=== PATIENT | male | born 1945 | race Caucasian/White ===

== ENCOUNTER 2016-08-11 06:43 | Outpatient (CLI) | payer MEDICARE, MEDICAID ==
[~2016-08-11] VITALS: Ht 177.8 cm; Wt 119.4 kg
[~2016-08-11 06:43] MED LIST: ACTOS15 MG PO; ALBU8.5H2 IH; ALBU8.5H2 INH; ALBU8.5H4 IH; ALLP100T PO; AZIT-21 PO; BUDE6HFA INH; CEFD300C PO; CEPH500C PO; CITA-105 PO; CITA40TA19 PO; CLIN300C3 PO; CTLP20T PO; CYCL10TA9 PO; DCS100C PO; DOXA4TAB2 PO; ENOX100D9 SQ; FENTANYL PATCH; FISH OIL 1,2001 EAC1 PO; FOLI0.8T PO; FURO40TA4 PO; GABA-488 PO; GABA100T PO; GABA300C PO; GABA300T PO; GFCD10B PO; GFN600TCR PO; GLIP5TAB13 PO; HCT25T PO; IBUP-30 PO; INDO-12 PO; INDO25CA PO; INDO50CA PO; LACTAID9000 UNIT PO; LEVO150T6 PO; LEVO175T3 PO; LEVO750T24 PO; LEVO750T6 PO; LISI10TA2 PO; LISI2.5T56 PO; LISI5TAB PO; LTN005OP2 OU; LVT.05T PO; LVT.1T PO; MAGN-47 PO; MELO7.5T PO; METAMUCIL POWD283 GM PO; METO25TA PO; MNTL10T PO; MONT10TA21 PO; MONT10TA24 PO; OMEP20CA12 PO; OMG1KC PO; OXC10TCR PO; OXYC-188 PO; OXYC10TA8 PO; OXYC15TA73 PO; OXYC1TAB92 PO; OXYC20TA63 PO; PIOG15TA22 PO; POTA10CA43 PO; POTA10TA36 PO; PRAV40TA PO; PRD20T PO; PRED20TA PO; PSYL1PAC15 PO; SIMV20TA3 PO; SULF-222 PO; SULF1TAB38 PO; TMSL.4C PO; VIT D; VITAMIN D2 PO; WARF2TAB6 PO; WARF5TAB PO; WARF6TAB PO; WARF7.5T PO; WRF2.5T PO; WRF5T PO; [UNRECOGNIZED DRUG - OTHER]
== END 2016-08-11 13:26 ==
LOC: PREOP 06:43
PROVIDERS: ATTEND Surgery
DX: Z01.818 Encounter for other preprocedural examination (principal); K62.5 Hemorrhage of anus and rectum

== ENCOUNTER 2016-08-15 09:32 | Day surgery (SDC) | payer MEDICARE, MEDICAID ==
[~2016-08-15] VITALS: Ht 177.8 cm; Wt 119.4 kg
[2016-08-15] MEDS ORDERED: NS IV 500 ML 500 ML ONE (09:48)
[2016-08-15 10:00] VITALS: BP 159/105
[2016-08-15] MEDS ORDERED: NS IV 500 ML 500 ML IV ONE (10:00)
[2016-08-15] MEDS ORDERED: fentaNYL INJECTION 100 MCG/2 ML AMP ONE (10:02)
[2016-08-15] MEDS ORDERED: MIDAZOLAM 2 MG/2 ML (VERSED) VIAL ONE ×2 (10:02)
--- NOTE | 2016-08-15 10:06 | Pre-Op Note & Conscious Sedat ---
Pre-Operative Progress Note H&P Reviewed The H&P was reviewed, patient examined and no changes noted. Date H&P Reviewed: Aug 15, 2016 Time H&P Reviewed: 10:05 Pre-Op Diagnosis: rectal bleeding Conscious Sedation Pre-Proced ASA Class: 3 Airway Mallampati Classification: ([place] appropriate class) I. II. III, IV Lungs Heart ASA score ASA 1: a normal healthy patient ASA 2: a patient with a mild systemic disease (mid diabetes, controlled hypertension, obesity ASA 3: a patient with a severe systemic disease that limits activity (angina , COPD, prior Myocardial infarction) ASA 4: a patient with an incapacitating disease that is a constant threat to life (CHF, renal failure) ASA 5: a moribund patient not expected to survive 24 hrs. (ruptured aneurysm) ASA 6: a declared brain patient whose organs are being harvested. For emergent operations, add the letter E after the classification Grade 2 Sedation Plan: Discussed options with patient/fam Note The patient is an appropriate candidate to undergo the planned procedure, sedation, and anesthesia. The patient immediately re-assessed prior to indication. CECILLE CALDERÓN MD Aug 15, 2016 10:05 am
[2016-08-15] MEDS: fentaNYL INJECTION 100 MCG/2 ML AMP IVP PRN ×2 (10:25→10:32)
[2016-08-15] MEDS: MIDAZOLAM 10 MG/2 ML (VERSED) VIAL IVP PRN ×2 (10:27→10:34)
--- NOTE | 2016-08-15 10:57 | Progress Note-Post Operative ---
Post-Operative Progess Note Pre-Operative Diagnosis rectal bleeding Post-Operative Diagnosis iinternal hemorrhoids and very few sigmoid diverticula Post-Op Procedure Note Date of Procedure: Aug 15, 2016 Name of Procedure: ccolonoscopy to cecum Anesthesia Type sedation CECILLE CALDERÓN MD Aug 15, 2016 10:57 am
--- NOTE | 2016-08-15 10:59 | Discharge Inst-Simple/Standard ---
Discharge Inst-Standard Discharge Medications New, Converted or Re-Newed RX: Other Patient Instructions/Follow Up Plan of Care/Instructions/FU: follow up with his primary Activity as Tolerated: Yes Discharge Diet: No Restrictions CECILLE CALDERÓN MD Aug 15, 2016 10:58 am
[2016-08-15 11:00] VITALS: BP 140/84
--- NOTE | 2016-08-15 11:17 | PROCEDURE REPORT ---
PROCEDURE PHYSICIAN: CECILLE CALDERÓN DATE OF PROCEDURE: 08/15/2016 PROCEDURE: Colonoscopy. SURGEON: Ernie INDICATION FOR THE PROCEDURE: This gentleman came in for colonoscopy to evaluate heme-positive stools. Informed consent was obtained after reviewing the procedure in detail. DESCRIPTION OF PROCEDURE: He was placed in left lateral decubitus position and his vital signs were monitored. Conscious sedation was achieved using Versed and fentanyl. Digital rectal examination was unremarkable. The colonoscope was then introduced into the rectum and advanced all the way up to the cecum. The scope was then withdrawn slowly and the mucosa examined in a systematic fashion. FINDINGS: 1. Internal hemorrhoids rather mild severity. 2. Very few sigmoid diverticulae. 3. No polyps were found. He tolerated the procedure well and was taken back to the nursing area in a stable condition. IMPRESSION: 1. Heme positive stools. 2. No polyps. 3. Internal hemorrhoids on exam. Job ID: [id number] Dictated Date: 08/15/2016 10:56:30 Carpenter Inspector Date: 08/15/2016 11:13:12 / mariam CULVER
[2016-08-15 11:30] VITALS: BP 141/81
[2016-08-15] MEDS ORDERED: FLUMAZENIL (ROMAZICON) 0.1 MG/ML 5 ML VIAL INJ PRN (11:30)
[2016-08-15] MEDS ORDERED: fentaNYL INJECTION 100 MCG/2 ML AMP IVP PRN (11:30)
[2016-08-15] MEDS ORDERED: NALOXONE 0.4 MG/ML 1 ML (NARCAN) VIAL IVP PRN (11:30)
[2016-08-15] MEDS ORDERED: MIDAZOLAM 2 MG/2 ML (VERSED) VIAL IVP PRN (11:30)
[2016-08-15 11:55] VITALS: BP 141/81
== END 2016-08-15 11:55 | disposition home or self-care (01) ==
LOC: SDC 09:32
PROVIDERS: ATTEND Surgery
DX: K64.8 Other hemorrhoids (principal); R19.5 Other fecal abnormalities; K57.90 Diverticulosis of intestine, part unspecified, without perforation or abscess without bleeding; I10 Essential (primary) hypertension; F32.9 Major depressive disorder, single episode, unspecified; E03.9 Hypothyroidism, unspecified; M10.9 Gout, unspecified; E11.9 Type 2 diabetes mellitus without complications; K62.5 Hemorrhage of anus and rectum
CPT/HCPCS: 82962

== ENCOUNTER → 2016-11-28 | Outpatient (CLI) | payer MEDICARE, MEDICAID ==
--- NOTE | 2016-11-28 18:59 | Diagnostic Imaging Report ---
PROCEDURE: US left lower extremity venous. TECHNIQUE: Multiple real-time grayscale images were obtained over the left lower extremity in various projections. Additional duplex Doppler and color Doppler images were also obtained. DATE: November 28, 2016. INDICATION: 71-year-old male, lower extremity edema. COMPARISON: March 22, 2010. FINDINGS: The left common femoral vein, superficial femoral vein, and deep femoral vein are patent. The left popliteal vein is patent. The left posterior tibial vein is patent. The left peroneal vein is not well demonstrated. IMPRESSION: 1. Negative for left lower extremity deep venous thrombosis. Dictated by: Dictated on workstation # [id number]
== END ==
LOC: RAD 18:09
PROVIDERS: ATTEND Nurse Practitioner Family
DX: R60.9 Edema, unspecified (principal)

== ENCOUNTER 2017-02-21 13:16 | Emergency (ER) | payer MEDICARE, MEDICAID ==
[~2017-02-21] VITALS: Ht 177.8 cm; Wt 119.4 kg
--- NOTE | 2017-02-21 13:31 | ED General ---
General Chief Complaint: Dizziness/Syncope Stated Complaint: SOB,DIZZINESS Source of Information: Patient Exam Limitations: No Limitations History of Present Illness Time Seen by Provider: 13:28 Initial Comments To ER complaint by his with dizziness and shortness of breath. Patient states that he has had the dizziness intermittent late for many years worse than usual today. This caused him to fall 3 times at home this morning. He denies any unilateral weakness. states that he seems to be talking with a and "thick tongue" since sometime this morning but she cannot recall an exact time. Patient states he "sometimes has this" thick tongue like speech. 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 He denies chest pain. Timing/Duration: 1-2 Days Severity: Moderate Allergies and Home Medications Allergies Coded Allergies: No Known Drug Allergies (Unverified , 01/22/10) Home Medications Albuterol 8.5 Gm Hfa.aer.ad, 2 PUFF IH RTQ4HR PRN for SHORTNESS OF BREATH, #1 Ref 0 1 PUFFS Prescribed by: IMAN BATES on 02/23/15 1628 Budesonide/Formoterol Fumarate 10.2 Gm Hfa.aer.ad, 2 PUFF INH HS, (Reported) Citalopram Hydrobromide 40 Mg Tablet, 40 MG PO DAILY, (Reported) Cyclobenzaprine Hcl 10 Mg Tablet, 10 MG PO Q8H, (Reported) Docusate Sodium 100 Mg Capsule, 400 MG PO BID, (Reported) TAKES 4 (100MG) CAPSULES TWICE DAIILY Furosemide 40 Mg Tablet, 40 MG PO DAILY, #0 Prescribed by: RONALD KAM on 12/11/13 1056 Gabapentin 300 Mg Capsule, 300 MG PO BID, (Reported) Glipizide 5 Mg Tablet, 2.5 MG PO BID, (Reported) TAKES 1/2 (5MG) TABLET TWICE DAILY Lactase 9,000 Unit Tab.chew, 3 TAB PO PRN, (Reported) TAKES 3 TABLETS BEFORE EATING ANY DAIRY PRODUCTS Levothyroxine Sodium 175 Mcg Tablet, 175 MCG PO DAILY, (Reported) Metoprolol Succinate 25 Mg Tab.sr.24h, 25 MG PO HS, (Reported) Montelukast Sodium 10 Mg Tablet, 10 MG PO HS, (Reported) Montelukast Sodium 10 Mg Tablet, 10 MG PO DAILY, (Reported) Pravastatin Sodium 40 Mg Tablet, 40 MG PO HS, (Reported) Warfarin Sodium 7.5 Mg Tablet, 7.5 MG PO DAILY, (Reported) [Fentanyl Patch] , EVERY 3 DAYS, (Reported) [cholchicine] , 0.6 MG BID, (Reported) Constitutional: see HPI EENTM: see HPI Respiratory: no symptoms reported Cardiovascular: no symptoms reported Genitourinary: no symptoms reported Musculoskeletal: no symptoms reported Skin: no symptoms reported Psychiatric/Neurological: No Symptoms Reported Hematologic/Lymphatic: No Symptoms Reported Past Zbktswa-Kymkqx-Ugaepw Hx Patient Social History Recent Hopitalizations: No Immunizations Up To Date Tetanus Booster (TDap): More than 5yrs Date of Pneumonia Vaccine: Aug 14, 2007 Date of Influenza Vaccine: May 07, 2016 Seasonal Allergies Seasonal Allergies: No Surgeries HX Surgeries: Yes ( HIATAL HERNIA REPAIR, TURP, danelle filter, bilat CTR and thumb sx) Surgeries: Appendectomy, Gallbladder, Orthopedic, Tonsillectomy Respiratory Hx Respiratory Disorders: Yes Respiratory Disorders: Asthma, Pneumonia, Chronic Bronchitis Cardiovascular Hx Cardiac Disorders: Yes Cardiac Disorders: Deep Vein Thrombosis, Hypertension Neurological Hx Neurological Disorders: No Reproductive System Hx Reproductive Disorders: No Sexually Transmitted Disease: No HIV/AIDS: No Genitourinary Hx Genitourinary Disorders: Yes (BPH) Genitourinary Disorders: Benign Prostatic Hyperpl Gastrointestinal Hx Gastrointestinal Disorders: Yes (rectal bleeding) Gastrointestinal Disorders: Chronic Constipation, Chronic Diarrhea, Hiatal Hernia Musculoskeletal Hx Musculoskeletal Disorders: Yes Musculoskeletal Disorders: Arthritis, Chronic Back Pain, Gout Endocrine Hx Endocrine Disorders: Yes Endocrine Disorders: Hypothyroidsim, Diabetes, Non-Insulin dep HEENT HX ENT Disorders: Yes HEENT Disorders: Glaucoma Hearing Impairment: Hard of Hearing Cancer Hx Cancer: No Psychosocial Hx Psychiatric Problems: Yes Behavioral Health Disorders: Depression Integumentary HX Skin/Integumentary Disorder: No Blood Transfusions Hx Blood Disorders: No Family Medical History Significant Family History: No Pertinent Family Hx Family Medial History: Cancer Chest pain Family history: Alzheimer's disease Family history: Arthritis Family history: Asthma Family history: Cardiovascular disease Family history: Coronary thrombosis Family history: Diabetes mellitus Family history: Hypertension Family history: Thyroid disorder Hearing loss Heart disease History of - respiratory disease Myocardial infarction Stroke Visual impairment No Family History of: Abdominal aortic aneurysm Gil's disease Alcoholism Aphasia Cancer of colon Cataract Congenital heart disease Congestive heart failure Cystic fibrosis Dementia Dysphagia Family history: Allergy Family history: Breast disease Family history: Gastrointestinal disease Family history: Glaucoma Family history: Osteoporosis Headache Hereditary disease History of - anemia History of - disorder History of drug abuse Human immunodeficiency virus (HIV) seropositivity Hypercholesterolemia Infertile Kidney disease Malignant neoplasm of lung Parkinson's disease Prostate cancer Psychotic disorder Seizure disorder Tuberculosis Physical Exam Vital Signs Vital Sign - Last 12Hours 02/21/17 13:19 Temp 98.9 Pulse 87 Resp 8 B/P (MAP) 150/93 Pulse Ox 97 O2 Delivery Room Air Capillary Refill : General Appearance: No Apparent Distress, WD/WN Eyes: Bilateral Eye EOMI, Bilateral Eye Normal Inspection, Bilateral Eye Other (no nystagmus), Bilateral Eye PERRL HEENT: PERRL/EOMI, TMs Normal Respiratory: No Accessory Muscle Use, No Respiratory Distress Cardiovascular: Regular Rate, Rhythm, Normal Peripheral Pulses Gastrointestinal: Non Tender, Soft, Other (he does have significantly engorged superficial abdominal veins--would suspect an IVC filter thrombus) Extremity: Normal Capillary Refill, Normal Inspection, Normal Range of Motion, Other (swelling with venous stasis to BLE) Neurologic/Psychiatric: Alert, Oriented x3, No Motor/Sensory Deficits Skin: Normal Color, Warm/Dry Progress/Results/Core Measures Results/Orders Lab Results Laboratory Tests Test 02/21/17 13:25 Range/Units White Blood Count 10.1 4.3-11.0 10^3/uL Red Blood Count 4.90 4.35-5.85 10^6/uL Hemoglobin 13.7 13.3-17.7 G/DL Hematocrit 44 40-54 % Mean Corpuscular Volume 91 80-99 FL Mean Corpuscular Hemoglobin 28 25-34 PG Mean Corpuscular Hemoglobin Concent 31 L 32-36 G/DL Red Cell Distribution Width 15.3 H 10.0-14.5 % Platelet Count 233 130-400 10^3/uL Mean Platelet Volume 9.6 7.4-10.4 FL Neutrophils (%) (Auto) 56 42-75 % Lymphocytes (%) (Auto) 25 12-44 % Monocytes (%) (Auto) 12 0-12 % Eosinophils (%) (Auto) 6 0-10 % Basophils (%) (Auto) 1 0-10 % Neutrophils # (Auto) 5.7 1.8-7.8 X 10^3 Lymphocytes # (Auto) 2.5 1.0-4.0 X 10^3 Monocytes # (Auto) 1.2 H 0.0-1.0 X 10^3 Eosinophils # (Auto) 0.6 H 0.0-0.3 10^3/uL Basophils # (Auto) 0.1 0.0-0.1 10^3/uL Prothrombin Time 17.1 H 12.2-14.7 SEC INR Comment 1.4 0.8-1.4 Sodium Level 141 135-145 MMOL/L Potassium Level 4.6 3.6-5.0 MMOL/L Chloride Level 109 H 98-107 MMOL/L Carbon Dioxide Level 24 21-32 MMOL/L Anion Gap 8 5-14 MMOL/L Blood Urea Nitrogen 17 7-18 MG/DL Creatinine 1.25 0.60-1.30 MG/DL Estimat Glomerular Filtration Rate 57 BUN/Creatinine Ratio 14 Glucose Level 121 H 70-105 MG/DL Calcium Level 8.8 8.5-10.1 MG/DL Total Bilirubin 0.4 0.1-1.0 MG/DL Aspartate Amino Transf (AST/SGOT) 23 5-34 U/L Alanine Aminotransferase (ALT/SGPT) 22 0-55 U/L Alkaline Phosphatase 105 40-136 U/L Troponin I < 0.30 <0.30 NG/ML B-Type Natriuretic Peptide 67.7 <100.0 PG/ML Total Protein 7.3 6.4-8.2 GM/DL Albumin 3.9 3.2-4.5 GM/DL My Orders Orders - JERRI BENZ APRN Cbc With Automated Diff (02/21/17 13:27) Protime With Inr (02/21/17 13:27) Comprehensive Metabolic Panel (02/21/17 13:27) Troponin I (02/21/17 13:27) Continuous Ekg Monitoring (02/21/17 13:27) Chest 1 View, Ap/Pa Only (02/21/17 13:27) Ct Head Wo (02/21/17 13:27) Meclizine Tablet (Antivert Tablet) (02/21/17 13:45) Iohexol Injection (Omnipaque 350 Mg/Ml 1 (02/21/17 13:45) Sodium Chloride Flush (Catheter Flush Sy (02/21/17 13:45) Ns (Ivpb) (Sodium Chloride 0.9% Ivpb Bag (02/21/17 13:45) Ua Culture If Indicated (02/21/17 13:53) BNP (02/21/17 14:11) Medications Given in ED Current Medications Medications Dose Ordered Sig/Parveen Route Start Time Stop Time Status Last Admin Dose Admin Meclizine HCl 25 mg ONCE ONCE PO 02/21/17 13:45 02/21/17 13:46 DC 02/21/17 14:10 25 MG Vital Signs/I&O Vital Sign - Last 12Hours 02/21/17 13:19 Temp 98.9 Pulse 87 Resp 8 B/P (MAP) 150/93 Pulse Ox 97 O2 Delivery Room Air Diagnostic Imaging Diagonstic Imaging: CT Comments NAME: THERESE ANG [facility] REC#: [id number] PT STATUS: REG ER : 1945 PHYSICIAN: JERRI BENZ APRN ADMIT DATE: 02/21/17/ER Draft Date of Exam:02/21/17 CT HEAD WO INDICATION: Confusion. Headache. TECHNIQUE: Routine non contrast-enhanced axial images were obtained from the skull base to the vertex. COMPARISON: 12/08/2013 FINDINGS: The ventricles and cortical sulci are diffusely prominent, compatible with age-related volume loss. There are confluent areas of abnormal, low attenuation in the periventricular white matter. This is consistent with chronic small vessel ischemic changes. There is no midline shift or mass-effect. No acute intra-axial hemorrhage is seen. There are no abnormal areas of increased or decreased density to suggest acute hemorrhage or edema. No extra-axial masses or collections are present. The bony calvarium is intact. The visualized paranasal sinuses show mild scattered mucosal thickening. The mastoid air cells are clear. IMPRESSION: 1. No acute intracranial abnormality. No CT evidence of mass, acute infarct or intracranial hemorrhage. 2. Chronic small vessel ischemic changes in the deep white matter. Dictated on workstation # [id number] Dict: 02/21/17 1358 Trans: 02/21/17 1402 DELTA [id number] Interpreted by: GIO LUKE Electronically signed by: Departure Communication Progress Notes 1455-40 minutes after being given meclizine patient is ambulatory without dizziness. Impression Impression: Primary Impression: Vertigo Disposition: 01 HOME, SELF-CARE Condition: Stable Departure-Patient Inst. Decision time for Depature: 14:55 Referrals: ZAN CARRENO DO (PCP) Primary Care Physician TANNA NIELSEN (Family) Primary Care Physician Patient Instructions: Vertigo (a Type of Dizziness) (DC) Add. Discharge Instructions: 1. Return to ER for any concerns 2. See your doctor next week 3. All discharge instructions reviewed with patient and/or family. Voiced understanding. Scripts Meclizine HCl (Meclizine HCl) 25 Mg Tab.chew 25 MG PO BID Y for ANXIETY, #10 TAB Prov: JERRI BENZ RUBBER PRESS TENDER 02/21/17 JERRI BENZ RUBBER PRESS TENDER Feb 21, 2017 13:31
[2017-02-21 13:33] LABS: BASOPHILS # (AUTO) 0.1 10^3/uL (0.0-0.1); BASOPHILS % (AUTO) 1 % (0-10); EOSINOPHILS # (AUTO) 0.6 10^3/uL (0.0-0.3); EOSINOPHILS % (AUTO) 6 % (0-10); LYMPHOCYTES # (AUTO) 2.5 X 10^3 (1.0-4.0); LYMPHOCYTES % (AUTO) 25 % (12-44); MEAN CORPUSCULAR HEMOGLOBIN 28 PG (25-34); MEAN CORPUSCULAR HGB CONC 31 G/DL (32-36); MEAN CORPUSCULAR VOLUME 91 FL (80-99); MEAN PLATELET VOLUME 9.6 FL (7.4-10.4); MONOCYTES # (AUTO) 1.2 X 10^3 (0.0-1.0); MONOCYTES % (AUTO) 12 % (0-12); NEUTROPHILS # (AUTO) 5.7 X 10^3 (1.8-7.8); NEUTROPHILS % (AUTO) 56 % (42-75); PLATELET COUNT 233 10^3/uL (130-400); RED CELL DISTRIBUTION WIDTH 15.3 % (10.0-14.5); WHITE BLOOD COUNT 10.1 10^3/uL (4.3-11.0)
[2017-02-21 13:43] LABS: INR 1.4 (0.8-1.4); PROTHROMBIN TIME PATIENT 17.1 SEC (12.2-14.7)
--- NOTE | 2017-02-21 13:43 | Diagnostic Imaging Report ---
Portable upright radiograph of the chest. INDICATION: Shortness of breath and dizziness. FINDINGS: There are bibasilar curvilinear opacities favored to be atelectasis. The heart size is normal for an AP portable view. There is no effusion or pneumothorax. The mediastinum and vinh appear unremarkable. IMPRESSION: Mild bibasilar opacities favored to be atelectasis. Dictated by: Dictated on workstation # [id number]
[2017-02-21] MEDS ORDERED: CATHETER FLUSH 10 ML SYR IV PRN (13:45)
[2017-02-21] MEDS ORDERED: NS 100 ML (IVPB) BAG IV ONE (13:45)
[2017-02-21] MEDS ORDERED: IOHEXOL 350 MG/ML 100 ML (OMNIPAQUE 350) VIAL IV ONE (13:45)
[2017-02-21] MEDS ORDERED: MECLIZINE 25 MG (ANTIVERT) TAB PO ONE (13:45)
[2017-02-21 13:51] LABS: ALANINE AMINOTRANSFERASE 22 U/L (0-55); ALBUMIN 3.9 GM/DL (3.2-4.5); ANION GAP 8 MMOL/L (5-14); ASPARTATE AMINO TRANSFERASE 23 U/L (5-34); BILIRUBIN,TOTAL 0.4 MG/DL (0.1-1.0); BLOOD UREA NITROGEN 17 MG/DL (7-18); BUN/CREATININE RATIO 14; CALCIUM 8.8 MG/DL (8.5-10.1); CARBON DIOXIDE 24 MMOL/L (21-32); CHLORIDE 109 MMOL/L (98-107); CREATININE SERUM 1.25 MG/DL (0.60-1.30); GFR ESTIMATED 57; GLUCOSE 121 MG/DL (70-105); POTASSIUM 4.6 MMOL/L (3.6-5.0); SODIUM 141 MMOL/L (135-145); TOTAL PROTEIN 7.3 GM/DL (6.4-8.2)
[2017-02-21 13:57] LABS: TROPONIN I < 0.30 NG/ML (<0.30)
--- NOTE | 2017-02-21 14:03 | Diagnostic Imaging Report ---
INDICATION: Confusion. Headache. TECHNIQUE: Routine non contrast-enhanced axial images were obtained from the skull base to the vertex. COMPARISON: 12/08/2013 FINDINGS: The ventricles and cortical sulci are diffusely prominent, compatible with age-related volume loss. There are confluent areas of abnormal, low attenuation in the periventricular white matter. This is consistent with chronic small vessel ischemic changes. There is no midline shift or mass-effect. No acute intra-axial hemorrhage is seen. There are no abnormal areas of increased or decreased density to suggest acute hemorrhage or edema. No extra-axial masses or collections are present. The bony calvarium is intact. The visualized paranasal sinuses show mild scattered mucosal thickening. The mastoid air cells are clear. IMPRESSION: 1. No acute intracranial abnormality. No CT evidence of mass, acute infarct or intracranial hemorrhage. 2. Chronic small vessel ischemic changes in the deep white matter. Dictated by: Dictated on workstation # [id number]
[2017-02-21] MEDS ORDERED: MECL-124 PO (14:58)
[2017-02-21 14:59] VITALS: BP 150/93
== END 2017-02-21 15:02 | disposition home or self-care (01) ==
LOC: EDUNIT# 13:16 → ER 13:19
DX: R42 Dizziness and giddiness (principal); N40.1 Benign prostatic hyperplasia with lower urinary tract symptoms; F32.9 Major depressive disorder, single episode, unspecified; I10 Essential (primary) hypertension; J44.9 Chronic obstructive pulmonary disease, unspecified; E03.9 Hypothyroidism, unspecified; E11.9 Type 2 diabetes mellitus without complications; M19.90 Unspecified osteoarthritis, unspecified site; Z82.49 Family history of ischemic heart disease and other diseases of the circulatory system; Z87.19 Personal history of other diseases of the digestive system; Z86.718 Personal history of other venous thrombosis and embolism; Z79.01 Long term (current) use of anticoagulants; Z79.84 Long term (current) use of oral hypoglycemic drugs
CPT/HCPCS: 36415; 70450; 71010; 80053; 83880; 84484; 85025; 85610; 99283

== ENCOUNTER → 2018-03-07 | Outpatient (CLI) | payer MEDICARE, MEDICAID ==
[~2018-03-07] MED LIST changes: +CATHETER FLUSH 10 ML SYR IV PRN; +MECL-124 PO; +REGADENOSON 0.4 MG/5 ML SYR (LEXISCAN) IV ONE
[2018-03-07 13:23] VITALS: BP 162/86
[2018-03-07 13:29] VITALS: BP 137/72
--- NOTE | 2018-03-07 18:43 | STRESS TEST ---
DATE OF SERVICE: 03/07/2018 LEXISCAN MYOVIEW STRESS TEST REPORT REFERRING PHYSICIAN: Dr. Anca Collins, [facility]. Baseline heart rate is 63. Baseline blood pressure 162/86. Baseline EKG is sinus rhythm with no ischemic changes with right bundle branch block. SUMMARY: The patient was injected with 10.39 mCi of technetium-99 Myoview and the resting images were obtained. Then, the patient received 0.4 mg of Lexiscan followed by 29.9 mCi of technetium-99 Myoview. Throughout the test, there were no EKG changes. The resting and stress images were reviewed and compared in the short axis, horizontal long axis, and vertical long axis views. Review of the images showed increased gastric uptake affecting the quality of the images. There is no significant ischemia noted. SSS is 2, SDS 2, TID value 1.15. On the gated images, the left ventricle appeared to be in normal size with normal contractility, calculated ejection fraction 53%. CONCLUSION: 1. The patient tolerated Lexiscan well. 2. Gastric attenuation affecting the quality of the images. There is no significant ischemia or infarction on SPECT images. 3. Normal left ventricular size with normal contractility. Calculated ejection fraction 53%. Job ID: [id number] DocumentID: [id number] Dictated Date: 03/07/2018 15:51:32 Engine Room Operator Date: 03/07/2018 18:42:25 Dictated By: THU VINCENT MD
== END ==
LOC: CARD 10:59
PROVIDERS: ATTEND Internal Medicine Cardiovascular Disease
DX: I25.10 Atherosclerotic heart disease of native coronary artery without angina pectoris (principal); R07.9 Chest pain, unspecified; R06.00 Dyspnea, unspecified; I10 Essential (primary) hypertension; E78.5 Hyperlipidemia, unspecified; I08.3 Combined rheumatic disorders of mitral, aortic and tricuspid valves
CPT/HCPCS: 78452; 93017; 93306

== ENCOUNTER 2018-07-05 13:00 | Outpatient (RCR) | payer MEDICARE, MEDICAID ==
[~2018-07-05 13:00] MED LIST changes: -CATHETER FLUSH 10 ML SYR IV PRN; -REGADENOSON 0.4 MG/5 ML SYR (LEXISCAN) IV ONE
== END 2018-07-05 17:00 | disposition home or self-care (01) ==
PROVIDERS: ATTEND Nurse Practitioner Community Health
DX: M54.5 Low back pain (principal)

== ENCOUNTER → 2019-04-09 | Outpatient (CLI) | payer MEDICARE, MEDICAID | LOC: LAB 17:01 | PROVIDERS: ATTEND Surgery | DX: R19.7 Diarrhea, unspecified (principal) | CPT/HCPCS: 87015; 87045; 87046; 87324; 87328; 87329; 87449; 87899 ==

== ENCOUNTER 2019-04-24 14:30 | Outpatient (CLI) | payer MEDICARE, MEDICAID ==
[~2019-04-24] VITALS: Ht 177 cm; Wt 98.6 kg
[2019-04-26] MEDS ORDERED: PRAV40TA2 PO (11:37)
[2019-04-26] MEDS ORDERED: SERT50TA9 PO (11:37)
[2019-04-26] MEDS ORDERED: GABA-488 PO (11:37)
[2019-04-26] MEDS ORDERED: FENT1PAT59 TD (11:37)
[2019-04-26] MEDS ORDERED: COLC0.6T53 PO (11:37)
[2019-04-26] MEDS ORDERED: RIVA20TA PO (11:37)
[2019-04-26] MEDS ORDERED: BUDE10.2 IH (11:37)
[2019-04-26] MEDS ORDERED: DONE5TAB30 PO (11:37)
[2019-04-26] MEDS ORDERED: LEVO150T6 PO (11:37)
[2019-04-26] MEDS ORDERED: MONT10TA24 PO (11:37)
[2019-04-26] MEDS ORDERED: TRIA15CR TP (11:37)
[2019-04-26] MEDS ORDERED: METO-387 PO (11:37)
== END 2019-04-26 11:44 | disposition home or self-care (01) ==
LOC: PREOP 14:30
PROVIDERS: ATTEND Surgery
DX: Z01.818 Encounter for other preprocedural examination (principal)

== ENCOUNTER 2019-04-29 09:33 | Day surgery (SDC) | payer MEDICARE, MEDICAID ==
[2019-04-29] VITALS (7 sets, daily range): BP systolic 94–145; BP diastolic 57–79
[~2019-04-29] VITALS: Ht 177 cm; Wt 98.6 kg
[~2019-04-29 09:33] MED LIST changes: +BUDE10.2 IH; +COLC0.6T53 PO; +DONE5TAB30 PO; +FENT1PAT59 TD; +LACTATED RINGERS 1,000 ML IV ONE; +METO-387 PO; +PRAV40TA2 PO; +RIVA20TA PO; +SERT50TA9 PO; +TRIA15CR TP
[2019-04-29] MEDS ORDERED: LACTATED RINGERS 1,000 ML IV STA (09:46)
[2019-04-29] MEDS ORDERED: HURRICAINE EXT TUBE (BENZOCAINE) XX PRN (10:00)
--- NOTE | 2019-04-29 10:05 | Progress Note-Pre Operative ---
Pre-Operative Progress Note H&P Reviewed The H&P was reviewed, patient examined and no changes noted. Time Seen by Provider: 10:03 Date H&P Reviewed: Apr 29, 2019 Time H&P Reviewed: 10:04 Pre-Operative Diagnosis: Abd pain, weight loss, diarrhea SARA BHAT DO Apr 29, 2019 10:05
[2019-04-29] MEDS ORDERED: OXYC-464 PO (10:13)
[2019-04-29] MEDS ORDERED: PROPOFOL INJECTION 50 ML IV ONE (11:07)
--- NOTE | 2019-04-29 12:16 | Progress Note-Post Operative ---
Post-Operative Progess Note Surgeon (s)/Health Professor (s) Surgeon SARA BHAT DO Health Professor: none Pre-Operative Diagnosis Abd pain, weight loss, diarrhea Post-Operative Diagnosis Gastritis Hiatal Hernia Esophagitis Colitis Polyps diverticula internal hemorrhoids Procedure & Operative Findings Date of Procedure 04/29/19 Procedure Performed/Findings EGD with Bx colon with hot bx Anesthesia Type IV sedation by STONEMASON Estimated Blood Loss Estimated blood loss (mL): scant Specimens/Packing Specimens Removed antral bx body of stomach bx GE jxn bx Cecum bx Ascending colon polyp bx Transverse colon polyp bx SARA BHAT DO Apr 29, 2019 12:16
--- NOTE | 2019-04-29 12:18 | Endoscopy Discharge Instruct ---
Endo Procedure/Findings Findings 1.: Hiatal Hernia, Gastritis 2.: Polyp 3.: Diverticulosis 4.: Internal Hemorrhoids Discharge Instructions - Activity: You might feel a little sleepy until tomorrow. This is due to the medicine you received to relax you. Until tomorrow, you should: NOT drive a car, operate machinery or power tools. NOT drink any alcoholic beverages. NOT make any important decisions or sign importortant papers. Do not return to work until tomorrow, unless otherwise instructed. Resume previous activities tomorrow. Diet: Start by taking liquids. If you tolerate liquids, advance to solid food. make an appointment for one week 1.: Colonscopy in 5 years, EGD in 1 year Notify Physician - If you experience excessive bleeding, unusual abdominal pain, fever, or chest pain, contact your doctor immediately. SARA BHAT DO Apr 29, 2019 12:17
--- NOTE | 2019-04-29 12:44 | Anesthesia-General Post-Op ---
MAC Patient Condition Mental Status/LOC: Same as Preop Cardiovascular: Satisfactory Nausea/Vomiting: Absent Respiratory: Satisfactory Pain: Controlled Complications: Absent Post Op Complications Complications None Follow Up Care/Instructions Patient Instructions None needed. Anesthesiology Discharge Order Discharge Order Patient is doing well, no complaints, stable vital signs, no apparent adverse anesthesia problems. No complications reported per nursing. CORRINE BRYANT CRNA Apr 29, 2019 12:44
[2019-04-29] MEDS ORDERED: HURRICAINE EXT TUBE (BENZOCAINE) ONE (13:29)
--- NOTE | 2019-04-30 01:27 | OPERATIVE REPORT ---
DATE OF SERVICE: PREOPERATIVE DIAGNOSES: Abdominal pain and weight loss. POSTOPERATIVE DIAGNOSES: 1. Gastritis, hiatal hernia, esophagitis. 2. Colitis. 3. Colon polyps. 4. Diverticula. 5. Internal hemorrhoids. PROCEDURES: 1. EGD with biopsy. 2. Colonoscopy with hot biopsy. SURGEON: Jamie Alvarez DO. CHIEF MERCHANDISING OFFICER: None. ANESTHESIA: IV sedation by the ENGINE LATHE TENDER. SPECIMEN: Biopsy of the antrum, biopsy of body of stomach and biopsy of the GE junction as well as one biopsy of the ascending colon polyp, one biopsy of the transverse colon polyp. BLOOD LOSS: Scant. FLUIDS: Per anesthesia. POSTOPERATIVE CONDITION: Stable. INDICATION FOR PROCEDURE: The patient is a 73-year-old male who has been having abdominal pain and weight loss, needed a workup. FINDINGS: The patient had some pretty severe gastritis in the stomach. He also had hiatal hernia and esophagitis and in the colon noted to have some colitis in the cecum as well as couple of polyps and diverticula and internal hemorrhoids. PROCEDURE NOTE: After informed consent was obtained, the patient was brought to the endoscopy suite and placed in the bed in left lateral decubitus position. He was administered IV sedation by the ENGINE LATHE TENDER who then monitored his vitals the entire time, heart rate, blood pressure and pulse ox and the scope was inserted down the mouth through the esophagus into the stomach. Upon entering the stomach, noted some gastritis, pushed into the duodenum, took a picture of this and then pulled back into the stomach, then did a biopsy of the antrum and then did a biopsy of body of stomach, retroflexed the scope, saw a small hiatal hernia, took a picture of this and then pulled the scope up into the esophagus at the GE junction, looked like there is some mild esophagitis and creeping up of the Z-line, did a biopsy here as well, suctioned the air out of the stomach and then pulled the scope up the esophagus and out the mouth. Switched scopes, switched gloves, went down below, started the colonoscopy. Pushed all the way into about 140 cm, able to get to the cecum, took a picture of appendiceal orifice, noted the ileocecal valve and cecum, looked like there is colitis that was red, almost inflamed tissue. Elected to do a biopsy here and then started withdrawing the scope insufflating to look circumferentially looking at the cecum, up the ascending colon. In the ascending colon, saw small flat polyp, I elected to do a hot biopsy here and then continued up to the hepatic flexure, then down the transverse colon and in the transverse colon, saw another small polyp, did another hot biopsy of this and continued down to the splenic flexure, then down the descending colon into the sigmoid colon and into the rectum, retroflexed in the rectal vault, saw some minimal internal hemorrhoids, took a picture of this throughout the sigmoid and descending colon, saw some diverticula, had taken pictures of this, removed the scope. The patient tolerated the procedure. He was recovered in endoscopy suite. Job ID: [id number] DocumentID: [id number] Dictated Date: 04/29/2019 17:32:30 Lidar Technician Date: 04/30/2019 01:26:44 Dictated By: JAMIE ALVAREZ DO
== END 2019-04-29 12:55 | disposition home or self-care (01) ==
LOC: ENDO 09:33
PROVIDERS: ATTEND Surgery
DX: K29.50 Unspecified chronic gastritis without bleeding (principal); D12.3 Benign neoplasm of transverse colon; D12.2 Benign neoplasm of ascending colon; K20.9 Esophagitis, unspecified; K44.9 Diaphragmatic hernia without obstruction or gangrene; K52.9 Noninfective gastroenteritis and colitis, unspecified; K57.30 Diverticulosis of large intestine without perforation or abscess without bleeding; K64.8 Other hemorrhoids; J44.9 Chronic obstructive pulmonary disease, unspecified; I25.10 Atherosclerotic heart disease of native coronary artery without angina pectoris; E78.5 Hyperlipidemia, unspecified; E11.22 Type 2 diabetes mellitus with diabetic chronic kidney disease; I12.9 Hypertensive chronic kidney disease with stage 1 through stage 4 chronic kidney disease, or unspecified chronic kidney disease; N18.9 Chronic kidney disease, unspecified; I65.29 Occlusion and stenosis of unspecified carotid artery; E66.9 Obesity, unspecified; Z68.31 Body mass index [BMI] 31.0-31.9, adult; Z80.3 Family history of malignant neoplasm of breast; Z83.3 Family history of diabetes mellitus; Z82.49 Family history of ischemic heart disease and other diseases of the circulatory system; Z82.3 Family history of stroke
CPT/HCPCS: 82962

== ENCOUNTER → 2019-10-29 | Outpatient (CLI) | payer MEDICARE, MEDICAID ==
[~2019-10-29] MED LIST changes: -LACTATED RINGERS 1,000 ML IV ONE; -METO-387 PO; +MONT10TA26 PO; +MTP25TSR PO; +OXYC-464 PO
== END ==
LOC: RAD 08:57
PROVIDERS: ATTEND Psychiatry & Neurology Neurology
DX: R53.1 Weakness (principal); R41.3 Other amnesia
CPT/HCPCS: 36415; 82607; 84436; 84443

== ENCOUNTER 2019-12-17 13:02 | Emergency (ER) | payer MEDICARE, MEDICAID ==
[~2019-12-17] VITALS: Ht 175 cm; Wt 98.6 kg
[2019-12-17] MEDS ORDERED: LIDOCAINE UROJET 2% GEL 10 ML PKG TOP ONE (14:00)
[2019-12-17 14:12] LABS: BASOPHILS % (AUTO) 0 % (0-10); EOSINOPHILS # (AUTO) 0.2 10^3/uL (0.0-0.3); EOSINOPHILS % (AUTO) 1 % (0-10); HEMATOCRIT 45 % (40-54); HEMOGLOBIN 14.5 G/DL (13.3-17.7); LYMPHOCYTES # (AUTO) 1.4 X 10^3 (1.0-4.0); LYMPHOCYTES % (AUTO) 12 % (12-44); MEAN CORPUSCULAR HEMOGLOBIN 29 PG (25-34); MEAN CORPUSCULAR HGB CONC 32 G/DL (32-36); MEAN CORPUSCULAR VOLUME 88 FL (80-99); MEAN PLATELET VOLUME 8.9 FL (7.4-10.4); MONOCYTES # (AUTO) 1.2 X 10^3 (0.0-1.0); MONOCYTES % (AUTO) 11 % (0-12); NEUTROPHILS # (AUTO) 8.2 X 10^3 (1.8-7.8); NEUTROPHILS % (AUTO) 75 % (42-75); PLATELET COUNT 215 10^3/uL (130-400); RED CELL DISTRIBUTION WIDTH 14.2 % (10.0-14.5); WHITE BLOOD COUNT 10.9 10^3/uL (4.3-11.0)
[2019-12-17 14:24] LABS: CHLORIDE 105 MMOL/L (98-107); POTASSIUM 4.1 MMOL/L (3.6-5.0); SODIUM 140 MMOL/L (135-145)
[2019-12-17 14:25] LABS: CALCIUM 9.3 MG/DL (8.5-10.1); INR 1.6 (0.8-1.4); PROTHROMBIN TIME PATIENT 19.8 SEC (12.2-14.7)
[2019-12-17 14:26] LABS: GLUCOSE 138 MG/DL (70-105)
[2019-12-17 14:27] LABS: CARBON DIOXIDE 24 MMOL/L (21-32)
[2019-12-17 14:28] LABS: BILIRUBIN,TOTAL 0.4 MG/DL (0.1-1.0)
[2019-12-17 14:29] LABS: ALKALINE PHOSPHATASE 75 U/L (40-136)
[2019-12-17 14:30] LABS: CREATININE SERUM 1.13 MG/DL (0.60-1.30); GFR ESTIMATED > 60
[2019-12-17 14:31] LABS: BUN/CREATININE RATIO 13
[2019-12-17 14:33] LABS: ALANINE AMINOTRANSFERASE 14 U/L (0-55)
--- NOTE | 2019-12-17 14:42 | ED GU-Female ---
General Chief Complaint: - Urinary Stated Complaint: BLOOD IN URINE Source: patient History of Present Illness Date Seen by Provider: December 17, 2019 Time Seen by Provider: 14:40 Initial Comments All to ER with reports of difficulty urinating onset this morning and blood in the urine onset this morning. This has happened before but it resolved on its own and he never sought care for it. No use of anticoagulants. No nausea no vomiting no fever no chills. She did have some loose stools but he attributed that to excessive stool softener use. Timing/Duration: this morning Severity/Quality: moderate Location: suprapubic Radiation: none Activities at Onset: none Prior Genitourinary Problems: none Associated Symptoms: dysuria Allergies and Home Medications Allergies Coded Allergies: No Known Drug Allergies (Unverified , 04/24/19) Home Medications Budesonide/Formoterol Fumarate 10.2 Gm Hfa.aer.ad, 2 PUFF IH BID, (Reported) Colchicine 0.6 Mg Tablet, 0.6 MG PO BID, (Reported) Donepezil HCl 5 Mg Tablet, 5 MG PO HS, (Reported) Fentanyl 1 Each Patch.td72, 75 MCG TD Q72H, (Reported) Gabapentin 300 Mg Capsule, 300 MG PO BID, (Reported) Levothyroxine Sodium 150 Mcg Tablet, 150 MCG PO DAILY, (Reported) Metoprolol Succinate 25 Mg Tab.er.24h, 25 MG PO DAILY, (Reported) Montelukast Sodium 10 Mg Tablet, 10 MG PO DAILY, (Reported) Oxycodone HCl/Acetaminophen 1 Each Tablet, 1 EACH PO Q6H PRN for PAIN-MODERATE, (Reported) Pravastatin Sodium 40 Mg Tablet, 40 MG PO DAILY, (Reported) Rivaroxaban 20 Mg Tablet, 20 MG PO DAILY, (Reported) Sertraline HCl 50 Mg Tablet, 50 MG PO DAILY, (Reported) Triamcinolone Acetonide 15 Gm Cream..g., 15 GM TP BID, (Reported) Patient Home Medication List Home Medication List Reviewed: Yes Review of Systems Review of Systems Constitutional: see HPI EENTM: see HPI Respiratory: no symptoms reported Cardiovascular: no symptoms reported Genitourinary: see HPI, dysuria, hematuria Musculoskeletal: no symptoms reported Skin: no symptoms reported Psychiatric/Neurological: No Symptoms Reported Endocrine: No Symptoms Reported Past Omkejkb-Eydigg-Hlpstg Hx Patient Social History 2nd Hand Smoke Exposure: No Recent Foreign Travel: No Contact w/Someone Who Travel: No Recent Hopitalizations: No Immunizations Up To Date Tetanus Booster (TDap): More than 5yrs Date of Pneumonia Vaccine: May 14, 2018 Date of Influenza Vaccine: May 14, 2018 Seasonal Allergies Seasonal Allergies: No Past Medical History Surgeries: Yes ( HIATAL HERNIA REPAIR, TURP, danelle filter, bilat CTR and thumb sx) Appendectomy, Gallbladder, Orthopedic, Tonsillectomy Respiratory: Yes Asthma, Pneumonia, Chronic Bronchitis Cardiac: Yes Deep Vein Thrombosis, Hypertension Neurological: No Reproductive Disorders: No Sexually Transmitted Disease: No HIV/AIDS: No Genitourinary: Yes Benign Prostatic Hyperpl Gastrointestinal: Yes (rectal bleeding) Chronic Constipation, Chronic Diarrhea, Hiatal Hernia Musculoskeletal: Yes Arthritis, Chronic Back Pain, Gout Endocrine: Yes Hypothyroidsim, Diabetes, Non-Insulin dep HEENT: No Glaucoma Loss of Vision: Denies Hearing Impairment: Denies, Hard of Hearing Cancer: No Psychosocial: Yes Depression Integumentary: No Blood Disorders: No Adverse Reaction/Blood Tranf: No (N/A) Family Medical History Cancer Chest pain Family history: Alzheimer's disease Family history: Arthritis Family history: Asthma Family history: Cardiovascular disease Family history: Coronary thrombosis Family history: Diabetes mellitus Family history: Hypertension Family history: Thyroid disorder Hearing loss Heart disease History of - respiratory disease Myocardial infarction Stroke Visual impairment No Family History of: Abdominal aortic aneurysm Clay's disease Alcoholism Aphasia Cancer of colon Cataract Congenital heart disease Congestive heart failure Cystic fibrosis Dementia Dysphagia Family history: Allergy Family history: Breast disease Family history: Gastrointestinal disease Family history: Glaucoma Family history: Osteoporosis Headache Hereditary disease History of - anemia History of - disorder History of drug abuse Human immunodeficiency virus (HIV) seropositivity Hypercholesterolemia Infertile Kidney disease Malignant neoplasm of lung Parkinson's disease Prostate cancer Psychotic disorder Seizure disorder Tuberculosis No Pertinent Family Hx Physical Exam Vital Signs Vital Signs - First Documented 12/17/19 13:45 Temp 36.5 Pulse 95 Resp 18 B/P (MAP) 163/105 (124) Pulse Ox 97 O2 Delivery Room Air Capillary Refill : Height, Weight, BMI Height: 5'10.00" Weight: 263lbs. 2.0oz. [id number]; 31.47 BMI Method:Stated General Appearance: WD/WN, no apparent distress, other (patient attempted to urinate upon arrival but was unable to do so. Just a few moments after that we did a bladder scan which revealed 433 ml in the bladder.) Neck: non-tender, full range of motion Respiratory: no respiratory distress, no accessory muscle use Gastrointestinal: normal bowel sounds, non tender, soft Extremities: normal range of motion, non-tender Neurologic/Psychiatric: alert, normal mood/affect, oriented x 3 Skin: normal color, warm/dry Progress/Results/Core Measures Suspected Sepsis SIRS Temperature: Pulse: Respiratory Rate: Laboratory Tests 12/17/19 14:04: White Blood Count 10.9 Blood Pressure / Mean: Laboratory Tests 12/17/19 14:04: Creatinine 1.13, INR Comment 1.6H, Platelet Count 215, Total Bilirubin 0.4 Results/Orders Lab Results Laboratory Tests Test 12/17/19 14:04 12/17/19 14:59 Range/Units White Blood Count 10.9 4.3-11.0 10^3/uL Red Blood Count 5.06 4.35-5.85 10^6/uL Hemoglobin 14.5 13.3-17.7 G/DL Hematocrit 45 40-54 % Mean Corpuscular Volume 88 80-99 FL Mean Corpuscular Hemoglobin 29 25-34 PG Mean Corpuscular Hemoglobin Concent 32 32-36 G/DL Red Cell Distribution Width 14.2 10.0-14.5 % Platelet Count 215 130-400 10^3/uL Mean Platelet Volume 8.9 7.4-10.4 FL Neutrophils (%) (Auto) 75 42-75 % Lymphocytes (%) (Auto) 12 12-44 % Monocytes (%) (Auto) 11 0-12 % Eosinophils (%) (Auto) 1 0-10 % Basophils (%) (Auto) 0 0-10 % Neutrophils # (Auto) 8.2 H 1.8-7.8 X 10^3 Lymphocytes # (Auto) 1.4 1.0-4.0 X 10^3 Monocytes # (Auto) 1.2 H 0.0-1.0 X 10^3 Eosinophils # (Auto) 0.2 0.0-0.3 10^3/uL Basophils # (Auto) 0.0 0.0-0.1 10^3/uL Prothrombin Time 19.8 H 12.2-14.7 SEC INR Comment 1.6 H 0.8-1.4 Sodium Level 140 135-145 MMOL/L Potassium Level 4.1 3.6-5.0 MMOL/L Chloride Level 105 98-107 MMOL/L Carbon Dioxide Level 24 21-32 MMOL/L Anion Gap 11 5-14 MMOL/L Blood Urea Nitrogen 15 7-18 MG/DL Creatinine 1.13 0.60-1.30 MG/DL Estimat Glomerular Filtration Rate > 60 BUN/Creatinine Ratio 13 Glucose Level 138 H 70-105 MG/DL Calcium Level 9.3 8.5-10.1 MG/DL Corrected Calcium 9.3 8.5-10.1 MG/DL Total Bilirubin 0.4 0.1-1.0 MG/DL Aspartate Amino Transf (AST/SGOT) 25 5-34 U/L Alanine Aminotransferase (ALT/SGPT) 14 0-55 U/L Alkaline Phosphatase 75 40-136 U/L Total Protein 8.0 6.4-8.2 GM/DL Albumin 4.0 3.2-4.5 GM/DL Urine Color YELLOW Urine Clarity CLEAR Urine pH 6.0 5-9 Urine Specific [place] <=1.005 1.016-1.022 Urine Protein NEGATIVE NEGATIVE Urine Glucose (UA) NEGATIVE NEGATIVE Urine Ketones NEGATIVE NEGATIVE Urine Nitrite NEGATIVE NEGATIVE Urine Bilirubin NEGATIVE NEGATIVE Urine Urobilinogen 0.2 < = 1.0 MG/DL Urine Leukocyte Esterase NEGATIVE NEGATIVE Urine RBC (Auto) 2+ H NEGATIVE Urine RBC RARE /HPF Urine WBC NONE /HPF Urine Squamous Epithelial Cells RARE /HPF Urine Crystals PRESENT H /LPF Urine Amorphous Sediment FEW ISHA URATES H /LPF Urine Bacteria NEGATIVE /HPF Urine Casts NONE /LPF Urine Mucus NEGATIVE /LPF Urine Culture Indicated NO My Orders Orders - JERRI BENZ APRN Cbc With Automated Diff (12/17/19 13:49) Comprehensive Metabolic Panel (12/17/19 13:49) Protime With Inr (12/17/19 13:49) Ua Culture If Indicated (12/17/19 13:49) Lidocaine 2% (Urojet) (Xylocaine Urojet) (12/17/19 14:00) Valderrama Cath (12/17/19 14:43) Ct Abd/Pelvis Wo(Kidney Stone) (12/17/19 15:08) Medications Given in ED Current Medications Medications Dose Ordered Sig/Parveen Route Start Time Stop Time Status Last Admin Dose Admin Lidocaine HCl 10 ml ONCE ONCE TOP 12/17/19 14:00 12/17/19 14:01 DC 12/17/19 14:52 10 ML Vital Signs/I&O 12/17/19 13:45 Temp 36.5 Pulse 95 Resp 18 B/P (MAP) 163/105 (124) Pulse Ox 97 O2 Delivery Room Air Capillary Refill : Diagnostic Imaging Diagonstic Imaging: CT Comments NAME: THERESE ANG [facility] REC#: [id number] PT STATUS: REG ER : 1945 PHYSICIAN: JERRI BENZ APRN ADMIT DATE: 12/17/19/ER Draft Date of Exam:12/17/19 CT ABD/PELVIS WO(KIDNEY STONE) PROCEDURE: CT urinary tract, rule out kidney stone. TECHNIQUE: Multiple contiguous axial images were obtained through the abdomen and pelvis without the use of intravenous contrast. Auto Exposure Controls were utilized during the CT exam to meet ALARA standards for radiation dose reduction. INDICATION: Hematuria with nausea, vomiting, diarrhea and constipation. COMPARISON: 01/15/2014. FINDINGS: There is mild scarring in the lung bases, with increased AP diameter suggestive of chronic obstructive disease. The heart is normal in size. There is coronary atherosclerosis. There is a small hiatal hernia. The liver demonstrates no focal lesions. Cholecystectomy clips are noted. The spleen demonstrates calcified granulomas. The pancreas is unremarkable. The adrenal glands appear normal. The kidneys demonstrate no hydronephrosis or hydroureter. There is a round exophytic lesion on the inferior right kidney which measures 1.5 cm in diameter which has increased in size since 2013 and likely represents a cyst. The bowel loops are nondistended without obstruction. There is diverticulosis throughout the colon, without diverticulitis seen. Abdominal hernia repair mesh is seen anteriorly. No free fluid or free air is seen. There are chronic varices in the right posterior abdomen which appear unchanged. There is moderate air in the urinary bladder with a Valderrama catheter present. There are severe degenerative changes throughout the spine. An IVC filter is noted. There is an irregular sclerotic lesion in the proximal right femur which appears unchanged since 2013. IMPRESSION: 1. No hydronephrosis or projecting calculi are seen. Round lesion in the inferior right kidney likely represents a simple cyst, mildly increased in size since 2013. 2. Air in the urinary bladder, likely from Valderrama catheter placement. 3. Colonic diverticulosis without diverticulitis seen. Dictated on workstation # [id number] Dict: 12/17/19 1533 Trans: 12/17/19 1543 [facility] [id number] Interpreted by: JOSE RICHARD MD Electronically signed by: Departure Communication (Admissions) I spoke with the patient's daughter. She states that the urine appeared very bloody this morning. However she states that he was sitting down and upon standing noticed blood in the toilet. He does have a history of hemorrhoids, given the clarity of the blood now I would believe that the blood in the toilet was from a hemorrhoid that was dripping. I'll go check his bottom out. We will discharge home with Valderrama catheter in place to be removed next week. 1558-there is no blood per rectum no external hemorrhoid, would suspect internal hemorrhoid. Impression Primary Impression: Urinary retention Disposition: HOME, SELF-CARE Condition: Stable Departure-Patient Inst. Decision time for Depature: 15:55 Referrals: [facility] (PCP) Primary Care Physician TANNA NIELSEN (Family) Primary Care Physician Patient Instructions: Urinary Retention Add. Discharge Instructions: 1. Return to ER for any concerns 2. Follow-up with your doctor next week 3. Return to ER or your family physician's office in the next 5-7 days to have the Valderrama catheter removed and ensure that you're able to urinate without difficulty. It is very likely that you had an internal hemorrhoid which cannot be seen externally. This was likely dripping into the toilet while he sat down this morning because your urine here only had a very minute amount of red blood cell in it. All discharge instructions reviewed with patient and/or family. Voiced understanding. JERRI BENZ [facility] ATTENDANT December 17, 2019 14:42
[2019-12-17 15:08] LABS: BILIRUBIN,URINE NEGATIVE (NEGATIVE); CLARITY,URINE CLEAR; COLOR,URINE YELLOW; GLUCOSE, URINE (UA) NEGATIVE (NEGATIVE); KETONES,URINE NEGATIVE (NEGATIVE); LEUKOCYTE ESTERASE ,URINE NEGATIVE (NEGATIVE); NITRITE,URINE NEGATIVE (NEGATIVE); PROTEIN,URINE NEGATIVE (NEGATIVE)
[2019-12-17 15:16] LABS: AMORPHOUS SEDIMENT,UR FEW AMOR URATES /LPF; BACTERIA,URINE NEGATIVE /HPF; RBC,URINE RARE /HPF; SQUAMOUS EPITHELIAL CELL,UR RARE /HPF
--- NOTE | 2019-12-17 15:43 | Diagnostic Imaging Report ---
PROCEDURE: CT urinary tract, rule out kidney stone. TECHNIQUE: Multiple contiguous axial images were obtained through the abdomen and pelvis without the use of intravenous contrast. Auto Exposure Controls were utilized during the CT exam to meet ALARA standards for radiation dose reduction. INDICATION: Hematuria with nausea, vomiting, diarrhea and constipation. COMPARISON: 01/15/2014. FINDINGS: There is mild scarring in the lung bases, with increased AP diameter suggestive of chronic obstructive disease. The heart is normal in size. There is coronary atherosclerosis. There is a small hiatal hernia. The liver demonstrates no focal lesions. Cholecystectomy clips are noted. The spleen demonstrates calcified granulomas. The pancreas is unremarkable. The adrenal glands appear normal. The kidneys demonstrate no hydronephrosis or hydroureter. There is a round exophytic lesion on the inferior right kidney which measures 1.5 cm in diameter which has increased in size since 2014 and likely represents a cyst. The bowel loops are nondistended without obstruction. There is diverticulosis throughout the colon, without diverticulitis seen. Abdominal hernia repair mesh is seen anteriorly. No free fluid or free air is seen. There are chronic varices in the right posterior abdomen which appear unchanged. There is moderate air in the urinary bladder with a Valderrama catheter present. There are severe degenerative changes throughout the spine. An IVC filter is noted. There is an irregular sclerotic lesion in the proximal right femur which appears unchanged since 2013. IMPRESSION: 1. No hydronephrosis or projecting calculi are seen. Round lesion in the inferior right kidney likely represents a simple cyst, mildly increased in size since 2013. 2. Air in the urinary bladder, likely from Valderrama catheter placement. 3. Colonic diverticulosis without diverticulitis seen. Dictated by: Dictated on workstation # [id number]
--- NOTE | 2019-12-17 15:59 | NUR ---
ASSISTED PETER WITH RECTAL EXAM, NO EXTERNAL HEMRRHOIDS OR BLEEDING NOTED
[2019-12-17 16:21] VITALS: BP 159/90
== END 2019-12-17 16:21 | disposition home or self-care (01) ==
LOC: EDUNIT# 13:02 → ER 13:03
DX: R33.9 Retention of urine, unspecified (principal); I10 Essential (primary) hypertension; E11.9 Type 2 diabetes mellitus without complications; E03.9 Hypothyroidism, unspecified; F32.9 Major depressive disorder, single episode, unspecified; J45.909 Unspecified asthma, uncomplicated; Z86.711 Personal history of pulmonary embolism; Z79.01 Long term (current) use of anticoagulants
CPT/HCPCS: 36415; 51702; 74176; 80053; 81000; 85025; 85610

== ENCOUNTER 2019-12-21 21:57 | Emergency (ER) | payer MEDICARE, MEDICAID | END 2019-12-21 22:02 | disposition left against medical advice (07) | LOC: EDUNIT# 21:57 → ER 21:58 | DX: T85.9XXA Unspecified complication of internal prosthetic device, implant and graft, initial encounter (principal) ==

== ENCOUNTER → 2019-12-24 | Outpatient (CLI) | payer MEDICARE, MEDICAID ==
--- NOTE | 2019-12-24 10:42 | Diagnostic Imaging Report ---
PROCEDURE: CT head without contrast. TECHNIQUE: Multiple contiguous axial images were obtained through the brain without the use of intravenous contrast. Auto Exposure Controls were utilized during the CT exam to meet ALARA standards for radiation dose reduction. INDICATION: Weakness and dizziness. Memory loss. COMPARISON: CT head on 02/21/2017. FINDINGS: An area of age-indeterminate ischemia is seen in the anterior left frontal lobe. No evidence of acute hemorrhage or mass. Generalized parenchymal volume loss is noted. Scattered areas of chronic microvascular disease is seen in the periventricular and subcortical white matter. Mild mucosal thickening is seen in the paranasal sinuses. The mastoid air cells are well pneumatized. The globes and orbits are symmetric and unremarkable. The scalp and calvarium are intact. IMPRESSION: 1. Area of age-indeterminate ischemia in the anterior left frontal lobe. This is in an area of previously visualized chronic infarct. If indicated this can be further evaluated with MRI of the brain. 2. No evidence of mass or hemorrhage. 3. Generalized parenchymal volume loss with chronic microvascular disease. Dictated by: Dictated on workstation # [id number]
== END ==
LOC: RAD 09:30
PROVIDERS: ATTEND Psychiatry & Neurology Neurology
DX: I67.82 Cerebral ischemia (principal); I99.8 Other disorder of circulatory system; G93.89 Other specified disorders of brain; R41.3 Other amnesia; R53.1 Weakness
CPT/HCPCS: 70450

== ENCOUNTER → 2020-01-06 | Outpatient (CLI) | payer MEDICARE, MEDICAID ==
--- NOTE | 2020-01-06 18:38 | Diagnostic Imaging Report ---
EXAMINATION: Whole body bone scan. INDICATION: Prostate cancer. COMPARISON: There are no prior nuclear medicine studies available for comparison. TECHNIQUE: This study was performed following administration of 27.2 mCi of 99m technetium MDP. Anterior and posterior whole body images were obtained. FINDINGS: There is an asymmetric area of increased activity involving the acromioclavicular joint on the left. This is more likely due to degenerative disease than metastatic disease. Even so, clinical follow-up is recommended. There is no other focal area of increased activity to suggest metastatic disease. There is slightly increased activity within the vertebral body of L3 on the right. This too is probably degenerative in nature. There is also some increased activity near the costovertebral junctions of the right eighth and ninth ribs. There is also increased activity in the midfoot on the right. These findings are probably degenerative in nature as well. Both kidneys do show excretion of the radiotracer. IMPRESSION: 1. The area of asymmetric uptake involving the acromioclavicular joint on the left is more likely due to degenerative disease than to neoplasm. If further imaging is desired, then MRI would be recommended. 2. There is no other abnormal uptake to suggest metastatic disease. Dictated by: Dictated on workstation # [id number]
== END ==
LOC: CARD 10:42
PROVIDERS: ATTEND Urology
DX: C61 Malignant neoplasm of prostate (principal)
CPT/HCPCS: 78306

== ENCOUNTER → 2020-03-19 | Outpatient (CLI) | payer MEDICARE, MEDICAID | LOC: CARD 13:06 | PROVIDERS: ATTEND Internal Medicine Cardiovascular Disease | DX: I08.0 Rheumatic disorders of both mitral and aortic valves (principal); I25.10 Atherosclerotic heart disease of native coronary artery without angina pectoris; I10 Essential (primary) hypertension; E78.5 Hyperlipidemia, unspecified; I47.1 Supraventricular tachycardia | CPT/HCPCS: 93306 ==

== ENCOUNTER 2020-11-28 12:46 | Emergency (ER) | payer MEDICARE, MEDICAID ==
[~2020-11-28] VITALS: Ht 182 cm; Wt 91.0 kg
[~2020-11-28 12:46] MED LIST changes: -MONT10TA26 PO; +MONT10TA32 PO; +SERT-413 PO; -SERT50TA9 PO
--- NOTE | 2020-11-28 12:55 | ED Neurological Problem ---
General Stated Complaint: TROUBLE BREATHING,SLURRED SPEECH, NOT RESPONDING Source: patient Exam Limitations: no limitations History of Present Illness Date Seen by Provider: Nov 28, 2020 Time Seen by Provider: 12:50 Initial Comments This is a 75-year-old male presents to the ER via POV with his daughter (CATHY) for complaints of right-sided weakness, slurred speech, difficulty walking. States that his symptoms started approximately 1215 this afternoon. In route to hospital his daughter said his symptoms seemed to improve slightly however, upon arrival to the ED he became unresponsive and was staring into space and appeared to have difficulty breathing. She notes that he does have a history of dementia however is typically able to walk with his walker independently and converse appropriately. She states that he does have a history of blood clots and an IVC filter, he is currently taking Xarelto 20 mg daily. She denies any recent falls or trauma. States that he was recently placed on azithromycin for bronchitis. No ill contacts, or Covid exposures. He has had both of his Moderna vaccines. Second vaccine 10/14/20. Allergies and Home Medications Allergies Coded Allergies: No Known Drug Allergies (Unverified , 04/24/19) Home Medications Budesonide/Formoterol Fumarate 10.2 Gm Hfa.aer.ad, 2 PUFF IH BID, (Reported) Colchicine 0.6 Mg Tablet, 0.6 MG PO BID, (Reported) Donepezil HCl 5 Mg Tablet, 5 MG PO HS, (Reported) Fentanyl 1 Each Patch.td72, 75 MCG TD Q72H, (Reported) Gabapentin 300 Mg Capsule, 300 MG PO BID, (Reported) Levothyroxine Sodium 150 Mcg Tablet, 150 MCG PO DAILY, (Reported) Metoprolol Succinate 25 Mg Tab.er.24h, 25 MG PO DAILY, (Reported) Montelukast Sodium 10 Mg Tablet, 10 MG PO DAILY, (Reported) Oxycodone HCl/Acetaminophen 1 Each Tablet, 1 EACH PO Q6H PRN for PAIN-MODERATE, (Reported) Pravastatin Sodium 40 Mg Tablet, 40 MG PO DAILY, (Reported) Rivaroxaban 20 Mg Tablet, 20 MG PO DAILY, (Reported) Sertraline HCl 50 Mg Tablet, 50 MG PO DAILY, (Reported) Triamcinolone Acetonide 15 Gm Cream..g., 15 GM TP BID, (Reported) Patient Home Medication List Home Medication List Reviewed: Yes Review of Systems Review of Systems Constitutional: see HPI Eyes: See HPI Ears, Nose, Mouth, Throat: no symptoms reported Respiratory: see HPI Cardiovascular: no symptoms reported Gastrointestinal: no symptoms reported Genitourinary: no symptoms reported Musculoskeletal: see HPI Skin: no symptoms reported Psychiatric/Neurological: See HPI Endocrine: No Symptoms Reported Hematologic/Lymphatic: See HPI Past Jbptpzk-Jpojjd-Lddmpu Hx Patient Social History 2nd Hand Smoke Exposure: No Recent Hopitalizations: No Immunizations Up To Date Tetanus Booster (TDap): More than 5yrs Date of Pneumonia Vaccine: May 14, 2018 Date of Influenza Vaccine: May 14, 2018 Seasonal Allergies Seasonal Allergies: No Past Medical History Surgeries: Yes ( HIATAL HERNIA REPAIR, TURP, danelle filter, bilat CTR and thumb sx) Appendectomy, Gallbladder, Orthopedic, Tonsillectomy Respiratory: Yes Asthma, Pneumonia, Chronic Bronchitis Cardiac: Yes Deep Vein Thrombosis, Hypertension Neurological: No Reproductive Disorders: No Sexually Transmitted Disease: No HIV/AIDS: No Genitourinary: Yes Benign Prostatic Hyperpl Gastrointestinal: Yes (rectal bleeding) Chronic Constipation, Chronic Diarrhea, Hiatal Hernia Musculoskeletal: Yes Arthritis, Chronic Back Pain, Gout Endocrine: Yes Hypothyroidsim, Diabetes, Non-Insulin dep HEENT: No Glaucoma Loss of Vision: Denies Hearing Impairment: Denies, Hard of Hearing Cancer: No Psychosocial: Yes Depression Integumentary: No Blood Disorders: No Adverse Reaction/Blood Tranf: No (N/A) Family Medical History Cancer Chest pain Family history: Alzheimer's disease Family history: Arthritis Family history: Asthma Family history: Cardiovascular disease Family history: Coronary thrombosis Family history: Diabetes mellitus Family history: Hypertension Family history: Thyroid disorder Hearing loss Heart disease History of - respiratory disease Myocardial infarction Stroke Visual impairment No Family History of: Abdominal aortic aneurysm Gil's disease Alcoholism Aphasia Cancer of colon Cataract Congenital heart disease Congestive heart failure Cystic fibrosis Dementia Dysphagia Family history: Allergy Family history: Breast disease Family history: Gastrointestinal disease Family history: Glaucoma Family history: Osteoporosis Headache Hereditary disease History of - anemia History of - disorder History of drug abuse Human immunodeficiency virus (HIV) seropositivity Hypercholesterolemia Infertile Kidney disease Malignant neoplasm of lung Parkinson's disease Prostate cancer Psychotic disorder Seizure disorder Tuberculosis No Pertinent Family Hx Physical Exam Vital Signs Vital Signs - First Documented 11/28/20 12:53 Temp 36.3 Pulse 80 Resp 40 B/P (MAP) 146/87 (106) Pulse Ox 92 O2 Delivery Room Air Capillary Refill : Height, Weight, BMI Height: 5'10.00" Weight: 263lbs. 2.0oz. 119.486291es; 32.00 BMI Method:Stated General Appearance: WD/WN, no apparent distress HEENT: PERRL/EOMI, normal ENT inspection, pharynx normal Neck: full range of motion, normal inspection Respiratory: chest non-tender, lungs clear, normal breath sounds, no respiratory distress, no accessory muscle use Cardiovascular: normal peripheral pulses, regular rate, rhythm Peripheral Pulses: 2+ Carotid (R), 2+ Carotid (L), 2+ Radial Pulses (R), 2+ Radial Pulses (L) Gastrointestinal: normal bowel sounds, non tender, soft Extremities: normal range of motion, non-tender, normal inspection Neurologic/Psychiatric: alert, normal mood/affect; No oriented x 3 (person and place ) Crainal Nerves: normal hearing, normal speech, PERRL, abnormal eye position ( has lazy right eye ), abnormal speech; No facial asymmetry, No facial droop, No facial paresthesias, No gaze palsy Coordination/Gait: normal finger to nose Motor/Sensory: No pronator drift (R), No pronator drift (L); sensory deficit (unable to distinguish between sharp/dull ), weak motor strength LUE Skin: normal color, warm/dry Stroke Onset of Symptoms Date of Onset of Symptoms: Nov 28, 2020 Time of Symptom Onset: 12:15 Onset of Symptoms: Yes NIH Stroke Scale Assessment Select: Post CT Level of Consciousness: 0=Alert (0), Level of Consciousness- Questions: 1=Answers one question (1), LOC Commands: 0=Performs both tasks (0), Gaze: Normal (0), Visual Moore: 0=No visual loss (0), Facial Movement (Facial Paresis): 0=Normal symmetrical mnt (0), Motor Function-Arms Right: 0=No drift (0), Motor Function-Arms Left: 0=No drift (0), Motor Function-Legs Right: 0=No drift (0), Motor Function-Legs Left: 1=Drift (1), Limb Ataxia: 1=Present in one limb (1), Sensory: 1=Mild to Moderate loss (1), Best Language: 1=Mild to moderat aphasia (1), Dysarthria: 1=Mild to moderate loss (1), Extinction & Inattention: 1=Visual,tactile,auditory (1), Total: 7 Stroke Thrombolytic Exclusion Age 18 or Over: Yes Acute intenal hemorrhage: No History of CVA: No Uncontrolled Coagulation Defec: No Intracranial Hemorrhage: No Severe Hypertension: No GI or Bleed: No Subarachnoid Hemorrhage: No Intracranial Neoplasm/Aneurysm: No Oral Anticoagulants: Yes Focused Exam Time of Focused Exam: 15:31 Respiratory: Lungs Clear, Normal Breath Sounds, No Accessory Muscle Use Cardiovascular: Regular Rate, Rhythm, Normal Peripheral Pulses Capillary Refill: Less Than 3 Seconds Peripheral Pulses: 2+ Radial Pulses (R), 2+ Radial Pulses (L) Skin: normal color, warm/dry Progress/Results/Core Measures Results/Orders Lab Results Laboratory Tests Test 11/28/20 12:54 11/28/20 14:44 Range/Units White Blood Count 10.3 4.3-11.0 10^3/uL Red Blood Count 5.01 4.30-5.52 10^6/uL Hemoglobin 14.5 13.3-17.7 g/dL Hematocrit 45 40-54 % Mean Corpuscular Volume 91 80-99 fL Mean Corpuscular Hemoglobin 29 25-34 pg Mean Corpuscular Hemoglobin Concent 32 32-36 g/dL Red Cell Distribution Width 13.8 10.0-14.5 % Platelet Count 182 130-400 10^3/uL Mean Platelet Volume 9.0 9.0-12.2 fL Immature Granulocyte % (Auto) 0 % Neutrophils (%) (Auto) 78 H 42-75 % Lymphocytes (%) (Auto) 13 12-44 % Monocytes (%) (Auto) 6 0-12 % Eosinophils (%) (Auto) 1 0-10 % Basophils (%) (Auto) 1 0-10 % Neutrophils # (Auto) 8.1 H 1.8-7.8 10^3/uL Lymphocytes # (Auto) 1.4 1.0-4.0 10^3/uL Monocytes # (Auto) 0.7 0.0-1.0 10^3/uL Eosinophils # (Auto) 0.1 0.0-0.3 10^3/uL Basophils # (Auto) 0.1 0.0-0.1 10^3/uL Immature Granulocyte # (Auto) 0.0 0.0-0.1 10^3/uL Prothrombin Time 14.0 12.2-14.7 SEC INR Comment 1.0 0.8-1.4 Activated Partial Thromboplast Time 36 H 24-35 SEC D-Dimer 0.33 0.00-0.49 UG/ML Sodium Level 139 135-145 MMOL/L Potassium Level 4.5 3.6-5.0 MMOL/L Chloride Level 104 98-107 MMOL/L Carbon Dioxide Level 22 21-32 MMOL/L Anion Gap 13 5-14 MMOL/L Blood Urea Nitrogen 14 7-18 MG/DL Creatinine 1.05 0.60-1.30 MG/DL Estimat Glomerular Filtration Rate > 60 BUN/Creatinine Ratio 13 Glucose Level 171 H 70-105 MG/DL Glucometer 151 H 70-110 MG/DL Calcium Level 8.8 8.5-10.1 MG/DL Corrected Calcium 8.9 8.5-10.1 MG/DL Total Bilirubin 0.3 0.1-1.0 MG/DL Aspartate Amino Transf (AST/SGOT) 24 5-34 U/L Alanine Aminotransferase (ALT/SGPT) 21 0-55 U/L Alkaline Phosphatase 80 40-136 U/L Troponin I < 0.028 <0.028 NG/ML Total Protein 7.5 6.4-8.2 GM/DL Albumin 3.9 3.2-4.5 GM/DL Urine Color YELLOW Urine Clarity SL CLOUDY Urine pH 6.0 5-9 Urine Specific [place] 1.020 1.016-1.022 Urine Protein NEGATIVE NEGATIVE Urine Glucose (UA) NEGATIVE NEGATIVE Urine Ketones NEGATIVE NEGATIVE Urine Nitrite POSITIVE H NEGATIVE Urine Bilirubin NEGATIVE NEGATIVE Urine Urobilinogen 0.2 < = 1.0 MG/DL Urine Leukocyte Esterase 1+ H NEGATIVE Urine RBC (Auto) NEGATIVE NEGATIVE Urine RBC NONE /HPF Urine WBC 25-50 H /HPF Urine Squamous Epithelial Cells NONE /HPF Urine Renal Epithelial Cells NONE /HPF Urine Crystals NONE /LPF Urine Bacteria LARGE H /HPF Urine Casts NONE /LPF Urine Mucus NEGATIVE /LPF Urine Culture Indicated YES My Orders Orders - LADONNA IVAN OVERCASTER Cbc With Automated Diff (11/28/20 12:52) Protime With Inr (11/28/20 12:52) Partial Thromboplastin Time (11/28/20 12:52) Comprehensive Metabolic Panel (11/28/20 12:52) Fibrin Degradation Products (11/28/20 12:52) Troponin I (11/28/20 12:52) Ua Culture If Indicated (11/28/20 12:52) Chest 1 View, Ap/Pa Only (11/28/20 12:52) Catheter(Urinary) Insert & Ass 03,15 (11/28/20 12:52) Ekg Tracing (11/28/20 12:52) Accucheck Stat ONCE (11/28/20 12:52) Ed Iv/Invasive Line Start (11/28/20 12:52) Vital Signs Stroke Patient Q15M (11/28/20 12:52) Ct Head Wo-R/O Stroke (11/28/20 12:52) O2 (11/28/20 12:52) Intake & Output 06,14,22 (11/28/20 12:52) Monitor-Rhythm Ecg Trace Only (11/28/20 12:52) Dysphagia Screening Tool (11/28/20 12:52) Ct Angio Head/Neck (11/28/20 13:31) Iohexol Injection (Omnipaque 350 Mg/Ml 1 (11/28/20 13:45) Received Contrast (Hold Metformin- Contr (11/28/20 13:45) Sodium Chloride Flush (Catheter Flush Sy (11/28/20 13:45) Ns (Ivpb) (Sodium Chloride 0.9% Ivpb Bag (11/28/20 13:45) Ct Chest Wo (11/28/20 13:41) Lorazepam Injection (Ativan Injection) (11/28/20 14:25) Levetiracetam Injection (Keppra Injectio (11/28/20 14:45) Urine Culture (11/28/20 14:44) Medications Given in ED Current Medications Medications Dose Ordered Sig/Parveen Route Start Time Stop Time Status Last Admin Dose Admin Iohexol 100 ml ONCE ONCE IV 11/28/20 13:45 11/28/20 13:46 DC 11/28/20 14:06 75 ML Levetiracetam 1000 mg/Sodium Chloride 110 ml @ 440 mls/hr ONCE ONCE IV 11/28/20 14:45 11/28/20 14:59 DC 11/28/20 14:51 440 MLS/HR Lorazepam 2 mg STK-MED ONCE .ROUTE 11/28/20 14:25 11/28/20 14:32 DC 11/28/20 14:26 2 MG Sodium Chloride 10 ml NEEDED PRN IV 11/28/20 13:45 11/28/20 14:06 10 ML Sodium Chloride 100 ml ONCE ONCE IV 11/28/20 13:45 11/28/20 13:46 DC 11/28/20 14:06 80 ML Vital Signs/I&O 11/28/20 12:53 Temp 36.3 Pulse 80 Resp 40 B/P (MAP) 146/87 (106) Pulse Ox 92 O2 Delivery Room Air Progress Progress Note : Progress Note Patient examined and in no acute distress. Upon arrival initiated stroke protocol. Bedside blood glucose was 151. Deferred initial NIH to have patient expedited to CT. Upon arrival from CT his NIH score was 7. Cranial nerves intact. No acute hemorrhage identified on CT. Absolute exclusion for TPA due to current use of oral anticoagulants. After physical exam patient noted to have what appeared to be an absence seizure. He started into space, was unable to verbally respond, and his oxygen decreased to 79%. Episode lasted approximately 1.5 minutes. He returned out of seizure with no post ictal phase. Labs reviewed and are unremarkable. Orders placed for CTa head/neck. Shortly after arrival from CTa he had full tonic clonic seizure. Ativan 2mg IVP was given. Orders placed for Keppra 100mg IV. CTa head/neck negative for arterial stenosis or occlusion within the neck arteries. No intracranial large vessel occlusion or saccular aneurysm. Reviewed case with Dr. Miramontes with internal medicine, recommended transfer to facility with neurology availability. 1451: Called [facility] for transfer. Discussed case with Dr. Campbell with neurology, accepted patient transfer. Requested to review case with hospitalist Dr. Cole. 1519: Case discussed with Dr. Cole at this time. Accepted patient transfer to ortho/neuro unit. Reviewed POC with family and they are agreeable with plan. Initial ECG Impression Date: Nov 28, 2020 Initial ECG Impression Time: 13:09 Initial ECG Rate: 79 Initial ECG Rhythm: Normal Sinus Initial ECG Intervals No ST segment changes Initial ECG Impression: 1st Degree AV Block Diagnostic Imaging Diagonstic Imaging: Xray Plain Films/CT/US/NM/MRI: chest Comments NAME: THERESE ANG REC#: [id number] PT STATUS: REG ER : 1945 PHYSICIAN: LADONNA IVAN APRN ADMIT DATE: 11/28/20/ER Signed Date of Exam:11/28/20 CHEST 1 VIEW, AP/PA ONLY EXAMINATION: Chest 1 view HISTORY: Difficulty breathing COMPARISON: 02/21/2017 FINDINGS: There is asymmetric opacity in the right apex compared to the left. Right hemidiaphragm is elevated. No pleural effusion. No pneumothorax. Heart size is normal. There is mild right base atelectasis. IMPRESSION: 1. Asymmetric opacification in the right apex compared to the left. This is likely related to positioning but a chest CT is recommended to ensure there is no underlying nodule or mass. Dictated by: Dictated on workstation # [id number] Dict: 11/28/20 1312 Trans: 11/28/20 1325 [facility] [id number] Interpreted by: SAL AVENDAÑO MD Electronically signed by: SAL AVENDAÑO MD 11/28/20 1325 Reviewed: Reviewed by Ms Diagonstic Imaging: CT Plain Films/CT/US/NM/MRI: head Comments NAME: THERESE ANG [facility] REC#: [id number] PT STATUS: REG ER : 1945 PHYSICIAN: LADONNA IVAN APRN ADMIT DATE: 11/28/20/ER Signed Date of Exam:11/28/20 CT HEAD WO-R/O STROKE PROCEDURE: CT head wo r/o stroke. TECHNIQUE: Multiple contiguous axial images were obtained through the brain without the use of intravenous contrast. Auto Exposure Controls were utilized during the CT exam to meet ALARA standards for radiation dose reduction. INDICATION: Neuro deficits, slurred speech, right-sided facial droop. COMPARISON: CT head from 12/24/2019. FINDINGS: Encephalomalacia in the inferior left frontal lobe is unchanged. No new areas of jordan-white matter differentiation loss. No hyperdense hemorrhage or space-occupying mass. No hydrocephalus or midline shift. Basilar cisterns remain widely patent. Pituitary and pineal regions are unremarkable. No hyperdense vessel sign. No acute calvarial abnormality. Paranasal sinuses and mastoid air cells are clear. IMPRESSION: 1. No acute intracranial hemorrhage or features of new large territorial infarct. 2. 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 Dictated by: Dictated on workstation # [id number] Dict: 11/28/20 1312 Trans: 11/28/20 1324 [facility] [id number] Interpreted by: SALENA SANTOS MD Electronically signed by: SALENA SANTOS MD 11/28/20 1324 Reviewed: Reviewed by Me Diagonstic Imaging: CT Plain Films/CT/US/NM/MRI: head (neck) Comments NAME: THERESE ANG [facility] REC#: [id number] PT STATUS: REG ER : 1945 PHYSICIAN: LADONNA IVAN APRN ADMIT DATE: 11/28/20/ER Signed Date of Exam:11/28/20 CT ANGIO HEAD/NECK PROCEDURE: CT angiography of the head and CT angiography of the neck with and without contrast. TECHNIQUE: Contiguous noncontrast images were obtained from the skull base through the vertex. After intravenous contrast administration, helical CT angiography of the neck was performed. Source data was reformatted into 3D MIP projections. Delayed post contrast acquisition was also obtained. Auto Exposure Controls were utilized during the CT exam to meet ALARA standards for radiation dose reduction. INDICATION: Slurred speech and right-sided facial droop. COMPARISON: CT head from earlier same day. FINDINGS: CTA NECK: Aortic arch is normal without dissection. Great vessels of the aortic arch are patent centrally. The bilateral common carotid arteries are widely patent. No stenosis of the proximal internal carotid arteries per NASCET criteria. The cervical divisions of bilateral internal carotid arteries are normal. The origins of bilateral vertebral arteries are normal. Vertebral arteries are codominant and have no dissection or occlusion within the neck. There are a few benign left thyroid nodules. No cervical lymphadenopathy. Parotid glands are normal in appearance. Airway is widely patent. Multilevel moderate to severe degenerative changes in the cervical spine. However, there is no high-grade spinal stenosis. CTA HEAD: The temporal, cavernous and supraclinoid segments of the distal internal carotid arteries are widely patent without aneurysm. The M1 and M2 divisions of the middle cerebral arteries are widely patent. Anterior cerebral arteries are normal. No anterior communicating artery aneurysm. Basilar artery is widely patent and there is no aneurysm at its tip. Conventional origin of the bilateral posterior cerebral arteries which are widely patent. No posterior communicating artery aneurysm. The dural venous sinuses are patent. Left transverse and sigmoid sinuses are hypoplastic. No pathologic enhancement on delayed phase imaging. IMPRESSION: 1. No arterial stenosis or occlusion within the neck arteries. 2. No intracranial large vessel occlusion or saccular aneurysm. 3. Patent dural venous sinuses. Dictated by: Dictated on workstation # [id number] Dict: 11/28/20 1418 Trans: 11/28/20 1454 [facility] [id number] Interpreted by: SALENA SANTOS MD Electronically signed by: SALENA SANTOS MD 11/28/20 1454 Reviewed: Reviewed by Me Diagonstic Imaging: CT Plain Films/CT/US/NM/MRI: chest Comments NAME: THERESE ANG [facility] REC#: [id number] PT STATUS: REG ER : 1945 PHYSICIAN: LADONNA IVAN OVERCASTER ADMIT DATE: 11/28/20/ER Signed Date of Exam:11/28/[address] CHEST WO TECHNIQUE: Multiple contiguous axial images were obtained through the chest without the use of intravenous contrast. All CT scans use one or more of the following dose optimizing techniques: automated exposure control, MA and/or KvP adjustment based on a patient size and exam type, or iterative reconstruction. INDICATION: Abnormal chest x-ray, right apical opacification. COMPARISON: Chest radiograph of 11/28/[address] chest of 02/23/2015. FINDINGS: Lungs and airway: No endoluminal nodule within the trachea. There are retained secretions within the right mainstem bronchus. No pulmonary mass or consolidation. Specifically, no abnormality within the right apical lung. Calcified granuloma is present in the left upper lobe. Pleura: No pleural effusion or pneumothorax. Heart and mediastinum: Exophytic nodule in the lower pole of the left thyroid lobe is unchanged since 2014. No supraclavicular or axillary lymphadenopathy. No mediastinal or hilar lymphadenopathy. Heart is normal in size and without pericardial effusion. Coronary artery calcifications are present. Upper abdomen: No acute abnormality in the upper abdomen. IVC filter is noted. Cholecystectomy. Musculoskeletal: Focally advanced degenerative disc disease at L1-L2. Ankylosis across the anterior aspect of the vertebral bodies raises the possibility of DISH. IMPRESSION: 1. No pulmonary mass or consolidation. Specifically, there is no abnormality in the right apex, and the radiographic abnormality was due to summation of normal osseous structures. Dictated by: Dictated on workstation # [id number] Dict: 11/28/20 1415 Trans: 11/28/20 1453 [facility] [id number] Interpreted by: SALENA SANTOS MD Electronically signed by: SALENA SANTOS MD 11/28/20 1453 Reviewed: Reviewed by Me Departure Impression Primary Impression: Stroke-like symptom Additional Impression: Seizure Disposition: XF SHT-TRM HOSP Condition: Stable Transfer Transfer Reason: Exceeds level of care Time Spoke to Accepting Phy: 14:44 Transfer Progress Notes Discussed case with Dr. Cole accepting transfer with neurology consult. Transfer Time: 15:54 Method of Transfer: EMS Departure-Patient Inst. Referrals: [facility]/CHRISTIE (PCP) Primary Care Physician TANNA NIELSEN (Family) Primary Care Physician Copy Copies To 1: [facility]/LADONNA GILLIAM APRN Nov 28, 2020 12:55
[2020-11-28 13:03] LABS: BASOPHILS # (AUTO) 0.1 10^3/uL (0.0-0.1); BASOPHILS % (AUTO) 1 % (0-10); EOSINOPHILS # (AUTO) 0.1 10^3/uL (0.0-0.3); EOSINOPHILS % (AUTO) 1 % (0-10); HEMATOCRIT 45 % (40-54); HEMOGLOBIN 14.5 g/dL (13.3-17.7); LYMPHOCYTES # (AUTO) 1.4 10^3/uL (1.0-4.0); LYMPHOCYTES % (AUTO) 13 % (12-44); MEAN CORPUSCULAR HEMOGLOBIN 29 pg (25-34); MEAN CORPUSCULAR HGB CONC 32 g/dL (32-36); MEAN CORPUSCULAR VOLUME 91 fL (80-99); MONOCYTES # (AUTO) 0.7 10^3/uL (0.0-1.0); MONOCYTES % (AUTO) 6 % (0-12); NEUTROPHILS # (AUTO) 8.1 10^3/uL (1.8-7.8); NEUTROPHILS % (AUTO) 78 % (42-75); PLATELET COUNT 182 10^3/uL (130-400); WHITE BLOOD COUNT 10.3 10^3/uL (4.3-11.0)
--- NOTE | 2020-11-28 13:17 | Diagnostic Imaging Report ---
EXAMINATION: Chest 1 view HISTORY: Difficulty breathing COMPARISON: 02/21/2017 FINDINGS: There is asymmetric opacity in the right apex compared to the left. Right hemidiaphragm is elevated. No pleural effusion. No pneumothorax. Heart size is normal. There is mild right base atelectasis. IMPRESSION: 1. Asymmetric opacification in the right apex compared to the left. This is likely related to positioning but a chest CT is recommended to ensure there is no underlying nodule or mass. Dictated by: Dictated on workstation # [id number]
--- NOTE | 2020-11-28 13:18 | Diagnostic Imaging Report ---
PROCEDURE: CT head wo r/o stroke. TECHNIQUE: Multiple contiguous axial images were obtained through the brain without the use of intravenous contrast. Auto Exposure Controls were utilized during the CT exam to meet ALARA standards for radiation dose reduction. INDICATION: Neuro deficits, slurred speech, right-sided facial droop. COMPARISON: CT head from 12/24/2019. FINDINGS: Encephalomalacia in the inferior left frontal lobe is unchanged. No new areas of jordan-white matter differentiation loss. No hyperdense hemorrhage or space-occupying mass. No hydrocephalus or midline shift. Basilar cisterns remain widely patent. Pituitary and pineal regions are unremarkable. No hyperdense vessel sign. No acute calvarial abnormality. Paranasal sinuses and mastoid air cells are clear. IMPRESSION: 1. No acute intracranial hemorrhage or features of new large territorial infarct. 2. 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 Dictated by: Dictated on workstation # [id number]
[2020-11-28 13:22] LABS: FIBRIN DEGRADATION PRODUCTS 0.33 UG/ML (0.00-0.49)
[2020-11-28 13:26] LABS: ALANINE AMINOTRANSFERASE 21 U/L (0-55); ALBUMIN 3.9 GM/DL (3.2-4.5); ALKALINE PHOSPHATASE 80 U/L (40-136); BILIRUBIN,TOTAL 0.3 MG/DL (0.1-1.0); BUN/CREATININE RATIO 13; CALCIUM 8.8 MG/DL (8.5-10.1); CARBON DIOXIDE 22 MMOL/L (21-32); CHLORIDE 104 MMOL/L (98-107); CREATININE SERUM 1.05 MG/DL (0.60-1.30); GFR ESTIMATED > 60; GLUCOSE 171 MG/DL (70-105); POTASSIUM 4.5 MMOL/L (3.6-5.0); SODIUM 139 MMOL/L (135-145); TOTAL PROTEIN 7.5 GM/DL (6.4-8.2)
[2020-11-28] MEDS ORDERED: NS 100 ML (IVPB) BAG IV ONE (13:45)
[2020-11-28] MEDS ORDERED: IOHEXOL 350 MG/ML 100 ML (OMNIPAQUE 350) VIAL IV ONE (13:45)
[2020-11-28] MEDS ORDERED: CATHETER FLUSH 10 ML SYR IV PRN (13:45)
[2020-11-28] MEDS ORDERED: HOLD METFORMIN - RECEIVED CONTRAST 20 ML VIAL IV SCH (13:45)
--- NOTE | 2020-11-28 14:21 | Diagnostic Imaging Report ---
CT CHEST WO TECHNIQUE: Multiple contiguous axial images were obtained through the chest without the use of intravenous contrast. All CT scans use one or more of the following dose optimizing techniques: automated exposure control, MA and/or KvP adjustment based on a patient size and exam type, or iterative reconstruction. INDICATION: Abnormal chest x-ray, right apical opacification. COMPARISON: Chest radiograph of 11/28/[address] chest of 02/23/2015. FINDINGS: Lungs and airway: No endoluminal nodule within the trachea. There are retained secretions within the right mainstem bronchus. No pulmonary mass or consolidation. Specifically, no abnormality within the right apical lung. Calcified granuloma is present in the left upper lobe. Pleura: No pleural effusion or pneumothorax. Heart and mediastinum: Exophytic nodule in the lower pole of the left thyroid lobe is unchanged since 2014. No supraclavicular or axillary lymphadenopathy. No mediastinal or hilar lymphadenopathy. Heart is normal in size and without pericardial effusion. Coronary artery calcifications are present. Upper abdomen: No acute abnormality in the upper abdomen. IVC filter is noted. Cholecystectomy. Musculoskeletal: Focally advanced degenerative disc disease at L1-L2. Ankylosis across the anterior aspect of the vertebral bodies raises the possibility of DISH. IMPRESSION: 1. No pulmonary mass or consolidation. Specifically, there is no abnormality in the right apex, and the radiographic abnormality was due to summation of normal osseous structures. Dictated by: Dictated on workstation # [id number]
[2020-11-28] MEDS ORDERED: LORazepam INJ 2 MG/ML (ATIVAN) VIAL ONE (14:25)
--- NOTE | 2020-11-28 14:33 | Diagnostic Imaging Report ---
PROCEDURE: CT angiography of the head and CT angiography of the neck with and without contrast. TECHNIQUE: Contiguous noncontrast images were obtained from the skull base through the vertex. After intravenous contrast administration, helical CT angiography of the neck was performed. Source data was reformatted into 3D MIP projections. Delayed post contrast acquisition was also obtained. Auto Exposure Controls were utilized during the CT exam to meet ALARA standards for radiation dose reduction. INDICATION: Slurred speech and right-sided facial droop. COMPARISON: CT head from earlier same day. FINDINGS: CTA NECK: Aortic arch is normal without dissection. Great vessels of the aortic arch are patent centrally. The bilateral common carotid arteries are widely patent. No stenosis of the proximal internal carotid arteries per NASCET criteria. The cervical divisions of bilateral internal carotid arteries are normal. The origins of bilateral vertebral arteries are normal. Vertebral arteries are codominant and have no dissection or occlusion within the neck. There are a few benign left thyroid nodules. No cervical lymphadenopathy. Parotid glands are normal in appearance. Airway is widely patent. Multilevel moderate to severe degenerative changes in the cervical spine. However, there is no high-grade spinal stenosis. CTA HEAD: The temporal, cavernous and supraclinoid segments of the distal internal carotid arteries are widely patent without aneurysm. The M1 and M2 divisions of the middle cerebral arteries are widely patent. Anterior cerebral arteries are normal. No anterior communicating artery aneurysm. Basilar artery is widely patent and there is no aneurysm at its tip. Conventional origin of the bilateral posterior cerebral arteries which are widely patent. No posterior communicating artery aneurysm. The dural venous sinuses are patent. Left transverse and sigmoid sinuses are hypoplastic. No pathologic enhancement on delayed phase imaging. IMPRESSION: 1. No arterial stenosis or occlusion within the neck arteries. 2. No intracranial large vessel occlusion or saccular aneurysm. 3. Patent dural venous sinuses. Dictated by: Dictated on workstation # [id number]
[2020-11-28 14:50] LABS: BILIRUBIN,URINE NEGATIVE (NEGATIVE); CLARITY,URINE SL CLOUDY; COLOR,URINE YELLOW; GLUCOSE, URINE (UA) NEGATIVE (NEGATIVE); KETONES,URINE NEGATIVE (NEGATIVE); LEUKOCYTE ESTERASE ,URINE 1+ (NEGATIVE); NITRITE,URINE POSITIVE (NEGATIVE); PROTEIN,URINE NEGATIVE (NEGATIVE)
[2020-11-28 15:03] LABS: BACTERIA,URINE LARGE /HPF; WBC,URINE 25-50 /HPF
[2020-11-28 17:16] VITALS: BP 152/82
[2020-12-03] MEDS ORDERED: DONE10TA41 PO (11:17)
[2020-12-03] MEDS ORDERED: SERT-414 PO (11:17)
[2020-12-03] MEDS ORDERED: PANT40TA52 PO (11:17)
[2020-12-03] MEDS ORDERED: GABA300C PO (11:17)
[2020-12-03] MEDS ORDERED: FENT1PAT10 TD (11:17)
[2020-12-03] MEDS ORDERED: DOCU100C37 PO (11:17)
[2020-12-03] MEDS ORDERED: LEVE500T6 PO (11:17)
[2020-12-03] MEDS ORDERED: ASPI-1238 PO (11:17)
[2020-12-03] MEDS ORDERED: OLAN5TAB25 PO (11:17)
[2020-12-03] MEDS ORDERED: METO50TA7 PO (11:18)
== END 2020-11-28 17:16 | disposition short-term general hospital (02) ==
LOC: EDUNIT# 12:46 → ER 12:49
DX: R56.9 Unspecified convulsions (principal); I10 Essential (primary) hypertension; J45.909 Unspecified asthma, uncomplicated; F32.9 Major depressive disorder, single episode, unspecified; G89.29 Other chronic pain; M54.9 Dorsalgia, unspecified; E03.9 Hypothyroidism, unspecified; Z86.718 Personal history of other venous thrombosis and embolism; Z79.01 Long term (current) use of anticoagulants; Z79.891 Long term (current) use of opiate analgesic; Z79.899 Other long term (current) drug therapy; Z79.890 Hormone replacement therapy
CPT/HCPCS: 36415; 51702; 70450; 70496; 70498; 71045; 71250; 80053; 81000; 82962; 84484; 85025; 85379; 85610; 85730; 87077; 87088; 87186; 93005; 93041; 96374; 96375

== ENCOUNTER 2020-12-03 11:30 | Inpatient (IN) | payer MEDICARE, MEDICAID ==
[~2020-12-03] VITALS: Ht 182 cm; Wt 103.0 kg
[~2020-12-03 11:30] MED LIST changes: +ACETAMINOPHEN 325 MG TABLET PO PRN; +ALPRAZolam 0.25 MG (XANAX) TAB PO PRN; +ASPI-1238 PO; +BISACODYL 10 MG SUPP (DULCOLAX) PR PRN; +CALCIUM CARBONATE 500 MG (TUMS) TAB.CHEW PO PRN; +DOCU100C37 PO; +DOCUSATE SODIUM 100 MG (COLACE) CAP PO PRN; +DONE10TA41 PO; +ENOXAPARIN 40 MG/0.4 ML (LOVENOX) SYR SC SCH; +FENT1PAT10 TD; +FLEET ENEMA ADULT 1 EA BTL PR PRN; +HYDROcodone/APAP 5 MG/325 MG (LORTAB) TAB PO PRN; +LACTULOSE SYRUP 10GM/15ML (ENULOSE) 30ML UDC PO PRN; +LEVE500T6 PO; +LOPERAMIDE 2 MG (IMODIUM) TABLET PO PRN; +METO50TA7 PO; +OLAN5TAB25 PO; +ONDANSETRON 4 MG (ZOFRAN) ORAL DISSOLVE TAB PO PRN; +PANT40TA52 PO; +SERT-414 PO; +diphenhydrAMINE 25 MG TAB (BENADRYL) PO PRN; +guaiFENesin/CODEINE (ROBITUSSIN AC) 10ML UDC PO PRN
[2020-12-03] MEDS ORDERED: RISP0.5T65 PO (11:32)
[2020-12-03] MEDS ORDERED: BETHANECHOL PO (11:32)
[2020-12-03] MEDS ORDERED: FINA5TAB6 PO (11:32)
[2020-12-03] MEDS ORDERED: TMSL.4C PO (11:32)
[2020-12-03 11:35] VITALS: BP 123/61
[2020-12-03] MEDS ORDERED: [UNRECOGNIZED DRUG - CODE] PO (11:36)
[2020-12-03] MEDS ORDERED: CETI10TA17 PO (11:36)
[2020-12-03] MEDS ORDERED: OXYC15TA73 PO (11:38)
--- NOTE | 2020-12-03 11:41 | PM&R Post Admission Assessment ---
PM&R HP Date of Visit: Dec 03, 2020 Time of Visit: 12:00 History of Present Illness CC: CVA HPI: This is a 75yoWM clinic patient of [facility] who has a h/o dementia and multiple co-morbidities who presents to the IRF from [facility] in need of aggressive PT OT ST in order to regain function following a stroke and new onset seizure. Patient denies pain currently. Dementia precludes details from the patient. Patient is [place]. Anti-psychotics were required due to acute delirium. I reviewed [facility] records. He was able to walk with walker for his assessment. CC: Bilateral Lucunar Stroke HPI: Pt is a 75y/o M with PMH of advanced dementia, hx of stroke, hx of DVT, depression, sundown syndrome, and HTN who presented to the ER with acute onset R sided weakness, slurred speech, and difficulty walking on 11/28/2020. Pt lives at home with daughter. Subsequent stroke workup with CT with neg for acute infarct or hemorrhage. A Seizure Vs stroke was suspected at pt was transfered to [facility]. Brain MRI on 11/30/20 discovered small b/l lucunar infarcts in the R occipital lobe and & L. Frontal lobe. The stay at [facility] was complicated by acute delirium and severe aggression requiring soft restraints and anti- psychotics. Pt transfered on 12/03/20 to [facility] in-pt rehab for more intensive PT/OT. Pts goal is to return back home. His baseline prior to the stroke is ambulation with wheeled walker, per family - pt can normally perform all his basic care activities without assistance until 5pm (then sundowns occurs). Apon visit this morning, pt was alert to self, time, and location. He had no concerns other than wanting to see his . ROS all neg. PMH: b/l lucunar stroke advanced dementia s/p acute delirium HTN sundowning syndrome hx of DVT hypothyroidism HLP depression BPH gout GERD carpel tunnel syndrome PSH: appendectomy cholystectomy tonsilectomy Dipesh fundoplication TURP b/l carpel tunnel release ALL: NKDA MEDS: SEE LIST. SH: per family: neg hx of tobacco, ETOH, rec drug. FH: Pts recall likely affected due to dementia, had nothing to report. ROS neg SOB, cough, chest pain, palpiations, dizziness, night sweats, N/Ving, abd pain, calf pain. PE CV: RRR without m, Resp: CTA b/l, HEENT: EOMI and normal inspection, Neuro: b/l symmetric CN 7 function, +4/5 strength in LEs b/l, ABD: no tenderness to pal pation, normoactive BS x4 quads. A&P b/l lucunar stroke s/p acute delirium Possible seizure Main source of pts recent acute decompensation in health. PT/OT Speech therapy consult SS consult. CBC and CMP advanced dementia sundowning syndrome Pt historically usually cant perform basic ADLs after 5pm at home. Restart home mediation hypothyroidism HLP HTN HTN likely pts main RF for development of the lucunar infarcts. hx of DVT depression BPH gout GERD carpel tunnel syndrome - s/p b/l carpel tunnel release. Home medication DVT prophylaxis Xarelto for theraputic prophylaxis against DVTs, and ambulation. SUDKARIN GARCIA MED STUDENT Past [id number] Hx Past Med/Social Hx: Reviewed Nursing Past Med/Soc Hx, Reviewed and Corrections made Patient Social History Marrital Status: Employed/Student: retired Alcohol Use: Denies Use Smoking Status: Former Smoker 2nd Hand Smoke Exposure: No Recent Hopitalizations: No Immunizations Up To Date Tetanus Booster (TDap): More than 5yrs Date of Pneumonia Vaccine: May 14, 2018 Date of Influenza Vaccine: May 14, 2018 Seasonal Allergies Seasonal Allergies: No Past Medical History Surgeries: Appendectomy, Gallbladder, Orthopedic, Tonsillectomy Cardiac: Deep Vein Thrombosis, Hypertension Neurological: Dementia Reproductive: No Sexually Transmitted Disease: No HIV/AIDS: No Genitourinary: Benign Prostatic Hyperpl Gastrointestinal: Chronic Constipation, Chronic Diarrhea, Hiatal Hernia Musculoskeletal: Arthritis, Chronic Back Pain, Gout Endocrine: Hypothyroidsim, Diabetes, Non-Insulin dep HEENT: Glaucoma Loss of Vision: Denies Hearing Impairment: Denies, Hard of Hearing Psychosocial: Depression History of Blood Disorders: No Adverse Reaction to Blood Quintana: No (N/A) Family History Cancer Chest pain Family history: Alzheimer's disease Family history: Arthritis Family history: Asthma Family history: Cardiovascular disease Family history: Coronary thrombosis Family history: Diabetes mellitus Family history: Hypertension Family history: Thyroid disorder Hearing loss Heart disease History of - respiratory disease Myocardial infarction Stroke Visual impairment No Family History of: Abdominal aortic aneurysm Gil's disease Alcoholism Aphasia Cancer of colon Cataract Congenital heart disease Congestive heart failure Cystic fibrosis Dementia Dysphagia Family history: Allergy Family history: Breast disease Family history: Gastrointestinal disease Family history: Glaucoma Family history: Osteoporosis Headache Hereditary disease History of - anemia History of - disorder History of drug abuse Human immunodeficiency virus (HIV) seropositivity Hypercholesterolemia Infertile Kidney disease Malignant neoplasm of lung Parkinson's disease Prostate cancer Psychotic disorder Seizure disorder Tuberculosis No Pertinent Family Hx PM&R Allergy/Meds/Data Review Allergies Coded Allergies: No Known Drug Allergies (Unverified , 04/24/19) Home Medications Scheduled Aspirin (Aspirin EC), 81 MG PO DAILY, (Reported) Budesonide/Formoterol Fumarate (Symbicort 160-4.5 Mcg Inhaler), 2 PUFF IH BID, (Reported) Colchicine (Colcrys), 0.6 MG PO BID, (Reported) Docusate Sodium (Docusate Sodium), 100 MG PO BID, (Reported) Donepezil HCl (Donepezil HCl), 10 MG PO HS, (Reported) Fentanyl (Fentanyl Patch 75MCG), 75 MCG TD Q72H, (Reported) Finasteride (Finasteride), 5 MG PO DAILY, (Reported) Gabapentin (Neurontin), 300 MG PO BID, (Reported) Levetiracetam (Levetiracetam), 500 MG PO BID, (Reported) Levothyroxine Sodium (Levothyroxine Sodium), 150 MCG PO DAILY, (Reported) Metoprolol Succinate (Metoprolol Succinate), 50 MG PO DAILY, (Reported) Montelukast Sodium (Montelukast Sodium), 10 MG PO HS, (Reported) Olanzapine (Olanzapine), 5 MG PO HS, (Reported) Pantoprazole Sodium (Pantoprazole Sodium), 40 MG PO DAILY, (Reported) Pravastatin Sodium (Pravastatin Sodium), 40 MG PO HS, (Reported) Risperidone (Risperidone), 0.5 MG PO BID, (Reported) Rivaroxaban (Xarelto), 20 MG PO HS, (Reported) Sertraline HCl (Sertraline HCl), 100 MG PO HS, (Reported) Tamsulosin HCl (Flomax), 0.4 MG PO DAILY, (Reported) [Bethanechol], 25 MG PO QID, (Reported) Scheduled PRN Cetirizine HCl (Cetirizine HCl), 10 MG PO DAILY PRN for ALLERGY SYMPTOMS, (Reported) Lactase (Lactaid), 3,000 UNIT PO UD PRN for LACTOSE INTOLERANCE, (Reported) Oxycodone HCl (Oxycontin), 15 MG PO DAILY PRN for PAIN-SEVERE (8-10), (Reported) Triamcinolone Acetonide (Triamcinolone Acetonide 0.5% Cream), 15 GM TP BID PRN for CONTACT DERMATITIS, (Reported) Discontinued Medications Donepezil HCl (Donepezil HCl), 5 MG PO HS, (Reported) Discontinued Reason: Duplicate Order Fentanyl (Duragesic Patch 75 MCG), 75 MCG TD Q72H, (Reported) Discontinued Reason: Duplicate Order Metoprolol Succinate (Metoprolol Succinate), 25 MG PO DAILY, (Reported) Discontinued Reason: No Longer Taking Sertraline HCl (Sertraline HCl), 50 MG PO DAILY, (Reported) Discontinued Reason: No Longer Taking Current Medications Current Medications Reviewed Review of Systems Constitutional: see HPI, malaise, weakness EENTM: no symptoms reported Respiratory: no symptoms reported Cardiovascular: no symptoms reported Gastrointestinal: no symptoms reported Genitourinary: no symptoms reported Musculoskeletal: no symptoms reported Skin: no symptoms reported Psychiatric/Neurological: Other (confusion) Physical Exam Physical Exam Vital Signs Capillary Refill : Height, Weight, BMI Height: 5'10.00" Weight: 263lbs. 2.0oz. 119.078882wn; 27.00 BMI Method:Stated General Appearance: No Apparent Distress, WD/WN, Chronically ill Eyes: Bilateral Eye Normal Inspection, Bilateral Eye PERRL HEENT: PERRL/EOMI, Normal ENT Inspection, Pharynx Normal Neck: Full Range of Motion, Normal Inspection, Non Tender, Supple, Carotid Bruit Respiratory: Chest Non Tender, Lungs Clear, Normal Breath Sounds, No Accessory Muscle Use, No Respiratory Distress Cardiovascular: Regular Rate, Rhythm, No Edema, No Gallop, No JVD, No Murmur, Normal Peripheral Pulses Gastrointestinal: Normal Bowel Sounds, No Organomegaly, No Pulsatile Mass, Non Tender, Soft Back: Normal Inspection, No CVA Tenderness, No Vertebral Tenderness Extremity: Normal Capillary Refill, Normal Inspection, Normal Range of Motion, Non Tender, No Calf Tenderness, No Pedal Edema Neurologic/Psychiatric: Alert, No Motor/Sensory Deficits, Normal Mood/Affect, nutritionist II-XII Norm as Tested, Abnormal Gait, Depressed Affect, Disoriented, Motor Weakness (generalized all extremities 4/5) Skin: Normal Color, Warm/Dry Lymphatic: No Adenopathy PM&R Medical Assessment & Plan REHAB/MEDICAL ASSESSMENT AND PLAN: REHAB IMPAIRMENT GROUP: CVA ETIOLOGIC DIAGNOSIS: CVA The comorbidities that impact the patients function and/or functional outcome by: advanced age with advanced dementia, delirium, fall risk REHAB PLAN: The patient is being admitted to our comprehensive inpatient rehabilitation facility and can tolerate the intensity of service consisting of at least: 180 minutes of therapy a day, 5 out of 7 days a week Rehab treatment will consist of: PT OT will focus on regaining function with use of AD and help prevent falls and ST will help improve cognition The patient/family has a good understanding of our discharge process and will benefit from an interdisciplinary inpatient rehabilitation program. The patient has potential to make improvement and is in need of at least two of the following multidisciplinary therapies including but not limited to physical, occupational, speech, and prosthetics and orthotics. Additionally the patient will need services from respiratory, nutritional services, wound care, psychology, etc. (Customize this to each patient). Given the patients complex condition and risk of further medical complications, rehabilitation services cannot be safely or effectively provided at a lower level of care such as a assisted facility. BARRIERS TO DISCHARGE: Dementia ESTIMATED LOS: 7 days DISPOSITION: Home RELEVANT CHANGES SINCE PREADMISSION SCREENING: I have compared the patients medical and functional status at the time of the preadmission screening and there are: no changes PROGNOSIS: Fair REHABILITATION GOALS: 1. PT OT will focus on regaining function with use of AD and help prevent falls and ST will help improve cognition All the above goals were reviewed with the patient and he/she is in agreement. By signing this document, I acknowledge that I have personally performed a full physical examination on this patient within 24 hours of admission to this inpatient rehabilitation facility and have determined the patient to be able to tolerate the above course of treatment at an intensive level for a reasonable period of time. I will be completing a detailed individualized Plan of Care for this patient by day #4 of the patients stay based upon the Preadmission Screen, the Post-Admission Evaluation, and the therapy evaluations. Admission Dx/Comorbidities: (1) Lacunar cerebrovascular accident (CVA) of subthalamic region ICD Codes: I63.81 - Other cerebral infarction due to occlusion or stenosis of small artery (2) Dementia ICD Codes: F03.90 - Unspecified dementia without behavioral disturbance (3) Personal history of DVT (deep vein thrombosis) ICD Codes: Z86.718 - Personal history of other venous thrombosis and embolism (4) Delirium ICD Codes: R41.0 - Disorientation, unspecified (5) Seizure Status: Acute ICD Codes: R56.9 - Unspecified convulsions Assessment/Plan Assessment and Plan Assess & Plan/Chief Complaint A&P b/l lucunar stroke s/p acute delirium Possible seizure Main source of pts recent acute decompensation in health. PT/OT Speech therapy consult SS consult. CBC and CMP Advanced dementia Sundowning syndrome Pt historically usually cant perform basic ADLs after 5pm at home. Restart home mediation hypothyroidism HLP HTN HTN likely pts main RF for development of the lucunar infarcts. hx of DVT depression BPH gout GERD carpel tunnel syndrome - s/p b/l carpel tunnel release. Home medication DVT prophylaxis Xarelto for theraputic prophylaxis against DVTs, and ambulation. Plan: IRF protocol Monitor closely OAC Fall risk BRONWYN WILBURN DO Dec 03, 2020 11:41
[2020-12-03] MEDS ORDERED: NON-FORMULARY MEDICATION 1 EA EA (Cetirizine HCl 10 MG) PO PRN (11:45)
[2020-12-03] MEDS ORDERED: oxyCODONE ER 15 MG (oxyCONTIN CR) TAB PO PRN (11:45)
[2020-12-03] MEDS ORDERED: LACTASE 3000 UNIT PO PRN (11:45)
[2020-12-03] MEDS ORDERED: TRIAMCINOLONE 0.5% CR (KENALOG) 15 GM TUBE TP PRN (11:45)
[2020-12-03] MEDS ORDERED: LORATADINE (CLARITIN) 10 MG TAB PO PRN (12:30)
[2020-12-03] MEDS ORDERED: NON-FORMULARY MEDICATION 1 EA EA ([Bethanechol] 25 MG) PO SCH (13:00)
--- NOTE | 2020-12-03 13:03 | Progress Note ---
KARIN CHAPMAN MED STUDENT 12/03/20 1303: Progress Note CC: Bilateral Lucunar Stroke HPI: Pt is a 75y/o M with PMH of advanced dementia, hx of stroke, hx of DVT, depression, sundown syndrome, and HTN who presented to the ER with acute onset R sided weakness, slurred speech, and difficulty walking on 11/28/2020. Pt lives at home with daughter. Subsequent stroke workup with CT with neg for acute infarct or hemorrhage. A Seizure Vs stroke was suspected at pt was transfered to [facility]. Brain MRI on 11/30/20 discovered small b/l lucunar infarcts in the R occipital lobe and & L. Frontal lobe. The stay at [facility] was complicated by acute delirium and severe aggression requiring soft restraints and anti- psychotics. Pt transfered on 12/03/[address] [facility] in-pt rehab for more intensive PT/OT. Pts goal is to return back home. His baseline prior to the stroke is ambulation with wheeled walker, per family - pt can normally perform all his basic care activities without assistance until 5pm (then sundowns occurs). Apon visit this morning, pt was alert to self, time, and location. He had no concerns other than wanting to see his . ROS all neg. PMH: b/l lucunar stroke advanced dementia s/p acute delirium HTN sundowning syndrome hx of DVT hypothyroidism HLP depression BPH gout GERD carpel tunnel syndrome PSH: appendectomy cholystectomy tonsilectomy Dipesh fundoplication TURP b/l carpel tunnel release ALL: NKDA MEDS: SEE LIST. SH: per family: neg hx of tobacco, ETOH, rec drug. FH: Pts recall likely affected due to dementia, had nothing to report. ROS neg SOB, cough, chest pain, palpiations, dizziness, night sweats, N/Ving, abd pain, calf pain. PE CV: RRR without m, Resp: CTA b/l, HEENT: EOMI and normal inspection, Neuro: b/l symmetric CN 7 function, +4/5 strength in LEs b/l, ABD: no tenderness to palpation, normoactive BS x4 quads. A&P b/l lucunar stroke s/p acute delirium Possible seizure Main source of pts recent acute decompensation in health. PT/OT Speech therapy consult SS consult. CBC and CMP advanced dementia sundowning syndrome Pt historically usually cant perform basic ADLs after 5pm at home. Restart home mediation hypothyroidism HLP HTN HTN likely pts main RF for development of the lucunar infarcts. hx of DVT depression BPH gout GERD carpel tunnel syndrome - s/p b/l carpel tunnel release. Home medication DVT prophylaxis Xarelto for theraputic prophylaxis against DVTs, and ambulation. BRONWYN WILBURN DO 12/04/20 0602: Supervisory-Addendum Brief Verification & Attestation Participated in pt care: history, MDM, physical Personally performed: exam, history, MDM, supervision of care Care discussed with: Medical Student Procedures: n/a Results interpretation: Verified all documentation Verification and Attestation of Medical Student E/M Service A medical student performed and documented this service in my presence. I reviewed and verified all information documented by the medical student and made modifications to such information, when appropriate. I personally performed the physical exam and medical decision making. Bronwyn Wilburn, Dec 04, 2020,06:02 KARIN CHAPMAN MED STUDENT Dec 03, 2020 13:03 BRONWYN WILBURN DO Dec 04, 2020 06:02
--- NOTE | 2020-12-03 13:14 | Physical Therapy Evaluation ---
PT Evaluation-General Medical Diagnosis Admission Date Dec 03, 2020 at 11:30 Medical Diagnosis: CVA Onset Date: Nov 28, 2020 Therapy Diagnosis Therapy Diagnosis: impaired mobility, strength, endurance, balance Height/Weight Height (Feet): 5 Height (Inches): 10.00 Weight (Pounds): 263 Weight (Ounces): 2.0 Precautions Precautions/Isolations: Fall Prevention, Standard Precautions Referral Physician: Sasha Miramontes DO Reason for Referral: Evaluation/Treatment Medical History Additional Medical History Past Medical History Surgeries: Appendectomy, Gallbladder, Orthopedic, Tonsillectomy Cardiac: Deep Vein Thrombosis, Hypertension Reproductive: No Sexually Transmitted Disease: No HIV/AIDS: No Genitourinary: Benign Prostatic Hyperpl Gastrointestinal: Chronic Constipation, Chronic Diarrhea, Hiatal Hernia Musculoskeletal: Arthritis, Chronic Back Pain, Gout Endocrine: Hypothyroidsim, Diabetes, Non-Insulin dep HEENT: Glaucoma Loss of Vision: Denies Hearing Impairment: Denies, Hard of Hearing Psychosocial: Depression Reviewed History: Yes Social History Home: Single Level Current Living Status: Spouse Entry Into Home: Stairs With Railing PT Steps Into Home: 2 Prior Prior Level of Function SCALE: Activities may be completed with or without assistive devices. 5-Dmkbmdpulm-xaozrjf completes the activity by him/herself with no assistance from a helper. 5-Set-up or Clean-up Assistance-helper sets up or cleans up; patient completes activity. [place] assists only prior to or following the activity. 4-Supervision or Touching Assistance-helper provides verbal cues and/or touching/steadying and/or contact guard assistance as patient completes activity. Assistance may be provided throughout the activity or intermittently. 3-Partial/Moderate Assistance-helper does LESS THAN HALF the effort. [place] lifts, holds or supports trunk or limbs, but provides less than half the effort. 2-Substantial/Maximal Assistance-helper does MORE THAN HALF the effort. [place] lifts or holds trunk or limbs and provides more than half the effort. 8-Pziremeio-oxhzil does ALL the effort. Patient does none of the effort to complete the activity. Or, the assistance of 2 or more helpers is required for the patient to complete the activity. If activity was not attempted, code reason: 7-Patient Refused. 9-Not Applicable-not attempted and the patient did not perform the activity before the current illness, exacerbation or injury. 10-Not Attempted due to Environmental Limitations-(lack of equipment, weather restraints, etc.). 88-Not Attempted due to Medical Conditions or Safety Concerns. Bed Mobility: 6 Transfers (B,C,W/C): 6 Gait: 6 Stairs: 6 Indoor Mobility (Ambulation): Independent Stairs: Independent PT Evaluation-Current Subjective Patient in bed pre tx, agrees to PT, has mild chronic back pain. Will be co- treating for a bit after evaluation due to poor patient mobility, strength, endurance, the need to coordinate UE and LE during activity, safety and reduce risk of falls. Pt/Family Goals to be independent at home Objective Patient Orientation: Person, Place, Situation ROM/Strength ROM Lower Extremities WNL Strength Lower Extremities 4+/5 gross BLE Neuromuscular (Tone, Coordination, Reflexes) Patient has some abnormal coloration on his right leg. Sensory Hearing: Impaired Sensation Right Lower Extremit: Intact Sensation Left Lower Extremity: Impaired Sensation Lower Extremities Patient seems to have some impaired light touch sensation in his left foot. Transfers Roll Left & Right (QC): 6 Sit to Lying (QC): 4 Lying to Sitting/Side of Bed(Q: 4 Sit to Stand (QC): 3 Chair/Yga-ox-Shskw Xfer(QC): 3 Toilet Transfer (QC): 3 Car Transfer (QC): 3 Patient performs bed mobility with independence, supine <-> sit SBA, sit <-> stand min assist, transfers min assist, car transfer min assist. Patient needs cues for hand placement and safety will almost always stand and sit with incorrect placement of hands. Gait Does the Patient Walk?: Yes Mode of Locomotion: Walk Anticipated Mode of Locomotion: Walk Walk 10 feet (QC): 3 Walk 50 ft with 2 Turns(QC): 3 Walk 150 ft (QC): 88 Walking 10ft/uneven surface-QC: 3 Distance: 50'x2 Gait Assistive Device: FWW Comments/Gait Description Patient can ambulate 50' with a rolling walker with min assist (including 50' with at least 2 turns of 90 degrees and 10' over an uneven surface), he is unsteady and needs assist with balance and to help limit path deviation. Wheelchair Training Does the Pt Use a Wheelchair?: No Wheel 50 ft with 2 turns (QC): 9 Wheel 150 ft (QC): 9 Stairs 1 Step (curb) (QC): 3 4 Steps (QC): 88 12 Steps (QC): 88 Walking Assistive Device: Walker Patient can go up and down 1 step using a rolling walker with min assist, cues for foot placement Balance Sitting Static: Normal Sitting Dynamic: Good Standing Static: Fair Standing Dynamic: Poor Picking up an Object (QC): 88 Assessment/Needs Patient has impaired mobility, strength, endurance, balance. Patient in recliner post tx with nurse call, phone, tray, all needs met, chair alarm on. Patient can be impulsive with mobility, needs assist with transfers and ambulation. Rehab Potential: Fair PT Short Term Goals Short Term Goals Time Frame: December 10, 2020 Roll Left & Right: 6 Sit to lyin Lying to sitting on side of be: 5 Sit to stand: 4 Chair/sav-fa-vsnmt transfer: 4 Walk 10 feet: 4 Walk 50 feet with two turns: 4 Walk 150 feet: 4 PT Garment Steamer Goals Garment Steamer Goals PT Intermediate Goals Time Frame: December 24, 2020 Roll Left & Right (QC): 6 Sit to Lying (QC): 6 Lying-Sitting on Side/Bed(QC): 6 Sit to Stand (QC): 5 Chair/Isn-ob-Moqhi Xfer(QC): 5 Toilet Transfer (QC): 5 Car Transfer (QC): 5 Does the Patient Walk: Yes Walk 10 feet (QC): 5 Walk 50ft with 2 Turns (QC): 5 Walk 150 ft (QC): 5 Walking 10ft on Uneven Surface: 5 1 Step (curb) (QC): 4 4 Steps (QC): 4 12 Steps (QC): 88 Picking up an Object (QC): 4 Wheel 50 feet with 2 turns (QC: 9 Wheel 150 feet: 9 PT Plan Problem List Problem List: Activity Tolerance, Functional Strength, Safety, Balance, Gait, Transfer, Bed Mobility, ROM Treatment/Plan Treatment Plan: Continue Plan of Care Treatment Plan: Bed Mobility, Education, Functional Activity Erica, Functional Strength, Group Therapy, Gait, Safety, Therapeutic Exercise, Transfers Treatment Duration: December 24, 2020 Frequency: At least 5 of 7 days/Wk (IRF) Estimated Hrs Per Day: 1.5 hours per day Patient and/or Family Agrees t: Yes Safety Risks/Education Patient Education: Gait Training, Transfer Techniques, Steps, Correct Positioning, Safety Issues Teaching Recipient: Patient Teaching Methods: Demonstration, Discussion Response to Teaching: Reinforcement Needed Discharge Recommendations Plan Patient will perform bed mobility and transfer training, balance and endurance training, functional strengthening, stair training, gait training, and education, to improve functional mobility and independence at home. Therapy Discharge Recommendati: Scheduled Assistance, Home & Family, Post Acute PT Time/GCodes Time In: 1130 Time Out: 1200 Total Billed Treatment Time: 20 Total Billed Treatment 1 visit EVM 10' FA 10' (no charge for this) PT eval from [id number], OT eval from [id number], co-treat for 10' from [id number]. PT performed bed mobility and transfer training, ambulation, stair training, OT worked on UE positioning and safety during activity, balance during ambulation. TSERING PIKE PT Dec 03, 2020 13:14
--- NOTE | 2020-12-03 13:48 | ST Cognitive Linguistic Eval ---
Speech Evaluation-General Medical Diagnosis CVA Onset Date: Nov 28, 2020 Therapy Diagnosis Therapy Diagnosis: Cognitive Communication Precautions Precautions: Fall, Seizure Precautions/Isolations: Seizure, Fall Prevention, Standard Precautions Agitation s/p CVA Referral Referring Physician: Dr. Miramontes Medical History Pertinent Medical History: CVA, Dementia, HTN, Hypothroidism, Thrombosis CVA, Dementia, HTN, Hypothyroidism, Thrombosis Current History CVA, Dysarthria, Alzheimer Reviewed History: Yes Social History Current Living Status: Spouse (Home with spouse, daughter, and granddaughter) Speech PLF-Current Status Prior Level of Function Prior to CVA, pt lived at home with his spouse, daughter, and granddaughter who took care of his daily needs. Pt had Alzheimers and perseverative behaviors prior to CVA. Subjective Pt was alert, finishing his meal. Pt agreed and was compliant with cognitive evaluation. Pt's family was present for evaluation. Language Eval: Auditory Comprehends Simple Yes/No Ques: Mild Indent/Objects Multiple Moore: Mild Ident/Pics in Multiple Moore: Mild Follows 1-Step Commands: Mild Follows Complex Directions: Severe Follows General Conversations: Mild Language Eval: Verbal Language Completes Spontaneous Greeting: Functional Produces Auto, Serial Info: Mild Imitates Simple Words/Phrases: Mild Word Finding: Moderate Requests Basic Needs: Mild States Basic Personal Info: Moderate Expresses Complex Ideas: Moderate Language Evaluation: Reading Comprehends Single Nouns: Mild Follows Simple Written Direct: Severe Comprehends Multiple Sentences: Severe Cognitive Patient Orientation Patient oriented to location. Objective Cognitive Domain Attention: Moderate Memory: Severe Problem Solving: Moderate Executive Functions: Severe Visuospatial Skills: Moderate Composite Severity Rating: Moderate Objective Formal/Standardized Tests [facility] Mental Status Examination (UMS) Results 10/30 Oral Motor/Speech Production Severe deficits, Dysarthria. Impression Pt is a pleasant 75 y/o male admitted to the ARU s/p CVA. Pt agreed to ST evaluation. Pt was administered the SLUMS and scored a 10/30 points, indicating severe cognitive deficits. Pt was alert and oriented to location and year, though he struggled to remember directions long enough to correctly follow them. Pt frequently perseverates on thoughts. ST will provide cognitive communication services 4-5x per week. Speech Patient Assess Expression of Ideas/Wants: Frequently (2) Understanding Verbal Content: Rarely/Never Understand (1) Brief Interview-Mental Status: No(pt is rarely/never understood) Repetition of Three Words: None (0) Temporal Orientation: Year: Missed by 1 year (2) Temporal Orientation: Month: No answer (0) Temporal Orientation: Day: Incorrect or No Answer(0) Recall : Wear to say "Sock": No, could not recall (0) Recall : Color: No, could not recall (0) Recall : Bed: No, could not recall (0) Memory/Recall Ability: That he or she is in a hsp/hsp unit Speech Short Term Goals Short Term Goals Short Term Goals 1.) Patient will complete safety awareness activities related to their daily activities at 60% with minimal cues. 2.) Patient will complete memory activities related to their daily activities at 60% with minimal cues. 3.) Patient will complete recall of information activities related to their daily activities at 60% with minimal cues. Speech Tree Pruner Goals Prison Goals Patient will improve cognitive-communication skills necessary for safety and daily living tasks with minimal assist. Speech-Plan Patient/Family Goals Patient/Family Goals: Pt's family will live with him upon D/C from [facility] where they will take care of his daily needs. Treatment Plan Speech Therapy Treatment Plan: Continue Plan of Care Treatment Duration: December 18, 2020 Frequency: 4 times per week (4-5x per week) Estimated Hrs Per Day: .5 hour per day Rehab Potential: Fair Barriers to Learning: Medical status and age Pt/Family Agrees to Plan: Yes Safety Risks/Education Teaching Recipient: Patient, Family Teaching Methods: Discussion Response to Teaching: Verbalize Understanding, Return Demonstration, R einforcement Needed Education Topics Provided: Safety awareness and compensatory cognitive communication strategies Time Speech Therapy Time In: 14:30 Speech Therapy Time Out: 15:00 Total Billed Time: 30 Billed Treatment Time 1, SENIA WORLEY [facility] ST Dec 03, 2020 13:48
--- NOTE | 2020-12-03 14:04 | Physical Therapy Daily Note ---
PT Daily Note-Current Subjective Patient did not c/o pain, was sitting upright in chair post tx eating lunch, consented to tx. Appearance Patient was seated upright with call button within reach, tray table in front, and all needs met. Chair alarm on. Mental Status Patient Orientation: Person, Confused, Place, Time, Situation Transfers SCALE: Activities may be completed with or without assistive devices. 5-Rqnlassrbt-toroves completes the activity by him/herself with no assistance from a helper. 5-Set-up or Clean-up Assistance-helper sets up or cleans up; patient completes activity. [place] assists only prior to or following the activity. 4-Supervision or Touching Assistance-helper provides verbal cues and/or touching/steadying and/or contact guard assistance as patient completes activity. Assistance may be provided throughout the activity or intermittently. 3-Partial/Moderate Assistance-helper does LESS THAN HALF the effort. [place] lifts, holds or supports trunk or limbs, but provides less than half the effort. 2-Substantial/Maximal Assistance-helper does MORE THAN HALF the effort. [place] lifts or holds trunk or limbs and provides more than half the effort. 1-Akkwcrhzw-vwifrc does ALL the effort. Patient does none of the effort to complete the activity. Or, the assistance of 2 or more helpers is required for the patient to complete the activity. If activity was not attempted, code reason: 7-Patient Refused. 9-Not Applicable-not attempted and the patient did not perform the activity before the current illness, exacerbation or injury. 10-Not Attempted due to Environmental Limitations-(lack of equipment, weather restraints, etc.). 88-Not Attempted due to Medical Conditions or Safety Concerns. Sit to Stand (QC): 3 Chair/Uwz-vv-Moipe Xfer(QC): 3 Min A Gait Training Does the Patient Walk?: Yes Distance: 150' x2 Walk 10 feet (QC): 3 Walk 50 ft with 2 Turns(QC): 3 Walk 150 ft (QC): 3 Gait Assistive Device: FWW Min A with gait, patient was CGA with initial gait, but as ambulation continued patient required more assistance and cueing for directions, to maintain upright posture (patient was hunched forward). Patient also required cues to keep walker next to body as he has tendency to push walker too far forward. Treatments Co-treated with OT secondary to patient decreased functional mobility, assistance required, and decreased balance. OT worked on self-care/grooming, and PT focused on balance with tranfers and gait, as well as balance with shower. Patient has impulsive tendency, tries to stand up on his own several times throughout session, requires cues to take a seat, which he responds to well. Assessment Current Status: Fair Progress Patient will benefit from continued strengthening and endurance training for optimal functional mobility with all activities. PT Short Term Goals Short Term Goals Time Frame: December 10, 2020 Roll Left & Right: 6 Sit to lyin Lying to sitting on side of be: 5 Sit to stand: 4 Chair/sbz-cr-sbrso transfer: 4 Walk 10 feet: 4 Walk 50 feet with two turns: 4 Walk 150 feet: 4 PT Fdc Goals Surface To Air Weapons Officer Goals PT Fdc Goals Time Frame: December 24, 2020 Roll Left & Right (QC): 6 Sit to Lying (QC): 6 Lying-Sitting on Side/Bed(QC): 6 Sit to Stand (QC): 5 Chair/Niv-vk-Mwnyv Xfer(QC): 5 Toilet Transfer (QC): 5 Car Transfer (QC): 5 Does the Patient Walk: Yes Walk 10 feet (QC): 5 Walk 50ft with 2 Turns (QC): 5 Walk 150 ft (QC): 5 Walking 10ft on Uneven Surface: 5 1 Step (curb) (QC): 4 4 Steps (QC): 4 12 Steps (QC): 88 Picking up an Object (QC): 4 Wheel 50 feet with 2 turns (QC: 9 Wheel 150 feet: 9 PT Plan Problem List Problem List: Activity Tolerance, Functional Strength, Safety, Balance, Gait, Transfer, Bed Mobility, ROM Treatment/Plan Treatment Plan: Continue Plan of Care Treatment Plan: Bed Mobility, Education, Functional Activity Erica, Functional Strength, Group Therapy, Gait, Safety, Therapeutic Exercise, Transfers Treatment Duration: December 24, 2020 Frequency: At least 5 of 7 days/Wk (IRF) Estimated Hrs Per Day: 1.5 hours per day Patient and/or Family Agrees t: Yes Safety Risks/Education Patient Education: Gait Training, Transfer Techniques, Correct Positioning, Safety Issues Teaching Recipient: Patient Teaching Methods: Demonstration, Discussion Response to Teaching: Verbalize Understanding, Return Demonstration, Reinforcement Needed Time/GCodes Time In: 1300 Time Out: 1355 Total Billed Treatment Time: 55 Total Billed Treatment 1 visit: FA x3: 40' GT: 15' OT/PT Co-treat [id number] TSERING PIKE PT Dec 03, 2020 14:04
--- NOTE | 2020-12-03 14:07 | Occupational Therapy Eval ---
OT Evaluation-General/PLF Medical Diagnosis Admission Date Dec 03, 2020 at 11:30 Medical Diagnosis: CVA Onset Date: Nov 28, 2020 Therapy Diagnosis Therapy Diagnosis: weakness, decreased ADL status Height/Weight Height (Feet): 5 Height (Inches): 10.00 Weight (Pounds): 263 Weight (Ounces): 2.0 Precautions Precautions/Isolations: Seizure, Fall Prevention, Standard Precautions Referral Physician: Sasha Miramontes DO Referral Reason: Evaluation/Treatment Medical History Pertinent Medical History: CVA, Dementia, HTN, Hypothroidism, Thrombosis Additional Medical History dementia, HTN, hyperlipidemia, DVT, hypothyroidism, bilateral carpal tunnel, gout Current History 11/28/20 ED with R side weakness, slurred speech, difficulty walking. MRI revealed lacunar infacts in R occipital lobe and L frontal lobe. 12/03/20 transfer to [facility] ARU for continued medication management and skilled therapies. Social History Home: Single Level Current Living Status: Spouse Entry Into Home: Stairs With Railing Steps Into Home: 2 ADL-Prior Level of Function SCALE: Activities may be completed with or without assistive devices. 6-Zfmncokyby-bmmtkkw completes the activity by him/herself with no assistance from a helper. 5-Set-up or Clean-up Assistance-helper sets up or cleans up; patient completes activity. [place] assists only prior to or following the activity. 4-Supervision or Touching Assistance-helper provides verbal cues and/or touching/steadying and/or contact guard assistance as patient completes activity. Assistance may be provided throughout the activity or intermittently. 3-Partial/Moderate Assistance-helper does LESS THAN HALF the effort. [place] lifts, holds or supports trunk or limbs, but provides less than half the effort. 2-Substantial/Maximal Assistance-helper does MORE THAN HALF the effort. [place] lifts or holds trunk or limbs and provides more than half the effort. 0-Lxqngtmsw-umdlqs does ALL the effort. Patient does none of the effort to complete the activity. Or, the assistance of 2 or more helpers is required for the patient to complete the activity. If activity was not attempted, code reason: 7-Patient Refused. 9-Not Applicable-not attempted and the patient did not perform the activity before the current illness, exacerbation or injury. 10-Not Attempted due to Environmental Limitations-(lack of equipment, weather restraints, etc.). 88-Not Attempted due to Medical Conditions or Safety Concerns. ADL PLOF Comments Pt indicates IND with ADLs and functional mobility at PLOF using rollator. Self Care: Independent Functional Cognition: Needed Some Help DME/Equipment: Bath Chair, Grab Bars, Shower DME/Equipment Comments 4WW OT Current Status Subjective Pt agreeable to OT evaluation and OT/PT cotreat, no pain indicated. Mental Status/Objective Patient Orientation: Person, Place, Situation Current Glasses/Contacts: Yes Hearing Aids: No Dentures/Partials: Yes Hand Dominance: Right Upper Extremity ROM WFL, BUE shoulder flexion to approx 140 degrees, able to touch back of head with hands Upper Extremity Coordination WFL Upper Extremity Sensation WFL Upper Extremity Strength grossly 4/5 BUEs ADL-Treatment Eating (QC): 5 (set up assistance) Oral Hygiene (QC): 10 (Pt did not have dentures at time of evaluation, family to bring in this afternoon) Shower/Bathe Self (QC): 3 (min-CGA in stand, pt able to wash/dry all parts. Moderate cues for safety as pt stood without warning, requiring instruction to sit back down.) Upper Body Dressing (QC): 3 (Pt doffed shirt with SBA, min A donning shirt due to shirt rolling in back requiring assistance) Lower Body Dressing (QC): 3 (Pt able to complete pant hike with min-CGA in stand. Pt required min A with removing pants from ankles, mod A with threading feet.) On/Off Footwear (QC): 4 (SBA, pt able to doff/don gripper socks.) Toileting Hygiene (QC): 3 (Min A standing balance, pt able to manage clothing and perform hygiene) Other Treatments [id number] OT evaluation, [id number] OT/PT cotreat. Pt performed functional transfer in/out of car simulation, then back to room to recliner. Post tx, pt seated in recliner, call light in reach and all needs met, chair alarm on. [id number] OT/PT cotreat due to skill of 2 clinicians required which a rehabilitation services manager could not perform in order to coordinate UE/LEs, decrease fall risk, and due to pt's limitations in safety awareness, mobility, activity tolerance, transfers. OT focused on ADLS, UE placement, cues for sequencing and safety, PT focused on LE placement, overall gross movement, transfers/mobility. Pt finished eating lunch, used FWW to transfer into bathroom and onto SC. Pt doffed clothes, then completed shower. With showering, pt impulsive, standing without warning requiring moderate cues to stay seated. min-CGA in stand at GBs as pt washed periarea and buttocks. Pt sat on SC to bertrand clothes, cues for safety in order for pt to sit down while threading LEs. Pt then used FWW to ambulate around [facility] common area/2nd floor, 1 seated rest break. Pt returned to room, transferring to recliner. Post tx, pt seated in recliner, call light in reach and all needs met. Chair alarm on. Please refer to PT evaluation/note for QC scores associated with pt's mobility/ transfers. Education OT Patient Education: Correct positioning, Modified ADL techniques, Progress toward Goal/Update tx plan, Purpose of tx/functional activities, Rehab process, Safety issues, Transfer techniques Teaching Recipient: Patient Teaching Methods: Discussion Response to Teaching: Verbalize Understanding OT Short Term Goals Short Term Goals Time Frame: December 09, 2020 Toileting hygiene: 4 Upper body dressin Lower body dressin OT Senior Business Development Manager Goals Residential Goals Time Frame: December 25, 2020 Eating (QC): 6 Oral Hygiene (QC): 6 Toileting Hygiene (QC): 6 Shower/Bathe Self (QC): 4 Upper Body Dressing (QC): 6 Lower Body Dressing (QC): 6 On/Off Footwear (QC): 6 Additional Goals: 1-Demonstrate ADL Tasks, 2-Verbalize Understanding, 3- ImproveStrength/Erica 1=Demonstrate adherence to instructed precautions during ADL tasks. 2=Patient will verbalize/demonstrate understanding of assistive devices/modifications for ADL. 3=Patient will improve strength/tolerance for activity to enable patient to perform ADL's. OT Education/Plan Problem List/Assessment Assessment: Decreased Activ Tolerance, Decreased Safety Aware, Decreased UE Strength, Impaired Funct Balance, Impaired I ADL's, Impaired Self-Care Skills Discharge Recommendations Plan/Recommendations: Continue POC Treatment Plan/Plan of Care Patient would benefit from OT for education, treatment and training to promote independence in ADL's, mobility, safety and/or upper extremity function for ADL's. Plan of Care: ADL Retraining, Functional Mobility, Group Exercise/Act as Ind, UE Funct Exercise/Act Treatment Duration: December 25, 2020 Frequency: At least 5 of 7 days/Wk (IRF) Estimated Hrs Per Day: 1.5 hours per day Rehab Potential: Fair Time/GCodes Start Time: 11:40 Stop Time: 13:55 Total Time Billed (hr/min): 75 Billed Treatment Time [id number] OT evaluation (10'), [id number] OT/PT cotreat (10') 1, EVM (10'), FA (10' no charge for this) [id number] OT/PT cotreat (55') 1, ADL 3 (45'), FA (10') ELVIRA CORDERO OT Dec 03, 2020 14:07
[2020-12-03] MEDS: BETHANECHOL 25 MG (URECHOLINE) TAB PO SCH ×2 (16:11→20:10)
[2020-12-03 20:00] VITALS: BP 132/76
[2020-12-03] MEDS: COLCHICINE 0.6 MG (COLCRYS) TABLET PO SCH (20:10)
[2020-12-03] MEDS: GABAPENTIN 300 MG (NEURONTIN) CAP PO SCH (20:10)
[2020-12-03] MEDS: OLANZapine 5 MG (ZyPREXA) TAB PO SCH (20:10)
[2020-12-03] MEDS: DONEPEZIL 10 MG (ARICEPT) TAB PO SCH (20:10)
[2020-12-03] MEDS: RIVAROXABAN 20 MG TABLET (XARELTO) PO SCH (20:10)
[2020-12-03] MEDS: SENNA W/DOCUSATE (SENOKOT S) TABLET PO SCH (20:10)
[2020-12-03] MEDS: DOCUSATE SODIUM 100 MG (COLACE) CAP PO SCH (20:10)
[2020-12-03] MEDS: risperiDONE 0.5 MG (RisperDAL) TABLET PO SCH (20:10)
[2020-12-03] MEDS: SERTRALINE 100 MG (ZOLOFT) TAB PO SCH (20:11)
[2020-12-03] MEDS: MONTELUKAST 10 MG (SINGULAIR) TAB PO SCH (20:11)
[2020-12-03] MEDS: SIMvastatin 20 MG (ZOCOR) TAB PO SCH (20:11)
[2020-12-03] MEDS: polyethylene glycoL POWDER 17 GM (MIRALAX) PACK PO SCH (20:11)
[2020-12-03] MEDS ORDERED: DOCUSATE SODIUM 100 MG (COLACE) CAP PO SCH (21:00)
[2020-12-03] MEDS ORDERED: NON-FORMULARY MEDICATION 1 EA EA (Budesonide/Formoterol Fumarate (Symbicort 160-4.5 Mcg In IH SCH (21:00)
[2020-12-03] MEDS ORDERED: NON-FORMULARY MEDICATION 1 EA EA (Pravastatin Sodium 40 MG) PO SCH (21:00)
[2020-12-04 05:32] LABS: BASOPHILS # (AUTO) 0.1 10^3/uL (0.0-0.1); BASOPHILS % (AUTO) 1 % (0-10); EOSINOPHILS % (AUTO) 10 % (0-10); HEMATOCRIT 40 % (40-54); HEMOGLOBIN 12.5 g/dL (13.3-17.7); LYMPHOCYTES # (AUTO) 1.7 10^3/uL (1.0-4.0); LYMPHOCYTES % (AUTO) 18 % (12-44); MEAN CORPUSCULAR HEMOGLOBIN 29 pg (25-34); MEAN CORPUSCULAR HGB CONC 31 g/dL (32-36); MEAN CORPUSCULAR VOLUME 93 fL (80-99); MEAN PLATELET VOLUME 9.9 fL (9.0-12.2); MONOCYTES # (AUTO) 1.3 10^3/uL (0.0-1.0); MONOCYTES % (AUTO) 13 % (0-12); NEUTROPHILS # (AUTO) 5.7 10^3/uL (1.8-7.8); NEUTROPHILS % (AUTO) 58 % (42-75); PLATELET COUNT 169 10^3/uL (130-400); WHITE BLOOD COUNT 9.8 10^3/uL (4.3-11.0)
[2020-12-04] MEDS: BETHANECHOL 25 MG (URECHOLINE) TAB PO SCH ×4 (05:43→21:44)
[2020-12-04] MEDS: LEVOTHYROXINE 150 MCG (LEVOTHROID) TAB PO SCH (05:43)
[2020-12-04 05:57] LABS: ALANINE AMINOTRANSFERASE 16 U/L (0-55); ALBUMIN 3.3 GM/DL (3.2-4.5); ALKALINE PHOSPHATASE 62 U/L (40-136); BILIRUBIN,TOTAL 0.3 MG/DL (0.1-1.0); BUN/CREATININE RATIO 16; CALCIUM 8.4 MG/DL (8.5-10.1); CARBON DIOXIDE 26 MMOL/L (21-32); CHLORIDE 107 MMOL/L (98-107); CREATININE SERUM 0.99 MG/DL (0.60-1.30); GFR ESTIMATED > 60; GLUCOSE 117 MG/DL (70-105); POTASSIUM 4.2 MMOL/L (3.6-5.0); SODIUM 141 MMOL/L (135-145); TOTAL PROTEIN 6.2 GM/DL (6.4-8.2)
[2020-12-04] MEDS: RT--FLUTICASONE/SALMETEROL 232-14 (AIRDUO RespiCLICK) IH SCH ×2 (07:25→20:58)
[2020-12-04 08:00] VITALS: BP 127/61
--- NOTE | 2020-12-04 08:50 | Consultation-Cardiology ---
HPI-Cardiology Cardiology Consultation Date of Consultation 12/04/20 Date of Admission Time Seen by Provider: 08:46 Indication: CVA HPI 75 years old gentleman with a history of coronary artery disease, advanced dementia, history of CVA. Depression and sundown syndrome. Presented to the emergency room with right-sided weakness and slurred speech, difficulty walking on November 28, 2020, CT scan of the head was negative for acute infarct or hemorrhage. Work-up for seizure versus stroke was initiated. Patient was transferred to [facility], had MRI done on November 30, 2020 which reported as small bilateral lacunar infarct in the right occipital lobe and left frontal lobe. He had episode of acute delirium and severe aggression. On my evaluation he was laying down comfortably, asking to go home, denied any chest pain, palpitation or shortness of breath. Home Medications & Allergies Allergies: Coded Allergies: No Known Drug Allergies (Unverified , 04/24/19) Home Medication List Reviewed: Yes NJK-Mxdwwk-Cawapj Hx Patient Social History Marital Status: Employed/Student: retired Smoking Status: Former Smoker 2nd Hand Smoke Exposure: No Recent Hopitalizations: No Have you traveled recently?: No Alcohol Use?: No Immunizations Up To Date Tetanus Booster (TDap): More than 5yrs Date of Pneumonia Vaccine: May 14, 2018 Date of Influenza Vaccine: May 14, 2018 Past Medical History Discussed below Family Medical History Significant Family History: No Pertinent Family Hx Family History: Cancer Chest pain Family history: Alzheimer's disease Family history: Arthritis Family history: Asthma Family history: Cardiovascular disease Family history: Coronary thrombosis Family history: Diabetes mellitus Family history: Hypertension Family history: Thyroid disorder Hearing loss Heart disease History of - respiratory disease Myocardial infarction Stroke Visual impairment No Family History of: Abdominal aortic aneurysm Union's disease Alcoholism Aphasia Cancer of colon Cataract Congenital heart disease Congestive heart failure Cystic fibrosis Dementia Dysphagia Family history: Allergy Family history: Breast disease Family history: Gastrointestinal disease Family history: Glaucoma Family history: Osteoporosis Headache Hereditary disease History of - anemia History of - disorder History of drug abuse Human immunodeficiency virus (HIV) seropositivity Hypercholesterolemia Infertile Kidney disease Malignant neoplasm of lung Parkinson's disease Prostate cancer Psychotic disorder Seizure disorder Tuberculosis Review of Systems-General Review of Systems Constitutional: see HPI, malaise, weakness EENTM: no symptoms reported Respiratory: see HPI; No cough, No dyspnea on exertion, No hemoptysis, No orthopnea, No phlegm, No short of breath, No stridor, No wheezing, No other Cardiovascular: see HPI; No chest pain, No edema, No Hx of Intervention, No palpitations, No syncope, No vascular heart diseas, No other Gastrointestinal: no symptoms reported, see HPI Genitourinary: no symptoms reported, see HPI Musculoskeletal: no symptoms reported Skin: no symptoms reported, see HPI Psychiatric/Neurological: See HPI, Depressed, Other (confusion) Reviewed Test Results Reviewed Test Results Lab Laboratory Tests Test 12/04/20 04:59 Range/Units White Blood Count 9.8 4.3-11.0 10^3/uL Red Blood Count 4.35 4.30-5.52 10^6/uL Hemoglobin 12.5 L 13.3-17.7 g/dL Hematocrit 40 40-54 % Mean Corpuscular Volume 93 80-99 fL Mean Corpuscular Hemoglobin 29 25-34 pg Mean Corpuscular Hemoglobin Concent 31 L 32-36 g/dL Red Cell Distribution Width 13.7 10.0-14.5 % Platelet Count 169 130-400 10^3/uL Mean Platelet Volume 9.9 9.0-12.2 fL Immature Granulocyte % (Auto) 0 % Neutrophils (%) (Auto) 58 42-75 % Lymphocytes (%) (Auto) 18 12-44 % Monocytes (%) (Auto) 13 H 0-12 % Eosinophils (%) (Auto) 10 0-10 % Basophils (%) (Auto) 1 0-10 % Neutrophils # (Auto) 5.7 1.8-7.8 10^3/uL Lymphocytes # (Auto) 1.7 1.0-4.0 10^3/uL Monocytes # (Auto) 1.3 H 0.0-1.0 10^3/uL Eosinophils # (Auto) 1.0 H 0.0-0.3 10^3/uL Basophils # (Auto) 0.1 0.0-0.1 10^3/uL Immature Granulocyte # (Auto) 0.0 0.0-0.1 10^3/uL Sodium Level 141 135-145 MMOL/L Potassium Level 4.2 3.6-5.0 MMOL/L Chloride Level 107 98-107 MMOL/L Carbon Dioxide Level 26 21-32 MMOL/L Anion Gap 8 5-14 MMOL/L Blood Urea Nitrogen 16 7-18 MG/DL Creatinine 0.99 0.60-1.30 MG/DL Estimat Glomerular Filtration Rate > 60 BUN/Creatinine Ratio 16 Glucose Level 117 H 70-105 MG/DL Calcium Level 8.4 L 8.5-10.1 MG/DL Corrected Calcium 9.0 8.5-10.1 MG/DL Total Bilirubin 0.3 0.1-1.0 MG/DL Aspartate Amino Transf (AST/SGOT) 21 5-34 U/L Alanine Aminotransferase (ALT/SGPT) 16 0-55 U/L Alkaline Phosphatase 62 40-136 U/L Total Protein 6.2 L 6.4-8.2 GM/DL Albumin 3.3 3.2-4.5 GM/DL Physical Exam Physical Exam Vital Signs Vital Signs - First Documented 12/03/20 12/03/20 12/04/20 11:35 20:00 08:00 Temp 36.6 Pulse 54 Resp 20 B/P (MAP) 123/61 (81) Pulse Ox 95 O2 Delivery Room Air Capillary Refill : Height, Weight, BMI Height: 5'10.00" Weight: 263lbs. 2.0oz. 119.490427cm; 31.09 BMI Method:Stated General Appearance: No Apparent Distress, WD/WN, Chronically ill Eyes: Bilateral Eye Normal Inspection, Bilateral Eye PERRL HEENT: PERRL/EOMI, Normal ENT Inspection, Pharynx Normal Neck: Full Range of Motion, Normal Inspection, Non Tender, Supple, Carotid Bruit Respiratory: Chest Non Tender, Lungs Clear, Normal Breath Sounds, No Accessory Muscle Use, No Respiratory Distress Cardiovascular: Regular Rate, Rhythm, No Edema, No Gallop, No JVD, No Murmur, Normal Peripheral Pulses Gastrointestinal: Normal Bowel Sounds, No Organomegaly, No Pulsatile Mass, Non Tender, Soft Back: Normal Inspection, No CVA Tenderness, No Vertebral Tenderness Extremity: Normal Capillary Refill, Normal Inspection, Normal Range of Motion, Non Tender, No Calf Tenderness, No Pedal Edema Neurologic/Psychiatric: Alert, No Motor/Sensory Deficits, Normal Mood/Affect, certified residential medication aide II-XII Norm as Tested, Abnormal Gait, Depressed Affect, Disoriented, Motor Weakness (generalized all extremities 4/5) Skin: Normal Color, Warm/Dry Lymphatic: No Adenopathy A/P-Cardiology Admission Diagnosis Change in mental status Delirium Coronary artery disease Hypertension Assessment/Plan Acute change in mental status, 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 Moderate disease with calcified system in the left system. Hypertension, controlled on current medication, continue to monitor Hyperlipidemia, monitor lipids Chronic venous stasis dermatitis, no change from baseline. Continue to monitor Pulmonary hypertension with estimated pulmonary artery pressure of 35 mmHg, probably secondary to COPD. continue to monitor. COPD, pulmonary hypertension, maintained on Symbicort Diabetes mellitus, monitored and managed by primary care physician. History of syncope, resolved, continue to monitor. History of DVT with IVC filter, on Xarelto. History of moderate carotid stenosis. Most recent carotid duplex done September 2017, I will review [place] record if carotid ultrasound was done DIYA was done in August 2016 and was normal. Continue to monitor Hypothyroidism maintained on levothyroxine. Managed by primary care physician Obesity, BMI is 31. History of depression. Chronic back pain-managed by primary care physician THU VINCENT MD Dec 04, 2020 8:50 am
--- NOTE | 2020-12-04 09:20 | Physical Therapy Daily Note ---
PT Daily Note-Current Subjective Patient supine in bed pre tx, lights were low in room upon PT entering. Patient was confused, repetitively asked why he was in the room and where is family was. PT encouraged patient he is here to get stronger so he can be safe when he returns home. Patient repeatedly states he wants to call his family. Patient consented to therapy. Appearance Patient upright in chair post tx, with call button within reach & tray table n earby. Chair alarm turned on. Mental Status Patient Orientation: Person, Confused Transfers SCALE: Activities may be completed with or without assistive devices. 2-Gdblzclabc-iebmkya completes the activity by him/herself with no assistance from a helper. 5-Set-up or Clean-up Assistance-helper sets up or cleans up; patient completes activity. [place] assists only prior to or following the activity. 4-Supervision or Touching Assistance-helper provides verbal cues and/or touching/steadying and/or contact guard assistance as patient completes activity. Assistance may be provided throughout the activity or intermittently. 3-Partial/Moderate Assistance-helper does LESS THAN HALF the effort. [place] lifts, holds or supports trunk or limbs, but provides less than half the effort. 2-Substantial/Maximal Assistance-helper does MORE THAN HALF the effort. [place] lifts or holds trunk or limbs and provides more than half the effort. 2-Sdhupzivg-caxpgj does ALL the effort. Patient does none of the effort to complete the activity. Or, the assistance of 2 or more helpers is required for the patient to complete the activity. If activity was not attempted, code reason: 7-Patient Refused. 9-Not Applicable-not attempted and the patient did not perform the activity before the current illness, exacerbation or injury. 10-Not Attempted due to Environmental Limitations-(lack of equipment, weather restraints, etc.). 88-Not Attempted due to Medical Conditions or Safety Concerns. Roll Left & Right (QC): 6 Sit to Lying (QC): 6 Lying to Sitting/Side of Bed(Q: 6 Sit to Stand (QC): 4 Patient requires cues to stay seated, reacts to directions from PT immediately, but listens to cues to remain seated. Gait Training Does the Patient Walk?: Yes Distance: 100' x2 Walk 10 feet (QC): 4 Walk 50 ft with 2 Turns(QC): 4 Gait Assistive Device: FWW Patient has quick pace with gait this morning, has good balance but maintains kyphotic posture with ambulation. Exercises Seated Therapy Exercises: Ankle pumps, Long arc quads, Hip flexion, Hip abd/add Seated Reps: 20 Standing: Heel/toe raises (10 reps), Marching Standing Reps: 15 Patient demonstrated good pacing with ther ex, did not c/o pain. NuStep Minutes: 15 NuStep Workload: 5 Treatments LE strengthening, transfers, gait training, endurance Assessment Current Status: Fair Progress Patient is confused but is agreeable to participate in exercise. PT Short Term Goals Short Term Goals Time Frame: December 10, 2020 Roll Left & Right: 6 Sit to lyin Lying to sitting on side of be: 5 Sit to stand: 4 Chair/kvo-be-ljhan transfer: 4 Walk 10 feet: 4 Walk 50 feet with two turns: 4 Walk 150 feet: 4 PT Fluid Power Mechanic Goals Nursing Home Goals PT Fluid Power Mechanic Goals Time Frame: December 24, 2020 Roll Left & Right (QC): 6 Sit to Lying (QC): 6 Lying-Sitting on Side/Bed(QC): 6 Sit to Stand (QC): 5 Chair/Dym-lh-Slwxl Xfer(QC): 5 Toilet Transfer (QC): 5 Car Transfer (QC): 5 Does the Patient Walk: Yes Walk 10 feet (QC): 5 Walk 50ft with 2 Turns (QC): 5 Walk 150 ft (QC): 5 Walking 10ft on Uneven Surface: 5 1 Step (curb) (QC): 4 4 Steps (QC): 4 12 Steps (QC): 88 Picking up an Object (QC): 4 Wheel 50 feet with 2 turns (QC: 9 Wheel 150 feet: 9 PT Plan Problem List Problem List: Activity Tolerance, Functional Strength, Safety, Balance, Gait, Transfer, Bed Mobility, ROM Treatment/Plan Treatment Plan: Continue Plan of Care Treatment Plan: Bed Mobility, Education, Functional Activity Erica, Functional Strength, Group Therapy, Gait, Safety, Therapeutic Exercise, Transfers Treatment Duration: December 24, 2020 Frequency: At least 5 of 7 days/Wk (IRF) Estimated Hrs Per Day: 1.5 hours per day Patient and/or Family Agrees t: Yes Safety Risks/Education Patient Education: Gait Training, Transfer Techniques, Correct Positioning, W/C Management, Safety Issues Teaching Recipient: Patient Teaching Methods: Demonstration, Discussion Response to Teaching: Verbalize Understanding, Return Demonstration Time/GCodes Time In: 0900 Time Out: 1000 Total Billed Treatment Time: 60 Total Billed Treatment 1 visit: GT: 15' EX x2: 30' FA: 15' TSERING PIKE PT Dec 04, 2020 09:20
[2020-12-04] MEDS: ASPIRIN E.C. 81 MG (ECOTRIN) TAB PO SCH (09:34)
[2020-12-04] MEDS: COLCHICINE 0.6 MG (COLCRYS) TABLET PO SCH ×2 (09:34→21:44)
[2020-12-04] MEDS: meTOproloL SUCCINATE 50 MG (TOPROL XL) TAB PO SCH (09:34)
[2020-12-04] MEDS: GABAPENTIN 300 MG (NEURONTIN) CAP PO SCH ×2 (09:34→21:41)
[2020-12-04] MEDS: PANTOPRAZOLE 40 MG (PROTONIX) TAB PO SCH (09:34)
[2020-12-04] MEDS: TAMSULOSIN 0.4 MG (FLOMAX) CAP PO SCH (09:34)
[2020-12-04] MEDS: risperiDONE 0.5 MG (RisperDAL) TABLET PO SCH ×2 (09:34→21:41)
[2020-12-04] MEDS: FINASTERIDE (PROSCAR) 5 MG TAB PO SCH (09:35)
--- NOTE | 2020-12-04 10:14 | PM&R Progress Note ---
Subjective HPI/CC On Admission Date Seen by Provider: Dec 04, 2020 Time Seen by Provider: 10:15 Subjective/Events-last exam 12/04/20: Patient settling in well Constantly asks for his family Dementia is profound went to [facility] today Xanax given at night No issues BM+ Obsessed about family Review of Systems General: Fatigue, Malaise Neurological: Confusion Objective Exam Vital Signs Vital Signs Date Time Temp Pulse Resp B/P (MAP) Pulse Ox O2 Delivery O2 Flow Rate FiO2 12/04/20 20:58 94 12/04/20 10:11 Room Air 12/04/20 08:00 36.7 57 18 127/61 (83) Capillary Refill : General Appearance: No Apparent Distress, WD/WN, Chronically ill HEENT: PERRL/EOMI, Normal ENT Inspection, Pharynx Normal Neck: Full Range of Motion, Normal Inspection, Non Tender, Supple, Carotid Bruit Respiratory: Chest Non Tender, Lungs Clear, Normal Breath Sounds, No Accessory Muscle Use, No Respiratory Distress Cardiovascular: Regular Rate, Rhythm, No Edema, No Gallop, No JVD, No Murmur, Normal Peripheral Pulses Gastrointestinal: Normal Bowel Sounds, No Organomegaly, No Pulsatile Mass, Non Tender, Soft Back: Normal Inspection, No CVA Tenderness, No Vertebral Tenderness Extremity: Normal Capillary Refill, Normal Inspection, Normal Range of Motion, Non Tender, No Calf Tenderness, No Pedal Edema Neurologic/Psychiatric: Alert, No Motor/Sensory Deficits, Normal Mood/Affect, construction services technician II-XII Norm as Tested, Abnormal Gait, Depressed Affect, Disoriented, Motor Weakness (generalized all extremities 4/5) Skin: Normal Color, Warm/Dry Lymphatic: No Adenopathy Results/Procedures Lab Laboratory Tests 12/04/20 04:59 Patient resulted labs reviewed. FIM Transfers Therapy Code Descriptions/Definitions Functional Webb Measure: 0=Not Assessed/NA 4=Minimal Assistance 1=Total Assistance 5=Supervision or Setup 2=Maximal Assistance 6=Modified Webb 3=Moderate Assistance 7=Complete IndependenceSCALE: Activities may be completed with or without assistive devices. 0-Ucuopegimc-hmyqtkv completes the activity by him/herself with no assistance from a helper. 5-Set-up or Clean-up Assistance-helper sets up or cleans up; patient completes activity. [place] assists only prior to or following the activity. 4-Supervision or Touching Assistance-helper provides verbal cues and/or yi manfred/steadying and/or contact guard assistance as patient completes activity. Assistance may be provided throughout the activity or intermittently. 3-Partial/Moderate Assistance-helper does LESS THAN HALF the effort. [place] lifts, holds or supports trunk or limbs, but provides less than half the effort. 2-Substantial/Maximal Assistance-helper does MORE THAN HALF the effort. [place] lifts or holds trunk or limbs and provides more than half the effort. 8-Zejlzpqxl-dgsjrg does ALL the effort. Patient does none of the effort to complete the activity. Or, the assistance of 2 or more helpers is required for the patient to complete the activity. If activity was not attempted, code reason: 7-Patient Refused. 9-Not Applicable-not attempted and the patient did not perform the activity b efore the current illness, exacerbation or injury. 10-Not Attempted due to Environmental Limitations-(lack of equipment, weather restraints, etc.). 88-Not Attempted due to Medical Conditions or Safety Concerns. Roll Left to Right (QC): 6 Sit to Lying (QC): 6 Sit to Stand (QC): 4 Chair/Mjr-qw-Wstkk Xfer(QC): 3 Car Transfer (QC): 3 Gait Training Does the Patient Walk?: Yes Distance: 100' x2 Walk 10 feet (QC): 4 Walk 50 ft with 2 Turns(QC): 4 Walk 150 ft (QC): 3 Walking 10ft/uneven surface-QC: 3 Gait Assistive Device: FWW Wheelchair Training Does the Pt Use a Wheelchair?: No Wheel 50 ft with 2 turns (QC): 9 Wheel 150 ft (QC): 9 Stair Training 1 Step (curb) (QC): 3 4 Steps (QC): 88 12 Steps (QC): 88 Balance Picking up an Object (QC): 88 ADL-Treatment Eating (QC): 5 (set up assistance) Oral Hygiene (QC): 10 (Pt did not have dentures at time of evaluation, family to bring in this afternoon) Shower/Bathe Self (QC): 3 (min-CGA in stand, pt able to wash/dry all parts. Moderate cues for safety as pt stood without warning, requiring instruction to sit back down.) Upper Body Dressing (QC): 3 (Pt doffed shirt with SBA, min A donning shirt due to shirt rolling in back requiring assistance) Lower Body Dressing (QC): 3 (Pt able to complete pant hike with min-CGA in stand. Pt required min A with removing pants from ankles, mod A with threading feet.) On/Off Footwear (QC): 4 (SBA, pt able to doff/don gripper socks.) Toileting Hygiene (QC): 3 (Min A standing balance, pt able to manage clothing and perform hygiene) Assessment/Plan Assessment and Plan Assess & Plan/Chief Complaint A&P b/l lucunar stroke s/p acute delirium Possible seizure Main source of pts recent acute decompensation in health. PT/OT Speech therapy consult SS consult. CBC and CMP Advanced dementia Sundowning syndrome Pt historically usually cant perform basic ADLs after 5pm at home. Restart home mediation hypothyroidism HLP HTN HTN likely pts main RF for development of the lucunar infarcts. hx of DVT depression BPH gout GERD carpel tunnel syndrome - s/p b/l carpel tunnel release. Home medication DVT prophylaxis Xarelto for theraputic prophylaxis against DVTs, and ambulation. Plan: IRF protocol Monitor closely OAC Fall risk 12/04/20: Monitor confusion Monitor pain (1) Lacunar cerebrovascular accident (CVA) of subthalamic region (2) Dementia (3) Personal history of DVT (deep vein thrombosis) (4) Delirium (5) Seizure Status: Acute BRONWYN WILBURN DO Dec 04, 2020 10:14
--- NOTE | 2020-12-04 10:15 | Individualized Plan of Care ---
Individualized Plan of Care Rehab Nursing IPOC Order Admission Date Dec 03, 2020 at 11:30 Current Orders Orders Admission Order(Inpt,Obs,Sdc) (12/03/20 09:38) Vital Signs: Per Unit Policy ( 16,00 (12/03/20 09:38) Meek Goldberg (12/03/20 09:38) Sequential Compression Device .admit (12/03/20 09:38) Surgical Technologist-Inpt Rehab Con (12/03/20 09:38) Rehab Nursing Orders-Ipoc (12/03/20 09:38) Physical Therapy Rehab Orders (12/03/20 09:38) Occupational Therapy Rehab Ord (12/03/20 09:38) Speech Therapy Rehab Orders (12/03/20 09:38) Cbc With Automated Diff (12/04/20 06:00) Comprehensive Metabolic Panel (12/04/20 06:00) Precautions (Aru) (12/03/20 09:38) Rehab-Intensity Of Therapy (12/03/20 09:38) Acetaminophen Tablet/Caplet (Tylenol T (12/03/20 09:45) Alprazolam Tablet (Xanax Tablet) (12/03/20 09:45) Calcium Carbonate Chew Tablet (Antacid C (12/03/20 09:45) Diphenhydramine Tablet (Benadryl Tablet) (12/03/20 09:45) Docusate Sodium Capsule (Colace Capsule) (12/03/20 21:00) Docusate Sodium Capsule (Colace Capsule) (12/03/20 09:45) Bisacodyl Suppository (Dulcolax Supposit (12/03/20 09:45) Lactulose Oral Solution (Enulose Oral So (12/03/20 09:45) Na Phos/Na Biphos Enema (Fleet Enema Neo (12/03/20 09:45) Guaifenesin/Codeine Syrup (Robitussin Ac (12/03/20 09:45) Hydrocodone/Apap 5/325 Tablet (Lortab 5 (12/03/20 09:45) Loperamide Tablet (Imodium Tablet) (12/03/20 09:45) Enoxaparin Injection (Lovenox Injection) (12/03/20 09:45) Melatonin Tablet (Melatonin Tablet) (12/03/20 09:45) Polyethylene Glycol Powder Pkt (Miralax (12/03/20 21:00) Ondansetron Oral Dissolve Tab (Zofran (12/03/20 09:45) Senna S Tablet (Senokot S Tablet) (12/03/20 21:00) Initiate Admission Nursing Pro .admission (12/03/20 09:38) Admission Arrival Bed Request (12/03/20 11:36) Aspirin Enteric Coated Tablet (Ecotrin T (12/04/20 09:00) Colchicine Tablet (Colcrys Tablet) (12/03/20 21:00) Docusate Sodium Capsule (Colace Capsule) (12/03/20 21:00) Donepezil Tablet (Aricept Tablet) (12/03/20 21:00) Finasteride Tablet (Proscar Tablet) (12/04/20 09:00) Gabapentin Capsule/Tablet (Neurontin Cap (12/03/20 21:00) Levetiracetam Tablet (Keppra Tablet) (12/03/20 21:00) Levothyroxine Tablet (Synthroid Tablet) (12/04/20 06:30) Metoprolol Succinate (Xl) Tab (Toprol Xl (12/04/20 09:00) Montelukast Tablet (Singulair Tablet) (12/03/20 21:00) Olanzapine Tablet (Zyprexa Tablet) (12/03/20 21:00) Oxycodone Extended Release Tab (Oxyconti (12/03/20 11:45) Pantoprazole Tablet (Protonix Tablet) (12/04/20 09:00) Risperidone Tablet (Risperdal Tablet) (12/03/20 21:00) Rivaroxaban Tablet (Xarelto Tablet) (12/03/20 21:00) Sertraline Tablet (Zoloft Tablet) (12/03/20 21:00) Tamsulosin Capsule (Flomax Capsule) (12/04/20 09:00) Triamcinolone 0.5% Cream (Kenalog 0.5% C (12/03/20 11:45) (Nf) Budesonide/Formoterol Fumarate (Sym (12/03/20 21:00) (Nf) Cetirizine Hcl (12/03/20 11:45) (Nf) Lactase (Lactaid) (12/03/20 11:45) (Nf) Pravastatin Sodium (12/03/20 21:00) (Nf) [Bethanechol] (12/03/20 13:00) General/Regular (12/03/20 Lunch) Consult Cardiology (12/03/20 11:43) Loratadine Tablet (Claritin Tablet) (12/03/20 12:30) Bethanechol Tablet (Urecholine Tablet) (12/03/20 16:00) Simvastatin Tablet (Zocor Tablet) (12/03/20 21:00) Fluticasone/Salmeterol 232-14 (Airduo Re (12/03/20 21:00) Fentanyl Patch (Duragesic Patch) (12/05/20 09:00) Patch Removal (Patch Removal) (12/05/20 08:59) Patient Visit (12/03/20 ) Speech Sound Lang Comp (12/03/20 ) Treat. Speech/Lang/Voice (12/03/20 ) Patient Visit (12/03/20 ) Pt Eval Moderate Complexity (12/03/20 ) Functional Activities, Ea 15 (12/03/20 ) Gait Training, Ea 15 Min (12/03/20 ) Nursing Communication (Order) (12/03/20 15:34) Patient Visit (12/04/20 ) Exercise Therap, Ea 15 Min (12/04/20 ) Functional Activities, Ea 15 (12/04/20 ) Gait Training, Ea 15 Min (12/04/20 ) Patient Visit (12/04/20 ) Treat. Speech/Lang/Voice (12/04/20 ) Patient Visit (12/04/20 ) Exercise Therap, Ea 15 Min (12/04/20 ) Rehab Nursing Orders: Ongoing Assess. of Cognitive Status, Ongoing Assess. of Function Status, Bladder Management, Bladder Scan, Bladder Training, Bowel Management, Bowel Training, Disease Management & Educaiton, DVT Prophylaxis, Fall Prevention, Fluid/Electrolyte/Nutrition Mgmt, Infection Prevention, M edication Management & Education, Management of Risks & Complications, Management of Skin Intergrity, Nutrition Management, Pain Management, Patient/Family Support, Safety Management Intensity of Therapy to be met Patient to be seen: Min.3h per day/5 of 7d PT IPOC Problem List: Activity Tolerance, Functional Strength, Safety, Balance, Gait, Transfer, Bed Mobility, ROM Treatment Plan: Continue Plan of Care Bed Mobility, Education, Functional Activity Erica, Functional Strength, Group Therapy, Gait, Safety, Therapeutic Exercise, Transfers Treatment Duration: December 24, 2020 Frequency: At least 5 of 7 days/Wk (IRF) Estimated Hrs Per Day: 1.5 hours per day OT IPOC Problems: Decreased Activ Tolerance, Decreased Safety Aware, Decreased UE Strength, Impaired Funct Balance, Impaired I ADL's, Impaired Self-Care Skills OT Treatment, Training and Edu: Yes Plan of Care: ADL Retraining, Functional Mobility, Group Exercise/Act as Ind, UE Funct Exercise/Act Treatment Duration: December 25, 2020 Frequency: At least 5 of 7 days/Wk (IRF) Estimated Hrs Per Day: 1.[address] IPOC Speech Therapy Treatment Plan: Continue Plan of Care Treatment Duration: December 18, 2020 Frequency: 4 times per week Estimated Hrs Per Day: .5 hour per day Surgical Technologist/Case Mgmt Surgical Technologist/Case Managemen: Discharge Planning Dietitian/Blood Bank Supervisor Dietitian/Blood Bank Supervisor to monitor nutritional status and make changes and/or recommendations as needed and work with speech pathology on dietary upgrades as the occur. 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
--- NOTE | 2020-12-04 10:20 | Speech Therapy Daily Note ---
Speech Daily Progress Note Subjective Date Seen by Provider: Dec 04, 2020 Time Seen by Provider: 00:30 Patient was resting in his recliner when I entered his room. Patient was pleasant and cooperative during the ST session. Objective Patient completed a series of general information q/a related to self and daily routine with 80% given min to mod cues and/or repetitions. Assessment Assessment Current Status: Good Progress Treatment Plan Continue Plan of Care Speech Short Term Goals Short Term Goals Short Term Goals 1.) Patient will complete safety awareness activities related to their daily activities at 60% with minimal cues. 2.) Patient will complete memory activities related to their daily activities at 60% with minimal cues. 3.) Patient will complete recall of information activities related to their daily activities at 60% with minimal cues. Speech Classics Professor Goals Classics Professor Goals Patient will improve cognitive-communication skills necessary for safety and daily living tasks with minimal assist. Speech-Plan Patient/Family Goals Patient/Family Goals: Patient plans on returning to his home with family support for daily needs. Treatment Plan Speech Therapy Treatment Plan: Continue Plan of Care Treatment Duration: December 18, 2020 Frequency: 4 times per week Estimated Hrs Per Day: .5 hour per day Rehab Potential: Fair Barriers to Learning: Patient's recent decline in health and age Pt/Family Agrees to Plan: Yes Safety Risks/Education Teaching Recipient: Patient Teaching Methods: Demonstration, Discussion Response to Teaching: Verbalize Understanding, Return Demonstration Education Topics Provided: Continued safety awareness and communication of wants/needs Time Speech Therapy Time In: 10:00 Speech Therapy Time Out: 10:30 Total Billed Time: 30 Billed Treatment Time 1, GISELLE Alston Dec 04, 2020 10:20
--- NOTE | 2020-12-04 10:44 | Occupational Ther Daily Note ---
OT Current Status-Daily Note Subjective Pt in bathroom upon OT arrival, had gotten himself up off of toilet without using call light. Agreeable to OT tx, but asking where his family is and how to get ahold of them throughout session. OT informed pt she had not seen his family but would assist him with contacting them after tx. When pt returned to his room, family present. Mental Status/Objective Patient Orientation: Person, Confused ADL-Treatment Therapy Code Descriptions/Definitions Functional [place] Measure: 0=Not Assessed/NA 4=Minimal Assistance 1=Total Assistance 5=Supervision or Setup 2=Maximal Assistance 6=Modified [place] 3=Moderate Assistance 7=Complete IndependenceSCALE: Activities may be completed with or without assistive devices. 2-Irlgklyvim-icppqko completes the activity by him/herself with no assistance from a helper. 5-Set-up or Clean-up Assistance-helper sets up or cleans up; patient completes activity. [place] assists only prior to or following the activity. 4-Supervision or Touching Assistance-helper provides verbal cues and/or touching/steadying and/or contact guard assistance as patient completes activity. Assistance may be provided throughout the activity or intermittently. 3-Partial/Moderate Assistance-helper does LESS THAN HALF the effort. [place] lifts, holds or supports trunk or limbs, but provides less than half the effort. 2-Substantial/Maximal Assistance-helper does MORE THAN HALF the effort. [place] lifts or holds trunk or limbs and provides more than half the effort. 5-Yyhcrkikx-dswgqa does ALL the effort. Patient does none of the effort to complete the activity. Or, the assistance of 2 or more helpers is required for the patient to complete the activity. If activity was not attempted, code reason: 7-Patient Refused. 9-Not Applicable-not attempted and the patient did not perform the activity before the current illness, exacerbation or injury. 10-Not Attempted due to Environmental Limitations-(lack of equipment, weather restraints, etc.). 88-Not Attempted due to Medical Conditions or Safety Concerns. Oral Hygiene (QC): 4 (CGA at sink, min verbal cues) Other Treatment Pt in bathroom, had gotten himself off of toilet and was standing at sink upon OT arrival. Pt used FWW to return to recliner, [facility]. OT introduced self to pt, he declined ADLs on this date. Pt used FWW to perform functional mobility to therapy gym. In order to increase BUE strength and activity tolerance, pt completed arm bike, min resistance, x15 mis without a rest break. Pt then completed fine motor peg task, placing 1" pegs into foam pegboard, matching colors in each row. Pt completed first half of board with R hand, then instructed to complete the rest of the board with L hand. On 3 rows, pt began placing the wrong color (using the color of the row beside it). Pt required cues to locate errors and cues to remove the wrong color from the rows. Pt required moderate cues with fixing errors. Pt returned to his room, CGA with cues to stand straight. Pt sat in recliner, family present. OT assisted pt with calling and ordering lunch. He used FWW to ambulate into bathroom to stand at sink, combed his hair and brushed his teeth CGA with min verbal cues. Pt returned to his recliner, call light in reach and all needs met, family present and chair alarm on. Education OT Patient Education: Correct positioning, Modified ADL techniques, Progress toward Goal/Update tx plan, Purpose of tx/functional activities, Safety issues Teaching Recipient: Patient Teaching Methods: Discussion Response to Teaching: Verbalize Understanding, Reinforcement Needed OT Short Term Goals Short Term Goals Time Frame: December 09, 2020 Toileting hygiene: 4 Upper body dressin Lower body dressin OT Jail Goals Jail Goals Time Frame: December 25, 2020 Eating (QC): 6 Oral Hygiene (QC): 6 Toileting Hygiene (QC): 6 Shower/Bathe Self (QC): 4 Upper Body Dressing (QC): 6 Lower Body Dressing (QC): 6 On/Off Footwear (QC): 6 Additional Goals: 1-Demonstrate ADL Tasks, 2-Verbalize Understanding, 3- ImproveStrength/Erica 1=Demonstrate adherence to instructed precautions during ADL tasks. 2=Patient will verbalize/demonstrate understanding of assistive device s/modifications for ADL. 3=Patient will improve strength/tolerance for activity to enable patient to perform ADL's. OT Education/Plan Problem List/Assessment Assessment: Decreased Activ Tolerance, Decreased UE Strength, Impaired Funct Balance, Impaired I ADL's, Impaired Self-Care Skills Discharge Recommendations Plan/Recommendations: Continue POC Treatment Plan/Plan of Care Patient would benefit from OT for education, treatment and training to promote independence in ADL's, mobility, safety and/or upper extremity function for ADL's. Plan of Care: ADL Retraining, Functional Mobility, Group Exercise/Act as Ind, UE Funct Exercise/Act Treatment Duration: December 25, 2020 Frequency: At least 5 of 7 days/Wk (IRF) Estimated Hrs Per Day: 1.5 hours per day Rehab Potential: Fair Time/GCodes Start Time: 10:30 Stop Time: 11:45 Total Time Billed (hr/min): 75 Billed Treatment Time 1, ADL (15'), EX (15'), FA 3 (45') ELVIRA CORDERO OT Dec 04, 2020 10:44
[2020-12-04] MEDS: DOCUSATE SODIUM 100 MG (COLACE) CAP PO SCH ×2 (11:23→21:40)
[2020-12-04] MEDS: SENNA W/DOCUSATE (SENOKOT S) TABLET PO SCH ×2 (11:23→21:40)
[2020-12-04] MEDS: polyethylene glycoL POWDER 17 GM (MIRALAX) PACK PO SCH ×2 (11:24→21:40)
--- NOTE | 2020-12-04 14:26 | Physical Therapy Daily Note ---
PT Daily Note-Current Subjective Patient supine, asleep post tx. Patient is confused, but agrees to PT. Asks repeatedly where his family is. Appearance Patient supine in bed post tx, with call button within reach, tray table nearby, bed alarm turned on, and all needs met. Patient instructed to use call button if he needs anything. Bed alarm on. Mental Status Patient Orientation: Person, Confused Transfers SCALE: Activities may be completed with or without assistive devices. 6-Rdkrvebelb-wbqxaww completes the activity by him/herself with no assistance from a helper. 5-Set-up or Clean-up Assistance-helper sets up or cleans up; patient completes activity. [place] assists only prior to or following the activity. 4-Supervision or Touching Assistance-helper provides verbal cues and/or touching/steadying and/or contact guard assistance as patient completes activity. Assistance may be provided throughout the activity or intermittently. 3-Partial/Moderate Assistance-helper does LESS THAN HALF the effort. [place] lifts, holds or supports trunk or limbs, but provides less than half the effort. 2-Substantial/Maximal Assistance-helper does MORE THAN HALF the effort. [place] lifts or holds trunk or limbs and provides more than half the effort. 7-Abtmavhsm-xfgxad does ALL the effort. Patient does none of the effort to complete the activity. Or, the assistance of 2 or more helpers is required for the patient to complete the activity. If activity was not attempted, code reason: 7-Patient Refused. 9-Not Applicable-not attempted and the patient did not perform the activity before the current illness, exacerbation or injury. 10-Not Attempted due to Environmental Limitations-(lack of equipment, weather restraints, etc.). 88-Not Attempted due to Medical Conditions or Safety Concerns. Exercises Supine Ex: Ankle pumps, Quad Set, Glut sets, Heel Slides, Hip abd/add Supine Reps: 20 Patient is slow with ther ex, but is able to complete all necessary reps. Treatments LE strengthening, ROM Assessment Current Status: Fair Progress Patient is confused, but is agreeable to participate in ther ex, is slow with exercise and requires several rest breaks, but demonstrates adequate LE ROM with knee flexion/extension and hip flexion. PT Short Term Goals Short Term Goals Time Frame: December 10, 2020 Roll Left & Right: 6 Sit to lyin Lying to sitting on side of be: 5 Sit to stand: 4 Chair/koa-xz-vxsoq transfer: 4 Walk 10 feet: 4 Walk 50 feet with two turns: 4 Walk 150 feet: 4 PT [facility] Goals Medical Assistant Ob Gyn Goals PT Medical Assistant Ob Gyn Goals Time Frame: December 24, 2020 Roll Left & Right (QC): 6 Sit to Lying (QC): 6 Lying-Sitting on Side/Bed(QC): 6 Sit to Stand (QC): 5 Chair/Plw-gc-Qyuuh Xfer(QC): 5 Toilet Transfer (QC): 5 Car Transfer (QC): 5 Does the Patient Walk: Yes Walk 10 feet (QC): 5 Walk 50ft with 2 Turns (QC): 5 Walk 150 ft (QC): 5 Walking 10ft on Uneven Surface: 5 1 Step (curb) (QC): 4 4 Steps (QC): 4 12 Steps (QC): 88 Picking up an Object (QC): 4 Wheel 50 feet with 2 turns (QC: 9 Wheel 150 feet: 9 PT Plan Problem List Problem List: Activity Tolerance, Functional Strength, Safety, Balance, Gait, Transfer, Bed Mobility, ROM Treatment/Plan Treatment Plan: Continue Plan of Care Treatment Plan: Bed Mobility, Education, Functional Activity Erica, Functional Strength, Group Therapy, Gait, Safety, Therapeutic Exercise, Transfers Treatment Duration: December 24, 2020 Frequency: At least 5 of 7 days/Wk (IRF) Estimated Hrs Per Day: 1.5 hours per day Patient and/or Family Agrees t: Yes Safety Risks/Education Patient Education: Correct Positioning, Safety Issues Teaching Recipient: Patient Teaching Methods: Demonstration, Discussion Response to Teaching: Verbalize Understanding, Return Demonstration Time/GCodes Time In: 1400 Time Out: 1415 Total Billed Treatment Time: 15 Total Billed Treatment 1 visit: EX: 15' TSERING PIKE PT Dec 04, 2020 14:26
[2020-12-04 20:30] VITALS: BP 125/61
[2020-12-04] MEDS: SIMvastatin 20 MG (ZOCOR) TAB PO SCH (21:41)
[2020-12-04] MEDS: OLANZapine 5 MG (ZyPREXA) TAB PO SCH (21:41)
[2020-12-04] MEDS: RIVAROXABAN 20 MG TABLET (XARELTO) PO SCH (21:42)
[2020-12-04] MEDS: DONEPEZIL 10 MG (ARICEPT) TAB PO SCH (21:42)
[2020-12-04] MEDS: SERTRALINE 100 MG (ZOLOFT) TAB PO SCH (21:42)
[2020-12-04] MEDS: MONTELUKAST 10 MG (SINGULAIR) TAB PO SCH (21:43)
[2020-12-04] MEDS: MELATONIN 3 MG TABLET PO PRN (21:43)
[2020-12-05] MEDS: BETHANECHOL 25 MG (URECHOLINE) TAB PO SCH ×4 (06:22→21:19)
[2020-12-05] MEDS: LEVOTHYROXINE 150 MCG (LEVOTHROID) TAB PO SCH (06:22)
[2020-12-05] MEDS: RT--FLUTICASONE/SALMETEROL 232-14 (AIRDUO RespiCLICK) IH SCH ×2 (06:59→18:50)
[2020-12-05] MEDS: fentaNYL PATCH 75 MCG (DURAGESIC) TD SCH (08:17)
[2020-12-05] MEDS: TAMSULOSIN 0.4 MG (FLOMAX) CAP PO SCH (08:19)
[2020-12-05] MEDS: DOCUSATE SODIUM 100 MG (COLACE) CAP PO SCH ×2 (08:19→20:30)
[2020-12-05] MEDS: ASPIRIN E.C. 81 MG (ECOTRIN) TAB PO SCH (08:19)
[2020-12-05] MEDS: FINASTERIDE (PROSCAR) 5 MG TAB PO SCH (08:19)
[2020-12-05] MEDS: FENTANYL PATCH REMOVAL TP SCH (08:20)
[2020-12-05] MEDS: SENNA W/DOCUSATE (SENOKOT S) TABLET PO SCH ×2 (08:20→20:30)
[2020-12-05] MEDS: risperiDONE 0.5 MG (RisperDAL) TABLET PO SCH ×2 (08:20→21:19)
[2020-12-05] MEDS: COLCHICINE 0.6 MG (COLCRYS) TABLET PO SCH ×2 (08:20→21:19)
[2020-12-05] MEDS: meTOproloL SUCCINATE 50 MG (TOPROL XL) TAB PO SCH (08:20)
[2020-12-05] MEDS: GABAPENTIN 300 MG (NEURONTIN) CAP PO SCH ×2 (08:20→21:19)
[2020-12-05] MEDS: PANTOPRAZOLE 40 MG (PROTONIX) TAB PO SCH (08:20)
[2020-12-05 08:27] VITALS: BP 125/60
[2020-12-05] MEDS: polyethylene glycoL POWDER 17 GM (MIRALAX) PACK PO SCH ×2 (09:12→20:30)
--- NOTE | 2020-12-05 10:27 | Physical Therapy Daily Note ---
PT Daily Note-Current Subjective Patient in recliner pre tx, agrees to PT, has no complaints of pain. Patient is wondering where his is. Appearance Patient in recliner post tx with nurse call, phone, tray, all needs met, chair alarm on. Mental Status Patient Orientation: Person, Confused Transfers SCALE: Activities may be completed with or without assistive devices. 2-Fpummrsron-qkqqeob completes the activity by him/herself with no assistance from a helper. 5-Set-up or Clean-up Assistance-helper sets up or cleans up; patient completes activity. [place] assists only prior to or following the activity. 4-Supervision or Touching Assistance-helper provides verbal cues and/or touching/steadying and/or contact guard assistance as patient completes activity. Assistance may be provided throughout the activity or intermittently. 3-Partial/Moderate Assistance-helper does LESS THAN HALF the effort. [place] lifts, holds or supports trunk or limbs, but provides less than half the effort. 2-Substantial/Maximal Assistance-helper does MORE THAN HALF the effort. [place] lifts or holds trunk or limbs and provides more than half the effort. 4-Oknihitxs-yzawfc does ALL the effort. Patient does none of the effort to complete the activity. Or, the assistance of 2 or more helpers is required for the patient to complete the activity. If activity was not attempted, code reason: 7-Patient Refused. 9-Not Applicable-not attempted and the patient did not perform the activity before the current illness, exacerbation or injury. 10-Not Attempted due to Environmental Limitations-(lack of equipment, weather restraints, etc.). 88-Not Attempted due to Medical Conditions or Safety Concerns. Sit to Stand (QC): 4 Chair/Xbc-jq-Tsvyb Xfer(QC): 4 CGA, cues for hand placement and positioning Gait Training Distance: 150'x2 Walk 10 feet (QC): 4 Walk 50 ft with 2 Turns(QC): 4 Walk 150 ft (QC): 4 Gait Persons Needed: 1 Gait Assistive Device: FWW CGA, slow but steady ambulation, very slumped posture, cues for direction Exercises Seated Therapy Exercises: Ankle pumps, Long arc quads Seated Reps: 20 Treatments transfers, ambulation, LE exercise Assessment Current Status: Fair Progress improving ambulation and endurance PT Short Term Goals Short Term Goals Time Frame: December 10, 2020 Roll Left & Right: 6 Sit to lyin Lying to sitting on side of be: 5 Sit to stand: 4 Chair/grg-vu-aampm transfer: 4 Walk 10 feet: 4 Walk 50 feet with two turns: 4 Walk 150 feet: 4 PT Fpc Goals Fpc Goals PT Fpc Goals Time Frame: December 24, 2020 Roll Left & Right (QC): 6 Sit to Lying (QC): 6 Lying-Sitting on Side/Bed(QC): 6 Sit to Stand (QC): 5 Chair/Lgz-jf-Laaou Xfer(QC): 5 Toilet Transfer (QC): 5 Car Transfer (QC): 5 Does the Patient Walk: Yes Walk 10 feet (QC): 5 Walk 50ft with 2 Turns (QC): 5 Walk 150 ft (QC): 5 Walking 10ft on Uneven Surface: 5 1 Step (curb) (QC): 4 4 Steps (QC): 4 12 Steps (QC): 88 Picking up an Object (QC): 4 Wheel 50 feet with 2 turns (QC: 9 Wheel 150 feet: 9 PT Plan Problem List Problem List: Activity Tolerance, Functional Strength, Safety, Balance, Gait, Transfer, Bed Mobility, ROM Treatment/Plan Treatment Plan: Continue Plan of Care Treatment Plan: Bed Mobility, Education, Functional Activity Erica, Functional Strength, Group Therapy, Gait, Safety, Therapeutic Exercise, Transfers Treatment Duration: December 24, 2020 Frequency: At least 5 of 7 days/Wk (IRF) Estimated Hrs Per Day: 1.5 hours per day Patient and/or Family Agrees t: Yes Safety Risks/Education Patient Education: Gait Training, Transfer Techniques, Correct Positioning, Safety Issues Teaching Recipient: Patient Teaching Methods: Demonstration, Discussion Response to Teaching: Reinforcement Needed Time/GCodes Time In: 1013 Time Out: 1024 Total Billed Treatment Time: 11 Total Billed Treatment 1 visit GT 11' TSERING PIKE PT December 05, 2020 10:27
--- NOTE | 2020-12-05 10:44 | PM&R Progress Note ---
Subjective HPI/CC On Admission Date Seen by Provider: December 05, 2020 Time Seen by Provider: 10:45 Subjective/Events-last exam 12/05/20: Fentanyl patch changed Monitor closely BM 12/02 Doing well 12/04/20: Patient settling in well Constantly asks for his family Dementia is profound went to [facility] today Xanax given at night No issues BM+ Obsessed about family Review of Systems General: Fatigue Objective Exam Vital Signs Vital Signs Date Time Temp Pulse Resp B/P (MAP) Pulse Ox O2 Delivery O2 Flow Rate FiO2 12/05/20 08:27 36.7 58 18 125/60 (81) 93 Room Air Capillary Refill : General Appearance: No Apparent Distress, WD/WN, Chronically ill HEENT: PERRL/EOMI, Normal ENT Inspection, Pharynx Normal Neck: Full Range of Motion, Normal Inspection, Non Tender, Supple, Carotid Bruit Respiratory: Chest Non Tender, Lungs Clear, Normal Breath Sounds, No Accessory Muscle Use, No Respiratory Distress Cardiovascular: Regular Rate, Rhythm, No Edema, No Gallop, No JVD, No Murmur, Normal Peripheral Pulses Gastrointestinal: Normal Bowel Sounds, No Organomegaly, No Pulsatile Mass, Non Tender, Soft Back: Normal Inspection, No CVA Tenderness, No Vertebral Tenderness Extremity: Normal Capillary Refill, Normal Inspection, Normal Range of Motion, Non Tender, No Calf Tenderness, No Pedal Edema Neurologic/Psychiatric: Alert, No Motor/Sensory Deficits, Normal Mood/Affect, 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 FIM Transfers Therapy Code Descriptions/Definitions Functional [place] Measure: 0=Not Assessed/NA 4=Minimal Assistance 1=Total Assistance 5=Supervision or Setup 2=Maximal Assistance 6=Modified [place] 3=Moderate Assistance 7=Complete IndependenceSCALE: Activities may be completed with or without assistive devices. 4-Yfsbkcxozj-rncakfh completes the activity by him/herself with no assistance from a helper. 5-Set-up or Clean-up Assistance-helper sets up or cleans up; patient completes activity. [place] assists only prior to or following the activity. 4-Supervision or Touching Assistance-helper provides verbal cues and/or touching/steadying and/or contact guard assistance as patient completes activity. Assistance may be provided throughout the activity or intermittently. 3-Partial/Moderate Assistance-helper does LESS THAN HALF the effort. [place] lifts, holds or supports trunk or limbs, but provides less than half the effort. 2-Substantial/Maximal Assistance-helper does MORE THAN HALF the effort. [place] lifts or holds trunk or limbs and provides more than half the effort. 6-Ctuvgumym-ebdqla does ALL the effort. Patient does none of the effort to complete the activity. Or, the assistance of 2 or more helpers is required for the patient to complete the activity. If activity was not attempted, code reason: 7-Patient Refused. 9-Not Applicable-not attempted and the patient did not perform the activity before the current illness, exacerbation or injury. 10-Not Attempted due to Environmental Limitations-(lack of equipment, weather restraints, etc.). 88-Not Attempted due to Medical Conditions or Safety Concerns. Roll Left to Right (QC): 6 Sit to Lying (QC): 6 Sit to Stand (QC): 4 Chair/Eqv-qs-Dsnjy Xfer(QC): 4 Car Transfer (QC): 3 Gait Training Does the Patient Walk?: Yes Distance: 150'x2 Walk 10 feet (QC): 4 Walk 50 ft with 2 Turns(QC): 4 Walk 150 ft (QC): 4 Walking 10ft/uneven surface-QC: 3 Gait Persons Needed: 1 Gait Assistive Device: FWW Wheelchair Training Does the Pt Use a Wheelchair?: No Wheel 50 ft with 2 turns (QC): 9 Wheel 150 ft (QC): 9 Stair Training 1 Step (curb) (QC): 3 4 Steps (QC): 88 12 Steps (QC): 88 Balance Picking up an Object (QC): 88 ADL-Treatment Eating (QC): 5 (set up assistance) Oral Hygiene (QC): 4 (CGA at sink, min verbal cues) Shower/Bathe Self (QC): 3 (min-CGA in stand, pt able to wash/dry all parts. Moderate cues for safety as pt stood without warning, requiring instruction to sit back down.) Upper Body Dressing (QC): 3 (Pt doffed shirt with SBA, min A donning shirt due to shirt rolling in back requiring assistance) Lower Body Dressing (QC): 3 (Pt able to complete pant hike with min-CGA in stand. Pt required min A with removing pants from ankles, mod A with threading feet.) On/Off Footwear (QC): 4 (SBA, pt able to doff/don gripper socks.) Toileting Hygiene (QC): 3 (Min A standing balance, pt able to manage clothing and perform hygiene) Assessment/Plan Assessment and Plan Assess & Plan/Chief Complaint A&P b/l lucunar stroke s/p acute delirium Possible seizure Main source of pts recent acute decompensation in health. PT/OT Speech therapy consult SS consult. CBC and CMP Advanced dementia Sundowning syndrome Pt historically usually cant perform basic ADLs after 5pm at home. Restart home mediation hypothyroidism HLP HTN HTN likely pts main RF for development of the lucunar infarcts. hx of DVT depression BPH gout GERD carpel tunnel syndrome - s/p b/l carpel tunnel release. Home medication DVT prophylaxis Xarelto for theraputic prophylaxis against DVTs, and ambulation. Plan: IRF protocol Monitor closely OAC Fall risk 12/04/20: Monitor confusion Monitor pain 12/05/20: Monitor pain Monitor delirium (1) Lacunar cerebrovascular accident (CVA) of subthalamic region (2) Dementia (3) Personal history of DVT (deep vein thrombosis) (4) Delirium (5) Seizure Status: Acute BRONWYN WILBURN DO December 05, 2020 10:44
--- NOTE | 2020-12-05 12:32 | Progress Note - Cardiology ---
Cardiology SOAP Progress Note Subjective: No cp or palp or syncope Gen malaise Upset that he has not been able to see his No n/v/d Objective: I&O/Vital Signs 12/05/20 12/05/20 07:00 08:27 Temp 36.7 Pulse 58 Resp 18 B/P (MAP) 125/60 (81) Pulse Ox 95 93 O2 Delivery Room Air Weight (Pounds): 263 Weight (Ounces): 2.0 Weight (Calculated Kilograms): 119.791565 Constitutional: well-developed, well-nourished, other (appropriately responsive at time of this exam) Cardiovascular: regular rate-rhythm, S1 and S2; No systolic murmur (Soft FANNY at card base) Gastrointestional: No tender; soft; No guarding, No rebound; audible bowel sounds Extremities: No clubbing, No cyanosis, No significant edema Neurologic/Psychiatric: other (seems to be able to move all of his limbs equally) Skin: normal color, warm/dry; No cyanosis, No cool, No diaphoresis Results/Procedures: Labs Laboratory Tests 12/04/20 04:59 A/P: Assessment: Mental status and CVA in November 2020 ( MRI at [facility] on November 30, 2020: small bilateral lacunar infarct in the right occipital lobe and left frontal lobe) managed by Dr Miramontes receiving physical therapy H/o dementia and delirium 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 Moderate disease with calcified system in the left system. Hypertension Hyperlipidemia Chronic venous stasis dermatitis, no change from baseline COPD and h/o mild pulmonary hypertension Diabetes mellitus II, monitored and managed by primary care physician. History of syncope, none recently History of DVT with IVC filter, on Xarelto. History of carotid stenosis - CTA head on 11/28/20: No arterial stenosis or occlusion within the neck arteries. No intracranial large vessel occlusion or saccular aneurysm DIYA was done in August 2016 and was normal Hypothyroidism, treated with levothyroxine Obesity, BMI is 31. History of depression. Chronic back pain Plan: * I reviewed his records and interviewed and examined him * He has multiple comorbidities that are outlined above * Continue current regimen * Monitor labs RIAZ DOW MD FACP FAC CCDS December 05, 2020 12:32
[2020-12-05 20:00] VITALS: BP 128/70
[2020-12-05] MEDS: DONEPEZIL 10 MG (ARICEPT) TAB PO SCH (21:18)
[2020-12-05] MEDS: SERTRALINE 100 MG (ZOLOFT) TAB PO SCH (21:18)
[2020-12-05] MEDS: MONTELUKAST 10 MG (SINGULAIR) TAB PO SCH (21:19)
[2020-12-05] MEDS: MELATONIN 3 MG TABLET PO PRN (21:19)
[2020-12-05] MEDS: OLANZapine 5 MG (ZyPREXA) TAB PO SCH (21:19)
[2020-12-05] MEDS: RIVAROXABAN 20 MG TABLET (XARELTO) PO SCH (21:19)
[2020-12-05] MEDS: SIMvastatin 20 MG (ZOCOR) TAB PO SCH (21:19)
[2020-12-06] MEDS: BETHANECHOL 25 MG (URECHOLINE) TAB PO SCH ×4 (06:30→20:24)
[2020-12-06] MEDS: LEVOTHYROXINE 150 MCG (LEVOTHROID) TAB PO SCH (06:30)
[2020-12-06 07:30] VITALS: BP 146/77
[2020-12-06] MEDS: RT--FLUTICASONE/SALMETEROL 232-14 (AIRDUO RespiCLICK) IH SCH ×2 (08:08→19:16)
[2020-12-06] MEDS: TAMSULOSIN 0.4 MG (FLOMAX) CAP PO SCH (09:14)
[2020-12-06] MEDS: COLCHICINE 0.6 MG (COLCRYS) TABLET PO SCH ×2 (09:14→20:23)
[2020-12-06] MEDS: ASPIRIN E.C. 81 MG (ECOTRIN) TAB PO SCH (09:14)
[2020-12-06] MEDS: risperiDONE 0.5 MG (RisperDAL) TABLET PO SCH ×2 (09:14→20:23)
[2020-12-06] MEDS: PANTOPRAZOLE 40 MG (PROTONIX) TAB PO SCH (09:14)
[2020-12-06] MEDS: FINASTERIDE (PROSCAR) 5 MG TAB PO SCH (09:14)
[2020-12-06] MEDS: meTOproloL SUCCINATE 50 MG (TOPROL XL) TAB PO SCH (09:14)
[2020-12-06] MEDS: GABAPENTIN 300 MG (NEURONTIN) CAP PO SCH ×2 (09:14→20:23)
--- NOTE | 2020-12-06 09:26 | PM&R Progress Note ---
Subjective HPI/CC On Admission Date Seen by Provider: December 06, 2020 Time Seen by Provider: 09:30 Subjective/Events-last exam 12/06/20: Patient in a good mood Wants his moravian to call him No pain reported No falls 12/05/20: Fentanyl patch changed Monitor closely BM 12/02 Doing well 12/04/20: Patient settling in well Constantly asks for his family Dementia is profound went to [facility] today Xanax given at night No issues BM+ Obsessed about family Review of Systems General: Fatigue, Malaise Objective Exam Vital Signs Vital Signs Date Time Temp Pulse Resp B/P (MAP) Pulse Ox O2 Delivery O2 Flow Rate FiO2 12/06/20 20:06 36.6 58 18 142/68 (92) 94 Room Air Capillary Refill : General Appearance: No Apparent Distress, WD/WN, Chronically ill HEENT: PERRL/EOMI, Normal ENT Inspection, Pharynx Normal Neck: Full Range of Motion, Normal Inspection, Non Tender, Supple, Carotid Bruit Respiratory: Chest Non Tender, Lungs Clear, Normal Breath Sounds, No Accessory Muscle Use, No Respiratory Distress Cardiovascular: Regular Rate, Rhythm, No Edema, No Gallop, No JVD, No Murmur, Normal Peripheral Pulses Gastrointestinal: Normal Bowel Sounds, No Organomegaly, No Pulsatile Mass, Non Tender, Soft Back: Normal Inspection, No CVA Tenderness, No Vertebral Tenderness Extremity: Normal Capillary Refill, Normal Inspection, Normal Range of Motion, Non Tender, No Calf Tenderness, No Pedal Edema Neurologic/Psychiatric: Alert, No Motor/Sensory Deficits, Normal Mood/Affect, 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 FIM Transfers Therapy Code Descriptions/Definitions Functional [place] Measure: 0=Not Assessed/NA 4=Minimal Assistance 1=Total Assistance 5=Supervision or Setup 2=Maximal Assistance 6=Modified [place] 3=Moderate Assistance 7=Complete IndependenceSCALE: Activities may be completed with or without assistive devices. 8-Ouliojhahd-cdnszju completes the activity by him/herself with no assistance fr om a helper. 5-Set-up or Clean-up Assistance-helper sets up or cleans up; patient completes activity. [place] assists only prior to or following the activity. 4-Supervision or Touching Assistance-helper provides verbal cues and/or touching/steadying and/or contact guard assistance as patient completes activity. Assistance may be provided throughout the activity or intermittently. 3-Partial/Moderate Assistance-helper does LESS THAN HALF the effort. [place] lifts, holds or supports trunk or limbs, but provides less than half the effort. 2-Substantial/Maximal Assistance-helper does MORE THAN HALF the effort. [place] lifts or holds trunk or limbs and provides more than half the effort. 4-Uczafgkgw-hosnjn does ALL the effort. Patient does none of the effort to complete the activity. Or, the assistance of 2 or more helpers is required for the patient to complete the activity. If activity was not attempted, code reason: 7-Patient Refused. 9-Not Applicable-not attempted and the patient did not perform the activity before the current illness, exacerbation or injury. 10-Not Attempted due to Environmental Limitations-(lack of equipment, weather restraints, etc.). 88-Not Attempted due to Medical Conditions or Safety Concerns. Roll Left to Right (QC): 6 Sit to Lying (QC): 6 Sit to Stand (QC): 4 Chair/Tal-xy-Ilhyn Xfer(QC): 4 Car Transfer (QC): 3 Gait Training Does the Patient Walk?: Yes Distance: 150'x2 Walk 10 feet (QC): 4 Walk 50 ft with 2 Turns(QC): 4 Walk 150 ft (QC): 4 Walking 10ft/uneven surface-QC: 3 Gait Persons Needed: 1 Gait Assistive Device: FWW Wheelchair Training Does the Pt Use a Wheelchair?: No Wheel 50 ft with 2 turns (QC): 9 Wheel 150 ft (QC): 9 Stair Training 1 Step (curb) (QC): 3 4 Steps (QC): 88 12 Steps (QC): 88 Balance Picking up an Object (QC): 88 ADL-Treatment Eating (QC): 5 (set up assistance) Oral Hygiene (QC): 4 (CGA at sink, min verbal cues) Shower/Bathe Self (QC): 3 (min-CGA in stand, pt able to wash/dry all parts. Moderate cues for safety as pt stood without warning, requiring instruction to sit back down.) Upper Body Dressing (QC): 3 (Pt doffed shirt with SBA, min A donning shirt due to shirt rolling in back requiring assistance) Lower Body Dressing (QC): 3 (Pt able to complete pant hike with min-CGA in stand. Pt required min A with removing pants from ankles, mod A with threading feet.) On/Off Footwear (QC): 4 (SBA, pt able to doff/don gripper socks.) Toileting Hygiene (QC): 3 (Min A standing balance, pt able to manage clothing and perform hygiene) Assessment/Plan Assessment and Plan Assess & Plan/Chief Complaint A&P b/l lucunar stroke s/p acute delirium Possible seizure Main source of pts recent acute decompensation in health. PT/OT Speech therapy consult SS consult. CBC and CMP Advanced dementia Sundowning syndrome Pt historically usually cant perform basic ADLs after 5pm at home. Restart home mediation hypothyroidism HLP HTN HTN likely pts main RF for development of the lucunar infarcts. hx of DVT depression BPH gout GERD carpel tunnel syndrome - s/p b/l carpel tunnel release. Home medication DVT prophylaxis Xarelto for theraputic prophylaxis against DVTs, and ambulation. Plan: IRF protocol Monitor closely OAC Fall risk 12/04/20: Monitor confusion Monitor pain 12/05/20: Monitor pain Monitor delirium 12/06/20: Monitor pain BP stable (1) Lacunar cerebrovascular accident (CVA) of subthalamic region (2) Dementia (3) Personal history of DVT (deep vein thrombosis) (4) Delirium (5) Seizure Status: Acute BRONWYN WILBURN DO December 06, 2020 09:26
[2020-12-06] MEDS: DOCUSATE SODIUM 100 MG (COLACE) CAP PO SCH ×2 (10:35→19:55)
[2020-12-06] MEDS: SENNA W/DOCUSATE (SENOKOT S) TABLET PO SCH ×2 (10:36→19:56)
[2020-12-06] MEDS: polyethylene glycoL POWDER 17 GM (MIRALAX) PACK PO SCH ×2 (10:36→19:55)
--- NOTE | 2020-12-06 12:40 | Progress Note - Cardiology ---
Cardiology SOAP Progress Note Subjective: Sad at being away from his who is ill and hospitalized at another facility No cp or palp or syncope or shortness of breath No n/v/d Gen weakness and malaise present Objective: I&O/Vital Signs 12/06/20 12/06/20 07:30 08:08 Temp 36.8 Pulse 64 Resp 18 B/P (MAP) 146/77 (100) Pulse Ox 93 93 O2 Delivery Room Air Weight (Pounds): 263 Weight (Ounces): 2.0 Weight (Calculated Kilograms): 119.664806 Constitutional: well-developed, well-nourished, other (appropriately responsive at time of this exam) Cardiovascular: regular rate-rhythm, S1 and S2; No systolic murmur (Soft FANNY at card base) Gastrointestional: No tender; soft; No guarding, No rebound; audible bowel sounds Extremities: No clubbing, No cyanosis, No significant edema Neurologic/Psychiatric: other (seems to be able to move all of his limbs equally) Skin: normal color, warm/dry; No cyanosis, No cool, No diaphoresis A/P: Assessment: Mental status and CVA in November 2020 ( MRI at [facility] on November 30, 2020: small bilateral lacunar infarct in the right occipital lobe and left frontal lobe) managed by Dr Miramontes, receiving physical therapy H/o dementia and delirium 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 Moderate disease with calcified system in the left system. Hypertension Hyperlipidemia Chronic venous stasis dermatitis, no change from baseline COPD and h/o mild pulmonary hypertension Diabetes mellitus II, monitored and managed by primary care physician. History of syncope, none recently History of DVT with IVC filter, on Xarelto. History of carotid stenosis - CTA head on 11/28/20: No arterial stenosis or occlusion within the neck arteries. No intracranial large vessel occlusion or saccular aneurysm DIYA was done in August 2016 and was normal Hypothyroidism, treated with levothyroxine Obesity, BMI is 31. History of depression. Chronic back pain Plan: * He has multiple comorbidities that are outlined above * Cardiac status appears clinically stable * Continue current regimen * Monitor labs RIAZ DOW MD FACP FAC CCDS December 06, 2020 12:40
[2020-12-06 20:06] VITALS: BP 142/68
[2020-12-06] MEDS: OLANZapine 5 MG (ZyPREXA) TAB PO SCH (20:23)
[2020-12-06] MEDS: MONTELUKAST 10 MG (SINGULAIR) TAB PO SCH (20:23)
[2020-12-06] MEDS: DONEPEZIL 10 MG (ARICEPT) TAB PO SCH (20:23)
[2020-12-06] MEDS: SIMvastatin 20 MG (ZOCOR) TAB PO SCH (20:23)
[2020-12-06] MEDS: MELATONIN 3 MG TABLET PO PRN (20:24)
[2020-12-06] MEDS: SERTRALINE 100 MG (ZOLOFT) TAB PO SCH (20:24)
[2020-12-06] MEDS: RIVAROXABAN 20 MG TABLET (XARELTO) PO SCH (20:24)
--- NOTE | 2020-12-07 05:25 | PM&R Progress Note ---
Subjective HPI/CC On Admission Date Seen by Provider: December 07, 2020 Time Seen by Provider: 08:30 Subjective/Events-last exam 12/07/20: Pt doing really well Hgb 11.3 Has no concerns Doing pretty well, sleeping 12/06/20: Patient in a good mood Wants his quaker to call him No pain reported No falls 12/05/20: Fentanyl patch changed Monitor closely BM 12/02 Doing well 12/04/20: Patient settling in well Constantly asks for his family Dementia is profound went to [facility] today Xanax given at night No issues BM+ Obsessed about family Review of Systems General: Fatigue, Malaise Neurological: Weakness, Confusion Objective Exam Vital Signs Vital Signs Date Time Temp Pulse Resp B/P (MAP) Pulse Ox O2 Delivery O2 Flow Rate FiO2 12/07/20 21:45 96 Room Air 12/07/20 20:00 36.2 56 16 127/67 (87) Capillary Refill : General Appearance: No Apparent Distress, WD/WN, Chronically ill HEENT: PERRL/EOMI, Normal ENT Inspection, Pharynx Normal Neck: Full Range of Motion, Normal Inspection, Non Tender, Supple, Carotid Bruit Respiratory: Chest Non Tender, Lungs Clear, Normal Breath Sounds, No Accessory Muscle Use, No Respiratory Distress Cardiovascular: Regular Rate, Rhythm, No Edema, No Gallop, No JVD, No Murmur, Normal Peripheral Pulses Gastrointestinal: Normal Bowel Sounds, No Organomegaly, No Pulsatile Mass, Non Tender, Soft Back: Normal Inspection, No CVA Tenderness, No Vertebral Tenderness Extremity: Normal Capillary Refill, Normal Inspection, Normal Range of Motion, Non Tender, No Calf Tenderness, No Pedal Edema Neurologic/Psychiatric: Alert, No Motor/Sensory Deficits, Normal Mood/Affect, 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 FIM Transfers Therapy Code Descriptions/Definitions Functional [place] Measure: 0=Not Assessed/NA 4=Minimal Assistance 1=Total Assistance 5=Supervision or Setup 2=Maximal Assistance 6=Modified [place] 3=Moderate Assistance 7=Complete IndependenceSCALE: Activities may be completed with or without assistive devices. 5-Mrqpkjuirq-qasagzu completes the activity by him/herself with no assistance from a helper. 5-Set-up or Clean-up Assistance-helper sets up or cleans up; patient completes a ctivity. [place] assists only prior to or following the activity. 4-Supervision or Touching Assistance-helper provides verbal cues and/or touching/steadying and/or contact guard assistance as patient completes activity. Assistance may be provided throughout the activity or intermittently. 3-Partial/Moderate Assistance-helper does LESS THAN HALF the effort. [place] lifts, holds or supports trunk or limbs, but provides less than half the effort. 2-Substantial/Maximal Assistance-helper does MORE THAN HALF the effort. [place] lifts or holds trunk or limbs and provides more than half the effort. 0-Ndxubeueb-znrvzn does ALL the effort. Patient does none of the effort to complete the activity. Or, the assistance of 2 or more helpers is required for the patient to complete the activity. If activity was not attempted, code reason: 7-Patient Refused. 9-Not Applicable-not attempted and the patient did not perform the activity before the current illness, exacerbation or injury. 10-Not Attempted due to Environmental Limitations-(lack of equipment, weather restraints, etc.). 88-Not Attempted due to Medical Conditions or Safety Concerns. Roll Left to Right (QC): 6 Sit to Lying (QC): 6 Sit to Stand (QC): 4 Chair/Phj-nb-Ffxgm Xfer(QC): 4 Car Transfer (QC): 3 Gait Training Does the Patient Walk?: Yes Distance: 150'x2 Walk 10 feet (QC): 4 Walk 50 ft with 2 Turns(QC): 4 Walk 150 ft (QC): 4 Walking 10ft/uneven surface-QC: 3 Gait Persons Needed: 1 Gait Assistive Device: FWW Wheelchair Training Does the Pt Use a Wheelchair?: No Wheel 50 ft with 2 turns (QC): 9 Wheel 150 ft (QC): 9 Stair Training 1 Step (curb) (QC): 3 4 Steps (QC): 88 12 Steps (QC): 88 Balance Picking up an Object (QC): 88 ADL-Treatment Eating (QC): 5 (set up assistance) Oral Hygiene (QC): 4 (CGA at sink, min verbal cues) Shower/Bathe Self (QC): 3 (min-CGA in stand, pt able to wash/dry all parts. Moderate cues for safety as pt stood without warning, requiring instruction to sit back down.) Upper Body Dressing (QC): 3 (Pt doffed shirt with SBA, min A donning shirt due to shirt rolling in back requiring assistance) Lower Body Dressing (QC): 3 (Pt able to complete pant hike with min-CGA in stand. Pt required min A with removing pants from ankles, mod A with threading feet.) On/Off Footwear (QC): 4 (SBA, pt able to doff/don gripper socks.) Toileting Hygiene (QC): 3 (Min A standing balance, pt able to manage clothing and perform hygiene) Assessment/Plan Assessment and Plan Assess & Plan/Chief Complaint A&P b/l lucunar stroke s/p acute delirium Possible seizure Main source of pts recent acute decompensation in health. PT/OT Speech therapy consult SS consult. CBC and CMP Advanced dementia Sundowning syndrome Pt historically usually cant perform basic ADLs after 5pm at home. Restart home mediation hypothyroidism HLP HTN HTN likely pts main RF for development of the lucunar infarcts. hx of DVT depression BPH gout GERD carpel tunnel syndrome - s/p b/l carpel tunnel release. Home medication DVT prophylaxis Xarelto for theraputic prophylaxis against DVTs, and ambulation. Plan: IRF protocol Monitor closely OAC Fall risk 12/04/20: Monitor confusion Monitor pain 12/05/20: Monitor pain Monitor delirium 12/06/20: Monitor pain BP stable 12/07/20: Monitor closely Monitor pain (1) Lacunar cerebrovascular accident (CVA) of subthalamic region (2) Dementia (3) Personal history of DVT (deep vein thrombosis) (4) Delirium (5) Seizure Status: Acute BRONWYN WILBURN DO December 07, 2020 05:25
[2020-12-07 05:29] LABS: BASOPHILS # (AUTO) 0.1 10^3/uL (0.0-0.1); BASOPHILS % (AUTO) 1 % (0-10); EOSINOPHILS # (AUTO) 0.9 10^3/uL (0.0-0.3); EOSINOPHILS % (AUTO) 9 % (0-10); HEMATOCRIT 37 % (40-54); HEMOGLOBIN 11.3 g/dL (13.3-17.7); LYMPHOCYTES # (AUTO) 2.2 10^3/uL (1.0-4.0); LYMPHOCYTES % (AUTO) 22 % (12-44); MEAN CORPUSCULAR HEMOGLOBIN 29 pg (25-34); MEAN CORPUSCULAR HGB CONC 30 g/dL (32-36); MEAN CORPUSCULAR VOLUME 94 fL (80-99); MEAN PLATELET VOLUME 10.3 fL (9.0-12.2); MONOCYTES # (AUTO) 1.5 10^3/uL (0.0-1.0); MONOCYTES % (AUTO) 14 % (0-12); NEUTROPHILS # (AUTO) 5.5 10^3/uL (1.8-7.8); NEUTROPHILS % (AUTO) 54 % (42-75); PLATELET COUNT 184 10^3/uL (130-400); WHITE BLOOD COUNT 10.3 10^3/uL (4.3-11.0)
[2020-12-07 05:49] LABS: ALBUMIN 3.1 GM/DL (3.2-4.5); BILIRUBIN,TOTAL 0.2 MG/DL (0.1-1.0); CALCIUM 8.1 MG/DL (8.5-10.1); CREATININE SERUM 1.17 MG/DL (0.60-1.30); TOTAL PROTEIN 5.9 GM/DL (6.4-8.2)
[2020-12-07] MEDS: BETHANECHOL 25 MG (URECHOLINE) TAB PO SCH ×4 (06:31→21:55)
[2020-12-07] MEDS: LEVOTHYROXINE 150 MCG (LEVOTHROID) TAB PO SCH (06:31)
--- NOTE | 2020-12-07 08:04 | Speech Therapy Daily Note ---
Speech Daily Progress Note Subjective Date Seen by Provider: December 07, 2020 Time Seen by Provider: 00:30 Patient was dozing off and on through the session. He participated with verbal prompts to wake up. Objective Patient completed general information questions at 60% with moderate verbal cues. Assessment Assessment Current Status: Fair Progress Treatment Plan Continue Plan of Care Speech Short Term Goals Short Term Goals Short Term Goals 1.) Patient will complete safety awareness activities related to their daily activities at 60% with minimal cues. 2.) Patient will complete memory activities related to their daily activities at 60% with minimal cues. 3.) Patient will complete recall of information activities related to their daily activities at 60% with minimal cues. Speech Customer Experience Analyst Goals Customer Experience Analyst Goals Patient will improve cognitive-communication skills necessary for safety and daily living tasks with minimal assist. Speech-Plan Patient/Family Goals Patient/Family Goals: Patient plans on returning to his home upon discharge. The actual discharge plan will be determined by the care team based on progress made and safety consideration. Treatment Plan Speech Therapy Treatment Plan: Continue Plan of Care Treatment Duration: December 18, 2020 Frequency: 4 times per week Estimated Hrs Per Day: .5 hour per day Rehab Potential: Fair Barriers to Learning: Patient's cognitive status, age Pt/Family Agrees to Plan: Yes Safety Risks/Education Teaching Recipient: Patient Teaching Methods: Demonstration, Discussion Response to Teaching: Verbalize Understanding, Return Demonstration Education Topics Provided: COntinued safety and communication Time Speech Therapy Time In: 08:00 Speech Therapy Time Out: 08:30 Total Billed Time: 30 Billed Treatment Time 1, GISELLE Alston December 07, 2020 08:04
[2020-12-07 08:25] VITALS: BP 130/60
--- NOTE | 2020-12-07 08:42 | Cardiology Progress Note ---
Subjective Date Seen by Provider: December 07, 2020 Time Seen by Provider: 08:41 Subjective/Events-last exam Patient in bed, no new complaints, denies any chest pain Review of Systems General: No Chills, No Night Sweats; Fatigue, Malaise; No Appetite, No Other HEENT: No Head Aches, No Visual Changes, No Eye Pain, No Ear Pain, No Dysphasia, No Sinus Congestion, No Post Nasal Drip, No Sore Throat, No Other Pulmonary: No Dyspnea, No Cough, No Pleuritic Chest Pain, No Other Cardiovascular: No: Chest Pain, Palpitations, Orthopnea, Paroxysmal Noc. Dyspnea, Edema, Lt Headedness, Other Objective-Cardiology Exam Last Set of Vital Signs Vital Signs 12/07/20 12/07/20 12/07/20 12/07/20 08:25 09:00 09:04 10:35 Temp 36.8 Pulse 61 Resp 19 B/P (MAP) 155/68 (97) Pulse Ox 95 O2 Delivery Room Air Capillary Refill : General: Alert, Cooperative HEENT: Atraumatic, PERRLA Neck: Supple, No JVD, No Thyromegaly Lungs: Clear to Auscultation, Normal Air Movement Heart: Regular Rate, Normal S1, Normal S2, No Murmurs Abdomen: Normal Bowel Sounds, Soft, No Tenderness, No Hepatosplenomegaly, No Masses Extremities: No Clubbing, Other (trace edema) Skin: No Rashes, No Significant Lesion Psych/Mental Status: Mood NL Results Lab Laboratory Tests 12/07/20 05:04 A/P-Cardiology Admission Diagnosis Change in mental status Delirium Coronary artery disease Hypertension Assessment/Plan Acute change in mental status, 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 Moderate disease with calcified system in the left system. Hypertension, controlled on current medication, continue to monitor Hyperlipidemia, monitor lipids Chronic venous stasis dermatitis, no change from baseline. Continue to monitor Pulmonary hypertension with estimated pulmonary artery pressure of 35 mmHg, probably secondary to COPD. continue to monitor. COPD, pulmonary hypertension, maintained on Symbicort Diabetes mellitus, monitored and managed by primary care physician. History of syncope, resolved, continue to monitor. History of DVT with IVC filter, on Xarelto. History of moderate carotid stenosis. Most recent carotid duplex done September 2017, I will review [facility] record if carotid ultrasound was done DIYA was done in August 2016 and was normal. Continue to monitor Hypothyroidism maintained on levothyroxine. Managed by primary care physician Obesity, BMI is 31. History of depression. Chronic back pain-managed by primary care physician Patient was seen and evaluated with Bela, feeling better, still confused. N o new complaint On examination lungs were clear to auscultation, has mild pedal edema Continue on current medicine, monitor blood pressure and lipids BELA GARNER December 07, 2020 08:42 THU VINCENT MD December 07, 2020 12:39
[2020-12-07] MEDS: FINASTERIDE (PROSCAR) 5 MG TAB PO SCH (08:58)
[2020-12-07] MEDS: PANTOPRAZOLE 40 MG (PROTONIX) TAB PO SCH (08:58)
[2020-12-07] MEDS: ASPIRIN E.C. 81 MG (ECOTRIN) TAB PO SCH (08:58)
[2020-12-07] MEDS: GABAPENTIN 300 MG (NEURONTIN) CAP PO SCH ×2 (08:58→21:55)
[2020-12-07] MEDS: SENNA W/DOCUSATE (SENOKOT S) TABLET PO SCH ×2 (08:58→21:52)
[2020-12-07] MEDS: DOCUSATE SODIUM 100 MG (COLACE) CAP PO SCH ×2 (08:58→21:55)
[2020-12-07] MEDS: COLCHICINE 0.6 MG (COLCRYS) TABLET PO SCH ×2 (08:58→21:52)
[2020-12-07] MEDS: TAMSULOSIN 0.4 MG (FLOMAX) CAP PO SCH (08:58)
[2020-12-07] MEDS: polyethylene glycoL POWDER 17 GM (MIRALAX) PACK PO SCH ×2 (09:00→21:52)
[2020-12-07] MEDS: meTOproloL SUCCINATE 50 MG (TOPROL XL) TAB PO SCH (09:01)
[2020-12-07 09:04] VITALS: BP 155/68
[2020-12-07] MEDS: risperiDONE 0.5 MG (RisperDAL) TABLET PO SCH ×2 (09:04→21:52)
--- NOTE | 2020-12-07 09:26 | Physical Therapy Daily Note ---
PT Daily Note-Current Subjective Patient supine in bed pre tx, eating breakfast, in a good mood. Patient consented to therapy, did not c/o pain. Appearance Patient upright in chair post treatment, chair alarm on, with call button and tray table within reach. All needs met. Mental Status Patient Orientation: Person, Confused Transfers SCALE: Activities may be completed with or without assistive devices. 3-Wdhcjtvldi-diirbcy completes the activity by him/herself with no assistance from a helper. 5-Set-up or Clean-up Assistance-helper sets up or cleans up; patient completes activity. [place] assists only prior to or following the activity. 4-Supervision or Touching Assistance-helper provides verbal cues and/or touching/steadying and/or contact guard assistance as patient completes activity. Assistance may be provided throughout the activity or intermittently. 3-Partial/Moderate Assistance-helper does LESS THAN HALF the effort. [place] lifts, holds or supports trunk or limbs, but provides less than half the effort. 2-Substantial/Maximal Assistance-helper does MORE THAN HALF the effort. [place] lifts or holds trunk or limbs and provides more than half the effort. 2-Gwlihzltj-xzlhpe does ALL the effort. Patient does none of the effort to complete the activity. Or, the assistance of 2 or more helpers is required for the patient to complete the activity. If activity was not attempted, code reason: 7-Patient Refused. 9-Not Applicable-not attempted and the patient did not perform the activity before the current illness, exacerbation or injury. 10-Not Attempted due to Environmental Limitations-(lack of equipment, weather restraints, etc.). 88-Not Attempted due to Medical Conditions or Safety Concerns. Roll Left & Right (QC): 6 Lying to Sitting/Side of Bed(Q: 6 Sit to Stand (QC): 4 (SBA) Gait Training Does the Patient Walk?: Yes Distance: 120' x2 Gait Assistive Device: FWW Patient had good pacing with gait, requires some directional cues, continues to demonstrate forward posturing, but is overall steady with ambulation. Exercises NuStep Minutes: 15 NuStep Workload: 4 Treatments LE strengthening, transfers, gait training Assessment Current Status: Fair Progress Patient demonstrated improvement in strength and endurance with functional mobility. PT Short Term Goals Short Term Goals Time Frame: December 10, 2020 Roll Left & Right: 6 Sit to lyin Lying to sitting on side of be: 5 Sit to stand: 4 Chair/ojw-ea-cdfyz transfer: 4 Walk 10 feet: 4 Walk 50 feet with two turns: 4 Walk 150 feet: 4 PT Alf Goals Manager Wound Care Goals PT Alf Goals Time Frame: December 24, 2020 Roll Left & Right (QC): 6 Sit to Lying (QC): 6 Lying-Sitting on Side/Bed(QC): 6 Sit to Stand (QC): 5 Chair/Dvu-xx-Vanwy Xfer(QC): 5 Toilet Transfer (QC): 5 Car Transfer (QC): 5 Does the Patient Walk: Yes Walk 10 feet (QC): 5 Walk 50ft with 2 Turns (QC): 5 Walk 150 ft (QC): 5 Walking 10ft on Uneven Surface: 5 1 Step (curb) (QC): 4 4 Steps (QC): 4 12 Steps (QC): 88 Picking up an Object (QC): 4 Wheel 50 feet with 2 turns (QC: 9 Wheel 150 feet: 9 PT Plan Problem List Problem List: Activity Tolerance, Functional Strength, Safety, Balance, Gait, Transfer, Bed Mobility, ROM Treatment/Plan Treatment Plan: Continue Plan of Care Treatment Plan: Bed Mobility, Education, Functional Activity Erica, Functional Strength, Group Therapy, Gait, Safety, Therapeutic Exercise, Transfers Treatment Duration: December 24, 2020 Frequency: At least 5 of 7 days/Wk (IRF) Estimated Hrs Per Day: 1.5 hours per day Patient and/or Family Agrees t: Yes Safety Risks/Education Patient Education: Gait Training, Transfer Techniques, Correct Positioning, Safety Issues Teaching Recipient: Patient Teaching Methods: Demonstration, Discussion Response to Teaching: Verbalize Understanding, Return Demonstration Time/GCodes Time In: 0900 Time Out: 944 Total Billed Treatment Time: 45 Total Billed Treatment 1 visit: FA: 30' EX: 15' TSERING PIKE PT December 07, 2020 09:26
--- NOTE | 2020-12-07 11:26 | Occupational Ther Daily Note ---
OT Current Status-Daily Note Subjective Pt seated in recliner, agreeable to OT tx. c/o sore on back of L heel area, nurse notified and present to assess. ADL-Treatment Therapy Code Descriptions/Definitions Functional [place] Measure: 0=Not Assessed/NA 4=Minimal Assistance 1=Total Assistance 5=Supervision or Setup 2=Maximal Assistance 6=Modified [place] 3=Moderate Assistance 7=Complete IndependenceSCALE: Activities may be completed with or without assistive devices. 0-Yvrudqcsbf-vjtxjhe completes the activity by him/herself with no assistance from a helper. 5-Set-up or Clean-up Assistance-helper sets up or cleans up; patient completes activity. [place] assists only prior to or following the activity. 4-Supervision or Touching Assistance-helper provides verbal cues and/or touching/steadying and/or contact guard assistance as patient completes activity. Assistance may be provided throughout the activity or intermittently. 3-Partial/Moderate Assistance-helper does LESS THAN HALF the effort. [place] lifts, holds or supports trunk or limbs, but provides less than half the effort. 2-Substantial/Maximal Assistance-helper does MORE THAN HALF the effort. [place] lifts or holds trunk or limbs and provides more than half the effort. 7-Jxastqdlu-vgqpwi does ALL the effort. Patient does none of the effort to complete the activity. Or, the assistance of 2 or more helpers is required for the patient to complete the activity. If activity was not attempted, code reason: 7-Patient Refused. 9-Not Applicable-not attempted and the patient did not perform the activity before the current illness, exacerbation or injury. 10-Not Attempted due to Environmental Limitations-(lack of equipment, weather restraints, etc.). 88-Not Attempted due to Medical Conditions or Safety Concerns. Eating (QC): 5 (Based on clinical judgement) Shower/Bathe Self (QC): 4 (CGA in stand at [facility], pt able to wash/dry all parts. Min verbal cues for sequencing.) Upper Body Dressing (QC): 5 (set up, pt able to doff/don pullover shirt.) Lower Body Dressing (QC): 3 (Min A with threading LEs into pants/underwear, CGA in stand for pant hike) On/Off Footwear: 4 (SBA, pt able to don/doff bilateral gripper socks.) Toileting Hygiene (QC): 4 (CGA in stand, pt able to manage clothing and perform hygiene after BM) Toilet Transfer (QC): 4 (CGA on/off toilet, cues to keep walker with him during transfer.) Other Treatment Pt seated in recliner, used FWW to ambulate into bathroom. Pt completed shower, minimal cues for sequencing and safety, CGA in stand at [facility]. Pt transferred to chair with armrests in order to get dressed. He dons underwear, then states urgent need to toilet. Pt used FWW to transfer to toilet, CGA, Pt completed toileting, CGA in stand for hygiene and clothing management. Pt flexed forward at the hips with knees bent while performing hygiene, cues to stand up straighter. Pt transferred back to chair with arm rests, cues to keep walker with him. Pt finished donning clothing. Pt used FWW to perform functional mobility to therapy gym. In order to increase BUE strength and activity tolerance, pt completed arm bike, x15 mins, min resistance, no rest breaks. Pt returned to his room, to recliner. Post tx, pt seated in recliner, call light in reach and all needs met, chair alarm on. Education OT Patient Education: Correct positioning, Exercise program, Modified ADL techniques, Progress toward Goal/Update tx plan, Purpose of tx/functional activities Teaching Recipient: Patient Teaching Methods: Discussion Response to Teaching: Verbalize Understanding OT Short Term Goals Short Term Goals Time Frame: December 09, 2020 Toileting hygiene: 4 Upper body dressin Lower body dressin OT Medical Clerk Goals Fdc Goals Time Frame: December 25, 2020 Eating (QC): 6 Oral Hygiene (QC): 6 Toileting Hygiene (QC): 6 Shower/Bathe Self (QC): 4 Upper Body Dressing (QC): 6 Lower Body Dressing (QC): 6 On/Off Footwear (QC): 6 Additional Goals: 1-Demonstrate ADL Tasks, 2-Verbalize Understanding, 3- ImproveStrength/Erica 1=Demonstrate adherence to instructed precautions during ADL tasks. 2=Patient will verbalize/demonstrate understanding of assistive devices/modifications for ADL. 3=Patient will improve strength/tolerance for activity to enable patient to perform ADL's. OT Education/Plan Problem List/Assessment Assessment: Decreased Activ Tolerance, Decreased UE Strength, Impaired I ADL's, Impaired Self-Care Skills, Restricted Funct UE ROM Discharge Recommendations Plan/Recommendations: Continue POC Treatment Plan/Plan of Care Patient would benefit from OT for education, treatment and training to promote independence in ADL's, mobility, safety and/or upper extremity function for ADL's. Plan of Care: ADL Retraining, Functional Mobility, Group Exercise/Act as Ind, UE Funct Exercise/Act Treatment Duration: December 25, 2020 Frequency: At least 5 of 7 days/Wk (IRF) Estimated Hrs Per Day: 1.5 hours per day Rehab Potential: Fair Time/GCodes Start Time: 10:30 Stop Time: 11:45 Total Time Billed (hr/min): 75 Billed Treatment Time 1, ADL 5 (55'), EX (20') ELVIRA CORDERO OT December 07, 2020 11:26
--- NOTE | 2020-12-07 15:01 | Physical Therapy Daily Note ---
PT Daily Note-Current Subjective Patient upright in chair pre tx, did not complain of pain and consented to therapy. Patient mildly confused. Appearance Patient upright in chair, with call button and tray table within reach, chair alarm on. All needs met. Mental Status Patient Orientation: Person, Confused Transfers SCALE: Activities may be completed with or without assistive devices. 1-Objvkdcjgu-aagtpnt completes the activity by him/herself with no assistance from a helper. 5-Set-up or Clean-up Assistance-helper sets up or cleans up; patient completes activity. [place] assists only prior to or following the activity. 4-Supervision or Touching Assistance-helper provides verbal cues and/or touching/steadying and/or contact guard assistance as patient completes activity. Assistance may be provided throughout the activity or intermittently. 3-Partial/Moderate Assistance-helper does LESS THAN HALF the effort. [place] lifts, holds or supports trunk or limbs, but provides less than half the effort. 2-Substantial/Maximal Assistance-helper does MORE THAN HALF the effort. [place] lifts or holds trunk or limbs and provides more than half the effort. 2-Naobybdks-vdsywu does ALL the effort. Patient does none of the effort to complete the activity. Or, the assistance of 2 or more helpers is required for the patient to complete the activity. If activity was not attempted, code reason: 7-Patient Refused. 9-Not Applicable-not attempted and the patient did not perform the activity before the current illness, exacerbation or injury. 10-Not Attempted due to Environmental Limitations-(lack of equipment, weather restraints, etc.). 88-Not Attempted due to Medical Conditions or Safety Concerns. Sit to Stand (QC): 4 CGA. Patient required multiple attempts to sit <-> stand from reclining chair, but performed multiple sit <-> stands without difficulty in gym. Gait Training Does the Patient Walk?: Yes Distance: 120' x2 Walk 10 feet (QC): 4 Walk 50 ft with 2 Turns(QC): 4 Gait Assistive Device: FWW Patient required cues to stand up straight, demonstrated an increased flexed posture with ambulation during todays session. Exercises Seated Therapy Exercises: Ankle pumps, Long arc quads, Hip flexion Seated Reps: 20 Standing: Hamstring curls, Marching Standing Reps: 20 Treatments LE strengthening, endurance, gait training Assessment Current Status: Fair Progress Patient is agreeable to exercise and therapy, requires rest breaks in between clumps of 2-3 exercises. Patient demonstrates overall improvement in LE strength PT Short Term Goals Short Term Goals Time Frame: December 10, 2020 Roll Left & Right: 6 Sit to lyin Lying to sitting on side of be: 5 Sit to stand: 4 Chair/waf-bu-jsltf transfer: 4 Walk 10 feet: 4 Walk 50 feet with two turns: 4 Walk 150 feet: 4 PT It Administrator Goals It Administrator Goals PT Shelter Goals Time Frame: December 24, 2020 Roll Left & Right (QC): 6 Sit to Lying (QC): 6 Lying-Sitting on Side/Bed(QC): 6 Sit to Stand (QC): 5 Chair/Emv-oz-Wmksu Xfer(QC): 5 Toilet Transfer (QC): 5 Car Transfer (QC): 5 Does the Patient Walk: Yes Walk 10 feet (QC): 5 Walk 50ft with 2 Turns (QC): 5 Walk 150 ft (QC): 5 Walking 10ft on Uneven Surface: 5 1 Step (curb) (QC): 4 4 Steps (QC): 4 12 Steps (QC): 88 Picking up an Object (QC): 4 Wheel 50 feet with 2 turns (QC: 9 Wheel 150 feet: 9 PT Plan Problem List Problem List: Activity Tolerance, Functional Strength, Safety, Balance, Gait, Transfer, Bed Mobility, ROM Treatment/Plan Treatment Plan: Continue Plan of Care Treatment Plan: Bed Mobility, Education, Functional Activity Erica, Functional Strength, Group Therapy, Gait, Safety, Therapeutic Exercise, Transfers Treatment Duration: December 24, 2020 Frequency: At least 5 of 7 days/Wk (IRF) Estimated Hrs Per Day: 1.5 hours per day Patient and/or Family Agrees t: Yes Safety Risks/Education Patient Education: Gait Training, Transfer Techniques, Correct Positioning, Safety Issues Teaching Recipient: Patient Teaching Methods: Demonstration, Discussion Response to Teaching: Verbalize Understanding, Return Demonstration Time/GCodes Time In: 1430 Time Out: 1500 Total Billed Treatment Time: 30 Total Billed Treatment 1 visit: FA: 10' EX: 20' TSERING PIKE PT December 07, 2020 15:01
[2020-12-07] MEDS: RT--FLUTICASONE/SALMETEROL 232-14 (AIRDUO RespiCLICK) IH SCH (19:04)
[2020-12-07 20:00] VITALS: BP 127/67
[2020-12-07 21:23] VITALS: BP 127/67
[2020-12-07] MEDS: DONEPEZIL 10 MG (ARICEPT) TAB PO SCH (21:52)
[2020-12-07] MEDS: SIMvastatin 20 MG (ZOCOR) TAB PO SCH (21:52)
[2020-12-07] MEDS: OLANZapine 5 MG (ZyPREXA) TAB PO SCH (21:52)
[2020-12-07] MEDS: SERTRALINE 100 MG (ZOLOFT) TAB PO SCH (21:55)
[2020-12-07] MEDS: RIVAROXABAN 20 MG TABLET (XARELTO) PO SCH (21:55)
[2020-12-07] MEDS: MONTELUKAST 10 MG (SINGULAIR) TAB PO SCH (21:55)
[2020-12-08] MEDS: BETHANECHOL 25 MG (URECHOLINE) TAB PO SCH ×4 (06:32→21:43)
[2020-12-08] MEDS: LEVOTHYROXINE 150 MCG (LEVOTHROID) TAB PO SCH (06:32)
[2020-12-08 08:00] VITALS: BP 147/69
[2020-12-08] MEDS: RT--FLUTICASONE/SALMETEROL 232-14 (AIRDUO RespiCLICK) IH SCH ×2 (08:02→19:53)
--- NOTE | 2020-12-08 08:07 | Occupational Ther Daily Note ---
OT Current Status-Daily Note Subjective Pt laying in bed eating breakfast, agreeable to OT Tx. When asked if he needs anything, he states to be home with his . Mental Status/Objective Patient Orientation: Person, Place, Situation ADL-Treatment Therapy Code Descriptions/Definitions Functional [place] Measure: 0=Not Assessed/NA 4=Minimal Assistance 1=Total Assistance 5=Supervision or Setup 2=Maximal Assistance 6=Modified [place] 3=Moderate Assistance 7=Complete IndependenceSCALE: Activities may be completed with or without assistive devices. 2-Inalqngmqy-swcvjht completes the activity by him/herself with no assistance from a helper. 5-Set-up or Clean-up Assistance-helper sets up or cleans up; patient completes activity. [place] assists only prior to or following the activity. 4-Supervision or Touching Assistance-helper provides verbal cues and/or touching/steadying and/or contact guard assistance as patient completes activity. Assistance may be provided throughout the activity or intermittently. 3-Partial/Moderate Assistance-helper does LESS THAN HALF the effort. [place] lifts, holds or supports trunk or limbs, but provides less than half the effort. 2-Substantial/Maximal Assistance-helper does MORE THAN HALF the effort. [place] lifts or holds trunk or limbs and provides more than half the effort. 4-Gsxhadwjw-qvrxkg does ALL the effort. Patient does none of the effort to complete the activity. Or, the assistance of 2 or more helpers is required for the patient to complete the activity. If activity was not attempted, code reason: 7-Patient Refused. 9-Not Applicable-not attempted and the patient did not perform the activity before the current illness, exacerbation or injury. 10-Not Attempted due to Environmental Limitations-(lack of equipment, weather restraints, etc.). 88-Not Attempted due to Medical Conditions or Safety Concerns. Eating (QC): 6 (Pt able to use utensils to cut food, open containers.) Upper Body Dressing (QC): 7 (Pt declined changing clothes) Lower Body Dressing (QC): 7 (Pt declined changing clothes) Toileting Hygiene (QC): 7 (pt declined need to toilet) Other Treatment Pt in bed eating breakfast, agreeable to OT tx. Pt transferred to EOB, SBA, then used FWW to perform functional mobility to therapy gym, [facility]. In order to increase BUE strength and activity tolerance, pt completed arm bike, min resistance x20 mins. Pt encouraged to take rest breaks as needed, but able to complete without a rest break. Pt then completed fine motor task, placing 1" pegs into foam pegboard, 1lb wrist cuffs BUEs. Pt instructed to alternate hands with task, placing x60 pegs. Pt used FWW to return to his room, CGA. With transfers, pt required cues for UE placement and cues to keep walker near him. Post tx, pt seated in recliner, call light in reach and all needs met, chair alarm on. Education OT Patient Education: Correct positioning, Modified ADL techniques, Progress toward Goal/Update tx plan, Purpose of tx/functional activities Teaching Recipient: Patient Teaching Methods: Discussion Response to Teaching: Verbalize Understanding OT Short Term Goals Short Term Goals Time Frame: December 09, 2020 Toileting hygiene: 4 Upper body dressin Lower body dressin OT Billet Worker Goals [facility]pc Goals Time Frame: December 25, 2020 Eating (QC): 6 Oral Hygiene (QC): 6 Toileting Hygiene (QC): 6 Shower/Bathe Self (QC): 4 Upper Body Dressing (QC): 6 Lower Body Dressing (QC): 6 On/Off Footwear (QC): 6 Additional Goals: 1-Demonstrate ADL Tasks, 2-Verbalize Understanding, 3- ImproveStrength/Erica 1=Demonstrate adherence to instructed precautions during ADL tasks. 2=Patient will verbalize/demonstrate understanding of assistive devices/modifications for ADL. 3=Patient will improve strength/tolerance for activity to enable patient to perform ADL's. OT Education/Plan Problem List/Assessment Assessment: Decreased Activ Tolerance, Decreased UE Strength, Impaired I ADL's, Impaired Self-Care Skills Discharge Recommendations Plan/Recommendations: Continue POC Treatment Plan/Plan of Care Patient would benefit from OT for education, treatment and training to promote independence in ADL's, mobility, safety and/or upper extremity function for ADL's. Plan of Care: ADL Retraining, Functional Mobility, Group Exercise/Act as Ind, UE Funct Exercise/Act Treatment Duration: December 25, 2020 Frequency: At least 5 of 7 days/Wk (IRF) Estimated Hrs Per Day: 1.5 hours per day Rehab Potential: Fair Time/GCodes Start Time: 08:00 Stop Time: 09:15 Total Time Billed (hr/min): 75 Billed Treatment Time 1, ADL 2 (30'), EX (20'), FA 2 (25') ELVIRA CORDERO OT December 08, 2020 08:07
--- NOTE | 2020-12-08 08:11 | PM&R Progress Note ---
Subjective HPI/CC On Admission Date Seen by Provider: December 08, 2020 Time Seen by Provider: 08:20 Subjective/Events-last exam 12/08/20: Pt confused at times but no issues No pain Overall getting around pretty well Checked meds and labs 12/07/20: Pt doing really well Hgb 11.3 Has no concerns Doing pretty well, sleeping 12/06/20: Patient in a good mood Wants his latter day to call him No pain reported No falls 12/05/20: Fentanyl patch changed Monitor closely BM 12/02 Doing well 12/04/20: Patient settling in well Constantly asks for his family Dementia is profound went to [facility] today Xanax given at night No issues BM+ Obsessed about family Review of Systems General: Fatigue Neurological: Weakness, Incoordination, Confusion Objective Exam Vital Signs Vital Signs Date Time Temp Pulse Resp B/P (MAP) Pulse Ox O2 Delivery O2 Flow Rate FiO2 12/08/20 21:45 95 Room Air 12/08/20 20:00 37.2 64 20 124/65 (84) Capillary Refill : General Appearance: No Apparent Distress, WD/WN, Chronically ill HEENT: PERRL/EOMI, Normal ENT Inspection, Pharynx Normal Neck: Full Range of Motion, Normal Inspection, Non Tender, Supple, Carotid Bruit Respiratory: Chest Non Tender, Lungs Clear, Normal Breath Sounds, No Accessory Muscle Use, No Respiratory Distress Cardiovascular: Regular Rate, Rhythm, No Edema, No Gallop, No JVD, No Murmur, Normal Peripheral Pulses Gastrointestinal: Normal Bowel Sounds, No Organomegaly, No Pulsatile Mass, Non Tender, Soft Back: Normal Inspection, No CVA Tenderness, No Vertebral Tenderness Extremity: Normal Capillary Refill, Normal Inspection, Normal Range of Motion, Non Tender, No Calf Tenderness, No Pedal Edema Neurologic/Psychiatric: Alert, No Motor/Sensory Deficits, Normal 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 FIM Transfers Therapy Code Descriptions/Definitions Functional [place] Measure: 0=Not Assessed/NA 4=Minimal Assistance 1=Total Assistance 5=Supervision or Setup 2=Maximal Assistance 6=Modified [place] 3=Moderate Assistance 7=Complete IndependenceSCALE: Activities may be completed with or without assistive devices. 1-Xspoamwokc-kddcdiw completes the activity by him/herself with no assistance from a helper. 5-Set-up or Clean-up Assistance-helper sets up or cleans up; patient completes activity. [place] assists only prior to or following the activity. 4-Supervision or Touching Assistance-helper provides verbal cues and/or touching/steadying and/or contact guard assistance as patient completes activity. Assistance may be provided throughout the activity or intermittently. 3-Partial/Moderate Assistance-helper does LESS THAN HALF the effort. [place] lifts, holds or supports trunk or limbs, but provides less than half the effort. 2-Substantial/Maximal Assistance-helper does MORE THAN HALF the effort. [place] lifts or holds trunk or limbs and provides more than half the effort. 8-Icuwihxyt-flhwna does ALL the effort. Patient does none of the effort to complete the activity. Or, the assistance of 2 or more helpers is required for the patient to complete the activity. If activity was not attempted, code reason: 7-Patient Refused. 9-Not Applicable-not attempted and the patient did not perform the activity before the current illness, exacerbation or injury. 10-Not Attempted due to Environmental Limitations-(lack of equipment, weather restraints, etc.). 88-Not Attempted due to Medical Conditions or Safety Concerns. Roll Left to Right (QC): 6 Sit to Lying (QC): 6 Sit to Stand (QC): 4 Chair/Cdc-kl-Gryvu Xfer(QC): 4 Car Transfer (QC): 3 Gait Training Does the Patient Walk?: Yes Distance: 120' x2 Walk 10 feet (QC): 4 Walk 50 ft with 2 Turns(QC): 4 Walk 150 ft (QC): 4 Walking 10ft/uneven surface-QC: 3 Gait Persons Needed: 1 Gait Assistive Device: FWW Wheelchair Training Does the Pt Use a Wheelchair?: No Wheel 50 ft with 2 turns (QC): 9 Wheel 150 ft (QC): 9 Stair Training 1 Step (curb) (QC): 3 4 Steps (QC): 88 12 Steps (QC): 88 Balance Picking up an Object (QC): 88 ADL-Treatment Eating (QC): 6 (Pt able to use utensils to cut food, open containers.) Oral Hygiene (QC): 4 (CGA at sink, min verbal cues) Shower/Bathe Self (QC): 4 (CGA in stand at GBS, pt able to wash/dry all parts. Min verbal cues for sequencing.) Upper Body Dressing (QC): 5 (set up, pt able to doff/don pullover shirt.) Lower Body Dressing (QC): 3 (Min A with threading LEs into pants/underwear, CGA in stand for pant hike) On/Off Footwear (QC): 4 (SBA, pt able to don/doff bilateral gripper socks.) Toileting Hygiene (QC): 4 (CGA in stand, pt able to manage clothing and perform hygiene after BM) Toilet Transfer (QC): 4 (CGA on/off toilet, cues to keep walker with him during transfer.) Assessment/Plan Assessment and Plan Assess & Plan/Chief Complaint A&P b/l lucunar stroke s/p acute delirium Possible seizure Main source of pts recent acute decompensation in health. PT/OT Speech therapy consult SS consult. CBC and CMP Advanced dementia Sundowning syndrome Pt historically usually cant perform basic ADLs after 5pm at home. Restart home mediation hypothyroidism HLP HTN HTN likely pts main RF for development of the lucunar infarcts. hx of DVT depression BPH gout GERD carpel tunnel syndrome - s/p b/l carpel tunnel release. Home medication DVT prophylaxis Xarelto for theraputic prophylaxis against DVTs, and ambulation. Plan: IRF protocol Monitor closely OAC Fall risk 12/04/20: Monitor confusion Monitor pain 12/05/20: Monitor pain Monitor delirium 12/06/20: Monitor pain BP stable 12/07/20: Monitor closely Monitor pain 12/08/20: DC soon Confusion is baseline (1) Lacunar cerebrovascular accident (CVA) of subthalamic region (2) Dementia (3) Personal history of DVT (deep vein thrombosis) (4) Delirium (5) Seizure Status: Acute BRONWYN WILBURN DO December 08, 2020 08:11
--- NOTE | 2020-12-08 08:38 | Cardiology Progress Note ---
Subjective Date Seen by Provider: December 08, 2020 Time Seen by Provider: 08:36 Subjective/Events-last exam Patient is sitting up in chair, no new complaints, denies any chest pain or dyspnea Review of Systems General: No Chills, No Night Sweats; Fatigue, Malaise; No Appetite, No Other HEENT: No Head Aches, No Visual Changes, No Eye Pain, No Ear Pain, No Dysphasia, No Sinus Congestion, No Post Nasal Drip, No Sore Throat, No Other Pulmonary: No Dyspnea, No Cough, No Pleuritic Chest Pain, No Other Cardiovascular: No: Chest Pain, Palpitations, Orthopnea, Paroxysmal Noc. Dyspnea, Edema, Lt Headedness, Other Objective-Cardiology Exam Last Set of Vital Signs Vital Signs 12/08/20 12/08/20 08:00 08:02 Temp 36.2 Pulse 60 Resp 21 B/P (MAP) 147/69 (95) Pulse Ox 92 O2 Delivery Room Air Capillary Refill : General: Alert, Cooperative HEENT: Atraumatic, PERRLA Neck: Supple, No JVD, No Thyromegaly Lungs: Clear to Auscultation, Normal Air Movement Heart: Regular Rate, Normal S1, Normal S2, No Murmurs Abdomen: Normal Bowel Sounds, Soft, No Tenderness, No Hepatosplenomegaly, No Masses Extremities: No Clubbing, Other (trace edema) Skin: No Rashes, No Significant Lesion Neuro: Normal Speech Psych/Mental Status: Mood NL A/P-Cardiology Admission Diagnosis Change in mental status Delirium Coronary artery disease Hypertension Assessment/Plan Acute change in mental status, 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 Moderate disease with calcified system in the left system. Hypertension, controlled on current medication, continue to monitor Hyperlipidemia, monitor lipids Chronic venous stasis dermatitis, no change from baseline. Continue to monitor Pulmonary hypertension with estimated pulmonary artery pressure of 35 mmHg, probably secondary to COPD. continue to monitor. COPD, pulmonary hypertension, maintained on Symbicort Diabetes mellitus, monitored and managed by primary care physician. History of syncope, resolved, continue to monitor. History of DVT with IVC filter, on Xarelto. History of moderate carotid stenosis. Most recent carotid duplex done September 2017, I will review [place] record if carotid ultrasound was done DIYA was done in August 2016 and was normal. Continue to monitor Hypothyroidism maintained on levothyroxine. Managed by primary care physician Obesity, BMI is 31. History of depression. Chronic back pain-managed by primary care physician Patient was seen and evaluated, feeling better, receiving physical therapy, no new complaint Continue current medication monitor blood pressure and lipids Supervisory-Addendum Brief Supervisory Addendum Participated in pt care: history, MDM, physical Personally performed: exam, history, MDM Care discussed with: ZAINAB MULLINS December 08, 2020 08:38 THU VINCENT MD December 08, 2020 09:10
[2020-12-08] MEDS: FINASTERIDE (PROSCAR) 5 MG TAB PO SCH (09:20)
[2020-12-08] MEDS: ASPIRIN E.C. 81 MG (ECOTRIN) TAB PO SCH (09:20)
[2020-12-08] MEDS: GABAPENTIN 300 MG (NEURONTIN) CAP PO SCH ×2 (09:20→21:44)
[2020-12-08] MEDS: COLCHICINE 0.6 MG (COLCRYS) TABLET PO SCH ×2 (09:20→21:43)
[2020-12-08] MEDS: risperiDONE 0.5 MG (RisperDAL) TABLET PO SCH ×2 (09:20→21:44)
[2020-12-08] MEDS: PANTOPRAZOLE 40 MG (PROTONIX) TAB PO SCH (09:21)
[2020-12-08] MEDS: TAMSULOSIN 0.4 MG (FLOMAX) CAP PO SCH (09:21)
[2020-12-08] MEDS: meTOproloL SUCCINATE 50 MG (TOPROL XL) TAB PO SCH (09:21)
[2020-12-08] MEDS: fentaNYL PATCH 75 MCG (DURAGESIC) TD SCH (09:22)
[2020-12-08] MEDS: FENTANYL PATCH REMOVAL TP SCH (09:23)
[2020-12-08] MEDS: polyethylene glycoL POWDER 17 GM (MIRALAX) PACK PO SCH ×2 (09:24→21:51)
[2020-12-08] MEDS: SENNA W/DOCUSATE (SENOKOT S) TABLET PO SCH ×2 (09:25→21:43)
[2020-12-08] MEDS: DOCUSATE SODIUM 100 MG (COLACE) CAP PO SCH ×2 (09:25→21:44)
--- NOTE | 2020-12-08 10:16 | Physical Therapy Daily Note ---
PT Daily Note-Current Subjective Patient seated in recliner pre tx, in a good mood, agreeable to participate in therapy. Appearance Patient seated upright in chair post tx, with call button within reach and tray table nearby. Chair alarm on. Mental Status Patient Orientation: Person, Confused Transfers SCALE: Activities may be completed with or without assistive devices. 6-Eopmcxzqxw-bhkzqqx completes the activity by him/herself with no assistance from a helper. 5-Set-up or Clean-up Assistance-helper sets up or cleans up; patient completes activity. [place] assists only prior to or following the activity. 4-Supervision or Touching Assistance-helper provides verbal cues and/or touching/steadying and/or contact guard assistance as patient completes activity. Assistance may be provided throughout the activity or intermittently. 3-Partial/Moderate Assistance-helper does LESS THAN HALF the effort. [place] lifts, holds or supports trunk or limbs, but provides less than half the effort. 2-Substantial/Maximal Assistance-helper does MORE THAN HALF the effort. [place] lifts or holds trunk or limbs and provides more than half the effort. 2-Rdbwcpxyy-wlfekp does ALL the effort. Patient does none of the effort to complete the activity. Or, the assistance of 2 or more helpers is required for the patient to complete the activity. If activity was not attempted, code reason: 7-Patient Refused. 9-Not Applicable-not attempted and the patient did not perform the activity before the current illness, exacerbation or injury. 10-Not Attempted due to Environmental Limitations-(lack of equipment, weather restraints, etc.). 88-Not Attempted due to Medical Conditions or Safety Concerns. Sit to Stand (QC): 4 CGA Gait Training Does the Patient Walk?: Yes Distance: 120' x2 Walk 10 feet (QC): 4 Walk 50 ft with 2 Turns(QC): 4 Gait Assistive Device: FWW CGA. Patient requires occasional cues to stand up straight and to keep his walker close to his body, as well as directional cues. Exercises Seated Therapy Exercises: Ankle pumps, Long arc quads, Hip flexion, Hip abd/add (RTB, mini ball) Seated Reps: 20 (1# bilateral ankle weights) NuStep Minutes: 15 NuStep Workload: 4 Treatments Gait training, transfers, LE strengthening, endurance Assessment Current Status: Fair Progress Patient demonstrates good endurance with ther ex and was able to maintain steady pace on NuStep. PT Short Term Goals Short Term Goals Time Frame: December 10, 2020 Roll Left & Right: 6 Sit to lyin Lying to sitting on side of be: 5 Sit to stand: 4 Chair/rvg-oh-vvhsw transfer: 4 Walk 10 feet: 4 Walk 50 feet with two turns: 4 Walk 150 feet: 4 PT [place] Goals Custodial Goals PT [place] Goals Time Frame: December 24, 2020 Roll Left & Right (QC): 6 Sit to Lying (QC): 6 Lying-Sitting on Side/Bed(QC): 6 Sit to Stand (QC): 5 Chair/Vrx-pe-Ecjvc Xfer(QC): 5 Toilet Transfer (QC): 5 Car Transfer (QC): 5 Does the Patient Walk: Yes Walk 10 feet (QC): 5 Walk 50ft with 2 Turns (QC): 5 Walk 150 ft (QC): 5 Walking 10ft on Uneven Surface: 5 1 Step (curb) (QC): 4 4 Steps (QC): 4 12 Steps (QC): 88 Picking up an Object (QC): 4 Wheel 50 feet with 2 turns (QC: 9 Wheel 150 feet: 9 PT Plan Problem List Problem List: Activity Tolerance, Functional Strength, Safety, Balance, Gait, Transfer, Bed Mobility, ROM Treatment/Plan Treatment Plan: Continue Plan of Care Treatment Plan: Bed Mobility, Education, Functional Activity Erica, Functional Strength, Group Therapy, Gait, Safety, Therapeutic Exercise, Transfers Treatment Duration: December 24, 2020 Frequency: At least 5 of 7 days/Wk (IRF) Estimated Hrs Per Day: 1.5 hours per day Patient and/or Family Agrees t: Yes Safety Risks/Education Patient Education: Gait Training, Transfer Techniques, Correct Positioning, Safety Issues Teaching Recipient: Patient Teaching Methods: Demonstration, Discussion Response to Teaching: Verbalize Understanding, Return Demonstration, Reinforcement Needed Time/GCodes Time In: 1000 Time Out: 1100 Total Billed Treatment Time: 60 Total Billed Treatment 1 visit: EX x2: 35' FA x2: 25' TSERING PIKE PT December 08, 2020 10:16
--- NOTE | 2020-12-08 10:24 | Speech Therapy Daily Note ---
Speech Daily Progress Note Subjective Date Seen by Provider: December 08, 2020 Time Seen by Provider: 00:30 Pt was alert and pleasant. Pt agreed to ST services. Pt perseverated on topics and frequently mentioned wanting to go home to be a "complete family". Objective Patient complete safety awareness activities related to his daily activities at 80% with moderate cues. Assessment Assessment Current Status: Good Progress Treatment Plan Continue Plan of Care Speech Short Term Goals Short Term Goals Short Term Goals 1.) Patient will complete safety awareness activities related to their daily activities at 60% with minimal cues. 2.) Patient will complete memory activities related to their daily activities at 60% with minimal cues. 3.) Patient will complete recall of information activities related to their daily activities at 60% with minimal cues. Speech Senior Care Goals Synthetic Cloth Binding Cutter Goals Patient will improve cognitive-communication skills necessary for safety and daily living tasks with minimal assist. Speech-Plan Patient/Family Goals Patient/Family Goals: Pt plans to return home where his family will aid in helping him meet his daily care needs. Treatment Plan Speech Therapy Treatment Plan: Continue Plan of Care Treatment Duration: December 18, 2020 Frequency: 4 times per week Estimated Hrs Per Day: .5 hour per day Rehab Potential: Fair Barriers to Learning: Medical status and cognitive status. Pt/Family Agrees to Plan: Yes Safety Risks/Education Teaching Recipient: Patient Teaching Methods: Discussion Response to Teaching: Verbalize Understanding, Reinforcement Needed Education Topics Provided: Safety awareness and compensatory communication strategies. Time Speech Therapy Time In: 09:30 Speech Therapy Time Out: 10:00 Total Billed Time: 30 Billed Treatment Time 1, GISELLE Alston December 08, 2020 10:24
--- NOTE | 2020-12-08 14:52 | Physical Therapy Daily Note ---
PT Daily Note-Current Subjective Patient supine in bed pre tx, ready for nap. Patient agreed to therapy in bed. Patient agitated/confused. Appearance Patient supine in bed post tx, with call button within reach and tray table nearby. Mental Status Patient Orientation: Person, Confused Transfers SCALE: Activities may be completed with or without assistive devices. 8-Akkfutgwhx-ncxapwa completes the activity by him/herself with no assistance from a helper. 5-Set-up or Clean-up Assistance-helper sets up or cleans up; patient completes activity. [place] assists only prior to or following the activity. 4-Supervision or Touching Assistance-helper provides verbal cues and/or touching/steadying and/or contact guard assistance as patient completes activity. Assistance may be provided throughout the activity or intermittently. 3-Partial/Moderate Assistance-helper does LESS THAN HALF the effort. [place] lifts, holds or supports trunk or limbs, but provides less than half the effort. 2-Substantial/Maximal Assistance-helper does MORE THAN HALF the effort. [place] lifts or holds trunk or limbs and provides more than half the effort. 3-Pxpvhaajo-mtrlbn does ALL the effort. Patient does none of the effort to complete the activity. Or, the assistance of 2 or more helpers is required for the patient to complete the activity. If activity was not attempted, code reason: 7-Patient Refused. 9-Not Applicable-not attempted and the patient did not perform the activity before the current illness, exacerbation or injury. 10-Not Attempted due to Environmental Limitations-(lack of equipment, weather restraints, etc.). 88-Not Attempted due to Medical Conditions or Safety Concerns. Exercises Supine Ex: Ankle pumps, Quad Set, Glut sets, Heel Slides, Straight leg raise (15 reps each) Supine Reps: 20 Treatments LE strengthening Assessment Current Status: Fair Progress Patient was able to incorporate SLR into ther ex routine, was only able to raise heels 3-4 inches, but was able to complete all reps. PT Short Term Goals Short Term Goals Time Frame: December 10, 2020 Roll Left & Right: 6 Sit to lyin Lying to sitting on side of be: 5 Sit to stand: 4 Chair/pcp-uu-bdauf transfer: 4 Walk 10 feet: 4 Walk 50 feet with two turns: 4 Walk 150 feet: 4 PT Metal Riveting Machine Operator Goals Residential Goals PT Residential Goals Time Frame: December 24, 2020 Roll Left & Right (QC): 6 Sit to Lying (QC): 6 Lying-Sitting on Side/Bed(QC): 6 Sit to Stand (QC): 5 Chair/Nim-ir-Dslcb Xfer(QC): 5 Toilet Transfer (QC): 5 Car Transfer (QC): 5 Does the Patient Walk: Yes Walk 10 feet (QC): 5 Walk 50ft with 2 Turns (QC): 5 Walk 150 ft (QC): 5 Walking 10ft on Uneven Surface: 5 1 Step (curb) (QC): 4 4 Steps (QC): 4 12 Steps (QC): 88 Picking up an Object (QC): 4 Wheel 50 feet with 2 turns (QC: 9 Wheel 150 feet: 9 PT Plan Problem List Problem List: Activity Tolerance, Functional Strength, Safety, Balance, Gait, Transfer, Bed Mobility, ROM Treatment/Plan Treatment Plan: Continue Plan of Care Treatment Plan: Bed Mobility, Education, Functional Activity Erica, Functional Strength, Group Therapy, Gait, Safety, Therapeutic Exercise, Transfers Treatment Duration: December 24, 2020 Frequency: At least 5 of 7 days/Wk (IRF) Estimated Hrs Per Day: 1.5 hours per day Patient and/or Family Agrees t: Yes Safety Risks/Education Patient Education: Correct Positioning, Safety Issues Teaching Recipient: Patient Teaching Methods: Demonstration, Discussion Response to Teaching: Verbalize Understanding, Return Demonstration Time/GCodes Time In: 1430 Time Out: 1445 Total Billed Treatment Time: 15 Total Billed Treatment 1 visit: EX: TSERING CASTRO PT December 08, 2020 14:51
[2020-12-08 20:00] VITALS: BP 124/65
[2020-12-08] MEDS: SERTRALINE 100 MG (ZOLOFT) TAB PO SCH (21:43)
[2020-12-08] MEDS: DONEPEZIL 10 MG (ARICEPT) TAB PO SCH (21:43)
[2020-12-08] MEDS: OLANZapine 5 MG (ZyPREXA) TAB PO SCH (21:43)
[2020-12-08] MEDS: MONTELUKAST 10 MG (SINGULAIR) TAB PO SCH (21:44)
[2020-12-08] MEDS: RIVAROXABAN 20 MG TABLET (XARELTO) PO SCH (21:44)
[2020-12-08] MEDS: SIMvastatin 20 MG (ZOCOR) TAB PO SCH (21:44)
--- NOTE | 2020-12-09 06:12 | PM&R Progress Note ---
Subjective HPI/CC On Admission Date Seen by Provider: December 09, 2020 Time Seen by Provider: 09:00 Subjective/Events-last exam 12/09/20: Pt doing well Bowels moving well Left heel has an open area, small but will monitor that closely Discharge planned for [facility] tomorrow 12/08/20: Pt confused at times but no issues No pain Overall getting around pretty well Checked meds and labs 12/07/20: Pt doing really well Hgb 11.3 Has no concerns Doing pretty well, sleeping 12/06/20: Patient in a good mood Wants his advent to call him No pain reported No falls 12/05/20: Fentanyl patch changed Monitor closely BM 12/02 Doing well 12/04/20: Patient settling in well Constantly asks for his family Dementia is profound went to [facility] today Xanax given at night No issues BM+ Obsessed about family Review of Systems General: Fatigue Neurological: Weakness, Incoordination, Confusion Objective Exam Vital Signs Vital Signs Date Time Temp Pulse Resp B/P (MAP) Pulse Ox O2 Delivery O2 Flow Rate FiO2 12/09/20 19:14 94 Room Air 12/09/20 08:00 35.6 96 18 170/75 (106) Capillary Refill : General Appearance: No Apparent Distress, WD/WN, Chronically ill HEENT: PERRL/EOMI, Normal ENT Inspection, Pharynx Normal Neck: Full Range of Motion, Normal Inspection, Non Tender, Supple, Carotid Bruit Respiratory: Chest Non Tender, Lungs Clear, Normal Breath Sounds, No Accessory Muscle Use, No Respiratory Distress Cardiovascular: Regular Rate, Rhythm, No Edema, No Gallop, No JVD, No Murmur, Normal Peripheral Pulses Gastrointestinal: Normal Bowel Sounds, No Organomegaly, No Pulsatile Mass, Non Tender, Soft Back: Normal Inspection, No CVA Tenderness, No Vertebral Tenderness Extremity: Normal Capillary Refill, Normal Inspection, Normal Range of Motion, Non Tender, No Calf Tenderness, No Pedal Edema Neurologic/Psychiatric: Alert, No Motor/Sensory Deficits, Normal Mood/Affect, escalator operator II-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 FIM Transfers Therapy Code Descriptions/Definitions Functional [place] Measure: 0=Not Assessed/NA 4=Minimal Assistance 1=Total Assistance 5=Supervision or Setup 2=Maximal Assistance 6=Modified [place] 3=Moderate Assistance 7=Complete IndependenceSCALE: Activities may be completed with or without assistive devices. 4-Ykqkdboxcr-cflkmme completes the activity by him/herself with no assistance from a helper. 5-Set-up or Clean-up Assistance-helper sets up or cleans up; patient completes activity. [place] assists only prior to or following the activity. 4-Supervision or Touching Assistance-helper provides verbal cues and/or touching/steadying and/or contact guard assistance as patient completes activity. Assistance may be provided throughout the activity or intermittently. 3-Partial/Moderate Assistance-helper does LESS THAN HALF the effort. [place] lifts, holds or supports trunk or limbs, but provides less than half the effort. 2-Substantial/Maximal Assistance-helper does MORE THAN HALF the effort. [place] lifts or holds trunk or limbs and provides more than half the effort. 4-Sasjfcent-qvlbzk does ALL the effort. Patient does none of the effort to complete the activity. Or, the assistance of 2 or more helpers is required for the patient to complete the activity. If activity was not attempted, code reason: 7-Patient Refused. 9-Not Applicable-not attempted and the patient did not perform the activity before the current illness, exacerbation or injury. 10-Not Attempted due to Environmental Limitations-(lack of equipment, weather restraints, etc.). 88-Not Attempted due to Medical Conditions or Safety Concerns. Roll Left to Right (QC): 6 Sit to Lying (QC): 6 Sit to Stand (QC): 4 Chair/Qho-mr-Slafw Xfer(QC): 4 Car Transfer (QC): 3 Gait Training Does the Patient Walk?: Yes Distance: 120' x2 Walk 10 feet (QC): 4 Walk 50 ft with 2 Turns(QC): 4 Walk 150 ft (QC): 4 Walking 10ft/uneven surface-QC: 3 Gait Persons Needed: 1 Gait Assistive Device: FWW Wheelchair Training Does the Pt Use a Wheelchair?: No Wheel 50 ft with 2 turns (QC): 9 Wheel 150 ft (QC): 9 Stair Training 1 Step (curb) (QC): 3 4 Steps (QC): 88 12 Steps (QC): 88 Balance Picking up an Object (QC): 88 ADL-Treatment Eating (QC): 6 (Pt able to use utensils to cut food, open containers.) Oral Hygiene (QC): 4 (CGA at sink, min verbal cues) Shower/Bathe Self (QC): 4 (CGA in stand at GBS, pt able to wash/dry all parts. Min verbal cues for sequencing.) Upper Body Dressing (QC): 7 (Pt declined changing clothes) Lower Body Dressing (QC): 7 (Pt declined changing clothes) On/Off Footwear (QC): 4 (SBA, pt able to don/doff bilateral gripper socks.) Toileting Hygiene (QC): 7 (pt declined need to toilet) Toilet Transfer (QC): 4 (CGA on/off toilet, cues to keep walker with him during transfer.) Assessment/Plan Assessment and Plan Assess & Plan/Chief Complaint A&P b/l lucunar stroke s/p acute delirium Possible seizure Main source of pts recent acute decompensation in health. PT/OT Speech therapy consult SS consult. CBC and CMP Advanced dementia Sundowning syndrome Pt historically usually cant perform basic ADLs after 5pm at home. Restart home mediation hypothyroidism HLP HTN HTN likely pts main RF for development of the lucunar infarcts. hx of DVT depression BPH gout GERD carpel tunnel syndrome - s/p b/l carpel tunnel release. Home medication DVT prophylaxis Xarelto for theraputic prophylaxis against DVTs, and ambulation. Plan: IRF protocol Monitor closely OAC Fall risk 12/04/20: Monitor confusion Monitor pain 12/05/20: Monitor pain Monitor delirium 12/06/20: Monitor pain BP stable 12/07/20: Monitor closely Monitor pain 12/08/20: DC soon Confusion is baseline 12/09/20: DC tomorrow to NH (1) Lacunar cerebrovascular accident (CVA) of subthalamic region (2) Dementia (3) Personal history of DVT (deep vein thrombosis) (4) Delirium (5) Seizure Status: Acute BRONWYN WILBURN DO December 09, 2020 06:12
[2020-12-09] MEDS: BETHANECHOL 25 MG (URECHOLINE) TAB PO SCH ×4 (06:44→21:51)
[2020-12-09] MEDS: LEVOTHYROXINE 150 MCG (LEVOTHROID) TAB PO SCH (06:44)
[2020-12-09] MEDS: RT--FLUTICASONE/SALMETEROL 232-14 (AIRDUO RespiCLICK) IH SCH ×2 (07:18→19:14)
[2020-12-09 08:00] VITALS: BP 170/75
--- NOTE | 2020-12-09 08:55 | Cardiology Progress Note ---
Subjective Date Seen by Provider: December 09, 2020 Time Seen by Provider: 08:52 Subjective/Events-last exam Patient is sitting up in chair, no chest pain or dyspnea. Review of Systems General: No Chills, No Night Sweats; Fatigue, Malaise; No Appetite, No Other HEENT: No Head Aches, No Visual Changes, No Eye Pain, No Ear Pain, No Dysphasia, No Sinus Congestion, No Post Nasal Drip, No Sore Throat, No Other Pulmonary: Dyspnea; No Cough, No Pleuritic Chest Pain, No Other Cardiovascular: No: Chest Pain, Palpitations, Orthopnea, Paroxysmal Noc. Dyspnea, Edema, Lt Headedness, Other Objective-Cardiology Exam Last Set of Vital Signs Vital Signs 12/09/20 08:00 Temp 35.6 Pulse 96 Resp 18 B/P (MAP) 170/75 (106) Pulse Ox 18 O2 Delivery Room Air Capillary Refill : General: Alert, Cooperative HEENT: Atraumatic, PERRLA Neck: Supple, No JVD, No Thyromegaly Lungs: Clear to Auscultation, Normal Air Movement Heart: Regular Rate, Normal S1, Normal S2, No Murmurs Abdomen: Normal Bowel Sounds, Soft, No Tenderness, No Hepatosplenomegaly, No Masses Extremities: No Clubbing, Other (trace edema) Skin: No Rashes, No Significant Lesion Neuro: Normal Speech Psych/Mental Status: Mood NL A/P-Cardiology Admission Diagnosis Change in mental status Delirium Coronary artery disease Hypertension Assessment/Plan Acute change in mental status, 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 Moderate disease with calcified system in the left system. Hypertension, controlled on current medication, continue to monitor Hyperlipidemia, monitor lipids Chronic venous stasis dermatitis, no change from baseline. Continue to monitor Pulmonary hypertension with estimated pulmonary artery pressure of 35 mmHg, probably secondary to COPD. continue to monitor. COPD, pulmonary hypertension, maintained on Symbicort Diabetes mellitus, monitored and managed by primary care physician. History of syncope, resolved, continue to monitor. History of DVT with IVC filter, on Xarelto. History of moderate carotid stenosis. Most recent carotid duplex done September 2017, I will review [facility] record if carotid ultrasound was done DIYA was done in August 2016 and was normal. Continue to monitor Hypothyroidism maintained on levothyroxine. Managed by primary care physician Obesity, BMI is 31. History of depression. Chronic back pain-managed by primary care physician Patient was seen and evaluated at bedside, sitting comfortably Still having pedal edema and generalized weakness Continue with physical therapy, monitor blood pressure and lipids Supervisory-Addendum Brief Supervisory Addendum Participated in pt care: history, MDM, physical Personally performed: exam, history, MDM Care discussed with: ZAINAB MULLINS December 09, 2020 8:55 am THU VINCENT MD December 09, 2020 3:06 pm
--- NOTE | 2020-12-09 09:01 | Occupational Ther Daily Note ---
OT Current Status-Daily Note Subjective Pt seated in recliner, finished with breakfast. Agreeable to ADL tx but asks if he could do it later. OT educated pt on rehab process and schedule of today, he agreed to OT Tx at this time Mental Status/Objective Patient Orientation: Person, Confused ADL-Treatment Therapy Code Descriptions/Definitions Functional [place] Measure: 0=Not Assessed/NA 4=Minimal Assistance 1=Total Assistance 5=Supervision or Setup 2=Maximal Assistance 6=Modified [place] 3=Moderate Assistance 7=Complete IndependenceSCALE: Activities may be completed with or without assistive devices. 2-Qzvyvvwjuc-atormnz completes the activity by him/herself with no assistance from a helper. 5-Set-up or Clean-up Assistance-helper sets up or cleans up; patient completes activity. [place] assists only prior to or following the activity. 4-Supervision or Touching Assistance-helper provides verbal cues and/or touching/steadying and/or contact guard assistance as patient completes activity. Assistance may be provided throughout the activity or intermittently. 3-Partial/Moderate Assistance-helper does LESS THAN HALF the effort. [place] lifts, holds or supports trunk or limbs, but provides less than half the effort. 2-Substantial/Maximal Assistance-helper does MORE THAN HALF the effort. [place] lifts or holds trunk or limbs and provides more than half the effort. 0-Rqcpwombr-tblsbq does ALL the effort. Patient does none of the effort to complete the activity. Or, the assistance of 2 or more helpers is required for the patient to complete the activity. If activity was not attempted, code reason: 7-Patient Refused. 9-Not Applicable-not attempted and the patient did not perform the activity before the current illness, exacerbation or injury. 10-Not Attempted due to Environmental Limitations-(lack of equipment, weather restraints, etc.). 88-Not Attempted due to Medical Conditions or Safety Concerns. Eating (QC): 6 (Able to open containers and use utensils) Oral Hygiene (QC): 4 (CGA standing at sink, cues to stand up straight during task) Shower/Bathe Self (QC): 4 (CGA in stand to wash buttocks. Pt able to wash all other parts seated on SC with SBA.) Upper Body Dressing (QC): 5 (set up) Lower Body Dressing (QC): 4 (CGA in stand at FWW, moderate verbal cues for safety and instruction to sit down to doff pants from feet.) On/Off Footwear: 4 (SBA) Toileting Hygiene (QC): 4 (CGA, pt able to manage clothing and hygiene) Toilet Transfer (QC): 4 (CGA on/off toilet) Other Treatment Pt seated in recliner, agreeable to OT Tx. Pt used FWW to transfer into bathroom, CGA. Pt completed toileting, showering and dressing as outlined above. Then stood at sink for oral care. Pt used FWW to return to recliner. Post tx, pt seated in recliner, call light in reach and all needs met Education OT Patient Education: Correct positioning, Modified ADL techniques, Progress toward Goal/Update tx plan, Purpose of tx/functional activities, Rehab process Teaching Recipient: Patient Teaching Methods: Discussion Response to Teaching: Verbalize Understanding, Reinforcement Needed OT Short Term Goals Short Term Goals Time Frame: December 09, 2020 Toileting hygiene: 4 Upper body dressin Lower body dressin OT Life Science Taxonomist Goals Nursing Home Goals Time Frame: December 25, 2020 Eating (QC): 6 (met) Oral Hygiene (QC): 6 Toileting Hygiene (QC): 6 Shower/Bathe Self (QC): 4 (met) Upper Body Dressing (QC): 6 Lower Body Dressing (QC): 6 On/Off Footwear (QC): 6 Additional Goals: 1-Demonstrate ADL Tasks, 2-Verbalize Understanding, 3- ImproveStrength/Erica 1=Demonstrate adherence to instructed precautions during ADL tasks. 2=Patient will verbalize/demonstrate understanding of assistive devices/modifications for ADL. 3=Patient will improve strength/tolerance for activity to enable patient to perform ADL's. OT Education/Plan Problem List/Assessment Assessment: Decreased Activ Tolerance, Decreased Safety Aware, Decreased UE Strength, Impaired Funct Balance, Impaired I ADL's, Impaired Self-Care Skills Discharge Recommendations Plan/Recommendations: Continue POC Treatment Plan/Plan of Care Patient would benefit from OT for education, treatment and training to promote independence in ADL's, mobility, safety and/or upper extremity function for ADL's. Plan of Care: ADL Retraining, Functional Mobility, Group Exercise/Act as Ind, UE Funct Exercise/Act Treatment Duration: December 25, 2020 Frequency: At least 5 of 7 days/Wk (IRF) Estimated Hrs Per Day: 1.5 hours per day Rehab Potential: Fair Time/GCodes Start Time: 07:45 Stop Time: 09:00 Total Time Billed (hr/min): 75 Billed Treatment Time 1, ADL 5 ELVIRA CORDERO OT December 09, 2020 09:01
[2020-12-09] MEDS: FINASTERIDE (PROSCAR) 5 MG TAB PO SCH (09:15)
[2020-12-09] MEDS: risperiDONE 0.5 MG (RisperDAL) TABLET PO SCH ×2 (09:15→21:51)
[2020-12-09] MEDS: GABAPENTIN 300 MG (NEURONTIN) CAP PO SCH ×2 (09:15→21:51)
[2020-12-09] MEDS: ASPIRIN E.C. 81 MG (ECOTRIN) TAB PO SCH (09:15)
[2020-12-09] MEDS: TAMSULOSIN 0.4 MG (FLOMAX) CAP PO SCH (09:15)
[2020-12-09] MEDS: meTOproloL SUCCINATE 50 MG (TOPROL XL) TAB PO SCH (09:15)
[2020-12-09] MEDS: PANTOPRAZOLE 40 MG (PROTONIX) TAB PO SCH (09:15)
[2020-12-09] MEDS: DOCUSATE SODIUM 100 MG (COLACE) CAP PO SCH ×2 (09:16→21:50)
[2020-12-09] MEDS: COLCHICINE 0.6 MG (COLCRYS) TABLET PO SCH ×2 (09:16→21:50)
[2020-12-09] MEDS: polyethylene glycoL POWDER 17 GM (MIRALAX) PACK PO SCH ×2 (09:49→21:55)
[2020-12-09] MEDS: SENNA W/DOCUSATE (SENOKOT S) TABLET PO SCH ×2 (09:50→21:50)
--- NOTE | 2020-12-09 10:16 | Speech Therapy Daily Note ---
Speech Daily Progress Note Subjective Date Seen by Provider: December 09, 2020 Time Seen by Provider: 00:30 Pt was alert and pleasant. Pt agreed to ST services. Pt was perseverative on subjects such as his family and transferring to a new facility. Objective Patient completed recall of information activities related to daily activities at 70% with moderate cues. Assessment Assessment Current Status: Good Progress Treatment Plan Continue Plan of Care Speech Short Term Goals Short Term Goals Short Term Goals 1.) Patient will complete safety awareness activities related to their daily activities at 60% with minimal cues. 2.) Patient will complete memory activities related to their daily activities at 60% with minimal cues. 3.) Patient will complete recall of information activities related to their daily activities at 60% with minimal cues. Speech Cabinet Worker Goals Cabinet Worker Goals Patient will improve cognitive-communication skills necessary for safety and daily living tasks with minimal assist. Speech-Plan Patient/Family Goals Patient/Family Goals: Pt plans to transfer to a facility in which he can be with his on a daily basis. Treatment Plan Speech Therapy Treatment Plan: Continue Plan of Care Treatment Duration: December 18, 2020 Frequency: 4 times per week Estimated Hrs Per Day: .5 hour per day Rehab Potential: Fair Barriers to Learning: Medical status and age. Pt/Family Agrees to Plan: Yes Safety Risks/Education Teaching Recipient: Patient Teaching Methods: Discussion Response to Teaching: Verbalize Understanding, Reinforcement Needed Education Topics Provided: Safety and compensatory memory strategies Time Speech Therapy Time In: 09:00 Speech Therapy Time Out: 09:30 Total Billed Time: 30 Billed Treatment Time 1, GISELLE Alston December 09, 2020 10:16
--- NOTE | 2020-12-09 11:40 | Physical Therapy Daily Note ---
PT Daily Note-Current Subjective Pt sitting in recliner upon arrival. Pt agrees to PT. Pain Location: No Pain Reported Mental Status Patient Orientation: Person, Confused, Place Transfers SCALE: Activities may be completed with or without assistive devices. 4-Nnlxzqrvjj-nlcfwmr completes the activity by him/herself with no assistance from a helper. 5-Set-up or Clean-up Assistance-helper sets up or cleans up; patient completes activity. [place] assists only prior to or following the activity. 4-Supervision or Touching Assistance-helper provides verbal cues and/or touching/steadying and/or contact guard assistance as patient completes activity. Assistance may be provided throughout the activity or intermittently. 3-Partial/Moderate Assistance-helper does LESS THAN HALF the effort. [place] lifts, holds or supports trunk or limbs, but provides less than half the effort. 2-Substantial/Maximal Assistance-helper does MORE THAN HALF the effort. [place] lifts or holds trunk or limbs and provides more than half the effort. 3-Cddmqhlqi-kzxywz does ALL the effort. Patient does none of the effort to complete the activity. Or, the assistance of 2 or more helpers is required for the patient to complete the activity. If activity was not attempted, code reason: 7-Patient Refused. 9-Not Applicable-not attempted and the patient did not perform the activity before the current illness, exacerbation or injury. 10-Not Attempted due to Environmental Limitations-(lack of equipment, weather restraints, etc.). 88-Not Attempted due to Medical Conditions or Safety Concerns. Roll Left & Right (QC): 5 Sit to Lying (QC): 5 Lying to Sitting/Side of Bed(Q: 5 Sit to Stand (QC): 4 Chair/Pdg-ef-Ziowi Xfer(QC): 4 Toilet Transfer (QC): 4 Car Transfer (QC): 4 Weight Bearing Full Weight Bearing Full Weight Bearing Gait Training Does the Patient Walk?: Yes Distance: 150' x2 Walk 10 feet (QC): 4 Walk 50 ft with 2 Turns(QC): 4 Walk 150 ft (QC): 4 Walking 10ft/uneven surface-QC: 4 Gait Persons Needed: 1 Gait Assistive Device: FWW Wheelchair Training Does the Pt Use a Wheelchair?: No Stair Training 1 Step (curb) (QC): 7 4 Steps (QC): 7 12 Steps (QC): 7 Balance Picking up an Object (QC): 7 Exercises NuStep Minutes: 15 NuStep Workload: 3 Treatments Pt completes QC scoring items listed above. Pt returns to room at end of tx with all needs met, call light in hand. Assessment Current Status: Good Progress Pt has social awareness deficits but these appear to be baseline. VC for safety. PT Short Term Goals Short Term Goals Time Frame: December 10, 2020 Roll Left & Right: 6 Sit to lyin Lying to sitting on side of be: 5 Sit to stand: 4 Chair/wth-gw-lvjur transfer: 4 Walk 10 feet: 4 Walk 50 feet with two turns: 4 Walk 150 feet: 4 PT Director Distribution Goals Alf Goals PT Director Distribution Goals Time Frame: December 24, 2020 Roll Left & Right (QC): 6 Sit to Lying (QC): 6 Lying-Sitting on Side/Bed(QC): 6 Sit to Stand (QC): 5 Chair/Pdw-ib-Uovha Xfer(QC): 5 Toilet Transfer (QC): 5 Car Transfer (QC): 5 Does the Patient Walk: Yes Walk 10 feet (QC): 5 Walk 50ft with 2 Turns (QC): 5 Walk 150 ft (QC): 5 Walking 10ft on Uneven Surface: 5 1 Step (curb) (QC): 4 4 Steps (QC): 4 12 Steps (QC): 88 Picking up an Object (QC): 4 Wheel 50 feet with 2 turns (QC: 9 Wheel 150 feet: 9 PT Plan Problem List Problem List: Activity Tolerance, Functional Strength, Safety Treatment/Plan Treatment Plan: Continue Plan of Care Treatment Plan: Bed Mobility, Education, Functional Activity Erica, Functional Strength, Group Therapy, Gait, Safety, Therapeutic Exercise, Transfers Treatment Duration: December 24, 2020 Frequency: At least 5 of 7 days/Wk (IRF) Estimated Hrs Per Day: 1.5 hours per day Patient and/or Family Agrees t: Yes Safety Risks/Education Patient Education: Gait Training, Transfer Techniques, Correct Positioning, Safety Issues Teaching Recipient: Patient Teaching Methods: Discussion Response to Teaching: Reinforcement Needed Time/GCodes Time In: 1100 Time Out: 1200 Total Billed Treatment Time: 60 Total Billed Treatment 1, GT (15m), EX (15m) & FA x2 (30m) VICKY SIMMONS PAN WASHER HAND December 09, 2020 11:40
--- NOTE | 2020-12-09 15:13 | Physical Therapy Daily Note ---
PT Daily Note-Current Subjective Pt sitting in recliner upon arrival. Pt agrees to PT. Pain Location: No Pain Reported Mental Status Patient Orientation: Person, Confused, Place Transfers SCALE: Activities may be completed with or without assistive devices. 1-Hexhxhgxue-rebabtu completes the activity by him/herself with no assistance from a helper. 5-Set-up or Clean-up Assistance-helper sets up or cleans up; patient completes activity. [place] assists only prior to or following the activity. 4-Supervision or Touching Assistance-helper provides verbal cues and/or touching/steadying and/or contact guard assistance as patient completes activity. Assistance may be provided throughout the activity or intermittently. 3-Partial/Moderate Assistance-helper does LESS THAN HALF the effort. [place] lifts, holds or supports trunk or limbs, but provides less than half the effort. 2-Substantial/Maximal Assistance-helper does MORE THAN HALF the effort. [place] lifts or holds trunk or limbs and provides more than half the effort. 9-Ghlbigxew-lmijnx does ALL the effort. Patient does none of the effort to complete the activity. Or, the assistance of 2 or more helpers is required for the patient to complete the activity. If activity was not attempted, code reason: 7-Patient Refused. 9-Not Applicable-not attempted and the patient did not perform the activity before the current illness, exacerbation or injury. 10-Not Attempted due to Environmental Limitations-(lack of equipment, weather restraints, etc.). 88-Not Attempted due to Medical Conditions or Safety Concerns. Weight Bearing Full Weight Bearing Full Weight Bearing Treatments TUCK POINTER HELPER issued and reviewed written HEP for Supine & Seated EX with pt. Pt resting at end of tx with all needs met, call light in hand. Assessment Current Status: Good Progress Pt sharath. tx well. PT Short Term Goals Short Term Goals Time Frame: December 10, 2020 Roll Left & Right: 6 Sit to lyin Lying to sitting on side of be: 5 Sit to stand: 4 Chair/qdx-wt-wtzsf transfer: 4 Walk 10 feet: 4 Walk 50 feet with two turns: 4 Walk 150 feet: 4 PT Parts Counter Salesperson Goals Parts Counter Salesperson Goals PT Mcfp Goals Time Frame: December 24, 2020 Roll Left & Right (QC): 6 Sit to Lying (QC): 6 Lying-Sitting on Side/Bed(QC): 6 Sit to Stand (QC): 5 Chair/Soh-ol-Rzfep Xfer(QC): 5 Toilet Transfer (QC): 5 Car Transfer (QC): 5 Does the Patient Walk: Yes Walk 10 feet (QC): 5 Walk 50ft with 2 Turns (QC): 5 Walk 150 ft (QC): 5 Walking 10ft on Uneven Surface: 5 1 Step (curb) (QC): 4 4 Steps (QC): 4 12 Steps (QC): 88 Picking up an Object (QC): 4 Wheel 50 feet with 2 turns (QC: 9 Wheel 150 feet: 9 PT Plan Problem List Problem List: Activity Tolerance Treatment/Plan Treatment Plan: Continue Plan of Care Treatment Plan: Bed Mobility, Education, Functional Activity Erica, Functional Strength, Group Therapy, Gait, Safety, Therapeutic Exercise, Transfers Treatment Duration: December 24, 2020 Frequency: At least 5 of 7 days/Wk (IRF) Estimated Hrs Per Day: 1.5 hours per day Patient and/or Family Agrees t: Yes Safety Risks/Education Patient Education: Issued Written HEP Teaching Recipient: Patient Teaching Methods: Demonstration, Discussion Response to Teaching: Verbalize Understanding, Return Demonstration Time/GCodes Time In: 1315 Time Out: 1340 Total Billed Treatment Time: 25 Total Billed Treatment 1, FA (10m) & EX (15m) VICKY SIMMONS PTA December 09, 2020 15:13
[2020-12-09] MEDS ORDERED: MTP25TSR PO (16:03)
[2020-12-09 20:10] VITALS: BP 124/64
[2020-12-09] MEDS ORDERED: ASPI-1238 PO (20:56)
[2020-12-09] MEDS ORDERED: PANT40TA52 PO (20:56)
[2020-12-09] MEDS ORDERED: ACHD5005 PO (20:56)
[2020-12-09] MEDS ORDERED: OLAN5TAB25 PO (20:56)
[2020-12-09] MEDS ORDERED: LEVE500T6 PO (20:56)
[2020-12-09] MEDS ORDERED: ALPR.25T PO (20:56)
[2020-12-09] MEDS ORDERED: OXYC15TA73 PO (20:56)
[2020-12-09] MEDS ORDERED: METO50TA7 PO (20:56)
[2020-12-09] MEDS ORDERED: FENT1PAT10 TD (20:56)
--- NOTE | 2020-12-09 20:57 | Discharge Inst-Skilled Nursing ---
Discharge Inst-Skilled NF Reconcile Patient Problems Problems Reviewed?: Yes Patient Instructions Patient Problems: CVA Seizure d/o Goal: [place] Consult/Follow Up/Orders Follow Up Appt.: [facility] rounds Skilled NF [place] [facility] [place]) I certify that SNF services are required to be given on an inpatient basis because of the above named patient's need for prison care on a continuing basis for the conditions(s) for which he/she was receiving inpatient hospital services prior to his/her transfer to the SNF. [facility] Facility Order: Nursing Services, Productivity Engineer-Evaluate & Treat, Physical Therapy-Evaluate & Treat, Speech Language-Evaluate & Treat Oxygen Delivery Method: Room Air Discharge Diet: No Restrictions Resuscitation Status: Full Code New & Resume Previous Orders New Medications: ALPRAZolam (Xanax Tablet) 0.25 Mg Tab 0.25 MG PO Q8H PRN for ANXIETY, #15 TAB Aspirin (Aspirin EC) 81 Mg Tablet.dr 81 MG PO DAILY for 365 Days, TAB Hydrocodone Bit/Acetaminophen (HYDROcodone/APAP 5 MG/325 MG TAB) 1 Tab Tab 1 EA PO Q4H PRN for PAIN-SEVERE (8-10), #20 TAB Levetiracetam (Levetiracetam) 500 Mg Tablet 500 MG PO BID for 365 Days, TAB Metoprolol Succinate (Metoprolol Succinate) 50 Mg Tab.er.24h 50 MG PO DAILY for 365 Days, TAB Olanzapine (Olanzapine) 5 Mg Tablet 5 MG PO HS for 365 Days, TAB Pantoprazole Sodium (Pantoprazole Sodium) 40 Mg Tablet.dr 40 MG PO DAILY for 365 Days, TAB Continued Medications: [Bethanechol] () 25 TAB 25 MG PO QID, TAB Budesonide/Formoterol Fumarate (Symbicort 160-4.5 Mcg Inhaler) 10.2 Gm Hfa.aer.ad 2 PUFF IH BID, INHALER Cetirizine HCl (Cetirizine HCl) 10 Mg Tablet 10 MG PO DAILY PRN for ALLERGY SYMPTOMS, TAB Colchicine (Colcrys) 0.6 Mg Tablet 0.6 MG PO BID, TAB Docusate Sodium (Docusate Sodium) 100 Mg Capsule 100 MG PO BID, CAP Donepezil HCl (Donepezil HCl) 10 Mg Tablet 10 MG PO HS, TAB Fentanyl (Fentanyl Patch 75MCG) 1 Each Patch.td72 75 MCG TD Q72H, #5 PATCH (This prescription has been renewed) Finasteride (Finasteride) 5 Mg Tablet 5 MG PO DAILY, TAB Gabapentin (Neurontin) 300 Mg Capsule 300 MG PO BID, CAP Lactase (Lactaid) 3,000 Unit Tablet 3000 UNIT PO UD PRN for LACTOSE INTOLERANCE, TAB Levothyroxine Sodium (Levothyroxine Sodium) 150 Mcg Tablet 150 MCG PO DAILY, TAB Montelukast Sodium (Montelukast Sodium) 10 Mg Tablet 10 MG PO HS, TAB Oxycodone HCl (Oxycontin) 15 Mg Tab.er.12h 15 MG PO DAILY PRN for PAIN-SEVERE (8-10), #30 TAB (This prescription has been renewed) Pravastatin Sodium (Pravastatin Sodium) 40 Mg Tablet 40 MG PO HS, TAB Risperidone (Risperidone) 0.5 Mg Tablet 0.5 MG PO BID, TAB Rivaroxaban (Xarelto) 20 Mg Tablet 20 MG PO HS, TAB Sertraline HCl (Sertraline HCl) 100 Mg Tablet 100 MG PO HS, TAB Tamsulosin HCl (Flomax) 0.4 Mg Cap 0.4 MG PO DAILY, CAP Triamcinolone Acetonide (Triamcinolone Acetonide 0.5% Cream) 15 Gm Cream..g. 15 GM TP BID PRN for CONTACT DERMATITIS, TUBE Discontinued Medications: Metoprolol Succinate (Metoprolol Succinate) 25 Mg Tab.er.24h 25 MG PO DAILY, TAB Sasha Miramontes December 09, 2020 20:56 SASHA MIRAMONTES DO December 09, 2020 20:57
[2020-12-09] MEDS: DONEPEZIL 10 MG (ARICEPT) TAB PO SCH (21:50)
[2020-12-09] MEDS: SERTRALINE 100 MG (ZOLOFT) TAB PO SCH (21:50)
[2020-12-09] MEDS: OLANZapine 5 MG (ZyPREXA) TAB PO SCH (21:50)
[2020-12-09] MEDS: MONTELUKAST 10 MG (SINGULAIR) TAB PO SCH (21:50)
[2020-12-09] MEDS: SIMvastatin 20 MG (ZOCOR) TAB PO SCH (21:51)
[2020-12-09] MEDS: RIVAROXABAN 20 MG TABLET (XARELTO) PO SCH (21:51)
[2020-12-10] MEDS: LEVOTHYROXINE 150 MCG (LEVOTHROID) TAB PO SCH (06:37)
[2020-12-10] MEDS: BETHANECHOL 25 MG (URECHOLINE) TAB PO SCH (06:37)
[2020-12-10] MEDS: RT--FLUTICASONE/SALMETEROL 232-14 (AIRDUO RespiCLICK) IH SCH (06:52)
--- NOTE | 2020-12-10 08:25 | Cardiology Progress Note ---
Subjective Date Seen by Provider: December 10, 2020 Time Seen by Provider: 08:24 Subjective/Events-last exam Patient was seen at bedside laying down comfortably, denied any pain. Review of Systems General: No Chills, No Night Sweats; Fatigue; No Malaise, No Appetite, No Other HEENT: No Head Aches, No Visual Changes, No Eye Pain, No Ear Pain, No Dysphasia, No Sinus Congestion, No Post Nasal Drip, No Sore Throat, No Other Pulmonary: No Dyspnea, No Cough, No Pleuritic Chest Pain, No Other Cardiovascular: No: Chest Pain, Palpitations, Orthopnea, Paroxysmal Noc. Dyspnea, Edema, Lt Headedness, Other Objective-Cardiology Exam Last Set of Vital Signs Vital Signs 12/09/20 12/10/20 20:10 06:53 Temp 36.4 Pulse 81 Resp 16 B/P (MAP) 124/64 (84) Pulse Ox 95 O2 Delivery Room Air Capillary Refill : General: Alert, Cooperative HEENT: Atraumatic, PERRLA Neck: Supple, No JVD, No Thyromegaly Lungs: Clear to Auscultation, Normal Air Movement Heart: Regular Rate, Normal S1, Normal S2, No Murmurs Abdomen: Normal Bowel Sounds, Soft, No Tenderness, No Hepatosplenomegaly, No Masses Extremities: No Clubbing, Other (trace edema) Skin: No Rashes, No Significant Lesion Neuro: Normal Speech Psych/Mental Status: Mood NL A/P-Cardiology Admission Diagnosis Change in mental status Delirium Coronary artery disease Hypertension Assessment/Plan Status post acute change in mental status with lacunar infarct in the occipital lobe. Receiving physical therapy, improving slowly. Advanced dementia, episode of delirium with aggressive behavior, currently better. 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 Moderate disease with calcified system in the left system. Hypertension, controlled on current medication, continue to monitor Hyperlipidemia, monitor lipids Chronic venous stasis dermatitis, no change from baseline. Continue to monitor Pulmonary hypertension with estimated pulmonary artery pressure of 35 mmHg, probably secondary to COPD. continue to monitor. COPD, pulmonary hypertension, maintained on Symbicort Diabetes mellitus, monitored and managed by primary care physician. History of syncope, resolved, continue to monitor. History of DVT with IVC filter, on Xarelto. History of moderate carotid stenosis. Most recent carotid duplex done September 2017, I will review [facility] record if carotid ultrasound was done DIYA was done in August 2016 and was normal. Continue to monitor Hypothyroidism maintained on levothyroxine. Managed by primary care physician Obesity, BMI is 31. History of depression. Chronic back pain-managed by primary care physician Okay for discharge from cardiology standpoint and follow-up as an outpatient THU VINCENT MD December 10, 2020 08:25
[2020-12-10 08:38] VITALS: BP 132/72
[2020-12-10] MEDS: ASPIRIN E.C. 81 MG (ECOTRIN) TAB PO SCH (08:41)
[2020-12-10] MEDS: GABAPENTIN 300 MG (NEURONTIN) CAP PO SCH (08:41)
[2020-12-10] MEDS: PANTOPRAZOLE 40 MG (PROTONIX) TAB PO SCH (08:41)
[2020-12-10] MEDS: risperiDONE 0.5 MG (RisperDAL) TABLET PO SCH (08:41)
[2020-12-10] MEDS: TAMSULOSIN 0.4 MG (FLOMAX) CAP PO SCH (08:41)
[2020-12-10] MEDS: FINASTERIDE (PROSCAR) 5 MG TAB PO SCH (08:41)
[2020-12-10] MEDS: meTOproloL SUCCINATE 50 MG (TOPROL XL) TAB PO SCH (08:41)
[2020-12-10] MEDS: COLCHICINE 0.6 MG (COLCRYS) TABLET PO SCH (08:41)
[2020-12-10] MEDS: SENNA W/DOCUSATE (SENOKOT S) TABLET PO SCH (09:00)
[2020-12-10] MEDS: DOCUSATE SODIUM 100 MG (COLACE) CAP PO SCH (09:00)
--- NOTE | 2020-12-10 09:09 | Therapy Team Discharge Summary ---
Therapy Discharge Summary Discharge Recommendations Date of Discharge Physical Therapy Patient came to rehab following a CVA. Upon evaluation patient performed bed mobility with independence, supine <-> sit SBA, sit <-> stand min assist, transfers min assist, car transfer min assist, ambulated 50' with a rolling wa lker with min assist (including 50' with at least 2 turns of 90 degrees and 10' over an uneven surface), and went up and down 1 step using a rolling walker with min assist. Patient has been performing bed mobility and transfer training, balance and endurance training, functional strengthening, stair training, gait training, and education. Patient has made some progress but has only met his group home goals for bed mobility and supine <-> sit. Now, patient performs bed mobility and supine <-> sit with independence, sit <-> stand and transfers with CGA, car transfer CGA, ambulates 150' with a rolling walker with CGA (including 50' with at least 2 turns of 90 degrees and 10' over an uneven surface), patient refused to perform any stairs or corn picker an object from the floor during QC testing. Patient is being discharged from this facility today and will be discharged from PT at this time. Occupational Therapy Decreased Activ Tolerance, Decreased Safety Aware, Decreased UE Strength, Impaired Funct Balance, Impaired I ADL's, Impaired Self-Care Skills PT Half-Way Goals Half-Way Goals PT Licensed Clinical Psychologist Goals Time Frame: December 24, 2020 Roll Left to Right (QC): 6 Sit to Lying (QC): 6 Lying-Sitting on Side/Bed(QC): 6 Sit to Stand (QC): 5 Chair/Foq-ob-Nbbjo Xfer(QC): 5 Car Transfer (QC): 5 Does the Patient Walk: Yes Walk 10 feet (QC): 5 Walk 10ft-Uneven Surface(QC): 5 Walk 50ft with 2 Turns (QC): 5 Walk 150 ft (QC): 5 Wheel 50 feet with 2 turns (QC: 9 1 Step (curb) (QC): 4 4 Steps (QC): 4 12 Steps (QC): 88 Picking up an Object (QC): 4 OT Half-Way Goals Half-Way Goals Time Frame: December 25, 2020 Eating (QC): 6 (met) Oral Hygiene (QC): 6 Shower/Bathe Self (QC): 4 (met) Upper Body Dressing (QC): 6 Lower Body Dressing (QC): 6 On/Off Footwear (QC): 6 Toileting Hygiene (QC): 6 Toilet/Commode Transfer (QC): 5 Additional Goals: 1-Demonstrate ADL Tasks, 2-Verbalize Understanding, 3-Improv eStrength/Erica 1=Demonstrate adherence to instructed precautions during ADL tasks. 2=Patient will verbalize/demonstrate understanding of assistive devices/modifications for ADL. 3=Patient will improve strength/tolerance for activity to enable patient to p erform ADL's. Speech Half-Way Goals Licensed Clinical Psychologist Goals Patient will improve cognitive-communication skills necessary for safety and daily living tasks with minimal assist. TSERING PIKE PT December 10, 2020 09:09
--- NOTE | 2020-12-10 09:45 | Discharge Summary ---
Diagnosis/Chief Complaint Date of Admission Dec 03, 2020 at 11:30 Date of Discharge Discharge Date: December 10, 2020 Discharge Diagnosis A&P b/l lucunar stroke s/p acute delirium Possible seizure Main source of pts recent acute decompensation in health. PT/OT Speech therapy consult SS consult. CBC and CMP Advanced dementia Sundowning syndrome Pt historically usually cant perform basic ADLs after 5pm at home. Restart home mediation hypothyroidism HLP HTN HTN likely pts main RF for development of the lucunar infarcts. hx of DVT depression BPH gout GERD carpel tunnel syndrome - s/p b/l carpel tunnel release. Home medication DVT prophylaxis Xarelto for theraputic prophylaxis against DVTs, and ambulation. Plan: IRF protocol Monitor closely OAC Fall risk 12/04/20: Monitor confusion Monitor pain 12/05/20: Monitor pain Monitor delirium 12/06/20: Monitor pain BP stable 12/07/20: Monitor closely Monitor pain 12/08/20: DC soon Confusion is baseline 12/09/20: DC tomorrow to [place] (1) Lacunar cerebrovascular accident (CVA) of subthalamic region (2) Dementia (3) Personal history of DVT (deep vein thrombosis) (4) Delirium (5) Seizure Status: Acute Discharge Summary Discharge Physical Examination Allergies: Coded Allergies: No Known Drug Allergies (Unverified , 04/24/19) Vitals & I&Os Vital Signs Date Time Temp Pulse Resp B/P (MAP) Pulse Ox O2 Delivery O2 Flow Rate FiO2 12/10/20 10:30 36.6 58 18 132/72 94 Room Air General Appearance: Alert, Cooperative Respiratory: Clear to Auscultation Cardiovascular: Regular Rate Neuro: Normal Gait Psych/Mental Status: Other (demented) Hospital Course Was the Problem List Reviewed?: Yes Hospital Course: Pt had an uneventful hospital course for 8 days after he was sent here from [place] after a CVA complicating his dementia. Overall he did very well, had no decline in function while he was hospitalized. Labs remained stable and no significant medication changes were made except for cardiology adjusted a few. He was deemed stable for DC to [facility]. Labs (last 24 hrs) Laboratory Tests 12/04/20 04:59: White Blood Count 9.8, Red Blood Count 4.35, Hemoglobin 12.5L, Hematocrit 40, Mean Corpuscular Volume 93, Mean Corpuscular Hemoglobin 29, Mean Corpuscular Hemoglobin Concent 31L, Red Cell Distribution Width 13.7, Platelet Count 169, Mean Platelet Volume 9.9, Immature Granulocyte % (Auto) 0, Neutrophils (%) (Auto) 58, Lymphocytes (%) (Auto) 18, Monocytes (%) (Auto) 13H, Eosinophils (%) (Auto) 10, Basophils (%) (Auto) 1, Neutrophils # (Auto) 5.7, Lymphocytes # (Auto) 1.7, Monocytes # (Auto) 1.3H, Eosinophils # (Auto) 1.0H, Basophils # (Auto) 0.1, Immature Granulocyte # (Auto) 0.0, Sodium Level 141, Potassium Level 4.2, Chloride Level 107, Carbon Dioxide Level 26, Anion Gap 8, Blood Urea Nitrogen 16, Creatinine 0.99, Estimat Glomerular Filtration Rate > 60, BUN/Creatinine Ratio 16, Glucose Level 117H, Calcium Level 8.4L, Corrected Calcium 9.0, Total Bilirubin 0.3, Aspartate Amino Transf (AST/SGOT) 21, Alanine Aminotransferase (ALT/SGPT) 16, Alkaline Phosphatase 62, Total Protein 6.2L, Albumin 3.3 12/07/20 05:04: White Blood Count 10.3, Red Blood Count 3.96L, Hemoglobin 11.3L, Hematocrit 37L, Mean Corpuscular Volume 94, Mean Corpuscular Hemoglobin 29, Mean Corpuscular Hemoglobin Concent 30L, Red Cell Distribution Width 14.1, Platelet Count 184, Mean Platelet Volume 10.3, Immature Granulocyte % (Auto) 1, Neutrophils (%) (Auto) 54, Lymphocytes (%) (Auto) 22, Monocytes (%) (Auto) 14H, Eosinophils (%) (Auto) 9, Basophils (%) (Auto) 1, Neutrophils # (Auto) 5.5, Lymphocytes # (Auto) 2.2, Monocytes # (Auto) 1.5H, Eosinophils # (Auto) 0.9H, Basophils # (Auto) 0.1, Immature Granulocyte # (Auto) 0.1, Sodium Level 142, Potassium Level 4.0, Chloride Level 111H, Carbon Dioxide Level 23, Anion Gap 8, Blood Urea Nitrogen 21H, Creatinine 1.17, Estimat Glomerular Filtration Rate 60, BUN/Creatinine Ratio 18, Glucose Level 120H, Calcium Level 8.1L, Corrected Calcium 8.8, Total Bilirubin 0.2, Aspartate Amino Transf (AST/SGOT) 14, Alanine Aminotransferase (ALT/SGPT) 12, Alkaline Phosphatase 79, Total Protein 5.9L, Albumin 3.1L Pending Labs Laboratory Tests 12/04/20 04:59: White Blood Count 9.8, Red Blood Count 4.35, Hemoglobin 12.5, Hematocrit 40, Mean Corpuscular Volume 93, Mean Corpuscular Hemoglobin 29, Mean Corpuscular Hemoglobin Concent 31, Red Cell Distribution Width 13.7, Platelet Count 169, Mean Platelet Volume 9.9, Immature Granulocyte % (Auto) 0, Neutrophils (%) (Auto) 58, Lymphocytes (%) (Auto) 18, Monocytes (%) (Auto) 13, Eosinophils (%) (Auto) 10, Basophils (%) (Auto) 1, Neutrophils # (Auto) 5.7, Lymphocytes # (Auto) 1.7, Monocytes # (Auto) 1.3, Eosinophils # (Auto) 1.0, Basophils # (Auto) 0.1, Immature Granulocyte # (Auto) 0.0, Sodium Level 141, Potassium Level 4.2, Chloride Level 107, Carbon Dioxide Level 26, Anion Gap 8, Blood Urea Nitrogen 16, Creatinine 0.99, Estimat Glomerular Filtration Rate > 60, BUN/Creatinine Ratio 16, Glucose Level 117, Calcium Level 8.4, Corrected Calcium 9.0, Total Bilirubin 0.3, Aspartate Amino Transf (AST/SGOT) 21, Alanine Aminotransferase (ALT/SGPT) 16, Alkaline Phosphatase 62, Total Protein 6.2, Albumin 3.3 12/07/20 05:04: White Blood Count 10.3, Red Blood Count 3.96, Hemoglobin 11.3, Hematocrit 37, Mean Corpuscular Volume 94, Mean Corpuscular Hemoglobin 29, Mean Corpuscular Hemoglobin Concent 30, Red Cell Distribution Width 14.1, Platelet Count 184, Mean Platelet Volume 10.3, Immature Granulocyte % (Auto) 1, Neutrophils (%) (Auto) 54, Lymphocytes (%) (Auto) 22, Monocytes (%) (Auto) 14, Eosinophils (%) (Auto) 9, Basophils (%) (Auto) 1, Neutrophils # (Auto) 5.5, Lymphocytes # (Auto) 2.2, Monocytes # (Auto) 1.5, Eosinophils # (Auto) 0.9, Basophils # (Auto) 0.1, Immature Granulocyte # (Auto) 0.1, Sodium Level 142, Potassium Level 4.0, Chloride Level 111, Carbon Dioxide Level 23, Anion Gap 8, Blood Urea Nitrogen 21, Creatinine 1.17, Estimat Glomerular Filtration Rate 60, BUN/Creatinine Ratio 18, Glucose Level 120, Calcium Level 8.1, Corrected Calcium 8.8, Total Bilirubin 0.2, Aspartate Amino Transf (AST/SGOT) 14, Alanine Aminotransferase (ALT/SGPT) 12, Alkaline Phosphatase 79, Total Protein 5.9, Albumin 3.1 Discharge Home Medications: Active Scripts Active Pantoprazole Sodium 40 Mg Tablet.dr 40 Mg PO DAILY 365 Days Xanax Tablet (Alprazolam) 0.25 Mg Tab 0.25 Mg PO Q8H PRN Olanzapine 5 Mg Tablet 5 Mg PO HS 365 Days Levetiracetam 500 Mg Tablet 500 Mg PO BID 365 Days HYDROcodone/APAP 5 MG/325 MG TAB (Acetaminophen/Hydrocodone Bitart) 1 Tab Tab 1 Ea PO Q4H PRN Aspirin EC (Aspirin) 81 Mg Tablet.dr 81 Mg PO DAILY 365 Days Metoprolol Succinate 50 Mg Tab.er.24h 50 Mg PO DAILY 365 Days Oxycontin (Oxycodone HCl) 15 Mg Tab.er.12h 15 Mg PO DAILY PRN Fentanyl Patch 75MCG (Fentanyl) 1 Each Patch.td72 75 Mcg TD Q72H Reported Lactaid (Lactase) 3,000 Unit Tablet 3,000 Unit PO UD PRN Cetirizine HCl 10 Mg Tablet 10 Mg PO DAILY PRN [Bethanechol] 25 Tab 25 Mg PO QID Flomax (Tamsulosin HCl) 0.4 Mg Cap 0.4 Mg PO DAILY Finasteride 5 Mg Tablet 5 Mg PO DAILY Risperidone 0.5 Mg Tablet 0.5 Mg PO BID Donepezil HCl 10 Mg Tablet 10 Mg PO HS Sertraline HCl 100 Mg Tablet 100 Mg PO HS Docusate Sodium 100 Mg Capsule 100 Mg PO BID Neurontin (Gabapentin) 300 Mg Capsule 300 Mg PO BID Pravastatin Sodium 40 Mg Tablet 40 Mg PO HS Triamcinolone Acetonide 0.5% Cream (Triamcinolone Acetonide) 15 Gm Cream..g. 15 Gm TP BID PRN Colcrys (Colchicine) 0.6 Mg Tablet 0.6 Mg PO BID Xarelto (Rivaroxaban) 20 Mg Tablet 20 Mg PO HS Levothyroxine Sodium 150 Mcg Tablet 150 Mcg PO DAILY Symbicort 160-4.5 Mcg Inhaler (Budesonide/Formoterol Fumarate) 10.2 Gm Hfa.aer.ad 2 Puff IH BID Montelukast Sodium 10 Mg Tablet 10 Mg PO HS Instructions to patient/family Please see electronic discharge instructions given to patient. Diagnosis/Problems Diagnosis/Problems (1) Lacunar cerebrovascular accident (CVA) of subthalamic region (2) Dementia (3) Personal history of DVT (deep vein thrombosis) (4) Delirium (5) Seizure Status: Acute BRONWYN WILBURN DO December 10, 2020 09:45
[2020-12-10 10:30] VITALS: BP 132/72
[2020-12-10] MEDS: polyethylene glycoL POWDER 17 GM (MIRALAX) PACK PO SCH (11:25)
--- NOTE | 2020-12-10 15:00 | Therapy Team Discharge Summary ---
Therapy Discharge Summary Discharge Recommendations Date of Discharge Therapy D/C Recommendations: [facility]) Occupational Therapy Pt admitted to ARU s/p CVA. At OF, pt was independent with ADLs and functional mobility using rollator. Upon initial evaluation, pt required set up assistance with eating, CGA oral care, min A showering, min A upper body dressing, mod A lower body dressing, SBA footwear and min A toileting. OT txs focused on increasing safety and independence with ADLs and functional mobility, and increasing BUE strength and activity tolerance. At discharge, pt IND with eating, CGA oral care, CGA showering, set up upper body dressing, CGA lower body dressing, SBA footwear and CGA toileting. Pt made functional progress towards goals, all goals addressed but pt only attained LTGs of eating and showering. Pt discharged from facility, d/c from OT. Decreased Activ Tolerance, Decreased Safety Aware, Decreased UE Strength, Impaired Funct Balance, Impaired I ADL's, Impaired Self-Care Skills PT Halfway Goals Director Of Reimbursement Goals PT Halfway Goals Time Frame: December 24, 2020 Roll Left to Right (QC): 6 Sit to Lying (QC): 6 Lying-Sitting on Side/Bed(QC): 6 Sit to Stand (QC): 5 Chair/Wrc-gc-Xqigc Xfer(QC): 5 Car Transfer (QC): 5 Does the Patient Walk: Yes Walk 10 feet (QC): 5 Walk 10ft-Uneven Surface(QC): 5 Walk 50ft with 2 Turns (QC): 5 Walk 150 ft (QC): 5 Wheel 50 feet with 2 turns (QC: 9 1 Step (curb) (QC): 4 4 Steps (QC): 4 12 Steps (QC): 88 Picking up an Object (QC): 4 OT Halfway Goals Director Of Reimbursement Goals Time Frame: December 25, 2020 Eating (QC): 6 (met) Oral Hygiene (QC): 6 (not met) Shower/Bathe Self (QC): 4 (met) Upper Body Dressing (QC): 6 (not met) Lower Body Dressing (QC): 6 (not met) On/Off Footwear (QC): 6 (not met) Toileting Hygiene (QC): 6 (not met) Toilet/Commode Transfer (QC): 5 (not met) Additional Goals: 1-Demonstrate ADL Tasks, 2-Verbalize Understanding, 3- ImproveStrength/Erica 1=Demonstrate adherence to instructed precautions during ADL tasks. 2=Patient will verbalize/demonstrate understanding of assistive devices/modifications for ADL. 3=Patient will improve strength/tolerance for activity to enable patient to perform ADL's. Speech Director Of Reimbursement Goals Halfway Goals Patient will improve cognitive-communication skills necessary for safety and da [place] living tasks with minimal assist. ELVIRA CORDERO OT December 10, 2020 15:00
--- NOTE | 2020-12-11 13:54 | Therapy Team Discharge Summary ---
Therapy Discharge Summary Discharge Recommendations Date of Discharge December 10, 2020 at 10:45 Therapy D/C Recommendations: [facility] (TCU/[facility]) Occupational Therapy Decreased Activ Tolerance, Decreased Safety Aware, Decreased UE Strength, Impaired Funct Balance, Impaired I ADL's, Impaired Self-Care Skills Speech-Language Pathology Patient was admitted to the ARU s/p CVA with cognitive deficits and aphasia diagnosis. Patient received skilled services with focus on these areas with progress made and goals met. Patient returned to his home today where he will receive home health services. PT Intermediate Goals Intermediate Goals PT Intermediate Goals Time Frame: December 24, 2020 Roll Left to Right (QC): 6 Sit to Lying (QC): 6 Lying-Sitting on Side/Bed(QC): 6 Sit to Stand (QC): 5 Chair/Wbk-wx-Xjyan Xfer(QC): 5 Car Transfer (QC): 5 Does the Patient Walk: Yes Walk 10 feet (QC): 5 Walk 10ft-Uneven Surface(QC): 5 Walk 50ft with 2 Turns (QC): 5 Walk 150 ft (QC): 5 Wheel 50 feet with 2 turns (QC: 9 1 Step (curb) (QC): 4 4 Steps (QC): 4 12 Steps (QC): 88 Picking up an Object (QC): 4 OT Intermediate Goals Intermediate Goals Time Frame: December 25, 2020 Eating (QC): 6 (met) Oral Hygiene (QC): 6 (not met) Shower/Bathe Self (QC): 4 (met) Upper Body Dressing (QC): 6 (not met) Lower Body Dressing (QC): 6 (not met) On/Off Footwear (QC): 6 (not met) Toileting Hygiene (QC): 6 (not met) Toilet/Commode Transfer (QC): 5 (not met) Additional Goals: 1-Demonstrate ADL Tasks, 2-Verbalize Understanding, 3- ImproveStrength/Erica 1=Demonstrate adherence to instructed precautions during ADL tasks. 2=Patient will verbalize/demonstrate understanding of assistive devices/modifications for ADL. 3=Patient will improve strength/tolerance for activity to enable patient to perform ADL's. Speech Animal Treatment Investigator Goals Animal Treatment Investigator Goals Patient will improve cognitive-communication skills necessary for safety and daily living tasks with minimal assist. GISELLE LOPEZ December 11, 2020 13:54
== END 2020-12-10 10:45 | DRG 57 ==
PROVIDERS: ADMIT Internal Medicine; ATTEND Internal Medicine
DX: I69.351 Hemiplegia and hemiparesis following cerebral infarction affecting right dominant side (principal); F05 Delirium due to known physiological condition; I69.328 Other speech and language deficits following cerebral infarction; I69.398 Other sequelae of cerebral infarction; R26.89 Other abnormalities of gait and mobility; R47.81 Slurred speech; R26.2 Difficulty in walking, not elsewhere classified; F03.90 Unspecified dementia, unspecified severity, without behavioral disturbance, psychotic disturbance, mood disturbance, and anxiety; F32.9 Major depressive disorder, single episode, unspecified; I10 Essential (primary) hypertension; E03.9 Hypothyroidism, unspecified; E78.5 Hyperlipidemia, unspecified; N40.0 Benign prostatic hyperplasia without lower urinary tract symptoms; M10.9 Gout, unspecified; K21.9 Gastro-esophageal reflux disease without esophagitis; E11.9 Type 2 diabetes mellitus without complications; H40.9 Unspecified glaucoma; M19.91 Primary osteoarthritis, unspecified site; I25.10 Atherosclerotic heart disease of native coronary artery without angina pectoris; I87.2 Venous insufficiency (chronic) (peripheral); I27.20 Pulmonary hypertension, unspecified; E66.9 Obesity, unspecified; Z68.31 Body mass index [BMI] 31.0-31.9, adult; Z86.718 Personal history of other venous thrombosis and embolism; Z79.82 Long term (current) use of aspirin; Z82.61 Family history of arthritis; Z83.3 Family history of diabetes mellitus; Z81.8 Family history of other mental and behavioral disorders; Z82.49 Family history of ischemic heart disease and other diseases of the circulatory system; Z83.49 Family history of other endocrine, nutritional and metabolic diseases; Z82.3 Family history of stroke
CPT/HCPCS: 36415; 80053; 85025; 94640; 94760

== ENCOUNTER 2020-12-30 14:08 | Inpatient (IN) | payer MEDICARE, MEDICAID ==
[~2020-12-30] VITALS: Ht 179 cm; Wt 142.6 kg
[~2020-12-30 14:08] MED LIST changes: -ACETAMINOPHEN 325 MG TABLET PO PRN; +ACHD5005 PO; +ALPR.25T PO; -ALPRAZolam 0.25 MG (XANAX) TAB PO PRN; +BETHANECHOL PO; -BISACODYL 10 MG SUPP (DULCOLAX) PR PRN; -CALCIUM CARBONATE 500 MG (TUMS) TAB.CHEW PO PRN; +CETI10TA17 PO; -DOCUSATE SODIUM 100 MG (COLACE) CAP PO PRN; -ENOXAPARIN 40 MG/0.4 ML (LOVENOX) SYR SC SCH; +FINA5TAB6 PO; -FLEET ENEMA ADULT 1 EA BTL PR PRN; -HYDROcodone/APAP 5 MG/325 MG (LORTAB) TAB PO PRN; -LACTULOSE SYRUP 10GM/15ML (ENULOSE) 30ML UDC PO PRN; -LOPERAMIDE 2 MG (IMODIUM) TABLET PO PRN; -ONDANSETRON 4 MG (ZOFRAN) ORAL DISSOLVE TAB PO PRN; +RISP0.5T65 PO; +[UNRECOGNIZED DRUG - CODE] PO; -diphenhydrAMINE 25 MG TAB (BENADRYL) PO PRN; -guaiFENesin/CODEINE (ROBITUSSIN AC) 10ML UDC PO PRN
[2020-12-30 15:15] LABS: BASOPHILS # (AUTO) 0.1 10^3/uL (0.0-0.1); BASOPHILS % (AUTO) 1 % (0-10); EOSINOPHILS % (AUTO) 8 % (0-10); HEMATOCRIT 44 % (40-54); HEMOGLOBIN 13.1 g/dL (13.3-17.7); LYMPHOCYTES # (AUTO) 1.8 10^3/uL (1.0-4.0); LYMPHOCYTES % (AUTO) 13 % (12-44); MEAN CORPUSCULAR HEMOGLOBIN 28 pg (25-34); MEAN CORPUSCULAR HGB CONC 30 g/dL (32-36); MEAN CORPUSCULAR VOLUME 96 fL (80-99); MEAN PLATELET VOLUME 10.5 fL (9.0-12.2); MONOCYTES % (AUTO) 15 % (0-12); NEUTROPHILS # (AUTO) 8.9 10^3/uL (1.8-7.8); NEUTROPHILS % (AUTO) 64 % (42-75); PLATELET COUNT 238 10^3/uL (130-400); WHITE BLOOD COUNT 13.9 10^3/uL (4.3-11.0)
[2020-12-30 15:16] LABS: ALBUMIN 3.6 GM/DL (3.2-4.5); CHLORIDE 101 MMOL/L (98-107); POTASSIUM 4.5 MMOL/L (3.6-5.0); SODIUM 142 MMOL/L (135-145)
[2020-12-30 15:17] LABS: CALCIUM 9.2 MG/DL (8.5-10.1); INR 1.5 (0.8-1.4); PROTHROMBIN TIME PATIENT 18.7 SEC (12.2-14.7)
[2020-12-30 15:19] LABS: GLUCOSE 135 MG/DL (70-105); TOTAL PROTEIN 7.6 GM/DL (6.4-8.2)
[2020-12-30 15:20] LABS: BILIRUBIN,TOTAL 0.5 MG/DL (0.1-1.0); CARBON DIOXIDE 34 MMOL/L (21-32)
[2020-12-30 15:22] LABS: ALKALINE PHOSPHATASE 70 U/L (40-136); CREATININE SERUM 1.02 MG/DL (0.60-1.30); GFR ESTIMATED > 60
[2020-12-30 15:23] LABS: BUN/CREATININE RATIO 18
[2020-12-30 15:25] LABS: ALANINE AMINOTRANSFERASE 10 U/L (0-55)
--- NOTE | 2020-12-30 15:33 | Diagnostic Imaging Report ---
HISTORY: Sepsis, altered mental status. TECHNIQUE: Frontal view of the chest. COMPARISON: 11/28/2020. FINDINGS: There is elevation of the right hemidiaphragm which appears stable. There is no pleural effusion or pneumothorax. The cardiac silhouette is normal in size. IMPRESSION: No acute pulmonary abnormality is seen. Dictated by: Dictated on workstation # [id number]
--- NOTE | 2020-12-30 15:38 | Diagnostic Imaging Report ---
HISTORY: Wounds on the feet, sepsis. TECHNIQUE: Two views of the bilateral feet. COMPARISON: Radiographs from 12/21/2006. FINDINGS: Right foot: No acute fracture is seen in the right foot. Alignment appears normal. No cortical erosions are seen. There are moderate degenerative changes in the midfoot. There are degenerative changes in the distal interphalangeal joints. There is calcific atherosclerosis. There is moderate soft tissue swelling about the right forefoot. There is a large plantar calcaneal enthesophyte. Left foot: No acute fracture or dislocation is seen in the left foot. There is mild hallux valgus. There are degenerative changes at the first MTP joint and in the interphalangeal joints. There is mild degenerative change in the midfoot. There is a moderate-sized plantar calcaneal enthesophyte. There is calcific atherosclerosis. There is marked soft tissue swelling about the left forefoot. IMPRESSION: 1. Degenerative changes in the bilateral feet with no acute osseous abnormality or radiographic findings of osteomyelitis. 2. Bilateral soft tissue swelling, left greater than right. Dictated by: Dictated on workstation # [id number]
[2020-12-30 15:40] LABS: ABG BASE EXCESS 3.7 MMOL/L (-2.5-2.5); ABG OXYGEN SATURATION 91 % (94-100); ABG PCO2 56 MMHG (35-45); ABG PO2 66 MMHG (79-93); ABG TCO2 30.9 MMOL/L (21.0-31.0)
[2020-12-30 15:41] LABS: ALLENS TEST YES-POS; INSPIRED O2 RA; VENTILATOR NO
[2020-12-30 15:43] LABS: ABG PH 7.33 (7.37-7.43)
[2020-12-30 15:46] LABS: FREE T4 (FREE THYROXINE) 1.05 NG/DL (0.70-1.48)
[2020-12-30 16:31] LABS: BILIRUBIN,URINE NEGATIVE (NEGATIVE); CLARITY,URINE CLEAR; COLOR,URINE YELLOW; GLUCOSE, URINE (UA) NEGATIVE (NEGATIVE); KETONES,URINE NEGATIVE (NEGATIVE); LEUKOCYTE ESTERASE ,URINE NEGATIVE (NEGATIVE); NITRITE,URINE NEGATIVE (NEGATIVE); PROTEIN,URINE NEGATIVE (NEGATIVE)
--- NOTE | 2020-12-30 16:42 | Diagnostic Imaging Report ---
EXAMINATION: CT head without contrast. TECHNIQUE: Multiple contiguous axial images were obtained through the brain without the use of intravenous contrast. All CT scans use one or more of the following dose optimizing techniques: automated exposure control, MA and/or KvP adjustment based on patient size and exam type or iterative reconstruction. HISTORY: Altered mental status. Difficulty swallowing. Right-sided facial drooping. COMPARISON: 11/28/2020. FINDINGS: No large acute territorial ischemia, mass, or hemorrhage. No midline shift or mass effect. Old infarct is noted in the left frontal lobe. Decreased attenuation is seen in the periventricular and subcortical white matter. The ventricles and cortical sulci are prominent. The basilar cisterns are patent and unremarkable. The orbits are normal. Paranasal sinuses are normal. Mastoid air cells are clear. No soft tissue abnormality is seen. No osseus lesions or fractures are seen. IMPRESSION: 1. No large acute territorial ischemia, mass, or hemorrhage. 2. 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 3. Generalized parenchymal volume loss with chronic microvascular disease. Dictated by: Dictated on workstation # [id number]
[2020-12-30] MEDS ORDERED: NS IV 1000 ML 1,000 ML IV SCH (16:45)
[2020-12-30 16:46] LABS: AMORPHOUS SEDIMENT,UR RARE AMOR URATES /LPF; BACTERIA,URINE NEGATIVE /HPF
[2020-12-30] MEDS ORDERED: PIPERACILLIN SODIUM/TAZOBACTAM 4.5 GM in NS (IVPB) 100 ML IV ONE (17:15)
[2020-12-30] MEDS ORDERED: RT-ALBUTEROL/IPRATROPIUM 3 ML (DUONEB) VIAL INH ONE (17:30)
--- NOTE | 2020-12-30 17:51 | ED General ---
General Chief Complaint: Altered Mental Status Stated Complaint: POSSIBLE STROKE Nursing Triage Note: PT TO RM 6 BY [facility] WITH CC OF CHANGE IN BEHAVIOR YESTERDAY AROUIND 1700. STAFF AT [facility] STATES HE HAD DIFFICULTY SWALLOWING AND RT SIDE FACIAL DROOPING. FAMILY WITH PT TODAY WANTED STAFF TO CALL TO HAVE PT BROUIGHT TO ER FOR EVALUATION. WOUNDS ON LT HEEL/FOOT WEEPING. Nursing Sepsis Screen: No Definite Risk Source of Information: Patient, EMS, Family Exam Limitations: No Limitations History of Present Illness Date Seen by Provider: December 30, 2020 Time Seen by Provider: 14:09 Initial Comments This is 75-year-old gentleman presents to the emergency room via EMS from the half-way where he has been found to have altered mental status since yesterday evening. He slept late this morning and missed breakfast. He woke up after 11:00. When trying to eat he was falling asleep with carrots in his mouth and seemed to choke at one point in time. He is arousable but quickly falls asleep. Family states he has not been answering questions appropriately. He has right-sided facial droop from prior stroke which is worse today. He does not appear to have any other focal neurologic deficits. Patient is arousable for me on exam and is actually alert and oriented. However, he quickly drifts off back to sleep after speaking. He is mildly hypoxic when he is asleep with oxygen saturations around 90%. Nasal cannula was applied. It is also noted patient has had worsening ulcers of the bilateral heels. Allergies and Home Medications Allergies Coded Allergies: No Known Drug Allergies (Unverified , 04/24/19) Home Medications ALPRAZolam 0.25 Mg Tab, 0.25 MG PO Q8H PRN for ANXIETY Prescribed by: BRONWYN WILBURN on 12/09/202055 Aspirin 81 Mg Tablet.dr, 81 MG PO DAILY Prescribed by: BRONWYN WILBURN on 12/09/202055 Budesonide/Formoterol Fumarate 10.2 Gm Hfa.aer.ad, 2 PUFF IH BID, (Reported) Cetirizine HCl 10 Mg Tablet, 10 MG PO DAILY PRN for ALLERGY SYMPTOMS, (Reported) Colchicine 0.6 Mg Tablet, 0.6 MG PO BID, (Reported) Docusate Sodium 100 Mg Capsule, 100 MG PO BID, (Reported) Donepezil HCl 10 Mg Tablet, 10 MG PO HS, (Reported) Fentanyl 1 Each Patch.td72, 75 MCG TD Q72H Prescribed by: BRONWYN WILBURN on 12/09/202055 Finasteride 5 Mg Tablet, 5 MG PO DAILY, (Reported) Gabapentin 300 Mg Capsule, 300 MG PO BID, (Reported) Hydrocodone Bit/Acetaminophen 1 Tab Tab, 1 EA PO Q4H PRN for PAIN-SEVERE (8-10) Prescribed by: BRONWYN WILBURN on 12/09/202055 Lactase 3,000 Unit Tablet, 3,000 UNIT PO UD PRN for LACTOSE INTOLERANCE, (Reported) Levetiracetam 500 Mg Tablet, 500 MG PO BID Prescribed by: BRONWYN WILBURN on 12/09/202055 Levothyroxine Sodium 150 Mcg Tablet, 150 MCG PO DAILY, (Reported) Metoprolol Succinate 50 Mg Tab.er.24h, 50 MG PO DAILY Prescribed by: BRONWYN WILBURN on 12/09/202055 Montelukast Sodium 10 Mg Tablet, 10 MG PO HS, (Reported) Olanzapine 5 Mg Tablet, 5 MG PO HS Prescribed by: BRONWYN WILBURN on 12/09/202055 Oxycodone HCl 15 Mg Tab.er.12h, 15 MG PO DAILY PRN for PAIN-SEVERE (8-10) Prescribed by: BRONWYN WILBURN on 12/09/202055 Pantoprazole Sodium 40 Mg Tablet.dr, 40 MG PO DAILY Prescribed by: BRONWYN WILBURN on 12/09/202055 Pravastatin Sodium 40 Mg Tablet, 40 MG PO HS, (Reported) Risperidone 0.5 Mg Tablet, 0.5 MG PO BID, (Reported) Rivaroxaban 20 Mg Tablet, 20 MG PO HS, (Reported) Sertraline HCl 100 Mg Tablet, 100 MG PO HS, (Reported) Tamsulosin HCl 0.4 Mg Cap, 0.4 MG PO DAILY, (Reported) Triamcinolone Acetonide 15 Gm Cream..g., 15 GM TP BID PRN for CONTACT DERM ATITIS, (Reported) [Bethanechol] 25 TAB, 25 MG PO QID, (Reported) Patient Home Medication List Home Medication List Reviewed: Yes Review of Systems Review of Systems Constitutional: see HPI EENTM: no symptoms reported Respiratory: see HPI Cardiovascular: no symptoms reported Gastrointestinal: no symptoms reported Genitourinary: no symptoms reported Musculoskeletal: see HPI Skin: see HPI Psychiatric/Neurological: See HPI Hematologic/Lymphatic: No Symptoms Reported Immunological/Allergic: no symptoms reported Past Awxyvis-Scqcso-Dljgml Hx Past Med/Social Hx: Reviewed Nursing Past Med/Soc Hx Patient Social History Alcohol Use: Denies Use Smoking Status: Never a Smoker 2nd Hand Smoke Exposure: No Recent Infectious Disease Expo: No Recent Hopitalizations: No Immunizations Up To Date Tetanus Booster (TDap): More than 5yrs Date of Pneumonia Vaccine: May 14, 2018 Date of Influenza Vaccine: May 14, 2018 Seasonal Allergies Seasonal Allergies: No Past Medical History Surgeries: Yes ( HIATAL HERNIA REPAIR, TURP, danelle filter, bilat CTR and thumb sx) Appendectomy, Gallbladder, Orthopedic, Tonsillectomy Respiratory: Yes Asthma, Pneumonia, Chronic Bronchitis Cardiac: Yes Deep Vein Thrombosis, Hypertension Neurological: Yes Dementia Reproductive Disorders: No Sexually Transmitted Disease: No HIV/AIDS: No Genitourinary: Yes Benign Prostatic Hyperpl Gastrointestinal: Yes (rectal bleeding) Chronic Constipation, Chronic Diarrhea, Hiatal Hernia Musculoskeletal: Yes Arthritis, Chronic Back Pain, Gout Endocrine: Yes Hypothyroidsim, Diabetes, Non-Insulin dep HEENT: No Glaucoma Loss of Vision: Denies Hearing Impairment: Denies, Hard of Hearing Cancer: No Psychosocial: Yes Depression Integumentary: No Blood Disorders: No Adverse Reaction/Blood Tranf: No (N/A) Family Medical History Cancer Chest pain Family history: Alzheimer's disease Family history: Arthritis Family history: Asthma Family history: Cardiovascular disease Family history: Coronary thrombosis Family history: Diabetes mellitus Family history: Hypertension Family history: Thyroid disorder Hearing loss Heart disease History of - respiratory disease Myocardial infarction Stroke Visual impairment No Family History of: Abdominal aortic aneurysm Denver's disease Alcoholism Aphasia Cancer of colon Cataract Congenital heart disease Congestive heart failure Cystic fibrosis Dementia Dysphagia Family history: Allergy Family history: Breast disease Family history: Gastrointestinal disease Family history: Glaucoma Family history: Osteoporosis Headache Hereditary disease History of - anemia History of - disorder History of drug abuse Human immunodeficiency virus (HIV) seropositivity Hypercholesterolemia Infertile Kidney disease Malignant neoplasm of lung Parkinson's disease Prostate cancer Psychotic disorder Seizure disorder Tuberculosis No Pertinent Family Hx Physical Exam Vital Signs Vital Signs - First Documented 12/30/20 12/30/20 14:12 17:36 Temp 37.0 Pulse 66 Resp 12 B/P (MAP) 133/55 (81) Pulse Ox 90 O2 Delivery Room Air O2 Flow Rate 3.00 Capillary Refill : Less Than 3 Seconds Height, Weight, BMI Height: 5'10.00" Weight: 263lbs. 2.0oz. 119.592514yy; 32.00 BMI Method:Stated General Appearance: No Apparent Distress, Other (Somnolent) HEENT: PERRL/EOMI, Normal ENT Inspection, Pharynx Normal, Other (Chronic right eye deviation laterally) Neck: Normal Inspection Respiratory: Lungs Clear, Normal Breath Sounds, Accessory Muscle Use, Other (Abdominal muscle use with expiration) Cardiovascular: Regular Rate, Rhythm, No Edema, No Murmur, Other (Foot swelling) Gastrointestinal: Normal Bowel Sounds, Non Tender, Soft Extremity: Swelling, Other (Blistering and necrotic ulcerations of the heels bilaterally. Some purulent drainage noted under the blisters. Erythema surrounding the blister suggestive of cellulitis.) Neurologic/Psychiatric: Alert, Oriented x3, field cane scale clerk II-XII Norm as Tested, Motor Weakness (Generalized) Skin: Warm/Dry, Other (See above) Focused Exam Lactate Level 12/30/20 15:30: Lactic Acid Level 1.38 Lactic Acid Level Laboratory Tests Test 12/30/20 15:30 Lactic Acid Level 1.38 MMOL/L (0.50-2.00) Progress/Results/Core Measures Suspected Sepsis Recent Fever Within 48 Hours: No Infection Criteria Present: None New/Unexplained Altered Menta: No Sepsis Screen: No Definite Risk SIRS Temperature: Pulse: 66 Respiratory Rate: 12 Laboratory Tests 12/30/20 14:08: White Blood Count 13.9H Blood Pressure 133 /55 Mean: 81 12/30/20 15:30: Lactic Acid Level 1.38 Laboratory Tests 12/30/20 14:08: Creatinine 1.02, INR Comment 1.5H, Platelet Count 238, Total Bilirubin 0.5 Results/Orders Lab Results Laboratory Tests Test 12/30/20 14:08 12/30/20 15:30 12/30/20 15:33 12/30/20 16:04 Range/Units White Blood Count 13.9 H 4.3-11.0 10^3/uL Red Blood Count 4.61 4.30-5.52 10^6/uL Hemoglobin 13.1 L 13.3-17.7 g/dL Hematocrit 44 40-54 % Mean Corpuscular Volume 96 80-99 fL Mean Corpuscular Hemoglobin 28 25-34 pg Mean Corpuscular Hemoglobin Concent 30 L 32-36 g/dL Red Cell Distribution Width 13.9 10.0-14.5 % Platelet Count 238 130-400 10^3/uL Mean Platelet Volume 10.5 9.0-12.2 fL Immature Granulocyte % (Auto) 1 % Neutrophils (%) (Auto) 64 42-75 % Lymphocytes (%) (Auto) 13 12-44 % Monocytes (%) (Auto) 15 H 0-12 % Eosinophils (%) (Auto) 8 0-10 % Basophils (%) (Auto) 1 0-10 % Neutrophils # (Auto) 8.9 H 1.8-7.8 10^3/uL Lymphocytes # (Auto) 1.8 1.0-4.0 10^3/uL Monocytes # (Auto) 2.0 H 0.0-1.0 10^3/uL Eosinophils # (Auto) 1.0 H 0.0-0.3 10^3/uL Basophils # (Auto) 0.1 0.0-0.1 10^3/uL Immature Granulocyte # (Auto) 0.1 0.0-0.1 10^3/uL Prothrombin Time 18.7 H 12.2-14.7 SEC INR Comment 1.5 H 0.8-1.4 Activated Partial Thromboplast Time 39 H 24-35 SEC Sodium Level 142 135-145 MMOL/L Potassium Level 4.5 3.6-5.0 MMOL/L Chloride Level 101 98-107 MMOL/L Carbon Dioxide Level 34 H 21-32 MMOL/L Anion Gap 7 5-14 MMOL/L Blood Urea Nitrogen 18 7-18 MG/DL Creatinine 1.02 0.60-1.30 MG/DL Estimat Glomerular Filtration Rate > 60 BUN/Creatinine Ratio 18 Glucose Level 135 H 70-105 MG/DL Calcium Level 9.2 8.5-10.1 MG/DL Corrected Calcium 9.5 8.5-10.1 MG/DL Total Bilirubin 0.5 0.1-1.0 MG/DL Aspartate Amino Transf (AST/SGOT) 16 5-34 U/L Alanine Aminotransferase (ALT/SGPT) 10 0-55 U/L Alkaline Phosphatase 70 40-136 U/L C-Reactive Protein High Sensitivity 5.26 H 0.00-0.50 MG/DL Total Protein 7.6 6.4-8.2 GM/DL Albumin 3.6 3.2-4.5 GM/DL Thyroid Stimulating Hormone (TSH) 2.99 0.35-4.94 UIU/ML Free Thyroxine 1.05 0.70-1.48 NG/DL Lactic Acid Level 1.38 0.50-2.00 MMOL/L Blood Gas Puncture Site R BRACH Blood Gas Patient Temperature 37.0 Arterial Blood pH 7.33 *L 7.37-7.43 Arterial Blood Partial Pressure CO2 56 H 35-45 MMHG Arterial Blood Partial Pressure O2 66 L 79-93 MMHG Arterial Blood HCO3 29 H 23-27 MMOL/L Arterial Blood Total CO2 30.9 21.0-31.0 MMOL/L Arterial Blood Oxygen Saturation 91 L 94-100 % Arterial Blood Base Excess 3.7 H -2.5-2.5 MMOL/L Pietro Test YES-POS Blood Gas Ventilator Setting NO Blood Gas Inspired Oxygen RA Urine Color YELLOW Urine Clarity CLEAR Urine pH 6.0 5-9 Urine Specific [place] 1.020 1.016-1.022 Urine Protein NEGATIVE NEGATIVE Urine Glucose (UA) NEGATIVE NEGATIVE Urine Ketones NEGATIVE NEGATIVE Urine Nitrite NEGATIVE NEGATIVE Urine Bilirubin NEGATIVE NEGATIVE Urine Urobilinogen 0.2 < = 1.0 MG/DL Urine Leukocyte Esterase NEGATIVE NEGATIVE Urine RBC (Auto) NEGATIVE NEGATIVE Urine RBC NONE /HPF Urine WBC NONE /HPF Urine Crystals PRESENT H /LPF Urine Amorphous Sediment RARE ISHA URATES H /LPF Urine Bacteria NEGATIVE /HPF Urine Casts NONE /LPF Urine Mucus NEGATIVE /LPF Urine Culture Indicated NO My Orders Orders - MARY TITUS MD Cbc With Automated Diff (12/30/20 15:03) Comprehensive Metabolic Panel (12/30/20 15:03) Blood Culture (12/30/20 15:03) Sputum Culture (12/30/20 15:03) Urinalysis (12/30/20 15:03) Urine Culture (12/30/20 15:03) Protime With Inr (12/30/20 15:03) Partial Thromboplastin Time (12/30/20 15:03) Chest 1 View, Ap/Pa Only (12/30/20 15:03) Ed Iv/Invasive Line Start (12/30/20 15:03) Ed Iv/Invasive Line Start (12/30/20 15:03) Vital Signs Adult Sepsis Patie Q15M (12/30/20 15:03) O2 (12/30/20 15:03) Remove Rings In Anticipation O (12/30/20 15:03) Lactic Acid Analyzer (12/30/20 15:03) Hs C Reactive Protein (12/30/20 15:03) Thyroid Stimulating Hormone (12/30/20 15:03) Free T4 (Free Thyroxine) (12/30/20 15:03) Foot, Bilateral, 2 Views (12/30/20 15:05) Arterial Blood Gas (12/30/20 15:33) Arterial Blood Draw (12/30/20 ) Ct Head Wo-R/O Stroke (12/30/20 15:48) Ed Iv/Invasive Line Start (12/30/20 16:35) Ns Iv 1000 Ml (Sodium Chloride 0.9%) (12/30/20 16:45) Piperacillin Sodium/Tazobactam (Zosyn Vi (12/30/20 17:15) Albuterol/Ipra Inhalation Soln (Duoneb I (12/30/20 17:30) Svn Small Volume Nebulizer (12/30/20 17:21) Medications Given in ED Current Medications Medications Dose Ordered Sig/Parveen Route Start Time Stop Time Status Last Admin Dose Admin Albuterol/ Ipratropium 3 ml ONCE ONCE INH 12/30/20 17:30 12/30/20 17:31 DC 12/30/20 17:36 3 ML Piperacillin Sod/ Tazobactam Sod 4.5 gm/Sodium Chloride 100 ml @ 200 mls/hr ONCE ONCE IV 12/30/20 17:15 12/30/20 17:44 DC 12/30/20 17:25 200 MLS/HR Vital Signs/I&O 12/30/20 12/30/20 14:12 17:36 Temp 37.0 Pulse 66 Resp 12 B/P (MAP) 133/55 (81) Pulse Ox 90 98 O2 Delivery Room Air Nasal Cannula O2 Flow Rate 3.00 Capillary Refill : Less Than 3 Seconds Blood Pressure Mean: 81 Progress Note : Progress Note Patient was evaluated with labs and x-ray. No osteomyelitis was noted of the feet on x-ray. Chest x-ray was clear. Patient was kept on nasal cannula oxygen and a DuoNeb treatment was administered. CT of the head was obtained and showed only old stroke. Antibiotic therapy was initiated with Zosyn. I discuss ed the situation with Dr. Juarez who recommends consulting the general surgeon for acute management of these wounds. Case was discussed with Dr. Barragan who would like to perform debridement tomorrow. Patient will be kept n.p.o. after midnight. Xarelto will be stopped. Pressure was taken off of his heels by placing a pillow under the calves. Cushioned boots with heel cut out have been ordered on the bridging order set. Diagnostic Imaging Diagonstic Imaging: Xray Plain Films/CT/US/NM/MRI: chest Comments NAME: [facility]ERESE ANG [facility] REC#: [id number] PT STATUS: REG ER : 1945 PHYSICIAN: MARY TITUS MD ADMIT DATE: 12/30/20/ER Signed Date of Exam:12/30/20 CHEST 1 VIEW, AP/PA ONLY HISTORY: Sepsis, altered mental status. TECHNIQUE: Frontal view of the chest. COMPARISON: 11/28/2020. FINDINGS: There is elevation of the right hemidiaphragm which appears stable. There is no pleural effusion or pneumothorax. The cardiac silhouette is normal in size. IMPRESSION: No acute pulmonary abnormality is seen. Dictated by: Dictated on workstation # [id number] Dict: 12/30/20 1530 Trans: 12/30/20 1717 [id number] Interpreted by: JOSE RICHARD MD Electronically signed by: JOSE RICHARD MD 12/30/20 1717 Reviewed: Reviewed by Me Diagonstic Imaging: Xray Plain Films/CT/US/NM/MRI: other (Lateral feet) Comments NAME: THERESE ANG [facility] REC#: [id number] PT STATUS: REG ER : 1945 PHYSICIAN: MARY TITUS MD ADMIT DATE: 12/30/20/ER Signed Date of Exam:12/30/20 FOOT, BILATERAL, 2 VIEWS HISTORY: Wounds on the feet, sepsis. TECHNIQUE: Two views of the bilateral feet. COMPARISON: Radiographs from 12/21/2006. FINDINGS: Right foot: No acute fracture is seen in the right foot. Alignment appears normal. No cortical erosions are seen. There are moderate degenerative changes in the midfoot. There are degenerative changes in the distal interphalangeal joints. There is calcific atherosclerosis. There is moderate soft tissue swelling about the right forefoot. There is a large plantar calcaneal enthesophyte. Left foot: No acute fracture or dislocation is seen in the left foot. There is mild hallux valgus. There are degenerative changes at the first MTP joint and in the interphalangeal joints. There is mild degenerative change in the midfoot. There is a moderate-sized plantar calcaneal enthesophyte. There is calcific atherosclerosis. There is marked soft tissue swelling about the left forefoot. IMPRESSION: 1. Degenerative changes in the bilateral feet with no acute osseous abnormality or radiographic findings of osteomyelitis. 2. Bilateral soft tissue swelling, left greater than right. Dictated by: Dictated on workstation # [id number] Dict: 12/30/20 1531 Trans: 12/30/20 1717 [id number] Interpreted by: JOSE RICHARD MD Electronically signed by: JOSE RICHARD MD 12/30/201716 Reviewed: Reviewed by Me Diagonstic Imaging: CT Plain Films/CT/US/NM/MRI: head Comments NAME: THERESE ANG [facility] REC#: [id number] PT STATUS: REG ER : 1945 PHYSICIAN: MARY TITUS MD ADMIT DATE: 12/30/20/ER Signed Date of Exam:12/30/20 CT HEAD WO-R/O STROKE EXAMINATION: CT head without contrast. TECHNIQUE: Multiple contiguous axial images were obtained through the brain without the use of intravenous contrast. All CT scans use one or more of the following dose optimizing techniques: automated exposure control, MA and/or KvP adjustment based on patient size and exam type or iterative reconstruction. HISTORY: Altered mental status. Difficulty swallowing. Right-sided facial drooping. COMPARISON: 11/28/2020. FINDINGS: No large acute territorial ischemia, mass, or hemorrhage. No midline shift or mass effect. Old infarct is noted in the left frontal lobe. Decreased attenuation is seen in the periventricular and subcortical white matter. The ventricles and cortical sulci are prominent. The basilar cisterns are patent and unremarkable. The orbits are normal. Paranasal sinuses are normal. Mastoid air cells are clear. No soft tissue abnormality is seen. No osseus lesions or fractures are seen. IMPRESSION: 1. No large acute territorial ischemia, mass, or hemorrhage. 2. 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 3. Generalized parenchymal volume loss with chronic microvascular disease. Dictated by: Dictated on workstation # [id number] Dict: 12/30/20 1637 Trans: 12/30/20 1646 [id number] Interpreted by: JOHN LANIER DO Electronically signed by: JOHN LANIER DO 12/30/20 1646 Reviewed: Reviewed by Me Departure Communication (Admissions) Time/Spoke to Admitting Phy: 17:05 Dr. Rojo Time/Spoke to Consulting Phy: 17:02 Dr. Barragan Impression Primary Impression: COPD exacerbation Additional Impressions: Cellulitis of both feet Diabetic foot ulcer Qualified Codes: E11.621 - Type 2 diabetes mellitus with foot ulcer; L97.408 - Non-pressure chronic ulcer of unspecified heel and midfoot with other specified severity Altered mental status Qualified Codes: R41.82 - Altered mental status, unspecified Disposition: ADMITTED INPATIENT Condition: Stable Admissions Decision to Admit Reason: Admit from ER (General) Decision to Admit/Date: December 30, 2020 Time/Decision to Admit Time: 17:02 Departure-Patient Inst. Referrals: [facility] [place] (PCP) Primary Care Physician TANNA NIELSEN (Family) Primary Care Physician MARY TITUS MD December 30, 2020 17:51
[2020-12-30 19:10] VITALS: BP 152/81
[2020-12-30] MEDS ORDERED: RT-ALBUTEROL SULF 2.5 MG/3 ML PRE-MIX VIAL IH PRN (19:15)
[2020-12-30] MEDS ORDERED: VANCOMYCIN 1,750 MG/NS 500 ML IVPB IV NR ×2 (19:30)
[2020-12-30] MEDS ORDERED: CATHETER FLUSH 10 ML SYR IV PRN (19:30)
[2020-12-30] MEDS: LACTATED RINGERS 1,000 ML IV SCH (20:05)
[2020-12-30] MEDS: PIPERACILLIN/TAZO 4.5 GM/NS 100 ML IV SCH ×2 (23:37)
[2020-12-31] VITALS (9 sets, daily range): BP systolic 105–157; BP diastolic 60–89
[2020-12-31 05:48] LABS: BASOPHILS # (AUTO) 0.1 10^3/uL (0.0-0.1); BASOPHILS % (AUTO) 0 % (0-10); EOSINOPHILS % (AUTO) 9 % (0-10); HEMATOCRIT 39 % (40-54); LYMPHOCYTES # (AUTO) 1.3 10^3/uL (1.0-4.0); LYMPHOCYTES % (AUTO) 11 % (12-44); MEAN CORPUSCULAR HEMOGLOBIN 29 pg (25-34); MEAN CORPUSCULAR HGB CONC 31 g/dL (32-36); MEAN CORPUSCULAR VOLUME 93 fL (80-99); MEAN PLATELET VOLUME 9.8 fL (9.0-12.2); MONOCYTES # (AUTO) 1.6 10^3/uL (0.0-1.0); MONOCYTES % (AUTO) 14 % (0-12); NEUTROPHILS # (AUTO) 7.4 10^3/uL (1.8-7.8); NEUTROPHILS % (AUTO) 65 % (42-75); PLATELET COUNT 218 10^3/uL (130-400); WHITE BLOOD COUNT 11.3 10^3/uL (4.3-11.0)
[2020-12-31] MEDS: LACTATED RINGERS 1,000 ML IV SCH ×2 (06:02→16:24)
[2020-12-31 06:03] LABS: CHLORIDE 103 MMOL/L (98-107); POTASSIUM 4.2 MMOL/L (3.6-5.0); SODIUM 140 MMOL/L (135-145)
[2020-12-31 06:04] LABS: CALCIUM 8.6 MG/DL (8.5-10.1)
[2020-12-31 06:05] LABS: GLUCOSE 107 MG/DL (70-105)
[2020-12-31 06:06] LABS: CARBON DIOXIDE 27 MMOL/L (21-32)
[2020-12-31 06:09] LABS: GFR ESTIMATED > 60
[2020-12-31 06:10] LABS: BUN/CREATININE RATIO 16
[2020-12-31] MEDS: VANCOMYCIN 1 GM/NS 250 ML IVPB IV SCH ×4 (08:46→20:14)
[2020-12-31] MEDS ORDERED: METO50TA7 PO (08:47)
[2020-12-31] MEDS ORDERED: OXYC-525 PO (08:47)
[2020-12-31] MEDS ORDERED: ASPI-1238 PO (08:47)
[2020-12-31] MEDS ORDERED: POLY17PO6 PO (08:47)
[2020-12-31] MEDS ORDERED: AMIN887L23 PO (08:47)
[2020-12-31] MEDS ORDERED: PANT40TA52 PO (08:47)
[2020-12-31] MEDS ORDERED: FENT1PAT59 TD (08:47)
[2020-12-31] MEDS ORDERED: ACHD5005 PO (08:47)
[2020-12-31] MEDS ORDERED: LEVE500T99 PO (08:47)
[2020-12-31] MEDS ORDERED: OLAN5TAB25 PO (08:47)
--- NOTE | 2020-12-31 10:33 | History & Physical ---
HPI History of Present Illness: 75 yo male sent from nursing facility due to worsening facial weakness. He has Alzheimer disease and his children provide history today. He has a history of multiple strokes. He has had recently rapidly developing heel ulcers. He normal has owning, but Monday evening slept through zoom Bible study which is unusual for him, and on Monday morning he woke up later than normal and was more disoriented than usual. At lunch he was minimally responsive and very disoriented. The family was reminded of his mini-strokes which before he would have disorientation followed by garbled speech, and this time did not have worse speech. He ended up not eating lunch and having more facial drooping which has occurred before with mini-strokes. He then did end up eating some but went off into an awake but basically unresponsive state. Early in November he nearly fell due to pain when he stepped on left foot and did it again shortly after, but no wound then and he was at home at that time. November 28 had mini strokes and seizure and then he was moved to nursing facility after that and wounds were noted after that and have developed very rapidly. He and sit in same room and share bathroom and she has bad UTI with klebsiella ESBL pos. He normally walks with a walker but has been off his feet due to the wounds for the last week and he does have chronic right sided weakness. Source: family Date seen by provider: December 31, 2020 Time Seen by Provider: 10:31 Attending Physician Jaelyn Rojo MD [facility] [place],[facility] [place] Consult Date of Admission December 30, 2020 at 17:36 Home Medications Home Medications Reviewed patient Home Medication Reconciliation performed by pharmacy medication reconciliations office equipment technician and/or nursing. Patients Allergies have been reviewed. Allergies Coded Allergies: No Known Drug Allergies (Unverified , 04/24/19) [id number] Hx Patient Social History Smoking Status: Never a Smoker 2nd Hand Smoke Exposure: No Recent Hopitalizations: No Alcohol Use?: No Have you traveled recently?: No Immunizations Up To Date Tetanus Booster (TDap): More than 5yrs Date of Pneumonia Vaccine: May 14, 2018 Date of Influenza Vaccine: May 14, 2018 Past Medical History Past Medical History 1. History of DVT x2 with IVC filter- on coumadin 2. DM 3. Lumbar Stenosis with chronic back pain 4. HTN 5. BPH with history of TURP 6. Chronic lower extremity edema secondary to #1 7. Glaucoma 8. Chronic Renal Insufficiency 9. Hypothyroidism 10. [place] 11. CVA Past Surgical History 1. TURP 2. Hiatal Hernia Repair 3. Cholecystectomy 4. Appendectomy 5. Tonsillectomy 6. IVC filter Family Medical History Family History: Cancer Chest pain Family history: Alzheimer's disease Family history: Arthritis Family history: Asthma Family history: Cardiovascular disease Family history: Coronary thrombosis Family history: Diabetes mellitus Family history: Hypertension Family history: Thyroid disorder Hearing loss Heart disease History of - respiratory disease Myocardial infarction Stroke Visual impairment No Family History of: Abdominal aortic aneurysm [place]'s disease Alcoholism Aphasia Cancer of colon Cataract Congenital heart disease Congestive heart failure Cystic fibrosis Dementia Dysphagia Family history: Allergy Family history: Breast disease Family history: Gastrointestinal disease Family history: Glaucoma Family history: Osteoporosis Headache Hereditary disease History of - anemia History of - disorder History of drug abuse Human immunodeficiency virus (HIV) seropositivity Hypercholesterolemia Infertile Kidney disease Malignant neoplasm of lung Parkinson's disease Prostate cancer Psychotic disorder Seizure disorder Tuberculosis Review of Systems ([facility]) Constitutional: other (unable to obtain due to patient dementia) Reviewed Test Results Reviewed Test Results Lab Laboratory Tests Test 12/30/20 14:08 12/30/20 15:30 12/30/20 15:33 12/30/20 16:04 Range/Units White Blood Count 13.9 H 4.3-11.0 10^3/uL Red Blood Count 4.61 4.30-5.52 10^6/uL Hemoglobin 13.1 L 13.3-17.7 g/dL Hematocrit 44 40-54 % Mean Corpuscular Volume 96 80-99 fL Mean Corpuscular Hemoglobin 28 25-34 pg Mean Corpuscular Hemoglobin Concent 30 L 32-36 g/dL Red Cell Distribution Width 13.9 10.0-14.5 % Platelet Count 238 130-400 10^3/uL Mean Platelet Volume 10.5 9.0-12.2 fL Immature Granulocyte % (Auto) 1 % Neutrophils (%) (Auto) 64 42-75 % Lymphocytes (%) (Auto) 13 12-44 % Monocytes (%) (Auto) 15 H 0-12 % Eosinophils (%) (Auto) 8 0-10 % Basophils (%) (Auto) 1 0-10 % Neutrophils # (Auto) 8.9 H 1.8-7.8 10^3/uL Lymphocytes # (Auto) 1.8 1.0-4.0 10^3/uL Monocytes # (Auto) 2.0 H 0.0-1.0 10^3/uL Eosinophils # (Auto) 1.0 H 0.0-0.3 10^3/uL Basophils # (Auto) 0.1 0.0-0.1 10^3/uL Immature Granulocyte # (Auto) 0.1 0.0-0.1 10^3/uL Prothrombin Time 18.7 H 12.2-14.7 SEC INR Comment 1.5 H 0.8-1.4 Activated Partial Thromboplast Time 39 H 24-35 SEC Sodium Level 142 135-145 MMOL/L Potassium Level 4.5 3.6-5.0 MMOL/L Chloride Level 101 98-107 MMOL/L Carbon Dioxide Level 34 H 21-32 MMOL/L Anion Gap 7 5-14 MMOL/L Blood Urea Nitrogen 18 7-18 MG/DL Creatinine 1.02 0.60-1.30 MG/DL Estimat Glomerular Filtration Rate > 60 BUN/Creatinine Ratio 18 Glucose Level 135 H 70-105 MG/DL Calcium Level 9.2 8.5-10.1 MG/DL Corrected Calcium 9.5 8.5-10.1 MG/DL Total Bilirubin 0.5 0.1-1.0 MG/DL Aspartate Amino Transf (AST/SGOT) 16 5-34 U/L Alanine Aminotransferase (ALT/SGPT) 10 0-55 U/L Alkaline Phosphatase 70 40-136 U/L C-Reactive Protein High Sensitivity 5.26 H 0.00-0.50 MG/DL Total Protein 7.6 6.4-8.2 GM/DL Albumin 3.6 3.2-4.5 GM/DL Thyroid Stimulating Hormone (TSH) 2.99 0.35-4.94 UIU/ML Free Thyroxine 1.05 0.70-1.48 NG/DL Lactic Acid Level 1.38 0.50-2.00 MMOL/L Blood Gas Puncture Site R BRACH Blood Gas Patient Temperature 37.0 Arterial Blood pH 7.33 *L 7.37-7.43 Arterial Blood Partial Pressure CO2 56 H 35-45 MMHG Arterial Blood Partial Pressure O2 66 L 79-93 MMHG Arterial Blood HCO3 29 H 23-27 MMOL/L Arterial Blood Total CO2 30.9 21.0-31.0 MMOL/L Arterial Blood Oxygen Saturation 91 L 94-100 % Arterial Blood Base Excess 3.7 H -2.5-2.5 MMOL/L Pietro Test YES-POS Blood Gas Ventilator Setting NO Blood Gas Inspired Oxygen RA Urine Color YELLOW Urine Clarity CLEAR Urine pH 6.0 5-9 Urine Specific [place] 1.020 1.016-1.022 Urine Protein NEGATIVE NEGATIVE Urine Glucose (UA) NEGATIVE NEGATIVE Urine Ketones NEGATIVE NEGATIVE Urine Nitrite NEGATIVE NEGATIVE Urine Bilirubin NEGATIVE NEGATIVE Urine Urobilinogen 0.2 < = 1.0 MG/DL Urine Leukocyte Esterase NEGATIVE NEGATIVE Urine RBC (Auto) NEGATIVE NEGATIVE Urine RBC NONE /HPF Urine WBC NONE /HPF Urine Crystals PRESENT H /LPF Urine Amorphous Sediment RARE ISHA URATES H /LPF Urine Bacteria NEGATIVE /HPF Urine Casts NONE /LPF Urine Mucus NEGATIVE /LPF Urine Culture Indicated NO Test 12/31/20 05:12 12/31/20 12:25 Range/Units White Blood Count 11.3 H 4.3-11.0 10^3/uL Red Blood Count 4.16 L 4.30-5.52 10^6/uL Hemoglobin 12.0 L 13.3-17.7 g/dL Hematocrit 39 L 40-54 % Mean Corpuscular Volume 93 80-99 fL Mean Corpuscular Hemoglobin 29 25-34 pg Mean Corpuscular Hemoglobin Concent 31 L 32-36 g/dL Red Cell Distribution Width 13.6 10.0-14.5 % Platelet Count 218 130-400 10^3/uL Mean Platelet Volume 9.8 9.0-12.2 fL Immature Granulocyte % (Auto) 0 % Neutrophils (%) (Auto) 65 42-75 % Lymphocytes (%) (Auto) 11 L 12-44 % Monocytes (%) (Auto) 14 H 0-12 % Eosinophils (%) (Auto) 9 0-10 % Basophils (%) (Auto) 0 0-10 % Neutrophils # (Auto) 7.4 1.8-7.8 10^3/uL Lymphocytes # (Auto) 1.3 1.0-4.0 10^3/uL Monocytes # (Auto) 1.6 H 0.0-1.0 10^3/uL Eosinophils # (Auto) 1.0 H 0.0-0.3 10^3/uL Basophils # (Auto) 0.1 0.0-0.1 10^3/uL Immature Granulocyte # (Auto) 0.0 0.0-0.1 10^3/uL Sodium Level 140 135-145 MMOL/L Potassium Level 4.2 3.6-5.0 MMOL/L Chloride Level 103 98-107 MMOL/L Carbon Dioxide Level 27 21-32 MMOL/L Anion Gap 10 5-14 MMOL/L Blood Urea Nitrogen 14 7-18 MG/DL Creatinine 0.90 0.60-1.30 MG/DL Estimat Glomerular Filtration Rate > 60 BUN/Creatinine Ratio 16 Glucose Level 107 H 70-105 MG/DL Calcium Level 8.6 8.5-10.1 MG/DL C-Reactive Protein High Sensitivity 6.35 H 0.00-0.50 MG/DL Radiology 12/30 Bilateral foot x-rays with no evidence of osteomyelitis 12/30 CXR unremarkable 12/30 CT head IMPRESSION: 1. No large acute territorial ischemia, mass, or hemorrhage. 2. 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 3. Generalized parenchymal volume loss with chronic microvascular disease. Physical Exam-([facility]) Physical Exam Vital Signs VS - Last 72 Hours, by Label 12/30/20 12/30/20 12/30/20 12/30/20 14:12 17:36 18:55 19:10 Temp 37.0 36.1 35.7 Pulse 66 62 66 Resp 12 18 16 B/P (MAP) 133/55 (81) 126/71 (81) 152/81 (104) Pulse Ox 90 98 94 94 O2 Delivery Room Air Nasal Cannula Nasal Cannula Nasal Cannula O2 Flow Rate 3.00 3.00 2.00 12/30/20 12/31/20 12/31/20 12/31/20 20:00 00:29 03:40 08:00 Temp 36.4 36.0 36.6 Pulse 56 56 60 Resp 18 18 18 B/P (MAP) 146/66 (92) 131/60 (83) 144/68 (93) Pulse Ox 94 94 93 O2 Delivery Nasal Cannula Room Air Room Air Room Air O2 Flow Rate 2.00 12/31/20 12/31/20 08:00 12:00 Temp 36.6 Pulse 56 Resp 18 B/P (MAP) 140/62 (88) Pulse Ox 94 O2 Delivery Nasal Cannula Room Air O2 Flow Rate 2.00 Capillary Refill : Less Than 3 Seconds General Appearance: no apparent distress HEENT: PERRL/EOMI Respiratory: lungs clear, normal breath sounds Cardiovascular: regular rate, rhythm, other (distant heart sounds, systolic murmur) Peripheral Pulses: 2+ Dorsalis Pedis (R), 2+ Left Dors-Pedis (L) Gastrointestinal: normal bowel sounds, non tender, soft Extremities: pedal edema (foot only), other (bilateral heels with dark skin and large blister, left heel with ulcerated blister and yellow/pink slough) Neurologic/Psychiatric: alert, normal mood/affect, other (CNII-XII intact except for hearing (chronic), Moves arms and legs symmetrically, normal FTN test ing, oriented only to self) Assessment/Plan Assessment/Plan Admission Status: Inpatient Order (span 2 midnights) Reason for Inpatient Admission: Severe bilateral foot wounds and respiratory failure with multiple underlying comorbidities. (1) Acute respiratory failure Status: Acute Assessment & Plan: Supplemental oxygen in place, repeating ABG to reassess hypercapnea. Suspect related to underlying worsening of COPD. CXR unremarkable. Qualifiers: Qualified Codes: J96.01 - Acute respiratory failure with hypoxia; J96.02 - Acute respiratory failure with hypercapnia (2) Diabetic foot ulcer Status: Acute Assessment & Plan: Bilateral with sloughing, necrotic appearance, Surgery consulted, started on Zosyn and vanc. Check arterial dopplers. Qualifiers: Qualified Codes: E11.621 - Type 2 diabetes mellitus with foot ulcer; L97.408 - Non-pressure chronic ulcer of unspecified heel and midfoot with other specified severity (3) Altered mental status Status: Acute Assessment & Plan: Likely multifactorial, possibly related to foot infection, recurrent stroke, hypercapnea. Treating foot infection, CT head okay but discussed with family it wouldn't supervisor opening and picking more recent problems. Will repeat ABG and if still hypercapneic consider trial of bipap- family unsure if he will tolerate it. Qualifiers: Qualified Codes: R41.82 - Altered mental status, unspecified (4) Dementia Status: Chronic Assessment & Plan: Resume home medications, reorient as needed. Qualifiers: Qualified Codes: G30.1 - Alzheimer's disease with late onset; F02.80 - Dementia in other diseases classified elsewhere without behavioral disturbance (5) Seizure Status: Chronic Assessment & Plan: After previous stroke, resume home Keppra (6) Personal history of DVT (deep vein thrombosis) Status: Chronic Assessment & Plan: On chronic anticoagulation, hold until post-procedure. (7) Lacunar cerebrovascular accident (CVA) of subthalamic region Status: Chronic (8) COPD (chronic obstructive pulmonary disease) Status: Chronic Assessment & Plan: Resume home inhalers. (9) Hypertension Status: Chronic Qualifiers: Qualified Codes: I10 - Essential (primary) hypertension (10) Diabetes mellitus, type 2 Status: Chronic Qualifiers: Qualified Codes: E11.621 - Type 2 diabetes mellitus with foot ulcer; L97.509 - Non-pressure chronic ulcer of other part of unspecified foot with unspecified severity (11) Cellulitis of both feet Status: Acute (12) Gout Status: Chronic JAELYN ROJO MD December 31, 2020 10:33
[2020-12-31] MEDS: PIPERACILLIN/TAZO 4.5 GM/NS 100 ML IV SCH ×4 (10:50→16:25)
--- NOTE | 2020-12-31 11:05 | Progress Note-Pre Operative ---
Pre-Operative Progress Note H&P Reviewed The H&P was reviewed, patient examined and no changes noted. Date Seen by Provider: December 31, 2020 Time Seen by Provider: 11:00 Date H&P Reviewed: December 31, 2020 Time H&P Reviewed: 11:00 Pre-Operative Diagnosis: bilateral feet diabetic and pressure ulcerations and necrosis NICHOLAS TAYLOR MD December 31, 2020 11:05
--- NOTE | 2020-12-31 11:28 | CONSULTATION REPORT ---
DATE OF SERVICE: 12/31/2020 ADMITTING PHYSICIAN: Jaelyn Rojo MD. HISTORY OF PRESENT ILLNESS: The patient is a 75-year-old male, who is a resident of a [facility] facility. He has Alzheimer disease and has had multiple strokes and what sounds to be transient ischemic attacks in the past. He has had a change in behavior in recent days and has had a decline in cognitive function. In early November, he fell and stepped on his left foot causing an injury and there was no wound at that time; however, since that time, and less mobility, he has developed bilateral heel and toe ulcerations with surrounding edema, erythema as well as necrotic debris. He also has a chronic right-sided weakness. PAST MEDICAL HISTORY: Diabetes, hypertension, lumbar stenosis, bilateral lower extremity edema, glaucoma, chronic renal insufficiency, hypothyroid, Alzheimer's, history of a CVA and multiple TIAs. PAST SURGICAL HISTORY: TURP, hiatal hernia repair, cholecystectomy, appendectomy, tonsillectomy, and IVC filter placement. ALLERGIES: No known drug allergies. HOME MEDICATIONS: Aspirin 81 mg daily, budesonide 2 puffs b.i.d., cetirizine 10 mg daily, colchicine 0.6 mg b.i.d., Colace 100 mg b.i.d., donepezil 10 mg daily, fentanyl patch 75 mcg q.3 days, finasteride 5 mg daily, gabapentin 300 mg b.i.d., hydrocodone p.r.n., levetiracetam 500 mg b.i.d., levothyroxine 150 mcg daily, metoprolol 50 mg daily, montelukast 10 mg daily, olanzapine 5 mg daily, oxycodone 15 mg b.i.d., Protonix 40 mg daily, risperidone 0.5 mg b.i.d., Xarelto 20 mg daily, sertraline 100 mg daily, and tamsulosin 0.4 mg daily. SOCIAL HISTORY: Negative smoke, negative alcohol. FAMILY HISTORY: Noncontributory. REVIEW OF SYSTEMS: A well-nourished male currently in no acute distress. He is somewhat confused. He is not experiencing any shortness of breath or difficulty breathing. No cough or sputum production. No nausea, vomiting, and no change in bowel habits. No red blood per rectum, no dark tarry stools. No fever, chills, and no recent inadvertent weight loss. Neurologic decline with a decreased level of alertness. PHYSICAL EXAMINATION: VITAL SIGNS: Temperature 36.6, blood pressure 144/68, pulse 60, respirations 18, and pulse ox 93% on 2 liters nasal cannula. CHEST: A few scattered rales and rhonchi bilaterally. HEART: Regular, no murmurs. EXTREMITIES: +1/3 bilateral lower extremity edema, negative Homans sign. HEENT: No scleral icterus. NECK: No cervical lymphadenopathy. ABDOMEN: Soft, nontender, and nondistended. SKIN: There are bilateral multiple feet pressure ulcerations including bilateral heels and overlying the great toes and first metacarpophalangeal joint with tissue necrosis and surrounding erythema and edema. ASSESSMENT AND PLAN: A 75-year-old male with multiple diabetic and pressure ulcerations and necrosis. We will proceed with debridement of bilateral feet under a MAC anesthesia as well as local. Job ID: [id number] DocumentID: [id number] Dictated Date: 12/31/2020 11:04:37 Shipyard Laborer Date: 12/31/2020 11:27:55 Dictated By: NICHOLAS TAYLOR MD
[2020-12-31] MEDS ORDERED: fentaNYL INJ 100 MCG/2 ML AMP ONE (12:34)
[2020-12-31] MEDS ORDERED: SEVOFLURANE (ULTANE) 15 ML INHAL SOLN ONE (12:34)
[2020-12-31] MEDS ORDERED: ONDANSETRON 4 MG/2 ML (SDV) Z0FRAN ONE (12:34)
[2020-12-31] MEDS ORDERED: LIDOCAINE PF 2% 5 ML (XYLOCAINE) VIAL ONE (12:34)
[2020-12-31] MEDS ORDERED: proPOfol 200 MG/20 ML (DIPRIVAN) VIAL IV ONE (12:34)
[2020-12-31] MEDS ORDERED: LIDOCAINE/EPI 1%-1:200,000 (XYLOCAINE) 30 ML VIAL ONE (12:59)
[2020-12-31] MEDS ORDERED: LACTASE 3000 UNIT PO SCH (13:00)
[2020-12-31] MEDS ORDERED: NON-FORMULARY MEDICATION 1 EA EA ([Bethanechol] 25 MG) PO SCH (13:00)
[2020-12-31] MEDS ORDERED: NON-FORMULARY MEDICATION 1 EA EA (Cetirizine HCl 10 MG) PO PRN (13:00)
[2020-12-31] MEDS ORDERED: LORATADINE (CLARITIN) 10 MG TAB PO PRN (13:30)
[2020-12-31] MEDS: LEVOTHYROXINE 150 MCG (LEVOTHROID) TAB PO SCH (14:11)
[2020-12-31] MEDS: RT-ALBUTEROL/IPRATROPIUM 3 ML (DUONEB) VIAL IH SCH ×3 (14:52→23:49)
--- NOTE | 2020-12-31 15:59 | Diagnostic Imaging Report ---
PROCEDURE: US Bilateral lower extremity arterial. TECHNIQUE: Multiple real-time grayscale images are obtained through both lower extremity arterial systems with color Doppler imaging and color Doppler spectral analysis. INDICATION: Bilateral lower extremity wounds. COMPARISON: None. FINDINGS: Normal biphasic waveforms are visualized in the bilateral common femoral, profunda femoris, superficial femoral, popliteal, anterior tibial, posterior tibial, and dorsalis pedis arteries. No elevated flow velocities are seen in the bilateral lower extremity arterial systems. There is scattered atherosclerotic plaque in the bilateral lower extremity arterial systems without evidence of high-grade stenosis. IMPRESSION: Normal biphasic waveforms throughout the bilateral lower extremity arterial systems. No evidence of hemodynamically significant stenosis. Dictated by: Dictated on workstation # [id number]
--- NOTE | 2020-12-31 16:24 | Progress Note-Post Operative ---
Post-Operative Progess Note Surgeon (s)/Technology Training Associate (s) Surgeon NICHOLAS TAYLOR MD Technology Training Associate: none Pre-Operative Diagnosis bilateral feet diabetic and pressure ulcerations and necrosis Post-Operative Diagnosis same, right heel 8x5cm to subcutaneous, left heel 11x5cm to bone. Procedure & Operative Findings Date of Procedure 12/31/20 Procedure Performed/Findings debridement right heel to subcutaneous tissue(8x5cm). debridement left heel to bone(11x5cm). Anesthesia Type MAC with local Estimated Blood Loss Estimated blood loss (mL): minimal Specimens/Packing Specimens Removed bilateral heel necrotic decubitus/diabetic wounds NICHOLAS TAYLOR MD December 31, 2020 16:23
[2020-12-31] MEDS: BETHANECHOL 25 MG (URECHOLINE) TAB PO SCH ×2 (16:25→20:14)
--- NOTE | 2020-12-31 16:38 | Anesthesia-General Post-Op ---
MAC Patient Condition Mental Status/LOC: Same as Preop Cardiovascular: Satisfactory Nausea/Vomiting: Absent Respiratory: Satisfactory Pain: Controlled Complications: Absent Post Op Complications Complications None Follow Up Care/Instructions Patient Instructions None needed. Anesthesiology Discharge Order Discharge Order Patient is doing well, no complaints, stable vital signs, no apparent adverse anesthesia problems. No complications reported per nursing. IVON ADAMS CRNA December 31, 2020 16:38
[2020-12-31] MEDS: COLCHICINE 0.6 MG (COLCRYS) TABLET PO SCH (20:14)
[2020-12-31] MEDS: OLANZapine 5 MG (ZyPREXA) TAB PO SCH (20:14)
[2020-12-31] MEDS: MONTELUKAST 10 MG (SINGULAIR) TAB PO SCH (20:15)
[2020-12-31] MEDS: SERTRALINE 100 MG (ZOLOFT) TAB PO SCH (20:15)
[2020-12-31] MEDS: GABAPENTIN 300 MG (NEURONTIN) CAP PO SCH (20:15)
[2020-12-31] MEDS: TAMSULOSIN 0.4 MG (FLOMAX) CAP PO SCH (20:15)
[2020-12-31] MEDS: DOCUSATE SODIUM 100 MG (COLACE) CAP PO SCH (20:15)
[2020-12-31] MEDS: DONEPEZIL 10 MG (ARICEPT) TAB PO SCH (20:16)
[2020-12-31] MEDS: risperiDONE 0.5 MG (RisperDAL) TABLET PO SCH (20:20)
[2020-12-31] MEDS: FINASTERIDE (PROSCAR) 5 MG TAB PO SCH (20:20)
[2020-12-31] MEDS ORDERED: NON-FORMULARY MEDICATION 1 EA EA (Budesonide/Formoterol Fumarate (Symbicort 160-4.5 Mcg In IH SCH (21:00)
[2020-12-31] MEDS ORDERED: [UNRECOGNIZED DRUG - OTHER] PO SCH (21:00)
[2020-12-31] MEDS ORDERED: PROTEIN HYDROLYS PO SCH (21:00)
[2020-12-31] MEDS ORDERED: AMINO ACIDS PO SCH (21:00)
[2020-12-31] MEDS ORDERED: LORazepam 0.5 MG (ATIVAN) TABLET ONE (21:58)
[2020-12-31] MEDS ORDERED: LORazepam 0.5 MG (ATIVAN) TABLET PO STA (22:03)
--- NOTE | 2020-12-31 22:13 | OPERATIVE REPORT ---
DATE OF SERVICE: 12/31/2020 ADMITTING PHYSICIAN: Jaelyn Rojo MD PREOPERATIVE DIAGNOSIS: Bilateral heel decubitus and diabetic ulceration and necrosis. POSTOPERATIVE DIAGNOSES: Bilateral heel decubitus and diabetic ulceration and necrosis with the right heel to the depth of the subcutaneous fat 8 x 5 cm in size and the left heel to the calcaneus bone 11 x 5 cm in size. PROCEDURE: Debridement of right heel 8 x 5 cm to the subcutaneous tissue. Debridement of the left heel 11 x 5 cm in size to the level of the bone. SURGEON: Nicholas Taylor MD. BUSINESS SYSTEMS ADMINISTRATOR: Shawn Fernando APRN. ANESTHESIA: Monitored anesthesia care with local. ESTIMATED BLOOD LOSS: Minimal. FINDINGS: Bilateral heel decubitus and diabetic ulceration and necrosis with the right heel to the depth of the subcutaneous fat 8 x 5 cm in size and the left heel to the calcaneus bone 11 x 5 cm in size. DISPOSITION: The patient tolerated the procedure well. INDICATIONS: The patient is a 75-year-old male who is a resident of a [facility] facility. He has Alzheimer disease and has had multiple strokes and was found to be transient ischemic attacks in the past. He has had a change in behavior in recent days and has had a significant decline in cognitive function. In early November, he fell and stepped on his left foot causing injury; however, there was no wound at that time. Since that time, he has been less mobile and he has developed bilateral heel ulcerations and surrounding edema and erythema as well as necrotic debris. He also does have a chronic right sided weakness. DESCRIPTION OF PROCEDURE: The patient was brought to the operating room, laid supine on the table. After adequate IV pain and sedative medications and monitored anesthesia care, the bilateral feet were elevated and prepped and draped in standard surgical fashion. Both wounds were then anesthetized using 1% lidocaine with epinephrine. We first proceeded with debridement of the right heel. The dimensions were measured out 8 x 5 cm in dimensions. The necrotic debris was to the level of the subcutaneous fat, which was debrided by sharp dissection using a 15 blade. Good hemostasis was then achieved using electrocautery. We then proceeded with debridement of the left heel wound, which was larger and measured out to be 11 x 5 cm in size. We then proceeded with a systematic debridement of all the necrotic debris, which encompassed skin, subcutaneous tissue, fascia to the level of the calcaneus bone. This was done using a 15 blade as well as electrocautery. Good hemostasis was achieved using electrocautery. Both wounds were then cleaned and covered with 4 x 4 gauze followed by Kerlix wrap and Dasha wrap followed by heel protectors. The patient tolerated the procedure well. We will proceed with wet to dry dressings to bilateral heels for now, but however, we will also consult wound nursing care for placement of wound VAC to the left heel. We will also continue with her current frequent repositioning to prevent decubitus hip and sacral ulcerations as well as continue IV antibiotics. Job ID: [id number] DocumentID: [id number] Dictated Date: 12/31/2020 16:30:42 Compounding Technician Date: 12/31/2020 22:12:15 Dictated By: NICHOLAS TAYLOR MD MTDD
[2020-12-31] MEDS ORDERED: OLANZapine 5 MG (ZyPREXA) TAB PO ONE (23:15)
[2020-12-31] MEDS: RT--FLUTICASONE/SALMETEROL 232-14 (AIRDUO RespiCLICK) IH SCH (23:49)
[2021-01-01] VITALS (7 sets, daily range): BP systolic 101–144; BP diastolic 46–72
[2021-01-01] MEDS: LACTATED RINGERS 1,000 ML IV SCH ×3 (01:15→21:35)
[2021-01-01] MEDS: RT-ALBUTEROL/IPRATROPIUM 3 ML (DUONEB) VIAL IH SCH ×6 (02:51→22:10)
[2021-01-01] MEDS: BETHANECHOL 25 MG (URECHOLINE) TAB PO SCH ×4 (06:21→20:37)
[2021-01-01 06:48] LABS: HEMATOCRIT 39 % (40-54); MEAN CORPUSCULAR HEMOGLOBIN 29 pg (25-34); MEAN CORPUSCULAR HGB CONC 31 g/dL (32-36); MEAN CORPUSCULAR VOLUME 93 fL (80-99); MEAN PLATELET VOLUME 9.4 fL (9.0-12.2); PLATELET COUNT 213 10^3/uL (130-400); WHITE BLOOD COUNT 9.6 10^3/uL (4.3-11.0)
[2021-01-01] MEDS ORDERED: TROUGH ORDER-PHARMACY XX NR (07:00)
[2021-01-01] MEDS: RT--FLUTICASONE/SALMETEROL 232-14 (AIRDUO RespiCLICK) IH SCH ×2 (07:01→22:10)
[2021-01-01 07:12] LABS: CHLORIDE 103 MMOL/L (98-107); POTASSIUM 4.2 MMOL/L (3.6-5.0); SODIUM 142 MMOL/L (135-145)
[2021-01-01 07:13] LABS: CALCIUM 8.7 MG/DL (8.5-10.1)
[2021-01-01 07:14] LABS: GLUCOSE 114 MG/DL (70-105)
[2021-01-01 07:15] LABS: CARBON DIOXIDE 28 MMOL/L (21-32)
[2021-01-01 07:18] LABS: CREATININE SERUM 0.89 MG/DL (0.60-1.30); GFR ESTIMATED > 60
[2021-01-01 07:19] LABS: BUN/CREATININE RATIO 13
[2021-01-01 07:26] LABS: VANCOMYCIN,TROUGH 13.4 UG/ML (10.0-20.0)
--- NOTE | 2021-01-01 09:28 | Progress Note - Hospitalist ---
Subjective HPI/CC On Admission Date Seen by Provider: January 01, 2021 Time Seen by Provider: 10:00 Subjective/Events-last exam Pt doing pretty well Confusion is baseline Wound vac maintained on both heels Arterial ultrasound shows no evidence of any arterial stenosis Dr. Barragan derided b/l heels Pain is pretty well controlled Review of Systems General: Fatigue Musculoskeletal: foot pain Neurological: Confusion Focused Exam Lactate Level 12/30/20 15:30: Lactic Acid Level 1.38 Objective Exam Vital Signs Vital Signs Date Time Temp Pulse Resp B/P (MAP) Pulse Ox O2 Delivery O2 Flow Rate FiO2 01/02/21 03:47 36.1 66 18 112/60 (77) 92 Nasal Cannula 2.00 Capillary Refill : Less Than 3 Seconds General Appearance: No Apparent Distress, WD/WN, Chronically ill Respiratory: Lungs Clear Cardiovascular: Regular Rate, Rhythm Extremity: Pedal Edema Neurologic/Psychiatric: Alert, Depressed Affect, Disoriented Results/Procedures Lab Laboratory Tests 01/01/21 06:40 Patient resulted labs reviewed. Assessment/Plan Assessment and Plan Assess & Plan/Chief Complaint A&P: Acute respiratory failure Bilateral heel ulcers s/p debridement Dr Barragan with wound vacs in place Previous b/l lucunar stroke Acute delirium Seizures Advanced dementia Sundowning syndrome Hypothyroidism HLP HTN hx of DVT Depression BPH Gout GERD DVT prophylaxis Plan: IV abx Monitor labs Wound vac BRONWYN WILBURN DO January 01, 2021 09:28
[2021-01-01] MEDS: VANCOMYCIN 1 GM/NS 250 ML IVPB IV SCH ×4 (09:37→20:37)
[2021-01-01] MEDS: GABAPENTIN 300 MG (NEURONTIN) CAP PO SCH ×2 (09:42→20:37)
[2021-01-01] MEDS: DOCUSATE SODIUM 100 MG (COLACE) CAP PO SCH ×2 (09:42→20:37)
[2021-01-01] MEDS: risperiDONE 0.5 MG (RisperDAL) TABLET PO SCH ×2 (09:42→20:37)
[2021-01-01] MEDS: meTOproloL SUCCINATE 50 MG (TOPROL XL) TAB PO SCH (09:42)
[2021-01-01] MEDS: fentaNYL PATCH 75 MCG (DURAGESIC) TD SCH (09:42)
[2021-01-01] MEDS: ASPIRIN E.C. 81 MG (ECOTRIN) TAB PO SCH (09:42)
[2021-01-01] MEDS: PANTOPRAZOLE 40 MG (PROTONIX) TAB PO SCH (09:43)
[2021-01-01] MEDS: COLCHICINE 0.6 MG (COLCRYS) TABLET PO SCH ×2 (09:43→20:37)
[2021-01-01] MEDS: polyethylene glycoL POWDER 17 GM (MIRALAX) PACK PO SCH (09:43)
[2021-01-01] MEDS: FENTANYL PATCH REMOVAL TP SCH (09:50)
[2021-01-01] MEDS: PIPERACILLIN/TAZO 4.5 GM/NS 100 ML IV SCH ×8 (11:24→23:51)
--- NOTE | 2021-01-01 11:50 | Progress Note ---
Subjective Date Seen by a Provider: January 01, 2021 Time Seen by a Provider: 11:00 Subjective/Events-last exam doing ok. clinically stable with no change mental status. bilateral heel wound vacs placed. Focused Exam Lactate Level 12/30/20 15:30: Lactic Acid Level 1.38 Objective Exam Vital Signs Date Time Temp Pulse Resp B/P (MAP) Pulse Ox O2 Delivery O2 Flow Rate FiO2 01/01/21 10:54 92 Nasal Cannula 2.00 01/01/21 08:00 Nasal Cannula 2.00 01/01/21 08:00 34.8 78 14 133/64 (87) 96 Nasal Cannula 2.00 01/01/21 07:06 98 Nasal Cannula 2.00 01/01/21 06:58 85 Room Air 01/01/21 04:00 36.6 70 16 133/62 (85) 97 Nasal Cannula 1.00 01/01/21 02:51 90 Nasal Cannula 1.00 01/01/21 00:00 36.1 87 17 144/72 (96) 97 Nasal Cannula 1.00 12/31/20 23:49 94 Nasal Cannula 1.00 12/31/20 21:00 Nasal Cannula 2.00 12/31/20 20:00 36.2 90 16 137/61 (86) 95 Nasal Cannula 1.00 12/31/20 19:01 96 Nasal Cannula 1.00 12/31/20 17:20 35.8 80 16 138/69 (92) 95 Room Air 12/31/20 16:50 Nasal Cannula 2 12/31/20 16:45 36.6 18 157/80 (105) 98 Nasal Cannula 2 12/31/20 16:41 16 149/83 (105) 96 Nasal Cannula 4 12/31/20 16:41 Nasal Cannula 4 12/31/20 16:31 36.6 20 105/89 (94) 93 OxyMask 10 12/31/20 16:31 OxyMask 10 12/31/20 12:00 36.6 56 18 140/62 (88) 94 Room Air I & O 01/01/21 07:00 Intake Total 530 ml Output Total 4200 ml Balance -3670 ml Capillary Refill : Less Than 3 Seconds General Appearance: No Apparent Distress HEENT: PERRL/EOMI Neck: Full Range of Motion Respiratory: Chest Non Tender, Normal Breath Sounds Cardiovascular: Regular Rate, Rhythm Gastrointestinal: normal bowel sounds, non tender, soft Extremity: Normal Capillary Refill, Other (bilateral heel vacs in place) Neurologic/Psychiatric: Alert, Oriented x3 Skin: Normal Color Lymphatic: No Adenopathy Results Lab Laboratory Tests 01/01/21 06:40: White Blood Count 9.6, Red Blood Count 4.15L, Hemoglobin 12.0L, Hematocrit 39L, Mean Corpuscular Volume 93, Mean Corpuscular Hemoglobin 29, Mean Corpuscular Hemoglobin Concent 31L, Red Cell Distribution Width 13.4, Platelet Count 213, Mean Platelet Volume 9.4, Sodium Level 142, Potassium Level 4.2, Chloride Level 103, Carbon Dioxide Level 28, Anion Gap 11, Blood Urea Nitrogen 12, Creatinine 0.89, Estimat Glomerular Filtration Rate > 60, BUN/Creatinine Ratio 13, Glucose Level 114H, Calcium Level 8.7, Vancomycin Level Trough 13.4 Microbiology 12/31/20 Gram Stain, Resulted Pending 12/31/20 Anaerobic Culture, Resulted Pending 12/31/20 Surgical Culture - Preliminary, Resulted No growth 12/31/20 MRSA Screen - Final, Complete MRSA not isolated 12/30/20 Blood Culture - Preliminary, Resulted No growth 12/30/20 Urine Culture - Final, Complete NO GROWTH Assessment/Plan Assessment/Plan Assess & Plan/Chief Complaint bilateral heel pressure necrosis s/p debridement and wound vac placement. cont wound care and abx. cont off-loading pressure heels as well as sacral and greater trochanter area. NICHOLAS TAYLOR MD January 01, 2021 11:50
[2021-01-01] MEDS: LEVOTHYROXINE 150 MCG (LEVOTHROID) TAB PO SCH (16:21)
[2021-01-01] MEDS: OLANZapine 5 MG (ZyPREXA) TAB PO SCH (20:37)
[2021-01-01] MEDS: DONEPEZIL 10 MG (ARICEPT) TAB PO SCH (20:37)
[2021-01-01] MEDS: SIMvastatin 20 MG (ZOCOR) TAB PO SCH (20:37)
[2021-01-01] MEDS: TAMSULOSIN 0.4 MG (FLOMAX) CAP PO SCH (20:37)
[2021-01-01] MEDS: FINASTERIDE (PROSCAR) 5 MG TAB PO SCH (20:37)
[2021-01-01] MEDS: MONTELUKAST 10 MG (SINGULAIR) TAB PO SCH (20:37)
[2021-01-01] MEDS: SERTRALINE 100 MG (ZOLOFT) TAB PO SCH (20:38)
[2021-01-02] MEDS: RT-ALBUTEROL/IPRATROPIUM 3 ML (DUONEB) VIAL IH SCH ×6 (02:21→22:38)
[2021-01-02 03:47] VITALS: BP 112/60
[2021-01-02] MEDS: BETHANECHOL 25 MG (URECHOLINE) TAB PO SCH ×5 (05:59→21:00)
[2021-01-02 06:36] LABS: BASOPHILS # (AUTO) 0.1 10^3/uL (0.0-0.1); BASOPHILS % (AUTO) 0 % (0-10); EOSINOPHILS # (AUTO) 0.7 10^3/uL (0.0-0.3); EOSINOPHILS % (AUTO) 6 % (0-10); HEMATOCRIT 36 % (40-54); HEMOGLOBIN 11.1 g/dL (13.3-17.7); LYMPHOCYTES # (AUTO) 1.4 10^3/uL (1.0-4.0); LYMPHOCYTES % (AUTO) 12 % (12-44); MEAN CORPUSCULAR HEMOGLOBIN 29 pg (25-34); MEAN CORPUSCULAR HGB CONC 31 g/dL (32-36); MEAN CORPUSCULAR VOLUME 93 fL (80-99); MEAN PLATELET VOLUME 9.5 fL (9.0-12.2); MONOCYTES # (AUTO) 1.6 10^3/uL (0.0-1.0); MONOCYTES % (AUTO) 14 % (0-12); NEUTROPHILS # (AUTO) 7.8 10^3/uL (1.8-7.8); NEUTROPHILS % (AUTO) 67 % (42-75); PLATELET COUNT 196 10^3/uL (130-400); WHITE BLOOD COUNT 11.6 10^3/uL (4.3-11.0)
[2021-01-02 06:46] LABS: ALBUMIN 2.8 GM/DL (3.2-4.5)
[2021-01-02 06:47] LABS: CHLORIDE 102 MMOL/L (98-107); POTASSIUM 4.1 MMOL/L (3.6-5.0); SODIUM 140 MMOL/L (135-145)
[2021-01-02 06:48] LABS: CALCIUM 8.6 MG/DL (8.5-10.1)
[2021-01-02 06:49] LABS: GLUCOSE 97 MG/DL (70-105); TOTAL PROTEIN 5.8 GM/DL (6.4-8.2)
[2021-01-02 06:50] LABS: CARBON DIOXIDE 29 MMOL/L (21-32)
[2021-01-02 06:51] LABS: BILIRUBIN,TOTAL 0.4 MG/DL (0.1-1.0)
[2021-01-02 06:52] LABS: ALKALINE PHOSPHATASE 48 U/L (40-136)
[2021-01-02 06:53] LABS: CREATININE SERUM 0.87 MG/DL (0.60-1.30); GFR ESTIMATED > 60
[2021-01-02 06:54] LABS: BUN/CREATININE RATIO 13
[2021-01-02 06:56] LABS: ALANINE AMINOTRANSFERASE < 6 U/L (0-55)
[2021-01-02] MEDS: RT--FLUTICASONE/SALMETEROL 232-14 (AIRDUO RespiCLICK) IH SCH ×2 (07:42→22:39)
[2021-01-02 08:00] VITALS: BP 121/77
--- NOTE | 2021-01-02 08:10 | Progress Note - Hospitalist ---
Subjective HPI/CC On Admission Date Seen by Provider: January 02, 2021 Time Seen by Provider: 11:30 Subjective/Events-last exam Patient doing about the same Not eating real well Patient does not really mobilize well Valderrama catheter still in place After rounds he started having some rigors and confusion and septic work-up revealed sepsis I assumed it was urine so discontinued the Zosyn started meropenem maintain bank started IV fluids again but chest x-ray reveals left lower lobe infiltrate Patient very debilitated and has so many issues and I have taken care of him before he seems to be very declined now Maintain DNR Review of Systems General: Fatigue, Malaise Musculoskeletal: foot pain Neurological: Confusion Focused Exam Lactate Level 01/02/21 19:29: Lactic Acid Level 2.41*H 01/02/21 21:25: Lactic Acid Level 1.35 Objective Exam Vital Signs Vital Signs Date Time Temp Pulse Resp B/P (MAP) Pulse Ox O2 Delivery O2 Flow Rate FiO2 01/03/21 04:09 36.2 69 16 118/52 (74) 93 Nasal Cannula 1.50 Capillary Refill : Less Than 3 Seconds General Appearance: No Apparent Distress, WD/WN, Chronically ill Respiratory: Lungs Clear Cardiovascular: Regular Rate, Rhythm Neurologic/Psychiatric: Alert, Depressed Affect, Disoriented Results/Procedures Lab Laboratory Tests 01/02/21 06:22 01/02/21 19:29 01/03/21 04:10 Patient resulted labs reviewed. Assessment/Plan Assessment and Plan Assess & Plan/Chief Complaint A&P: s/p acute respiratory failure Left lower lobe pneumonia with sepsis on 01/02/2021 change Zosyn to meropenem and maintain Vanc and added Eraxis Bilateral heel ulcers s/p debridement Dr Barragan with wound vacs in place Previous b/l lucunar stroke Acute delirium Seizures Advanced dementia Sundowning syndrome Hypothyroidism HLP HTN hx of DVT Depression BPH Gout GERD DVT prophylaxis Plan: IV abx Monitor labs Wound vac 01/02/2021: Antibiotic changes IV fluids DNR Poor prognosis BRONWYN WILBURN DO January 02, 2021 08:10
[2021-01-02] MEDS: VANCOMYCIN 1 GM/NS 250 ML IVPB IV SCH ×4 (08:43→20:47)
[2021-01-02] MEDS: LACTATED RINGERS 1,000 ML IV SCH (08:43)
[2021-01-02] MEDS: ASPIRIN E.C. 81 MG (ECOTRIN) TAB PO SCH (09:49)
[2021-01-02] MEDS: COLCHICINE 0.6 MG (COLCRYS) TABLET PO SCH ×3 (09:49→21:00)
[2021-01-02] MEDS: DOCUSATE SODIUM 100 MG (COLACE) CAP PO SCH ×3 (09:49→21:00)
[2021-01-02] MEDS: GABAPENTIN 300 MG (NEURONTIN) CAP PO SCH ×3 (09:50→21:00)
[2021-01-02] MEDS: risperiDONE 0.5 MG (RisperDAL) TABLET PO SCH ×3 (09:50→21:00)
[2021-01-02] MEDS: meTOproloL SUCCINATE 50 MG (TOPROL XL) TAB PO SCH (09:50)
[2021-01-02] MEDS: polyethylene glycoL POWDER 17 GM (MIRALAX) PACK PO SCH (09:50)
[2021-01-02] MEDS: PANTOPRAZOLE 40 MG (PROTONIX) TAB PO SCH (09:50)
--- NOTE | 2021-01-02 10:26 | Progress Note ---
Subjective Date Seen by a Provider: January 02, 2021 Time Seen by a Provider: 10:00 Subjective/Events-last exam doing well. patient confused. does not complain of pain nor fever/chills. Focused Exam Lactate Level 12/30/20 15:30: Lactic Acid Level 1.38 Objective Exam Vital Signs Date Time Temp Pulse Resp B/P (MAP) Pulse Ox O2 Delivery O2 Flow Rate FiO2 01/02/21 08:00 Nasal Cannula 2.00 01/02/21 08:00 36.3 60 18 121/77 (92) 93 Nasal Cannula 2.00 01/02/21 07:36 93 Nasal Cannula 2.00 01/02/21 03:47 36.1 66 18 112/60 (77) 92 Nasal Cannula 2.00 01/02/21 02:22 89 Nasal Cannula 2.00 01/01/21 23:48 36.1 65 18 130/62 (84) 94 Nasal Cannula 2.00 01/01/21 22:11 90 Nasal Cannula 2.00 01/01/21 22:11 90 Nasal Cannula 2.00 01/01/21 20:40 Nasal Cannula 2.00 01/01/21 19:37 36.4 83 20 101/46 (64) 92 Nasal Cannula 2.00 01/01/21 18:16 95 Nasal Cannula 2.00 01/01/21 16:28 36.7 100 18 126/72 (90) 97 Nasal Cannula 2.00 01/01/21 14:56 82 Room Air 01/01/21 12:00 35.8 68 18 126/65 (85) 95 Nasal Cannula 2.00 01/01/21 10:54 92 Nasal Cannula 2.00 I & O 01/02/21 06:59 Intake Total 750 ml Output Total 1950 ml Balance -1200 ml Capillary Refill : Less Than 3 Seconds General Appearance: No Apparent Distress HEENT: PERRL/EOMI Neck: Full Range of Motion Respiratory: Chest Non Tender, Normal Breath Sounds Cardiovascular: Regular Rate, Rhythm Gastrointestinal: normal bowel sounds, non tender, soft Extremity: Normal Capillary Refill, Other (bilateral heel wound vac intact, minimal drainage) Neurologic/Psychiatric: Alert Skin: Normal Color Lymphatic: No Adenopathy Results Lab Laboratory Tests 01/02/21 06:22: White Blood Count 11.6H, Red Blood Count 3.85L, Hemoglobin 11.1L, Hematocrit 36L , Mean Corpuscular Volume 93, Mean Corpuscular Hemoglobin 29, Mean Corpuscular Hemoglobin Concent 31L, Red Cell Distribution Width 13.6, Platelet Count 196, Mean Platelet Volume 9.5, Immature Granulocyte % (Auto) 1, Neutrophils (%) (Auto) 67, Lymphocytes (%) (Auto) 12, Monocytes (%) (Auto) 14H, Eosinophils (%) (Auto) 6, Basophils (%) (Auto) 0, Neutrophils # (Auto) 7.8, Lymphocytes # (Auto) 1.4, Monocytes # (Auto) 1.6H, Eosinophils # (Auto) 0.7H, Basophils # (Auto) 0.1, Immature Granulocyte # (Auto) 0.1, Sodium Level 140, Potassium Level 4.1, Chloride Level 102, Carbon Dioxide Level 29, Anion Gap 9, Blood Urea Nitrogen 11, Creatinine 0.87, Estimat Glomerular Filtration Rate > 60, BUN/Creatinine Ratio 13, Glucose Level 97, Calcium Level 8.6, Corrected Calcium 9.6, Total Bilirubin 0.4, Aspartate Amino Transf (AST/SGOT) 14, Alanine Aminotransferase (ALT/SGPT) < 6, Alkaline Phosphatase 48, Total Protein 5.8L, Albumin 2.8L Microbiology 12/31/20 Gram Stain - Final, Resulted 12/31/20 Anaerobic Culture, Resulted Pending 12/31/20 Surgical Culture - Preliminary, Resulted No growth 12/31/20 MRSA Screen - Final, Complete MRSA not isolated 12/30/20 Blood Culture - Preliminary, Resulted No growth 12/30/20 Urine Culture - Final, Complete NO GROWTH Assessment/Plan Assessment/Plan Assess & Plan/Chief Complaint bilateral heel pressure necrosis s/p debridement and wound vac placement. cont wound care and abx. cont off-loading pressure heels as well as sacral and greater trochanter area. NICHOLAS TAYLOR MD January 02, 2021 10:26
[2021-01-02] MEDS: PIPERACILLIN/TAZO 4.5 GM/NS 100 ML IV SCH ×4 (10:37→15:38)
[2021-01-02 12:00] VITALS: BP 151/62
[2021-01-02 15:33] VITALS: BP 156/75
[2021-01-02] MEDS: LEVOTHYROXINE 150 MCG (LEVOTHROID) TAB PO SCH (15:37)
[2021-01-02] MEDS ORDERED: cloNIDine 0.1 MG (CATAPRES) TAB ONE (18:11)
[2021-01-02] MEDS ORDERED: ACETAMINOPHEN 500 MG TAB (TYLENOL) ONE (18:12)
[2021-01-02 18:16] VITALS: BP 228/84
[2021-01-02] MEDS ORDERED: cloNIDine 0.1 MG (CATAPRES) TAB PO PRN (18:30)
[2021-01-02 19:38] LABS: BASOPHILS # (AUTO) 0.1 10^3/uL (0.0-0.1); BASOPHILS % (AUTO) 0 % (0-10); EOSINOPHILS # (AUTO) 0.2 10^3/uL (0.0-0.3); EOSINOPHILS % (AUTO) 1 % (0-10); HEMATOCRIT 39 % (40-54); HEMOGLOBIN 12.5 g/dL (13.3-17.7); LYMPHOCYTES # (AUTO) 0.6 10^3/uL (1.0-4.0); LYMPHOCYTES % (AUTO) 3 % (12-44); MEAN CORPUSCULAR HEMOGLOBIN 29 pg (25-34); MEAN CORPUSCULAR HGB CONC 32 g/dL (32-36); MEAN CORPUSCULAR VOLUME 92 fL (80-99); MEAN PLATELET VOLUME 9.5 fL (9.0-12.2); MONOCYTES # (AUTO) 2.6 10^3/uL (0.0-1.0); MONOCYTES % (AUTO) 14 % (0-12); NEUTROPHILS # (AUTO) 15.7 10^3/uL (1.8-7.8); NEUTROPHILS % (AUTO) 81 % (42-75); PLATELET COUNT 223 10^3/uL (130-400); WHITE BLOOD COUNT 19.3 10^3/uL (4.3-11.0)
[2021-01-02] MEDS: SERTRALINE 100 MG (ZOLOFT) TAB PO SCH ×2 (19:41→21:00)
[2021-01-02] MEDS: OLANZapine 5 MG (ZyPREXA) TAB PO SCH ×2 (19:41→21:00)
[2021-01-02] MEDS: RIVAROXABAN 20 MG TABLET (XARELTO) PO SCH ×2 (19:41→21:00)
[2021-01-02] MEDS: DONEPEZIL 10 MG (ARICEPT) TAB PO SCH ×2 (19:41→21:00)
[2021-01-02] MEDS: TAMSULOSIN 0.4 MG (FLOMAX) CAP PO SCH ×2 (19:42→21:00)
[2021-01-02] MEDS: MONTELUKAST 10 MG (SINGULAIR) TAB PO SCH ×2 (19:42→21:00)
[2021-01-02] MEDS: SIMvastatin 20 MG (ZOCOR) TAB PO SCH ×2 (19:42→21:00)
[2021-01-02] MEDS: FINASTERIDE (PROSCAR) 5 MG TAB PO SCH ×2 (19:42→21:00)
[2021-01-02 19:54] LABS: ALANINE AMINOTRANSFERASE 9 U/L (0-55); ALKALINE PHOSPHATASE 60 U/L (40-136); BILIRUBIN,TOTAL 0.4 MG/DL (0.1-1.0); BUN/CREATININE RATIO 15; CALCIUM 8.9 MG/DL (8.5-10.1); CARBON DIOXIDE 28 MMOL/L (21-32); CHLORIDE 101 MMOL/L (98-107); CREATININE SERUM 0.96 MG/DL (0.60-1.30); GFR ESTIMATED > 60; GLUCOSE 130 MG/DL (70-105); POTASSIUM 4.1 MMOL/L (3.6-5.0); SODIUM 139 MMOL/L (135-145); TOTAL PROTEIN 6.7 GM/DL (6.4-8.2)
[2021-01-02] MEDS ORDERED: MEROPENEM 1,000 MG in WATER (STERILE) FOR INJECTION 20 ML IV SCH (20:00)
[2021-01-02 20:18] LABS: BAND NEUTROPHILS 1 %; EOSINOPHILS % (MANUAL) 1 %; LYMPHOCYTES % (MANUAL) 3 %; MONOCYTES % (MANUAL) 9 %; NEUTROPHILS % (MANUAL) 86 %; RBC MORPH NORMAL
[2021-01-02 20:30] VITALS: BP 162/64
[2021-01-02] MEDS: MEROPENEM 500 MG/SWFI 10 ML IV PUSH IV SCH ×2 (20:43)
--- NOTE | 2021-01-02 20:43 | Diagnostic Imaging Report ---
INDICATION: Rigors. COMPARISON: Prior examination from 12/30/2020. FINDINGS: There is cardiomegaly. There is some right basilar atelectasis and/or pneumonitis. There is no pleural effusion or pneumothorax. The mediastinum is unremarkable. IMPRESSION: 1. Right basilar atelectasis and/or pneumonitis. 2. Cardiomegaly. Dictated by: Dictated on workstation # [id number]
[2021-01-02] MEDS: NS IV 1000 ML 1,000 ML IV SCH (20:45)
[2021-01-02 22:03] LABS: BILIRUBIN,URINE NEGATIVE (NEGATIVE); CLARITY,URINE CLEAR; COLOR,URINE YELLOW; GLUCOSE, URINE (UA) NEGATIVE (NEGATIVE); KETONES,URINE NEGATIVE (NEGATIVE); LEUKOCYTE ESTERASE ,URINE NEGATIVE (NEGATIVE); NITRITE,URINE NEGATIVE (NEGATIVE); PROTEIN,URINE NEGATIVE (NEGATIVE)
[2021-01-02 22:11] LABS: BACTERIA,URINE NEGATIVE /HPF
[2021-01-03] VITALS (8 sets, daily range): BP systolic 101–159; BP diastolic 50–75
[2021-01-03] MEDS: RT-ALBUTEROL/IPRATROPIUM 3 ML (DUONEB) VIAL IH SCH ×4 (02:50→18:22)
[2021-01-03 04:30] LABS: BASOPHILS # (AUTO) 0.1 10^3/uL (0.0-0.1); BASOPHILS % (AUTO) 1 % (0-10); EOSINOPHILS # (AUTO) 0.6 10^3/uL (0.0-0.3); EOSINOPHILS % (AUTO) 5 % (0-10); HEMATOCRIT 32 % (40-54); HEMOGLOBIN 10.1 g/dL (13.3-17.7); LYMPHOCYTES # (AUTO) 1.3 10^3/uL (1.0-4.0); LYMPHOCYTES % (AUTO) 10 % (12-44); MEAN CORPUSCULAR HEMOGLOBIN 29 pg (25-34); MEAN CORPUSCULAR HGB CONC 32 g/dL (32-36); MEAN CORPUSCULAR VOLUME 91 fL (80-99); MEAN PLATELET VOLUME 9.4 fL (9.0-12.2); MONOCYTES # (AUTO) 1.6 10^3/uL (0.0-1.0); MONOCYTES % (AUTO) 13 % (0-12); NEUTROPHILS # (AUTO) 9.3 10^3/uL (1.8-7.8); NEUTROPHILS % (AUTO) 72 % (42-75); PLATELET COUNT 193 10^3/uL (130-400); WHITE BLOOD COUNT 12.9 10^3/uL (4.3-11.0)
[2021-01-03 04:38] LABS: ALBUMIN 2.5 GM/DL (3.2-4.5); CHLORIDE 103 MMOL/L (98-107); POTASSIUM 3.9 MMOL/L (3.6-5.0); SODIUM 139 MMOL/L (135-145)
[2021-01-03 04:40] LABS: GLUCOSE 100 MG/DL (70-105); TOTAL PROTEIN 5.4 GM/DL (6.4-8.2)
[2021-01-03 04:41] LABS: CARBON DIOXIDE 26 MMOL/L (21-32)
[2021-01-03 04:42] LABS: BILIRUBIN,TOTAL 0.3 MG/DL (0.1-1.0)
[2021-01-03 04:44] LABS: ALKALINE PHOSPHATASE 44 U/L (40-136); CREATININE SERUM 0.81 MG/DL (0.60-1.30); GFR ESTIMATED > 60
[2021-01-03 04:45] LABS: BUN/CREATININE RATIO 16
[2021-01-03 04:47] LABS: ALANINE AMINOTRANSFERASE 7 U/L (0-55)
[2021-01-03] MEDS: MEROPENEM 500 MG/SWFI 10 ML IV PUSH IV SCH ×8 (05:16→21:09)
[2021-01-03] MEDS: BETHANECHOL 25 MG (URECHOLINE) TAB PO SCH ×4 (05:17→21:10)
--- NOTE | 2021-01-03 06:36 | Progress Note - Hospitalist ---
Subjective HPI/CC On Admission Date Seen by Provider: January 03, 2021 Time Seen by Provider: 11:00 Subjective/Events-last exam Patient about the same Spit out all of his meds yesterday Took his medications today Reviewed labs No major issues Tolerating antibiotic of meropenem and vancomycin Spoke with daughter outside the room and she is fully aware that hospice will be needed for both of her parents and we will pursue that on Monday Review of Systems General: Fatigue Pulmonary: Dyspnea Neurological: Confusion Focused Exam Lactate Level 01/02/21 19:29: Lactic Acid Level 2.41*H 01/02/21 21:25: Lactic Acid Level 1.35 Objective Exam Vital Signs Vital Signs Date Time Temp Pulse Resp B/P (MAP) Pulse Ox O2 Delivery O2 Flow Rate FiO2 01/03/21 17:06 36.7 64 19 138/64 (88) 95 Nasal Cannula 1.00 Capillary Refill : Less Than 3 Seconds General Appearance: No Apparent Distress, WD/WN, Chronically ill Respiratory: No Accessory Muscle Use, No Respiratory Distress, Decreased Breath Sounds Cardiovascular: Regular Rate, Rhythm Neurologic/Psychiatric: Alert, Depressed Affect, Disoriented Results/Procedures Lab Laboratory Tests 01/02/21 19:29 01/03/21 04:10 Patient resulted labs reviewed. Assessment/Plan Assessment and Plan Assess & Plan/Chief Complaint A&P: s/p acute respiratory failure Left lower lobe pneumonia with sepsis on 01/02/2021 change Zosyn to meropenem and maintain Vanc and added Eraxis Bilateral heel ulcers s/p debridement Dr Barragan with wound vacs in place Previous b/l lucunar stroke Acute delirium Seizures Advanced dementia Sundowning syndrome Hypothyroidism HLP HTN hx of DVT Depression BPH Gout GERD DVT prophylaxis Plan: IV abx Monitor labs Wound vac 01/02/2021: Antibiotic changes IV fluids DNR Poor prognosis 01/03/2021: Continue meropenem and vancomycin Continue fluids Hospice candidate will pursue on Monday BRONWYN WILBURN DO January 03, 2021 06:36
[2021-01-03] MEDS: RT--FLUTICASONE/SALMETEROL 232-14 (AIRDUO RespiCLICK) IH SCH ×2 (06:46→18:21)
[2021-01-03] MEDS ORDERED: ANIDULAFUNGIN INJECTION 200 MG in NS (IVPB) 250 ML IV ONE (07:00)
[2021-01-03] MEDS: DOCUSATE SODIUM 100 MG (COLACE) CAP PO SCH ×2 (07:33→19:49)
[2021-01-03] MEDS: polyethylene glycoL POWDER 17 GM (MIRALAX) PACK PO SCH (07:34)
--- NOTE | 2021-01-03 08:15 | Diagnostic Imaging Report ---
CHEST 1 VIEW, AP/PA ONLY Indication: Pneumonia Comparison: 01/02/2021 Findings: Worsening of right basilar pulmonary opacities. No pleural effusion or pneumothorax. Stable cardiomediastinal silhouette. Impression: 1. Increased right basilar opacities may be due to worsening pneumonia or atelectasis. Dictated by: Dictated on workstation # [id number]
[2021-01-03] MEDS: risperiDONE 0.5 MG (RisperDAL) TABLET PO SCH ×2 (08:34→21:10)
[2021-01-03] MEDS: PANTOPRAZOLE 40 MG (PROTONIX) TAB PO SCH (08:34)
[2021-01-03] MEDS: VANCOMYCIN 1 GM/NS 250 ML IVPB IV SCH ×4 (08:34→21:09)
[2021-01-03] MEDS: COLCHICINE 0.6 MG (COLCRYS) TABLET PO SCH ×2 (08:34→21:10)
[2021-01-03] MEDS: ASPIRIN E.C. 81 MG (ECOTRIN) TAB PO SCH (08:34)
[2021-01-03] MEDS: NS IV 1000 ML 1,000 ML IV SCH ×2 (08:35→17:36)
[2021-01-03] MEDS: GABAPENTIN 300 MG (NEURONTIN) CAP PO SCH ×2 (08:35→21:10)
[2021-01-03] MEDS: meTOproloL SUCCINATE 50 MG (TOPROL XL) TAB PO SCH (08:35)
[2021-01-03] MEDS: TAMSULOSIN 0.4 MG (FLOMAX) CAP PO SCH ×2 (08:35→21:10)
[2021-01-03] MEDS: LEVOTHYROXINE 150 MCG (LEVOTHROID) TAB PO SCH (15:21)
[2021-01-03] MEDS: HYDROcodone/APAP 5 MG/325 MG (LORTAB) TAB PO PRN (17:33)
[2021-01-03] MEDS: RIVAROXABAN 20 MG TABLET (XARELTO) PO SCH (21:10)
[2021-01-03] MEDS: FINASTERIDE (PROSCAR) 5 MG TAB PO SCH (21:10)
[2021-01-03] MEDS: DONEPEZIL 10 MG (ARICEPT) TAB PO SCH (21:10)
[2021-01-03] MEDS: MONTELUKAST 10 MG (SINGULAIR) TAB PO SCH (21:10)
[2021-01-03] MEDS: OLANZapine 5 MG (ZyPREXA) TAB PO SCH (21:10)
[2021-01-03] MEDS: SERTRALINE 100 MG (ZOLOFT) TAB PO SCH (21:10)
[2021-01-03] MEDS: SIMvastatin 20 MG (ZOCOR) TAB PO SCH (21:10)
[2021-01-04] MEDS: NS IV 1000 ML 1,000 ML IV SCH ×2 (02:16→05:08)
[2021-01-04] MEDS: MEROPENEM 500 MG/SWFI 10 ML IV PUSH IV SCH ×8 (02:59→20:38)
[2021-01-04 04:22] VITALS: BP 120/62
[2021-01-04] MEDS: BETHANECHOL 25 MG (URECHOLINE) TAB PO SCH ×4 (05:15→20:38)
[2021-01-04] MEDS: RT-ALBUTEROL/IPRATROPIUM 3 ML (DUONEB) VIAL IH SCH ×2 (07:34→20:42)
[2021-01-04] MEDS: RT--FLUTICASONE/SALMETEROL 232-14 (AIRDUO RespiCLICK) IH SCH ×2 (07:36→20:43)
[2021-01-04 07:48] VITALS: BP 144/70
[2021-01-04] MEDS: FENTANYL PATCH REMOVAL TP SCH (08:49)
[2021-01-04] MEDS: DOCUSATE SODIUM 100 MG (COLACE) CAP PO SCH ×2 (08:49→20:38)
[2021-01-04] MEDS: TAMSULOSIN 0.4 MG (FLOMAX) CAP PO SCH ×2 (08:49→20:38)
[2021-01-04] MEDS: HYDROcodone/APAP 5 MG/325 MG (LORTAB) TAB PO PRN (08:49)
[2021-01-04] MEDS: fentaNYL PATCH 75 MCG (DURAGESIC) TD SCH (08:49)
[2021-01-04] MEDS: COLCHICINE 0.6 MG (COLCRYS) TABLET PO SCH ×2 (08:49→20:38)
[2021-01-04] MEDS: GABAPENTIN 300 MG (NEURONTIN) CAP PO SCH ×2 (08:50→20:38)
[2021-01-04] MEDS: polyethylene glycoL POWDER 17 GM (MIRALAX) PACK PO SCH (08:50)
[2021-01-04] MEDS: PANTOPRAZOLE 40 MG (PROTONIX) TAB PO SCH (08:50)
[2021-01-04] MEDS: ASPIRIN E.C. 81 MG (ECOTRIN) TAB PO SCH (08:50)
[2021-01-04] MEDS: meTOproloL SUCCINATE 50 MG (TOPROL XL) TAB PO SCH (08:50)
[2021-01-04] MEDS: risperiDONE 0.5 MG (RisperDAL) TABLET PO SCH ×2 (08:52→20:38)
[2021-01-04] MEDS: ANIDULAFUNGIN INJECTION 100 MG in NS (IVPB) 100 ML IV SCH (09:02)
--- NOTE | 2021-01-04 10:19 | Progress Note - Hospitalist ---
Subjective HPI/CC On Admission Date Seen by Provider: January 04, 2021 Time Seen by Provider: 10:00 Subjective/Events-last exam Patient doing about the same Up in a chair today Hospice candidate and will start process tomorrow Hep-Lock IV fluid Overall doing okay Review of Systems General: Fatigue Musculoskeletal: foot pain Neurological: Weakness, Confusion Focused Exam Lactate Level 01/02/21 19:29: Lactic Acid Level 2.41*H 01/02/21 21:25: Lactic Acid Level 1.35 Objective Exam Vital Signs Vital Signs Date Time Temp Pulse Resp B/P (MAP) Pulse Ox O2 Delivery O2 Flow Rate FiO2 01/04/21 16:00 36.2 55 18 121/72 (88) 93 Nasal Cannula 1.00 Capillary Refill : Less Than 3 Seconds General Appearance: No Apparent Distress, WD/WN, Chronically ill Respiratory: No Accessory Muscle Use, No Respiratory Distress, Decreased Breath Sounds Cardiovascular: Regular Rate, Rhythm Neurologic/Psychiatric: Alert, Disoriented Results/Procedures Lab Laboratory Tests 01/04/21 10:50 Patient resulted labs reviewed. Assessment/Plan Assessment and Plan Assess & Plan/Chief Complaint A&P: s/p acute respiratory failure Left lower lobe pneumonia with sepsis on 01/02/2021 change Zosyn to meropenem and maintain Vanc and added Eraxis Bilateral heel ulcers s/p debridement Dr Barragan with wound vacs in place Previous b/l lucunar stroke Acute delirium Seizures Advanced dementia Sundowning syndrome Hypothyroidism HLP HTN hx of DVT Depression BPH Gout GERD DVT prophylaxis Plan: IV abx Monitor labs Wound vac 01/02/2021: Antibiotic changes IV fluids DNR Poor prognosis 01/03/2021: Continue meropenem and vancomycin Continue fluids Hospice candidate will pursue on Monday01/04/2021: Pursue hospice tomorrow Monitor closely Broad-spectrum antibiotics BRONWYN WILBURN DO January 04, 2021 10:19
[2021-01-04 11:05] LABS: BASOPHILS # (AUTO) 0.1 10^3/uL (0.0-0.1); BASOPHILS % (AUTO) 1 % (0-10); EOSINOPHILS # (AUTO) 0.9 10^3/uL (0.0-0.3); EOSINOPHILS % (AUTO) 7 % (0-10); HEMATOCRIT 35 % (40-54); HEMOGLOBIN 10.8 g/dL (13.3-17.7); LYMPHOCYTES # (AUTO) 1.1 10^3/uL (1.0-4.0); LYMPHOCYTES % (AUTO) 8 % (12-44); MEAN CORPUSCULAR HEMOGLOBIN 28 pg (25-34); MEAN CORPUSCULAR HGB CONC 31 g/dL (32-36); MEAN CORPUSCULAR VOLUME 92 fL (80-99); MEAN PLATELET VOLUME 9.5 fL (9.0-12.2); MONOCYTES # (AUTO) 1.8 10^3/uL (0.0-1.0); MONOCYTES % (AUTO) 13 % (0-12); NEUTROPHILS # (AUTO) 9.8 10^3/uL (1.8-7.8); NEUTROPHILS % (AUTO) 71 % (42-75); PLATELET COUNT 220 10^3/uL (130-400); WHITE BLOOD COUNT 13.7 10^3/uL (4.3-11.0)
[2021-01-04 11:20] LABS: ALBUMIN 2.8 GM/DL (3.2-4.5)
[2021-01-04 11:21] LABS: CHLORIDE 106 MMOL/L (98-107); SODIUM 141 MMOL/L (135-145)
[2021-01-04 11:22] LABS: CALCIUM 8.4 MG/DL (8.5-10.1)
[2021-01-04 11:23] LABS: GLUCOSE 124 MG/DL (70-105); TOTAL PROTEIN 6.1 GM/DL (6.4-8.2)
[2021-01-04 11:24] LABS: CARBON DIOXIDE 26 MMOL/L (21-32)
[2021-01-04 11:25] LABS: BILIRUBIN,TOTAL 0.3 MG/DL (0.1-1.0)
[2021-01-04 11:26] LABS: ALKALINE PHOSPHATASE 47 U/L (40-136)
[2021-01-04 11:27] LABS: GFR ESTIMATED > 60
[2021-01-04 11:28] LABS: BUN/CREATININE RATIO 13
[2021-01-04 11:30] LABS: ALANINE AMINOTRANSFERASE 7 U/L (0-55)
[2021-01-04 11:36] VITALS: BP 148/51
[2021-01-04] MEDS: LEVOTHYROXINE 150 MCG (LEVOTHROID) TAB PO SCH (15:30)
[2021-01-04 16:00] VITALS: BP 121/72
[2021-01-04 20:00] VITALS: BP 168/79
[2021-01-04] MEDS: FINASTERIDE (PROSCAR) 5 MG TAB PO SCH (20:38)
[2021-01-04] MEDS: RIVAROXABAN 20 MG TABLET (XARELTO) PO SCH (20:38)
[2021-01-04] MEDS: DONEPEZIL 10 MG (ARICEPT) TAB PO SCH (20:38)
[2021-01-04] MEDS: OLANZapine 5 MG (ZyPREXA) TAB PO SCH (20:38)
[2021-01-04] MEDS: SIMvastatin 20 MG (ZOCOR) TAB PO SCH (20:38)
[2021-01-04] MEDS: SERTRALINE 100 MG (ZOLOFT) TAB PO SCH (20:38)
[2021-01-04] MEDS: MONTELUKAST 10 MG (SINGULAIR) TAB PO SCH (20:38)
[2021-01-05] VITALS (7 sets, daily range): BP systolic 130–188; BP diastolic 67–78
[2021-01-05] MEDS: MEROPENEM 500 MG/SWFI 10 ML IV PUSH IV SCH ×8 (03:18→21:47)
[2021-01-05 04:41] LABS: BASOPHILS # (AUTO) 0.1 10^3/uL (0.0-0.1); BASOPHILS % (AUTO) 1 % (0-10); EOSINOPHILS # (AUTO) 0.9 10^3/uL (0.0-0.3); EOSINOPHILS % (AUTO) 8 % (0-10); HEMATOCRIT 34 % (40-54); HEMOGLOBIN 10.6 g/dL (13.3-17.7); LYMPHOCYTES # (AUTO) 1.5 10^3/uL (1.0-4.0); LYMPHOCYTES % (AUTO) 13 % (12-44); MEAN CORPUSCULAR HEMOGLOBIN 28 pg (25-34); MEAN CORPUSCULAR HGB CONC 31 g/dL (32-36); MEAN CORPUSCULAR VOLUME 91 fL (80-99); MEAN PLATELET VOLUME 9.1 fL (9.0-12.2); MONOCYTES # (AUTO) 1.2 10^3/uL (0.0-1.0); MONOCYTES % (AUTO) 11 % (0-12); NEUTROPHILS # (AUTO) 7.6 10^3/uL (1.8-7.8); NEUTROPHILS % (AUTO) 67 % (42-75); PLATELET COUNT 211 10^3/uL (130-400); WHITE BLOOD COUNT 11.3 10^3/uL (4.3-11.0)
[2021-01-05 04:53] LABS: ALBUMIN 2.7 GM/DL (3.2-4.5); CHLORIDE 106 MMOL/L (98-107); POTASSIUM 4.1 MMOL/L (3.6-5.0); SODIUM 141 MMOL/L (135-145)
[2021-01-05 04:54] LABS: CALCIUM 8.7 MG/DL (8.5-10.1)
[2021-01-05 04:55] LABS: GLUCOSE 100 MG/DL (70-105)
[2021-01-05 04:57] LABS: BILIRUBIN,TOTAL 0.2 MG/DL (0.1-1.0); CARBON DIOXIDE 27 MMOL/L (21-32)
[2021-01-05 04:59] LABS: ALKALINE PHOSPHATASE 47 U/L (40-136); CREATININE SERUM 0.76 MG/DL (0.60-1.30); GFR ESTIMATED > 60
[2021-01-05 05:00] LABS: BUN/CREATININE RATIO 13
[2021-01-05 05:02] LABS: ALANINE AMINOTRANSFERASE 9 U/L (0-55)
[2021-01-05] MEDS: BETHANECHOL 25 MG (URECHOLINE) TAB PO SCH ×4 (05:15→21:48)
--- NOTE | 2021-01-05 06:10 | Progress Note - Hospitalist ---
Subjective HPI/CC On Admission Date Seen by Provider: Jan 05, 2021 Time Seen by Provider: 11:00 Subjective/Events-last exam Pt doing pretty well Dementia is significant Wound vacs will be changed out by wound care today Denies any other issues IV antibiotics maintained Reviewed pics of heel wounds and they are extensive Review of Systems General: Fatigue Pulmonary: Dyspnea Musculoskeletal: foot pain Neurological: Confusion Focused Exam Lactate Level Objective Exam Vital Signs Vital Signs Date Time Temp Pulse Resp B/P (MAP) Pulse Ox O2 Delivery O2 Flow Rate FiO2 01/06/21 03:51 36.8 59 18 139/75 (96) 92 Nasal Cannula 1.00 Capillary Refill : Less Than 3 Seconds General Appearance: No Apparent Distress, WD/WN, Chronically ill Respiratory: No Accessory Muscle Use, No Respiratory Distress, Decreased Breath Sounds Cardiovascular: Regular Rate, Rhythm Neurologic/Psychiatric: Alert, Disoriented Results/Procedures Lab Laboratory Tests 01/06/21 04:47 Patient resulted labs reviewed. Assessment/Plan Assessment and Plan Assess & Plan/Chief Complaint A&P: s/p acute respiratory failure Left lower lobe pneumonia with sepsis on 01/02/2021 change Zosyn to meropenem and maintain Vanc and added Eraxis Bilateral heel ulcers s/p debridement Dr Barragan with wound vacs in place Previous b/l lucunar stroke Acute delirium Seizures Advanced dementia Sundowning syndrome Hypothyroidism HLP HTN hx of DVT Depression BPH Gout GERD DVT prophylaxis Plan: IV abx Monitor labs Wound vac 01/02/2021: Antibiotic changes IV fluids DNR Poor prognosis 01/03/2021: Continue meropenem and vancomycin Continue fluids Hospice candidate will pursue on Monday01/04/2021: Pursue hospice tomorrow Monitor closely Broad-spectrum antibiotics 01/05/21: Extensive heel wounds Monitor closely BRONWYN WILBURN DO Jan 05, 2021 06:10
[2021-01-05] MEDS: RT-ALBUTEROL/IPRATROPIUM 3 ML (DUONEB) VIAL IH SCH ×2 (07:30→22:27)
[2021-01-05] MEDS: RT--FLUTICASONE/SALMETEROL 232-14 (AIRDUO RespiCLICK) IH SCH ×2 (07:31→22:28)
[2021-01-05] MEDS: COLCHICINE 0.6 MG (COLCRYS) TABLET PO SCH ×2 (09:46→21:47)
[2021-01-05] MEDS: risperiDONE 0.5 MG (RisperDAL) TABLET PO SCH ×2 (09:46→21:47)
[2021-01-05] MEDS: ASPIRIN E.C. 81 MG (ECOTRIN) TAB PO SCH (09:46)
[2021-01-05] MEDS: meTOproloL SUCCINATE 50 MG (TOPROL XL) TAB PO SCH (09:46)
[2021-01-05] MEDS: PANTOPRAZOLE 40 MG (PROTONIX) TAB PO SCH (09:46)
[2021-01-05] MEDS: GABAPENTIN 300 MG (NEURONTIN) CAP PO SCH ×2 (09:46→21:48)
[2021-01-05] MEDS: TAMSULOSIN 0.4 MG (FLOMAX) CAP PO SCH ×2 (09:46→21:47)
[2021-01-05] MEDS: ANIDULAFUNGIN INJECTION 100 MG in NS (IVPB) 100 ML IV SCH (09:47)
[2021-01-05] MEDS: polyethylene glycoL POWDER 17 GM (MIRALAX) PACK PO SCH (09:47)
[2021-01-05] MEDS: DOCUSATE SODIUM 100 MG (COLACE) CAP PO SCH ×2 (09:47→19:49)
--- NOTE | 2021-01-05 12:30 | Progress Note ---
Subjective Date Seen by a Provider: Jan 05, 2021 Time Seen by a Provider: 12:00 Subjective/Events-last exam doing well. slight improvement cognition. wound vac changed today. good granulation bed. no systemic sx. Focused Exam Lactate Level 01/02/21 19:29: Lactic Acid Level 2.41*H 01/02/21 21:25: Lactic Acid Level 1.35 Objective Exam Vital Signs Date Time Temp Pulse Resp B/P (MAP) Pulse Ox O2 Delivery O2 Flow Rate FiO2 01/05/21 08:00 Nasal Cannula 1.00 01/05/21 08:00 36.5 57 16 130/67 (88) 91 Nasal Cannula 1.00 01/05/21 07:30 91 Nasal Cannula 1.00 01/05/21 02:56 36.8 56 16 166/78 (107) 92 Nasal Cannula 1.00 01/05/21 00:42 36.6 60 16 149/71 (97) 92 Nasal Cannula 1.00 01/04/21 20:45 Nasal Cannula 1.00 01/04/21 20:43 94 Nasal Cannula 1.00 01/04/21 20:00 35.8 55 16 168/79 (108) 98 Nasal Cannula 1.00 01/04/21 16:00 36.2 55 18 121/72 (88) 93 Nasal Cannula 1.00 I & O 01/05/21 07:00 Intake Total 1820 ml Output Total 1850 ml Balance -30 ml Capillary Refill : Less Than 3 Seconds General Appearance: No Apparent Distress HEENT: PERRL/EOMI Neck: Full Range of Motion Respiratory: Chest Non Tender, Lungs Clear Cardiovascular: Regular Rate, Rhythm Gastrointestinal: normal bowel sounds, non tender, soft Extremity: Normal Capillary Refill, Other (wound granulating in well bilat heel) Neurologic/Psychiatric: Alert, Oriented x3 Skin: Normal Color Lymphatic: No Adenopathy Results Lab Laboratory Tests 01/05/21 04:29: White Blood Count 11.3H, Red Blood Count 3.76L, Hemoglobin 10.6L, Hematocrit 34L , Mean Corpuscular Volume 91, Mean Corpuscular Hemoglobin 28, Mean Corpuscular Hemoglobin Concent 31L, Red Cell Distribution Width 13.5, Platelet Count 211, Mean Platelet Volume 9.1, Immature Granulocyte % (Auto) 0, Neutrophils (%) (Auto) 67, Lymphocytes (%) (Auto) 13, Monocytes (%) (Auto) 11, Eosinophils (%) (Auto) 8, Basophils (%) (Auto) 1, Neutrophils # (Auto) 7.6, Lymphocytes # (Auto) 1.5, Monocytes # (Auto) 1.2H, Eosinophils # (Auto) 0.9H, Basophils # (Auto) 0.1, Immature Granulocyte # (Auto) 0.0, Sodium Level 141, Potassium Level 4.1, Chloride Level 106, Carbon Dioxide Level 27, Anion Gap 8, Blood Urea Nitrogen 10, Creatinine 0.76, Estimat Glomerular Filtration Rate > 60, BUN/Creatinine Ratio 13, Glucose Level 100, Calcium Level 8.7, Corrected Calcium 9.7, Total Bilirubin 0.2, Aspartate Amino Transf (AST/SGOT) 20, Alanine Aminotransferase (ALT/SGPT) 9, Alkaline Phosphatase 47, Total Protein 6.0L, Albumin 2.7L Microbiology 01/02/21 Blood Culture - Preliminary, Resulted No growth 12/31/20 Gram Stain - Final, Resulted 12/31/20 Anaerobic Culture - Preliminary, Resulted Culture In Progress 12/31/20 Surgical Culture - Final, Resulted No growth 12/31/20 MRSA Screen - Final, Complete MRSA not isolated 12/30/20 Urine Culture - Final, Complete NO GROWTH Assessment/Plan Assessment/Plan Assess & Plan/Chief Complaint bilateral heel pressure necrosis s/p debridement and wound vac placement. cont wound care and abx. cont off-loading pressure heels as well as sacral and greater trochanter area. transition right heel to promogranin AG wound filler and cont vac on left heel. NICHOLAS TAYLOR MD Jan 05, 2021 12:30
[2021-01-05] MEDS: LEVOTHYROXINE 150 MCG (LEVOTHROID) TAB PO SCH (14:53)
[2021-01-05] MEDS: DONEPEZIL 10 MG (ARICEPT) TAB PO SCH (21:47)
[2021-01-05] MEDS: SIMvastatin 20 MG (ZOCOR) TAB PO SCH (21:47)
[2021-01-05] MEDS: SERTRALINE 100 MG (ZOLOFT) TAB PO SCH (21:47)
[2021-01-05] MEDS: MONTELUKAST 10 MG (SINGULAIR) TAB PO SCH (21:47)
[2021-01-05] MEDS: OLANZapine 5 MG (ZyPREXA) TAB PO SCH (21:47)
[2021-01-05] MEDS: RIVAROXABAN 20 MG TABLET (XARELTO) PO SCH (21:48)
[2021-01-05] MEDS: FINASTERIDE (PROSCAR) 5 MG TAB PO SCH (21:48)
[2021-01-06 00:20] VITALS: BP 141/76
[2021-01-06 03:51] VITALS: BP 139/75
[2021-01-06] MEDS: MEROPENEM 500 MG/SWFI 10 ML IV PUSH IV SCH ×4 (04:11→09:38)
[2021-01-06 04:54] LABS: BASOPHILS # (AUTO) 0.1 10^3/uL (0.0-0.1); BASOPHILS % (AUTO) 1 % (0-10); EOSINOPHILS # (AUTO) 0.8 10^3/uL (0.0-0.3); EOSINOPHILS % (AUTO) 7 % (0-10); HEMATOCRIT 34 % (40-54); HEMOGLOBIN 11.1 g/dL (13.3-17.7); LYMPHOCYTES # (AUTO) 1.6 10^3/uL (1.0-4.0); LYMPHOCYTES % (AUTO) 14 % (12-44); MEAN CORPUSCULAR HEMOGLOBIN 29 pg (25-34); MEAN CORPUSCULAR HGB CONC 32 g/dL (32-36); MEAN CORPUSCULAR VOLUME 90 fL (80-99); MEAN PLATELET VOLUME 8.9 fL (9.0-12.2); MONOCYTES # (AUTO) 1.2 10^3/uL (0.0-1.0); MONOCYTES % (AUTO) 10 % (0-12); NEUTROPHILS # (AUTO) 7.6 10^3/uL (1.8-7.8); NEUTROPHILS % (AUTO) 67 % (42-75); PLATELET COUNT 227 10^3/uL (130-400); WHITE BLOOD COUNT 11.3 10^3/uL (4.3-11.0)
[2021-01-06 05:06] LABS: ALBUMIN 2.8 GM/DL (3.2-4.5); CHLORIDE 104 MMOL/L (98-107); POTASSIUM 3.8 MMOL/L (3.6-5.0); SODIUM 141 MMOL/L (135-145)
[2021-01-06 05:08] LABS: CALCIUM 8.8 MG/DL (8.5-10.1)
[2021-01-06 05:09] LABS: GLUCOSE 114 MG/DL (70-105); TOTAL PROTEIN 6.2 GM/DL (6.4-8.2)
[2021-01-06 05:10] LABS: CARBON DIOXIDE 28 MMOL/L (21-32)
[2021-01-06 05:11] LABS: BILIRUBIN,TOTAL 0.2 MG/DL (0.1-1.0)
[2021-01-06 05:12] LABS: ALKALINE PHOSPHATASE 50 U/L (40-136); CREATININE SERUM 0.81 MG/DL (0.60-1.30); GFR ESTIMATED > 60
[2021-01-06 05:14] LABS: BUN/CREATININE RATIO 12
[2021-01-06 05:15] LABS: ALANINE AMINOTRANSFERASE 9 U/L (0-55)
[2021-01-06] MEDS: BETHANECHOL 25 MG (URECHOLINE) TAB PO SCH ×4 (05:57→20:09)
--- NOTE | 2021-01-06 06:23 | Progress Note - Hospitalist ---
Subjective HPI/CC On Admission Date Seen by Provider: Jan 06, 2021 Time Seen by Provider: 11:00 Subjective/Events-last exam Pt doing about the same Overall no progress Wound vacs will be discontinued tomorrow Pt will finish up on oral antibiotics at discharge to the intermediate tomorrow on hospice Arrangement will be made Review of Systems General: Fatigue, Malaise Neurological: Confusion Objective Exam Vital Signs Vital Signs Date Time Temp Pulse Resp B/P (MAP) Pulse Ox O2 Delivery O2 Flow Rate FiO2 01/07/21 04:09 36.6 54 14 135/65 (88) 97 Nasal Cannula 1.50 Capillary Refill : Less Than 3 Seconds General Appearance: No Apparent Distress, WD/WN, Chronically ill Respiratory: Lungs Clear Cardiovascular: Regular Rate, Rhythm Neurologic/Psychiatric: Alert, Disoriented Results/Procedures Lab Laboratory Tests 01/06/21 04:47 Patient resulted labs reviewed. Assessment/Plan Assessment and Plan Assess & Plan/Chief Complaint A&P: s/p acute respiratory failure Left lower lobe pneumonia with sepsis on 01/02/2021 change Zosyn to meropenem and maintain Vanc and added Eraxis Bilateral heel ulcers s/p debridement Dr Barragan with wound vacs in place Previous b/l lucunar stroke Acute delirium Seizures Advanced dementia Sundowning syndrome Hypothyroidism HLP HTN hx of DVT Depression BPH Gout GERD DVT prophylaxis Plan: IV abx Monitor labs Wound vac 01/02/2021: Antibiotic changes IV fluids DNR Poor prognosis 01/03/2021: Continue meropenem and vancomycin Continue fluids Hospice candidate will pursue on Monday01/04/2021: Pursue hospice tomorrow Monitor closely Broad-spectrum antibiotics 01/05/21: Extensive heel wounds Monitor closely 01/06/21: DC to CT tomorrow on hospice BRONWYN WILBURN DO Jan 06, 2021 06:23
[2021-01-06] MEDS: RT-ALBUTEROL/IPRATROPIUM 3 ML (DUONEB) VIAL IH SCH ×2 (07:33→19:38)
[2021-01-06] MEDS: RT--FLUTICASONE/SALMETEROL 232-14 (AIRDUO RespiCLICK) IH SCH ×2 (07:34→19:40)
[2021-01-06 08:00] VITALS: BP 138/74
[2021-01-06] MEDS: DOCUSATE SODIUM 100 MG (COLACE) CAP PO SCH ×2 (09:00→20:08)
[2021-01-06] MEDS: polyethylene glycoL POWDER 17 GM (MIRALAX) PACK PO SCH (09:00)
[2021-01-06] MEDS: COLCHICINE 0.6 MG (COLCRYS) TABLET PO SCH ×2 (09:07→20:09)
[2021-01-06] MEDS: ASPIRIN E.C. 81 MG (ECOTRIN) TAB PO SCH (09:07)
[2021-01-06] MEDS: TAMSULOSIN 0.4 MG (FLOMAX) CAP PO SCH ×2 (09:07→20:09)
[2021-01-06] MEDS: risperiDONE 0.5 MG (RisperDAL) TABLET PO SCH ×2 (09:07→20:09)
[2021-01-06] MEDS: PANTOPRAZOLE 40 MG (PROTONIX) TAB PO SCH (09:07)
[2021-01-06] MEDS: GABAPENTIN 300 MG (NEURONTIN) CAP PO SCH ×2 (09:07→20:09)
[2021-01-06] MEDS: meTOproloL SUCCINATE 50 MG (TOPROL XL) TAB PO SCH (09:13)
[2021-01-06] MEDS: ANIDULAFUNGIN INJECTION 100 MG in NS (IVPB) 100 ML IV SCH (09:59)
[2021-01-06 12:00] VITALS: BP 109/69
[2021-01-06] MEDS: LEVOTHYROXINE 150 MCG (LEVOTHROID) TAB PO SCH (13:42)
--- NOTE | 2021-01-06 14:05 | Progress Note ---
Subjective Date Seen by a Provider: Jan 06, 2021 Time Seen by a Provider: 13:00 Subjective/Events-last exam doing ok. appetite poor. currently wound vac on left heel. Objective Exam Vital Signs Date Time Temp Pulse Resp B/P (MAP) Pulse Ox O2 Delivery O2 Flow Rate FiO2 01/06/21 12:00 35.8 59 16 109/69 (82) 93 Room Air 01/06/21 08:00 Nasal Cannula 1.00 01/06/21 08:00 36.1 95 18 138/74 (95) 93 Room Air 01/06/21 07:35 92 Nasal Cannula 1.00 01/06/21 03:51 36.8 59 18 139/75 (96) 92 Nasal Cannula 1.00 01/06/21 00:20 36.6 71 18 141/76 (97) 94 Nasal Cannula 1.00 01/05/21 22:28 95 Nasal Cannula 1.00 01/05/21 21:00 Nasal Cannula 1.00 01/05/21 19:29 36.7 65 18 165/78 (107) 95 Room Air 01/05/21 16:00 36.6 57 16 130/67 (88) 94 Room Air I & O 01/06/21 07:00 Intake Total 1585 ml Output Total 4175 ml Balance -2590 ml Capillary Refill : Less Than 3 Seconds General Appearance: No Apparent Distress HEENT: PERRL/EOMI Neck: Full Range of Motion Respiratory: Chest Non Tender Cardiovascular: Regular Rate, Rhythm Gastrointestinal: normal bowel sounds, non tender, soft Extremity: Normal Capillary Refill, Other (left wound vac intact.) Skin: Normal Color Lymphatic: No Adenopathy Results Lab Laboratory Tests 01/06/21 04:47: White Blood Count 11.3H, Red Blood Count 3.84L, Hemoglobin 11.1L, Hematocrit 34L , Mean Corpuscular Volume 90, Mean Corpuscular Hemoglobin 29, Mean Corpuscular Hemoglobin Concent 32, Red Cell Distribution Width 13.3, Platelet Count 227, Mean Platelet Volume 8.9L, Immature Granulocyte % (Auto) 1, Neutrophils (%) (Auto) 67, Lymphocytes (%) (Auto) 14, Monocytes (%) (Auto) 10, Eosinophils (%) (Auto) 7, Basophils (%) (Auto) 1, Neutrophils # (Auto) 7.6, Lymphocytes # (Auto) 1.6, Monocytes # (Auto) 1.2H, Eosinophils # (Auto) 0.8H, Basophils # (Auto) 0.1, Immature Granulocyte # (Auto) 0.1, Sodium Level 141, Potassium Level 3.8, Chloride Level 104, Carbon Dioxide Level 28, Anion Gap 9, Blood Urea Nitrogen 10, Creatinine 0.81, Estimat Glomerular Filtration Rate > 60, BUN/Creatinine Ratio 12, Glucose Level 114H, Calcium Level 8.8, Corrected Calcium 9.8, Total Bilirubin 0.2, Aspartate Amino Transf (AST/SGOT) 17, Alanine Aminotransferase (ALT/SGPT) 9, Alkaline Phosphatase 50, Total Protein 6.2L, Albumin 2.8L Microbiology 01/02/21 Blood Culture - Preliminary, Resulted No growth 12/31/20 Gram Stain - Final, Complete 12/31/20 Anaerobic Culture - Final, Complete Propionibacterium acnes 12/31/20 Surgical Culture - Final, Complete No growth 12/31/20 MRSA Screen - Final, Complete MRSA not isolated 12/30/20 Urine Culture - Final, Complete NO GROWTH Assessment/Plan Assessment/Plan Assess & Plan/Chief Complaint bilateral heel pressure necrosis s/p debridement and wound vac placement. cont wound care and abx. cont off-loading pressure heels as well as sacral and greater trochanter area. transition right heel to promogranin AG wound filler and cont vac on left heel. patient will go to [facility] on hospice. will due wound care via non-vac. NICHOLAS TAYLOR MD Jan 06, 2021 14:05
--- NOTE | 2021-01-06 14:10 | Discharge Inst-Surgical ---
D/C Lap Instructions-CLAUDIA Follow Up PRN Activity as tolerated Wound care bilateral heel: pomigranin AG filler followed by wet to dry gauze followed by kerlix followed by heel protectors daily. Regular Diet Symptoms to Report: Fever over 101 degree F, Nausea/Vomiting Infection Signs and Symptoms to report: Increased redness, Foul odor of wound, Increased drainage Bathing instructions: May shower Operative Area Clean/Dry; Keep incision clean/dry If any problems/questions: Contact your physician or go to Emergency Room NICHOLAS TAYLOR MD Jan 06, 2021 14:10
[2021-01-06 16:24] VITALS: BP 113/66
[2021-01-06] MEDS: AUGMENTIN 500 MG TAB (AMOXICILLIN/CLAVULANATE) PO SCH (18:20)
[2021-01-06 20:00] VITALS: BP 131/74
[2021-01-06] MEDS: SERTRALINE 100 MG (ZOLOFT) TAB PO SCH (20:09)
[2021-01-06] MEDS: OLANZapine 5 MG (ZyPREXA) TAB PO SCH (20:09)
[2021-01-06] MEDS: MONTELUKAST 10 MG (SINGULAIR) TAB PO SCH (20:09)
[2021-01-06] MEDS: RIVAROXABAN 20 MG TABLET (XARELTO) PO SCH (20:09)
[2021-01-06] MEDS: FINASTERIDE (PROSCAR) 5 MG TAB PO SCH (20:09)
[2021-01-06] MEDS: SIMvastatin 20 MG (ZOCOR) TAB PO SCH (20:09)
[2021-01-06] MEDS: DONEPEZIL 10 MG (ARICEPT) TAB PO SCH (20:09)
[2021-01-07] VITALS: BP 121/60
[2021-01-07 04:09] VITALS: BP 135/65
[2021-01-07] MEDS ORDERED: OXYC-525 PO (05:30)
[2021-01-07] MEDS ORDERED: ACHD5005 PO (05:30)
[2021-01-07] MEDS ORDERED: AMOX1TAB11 PO (05:30)
[2021-01-07] MEDS ORDERED: FENT1PAT59 TD (05:30)
--- NOTE | 2021-01-07 05:30 | Discharge Summary ---
Discharge Summary Hospital Course Was the Problem List Reviewed?: Yes Problems/Dx: (1) Cellulitis of both feet Status: Acute (2) Diabetes mellitus, type 2 Status: Chronic Qualifiers: Qualified Codes: E11.621 - Type 2 diabetes mellitus with foot ulcer; L97.509 - Non-pressure chronic ulcer of other part of unspecified foot with unspecified severity (3) Acute respiratory failure Status: Acute Qualifiers: Qualified Codes: J96.01 - Acute respiratory failure with hypoxia; J96.02 - Acute respiratory failure with hypercapnia (4) Hypertension Status: Chronic Qualifiers: Qualified Codes: I10 - Essential (primary) hypertension (5) COPD exacerbation Status: Acute (6) Altered mental status Status: Acute Qualifiers: Qualified Codes: R41.82 - Altered mental status, unspecified (7) Seizure Status: Chronic (8) Dementia Status: Chronic Qualifiers: Qualified Codes: G30.1 - Alzheimer's disease with late onset; F02.80 - Dementia in other diseases classified elsewhere without behavioral disturbance (9) Delirium Status: Acute (10) Gout Status: Chronic Hospital Course Date of Admission: December 30, 2020 at 17:36 Admission Diagnosis : Family Physician/Provider: Anca Collins Date of Discharge: 01/07/21 Discharge Diagnosis: Bilateral heel decubitus ulcers, dementia profound, history of CVA, Seizure disorder, end-of-life status, pneumonia HAP Hospital Course: Patient had an uneventful hospital course although it was long. He was admitted for cellulitis and decubitus ulcers of the heels those were debrided by Dr. Barragan and wound vacs placed. IV antibiotics maintained. Patient experienced rigors and chills and pneumonia was diagnosed resistant type due to broad-spectrum antibiotics maintained so Zosyn was discontinued placed on meropenem and the pneumonia resolved. Overall his severe comorbidities and significant debility deemed to not hospice candidate and family was willing to have him discharged back to the residential on hospice. Labs and Pending Lab Test: Microbiology 01/02/21 Blood Culture - Preliminary, Resulted No growth 12/31/20 Gram Stain - Final, Complete 12/31/20 Anaerobic Culture - Final, Complete Propionibacterium acnes 12/31/20 Surgical Culture - Final, Complete No growth 12/31/20 MRSA Screen - Final, Complete MRSA not isolated 12/30/20 Urine Culture - Final, Complete NO GROWTH Home Meds Active Amox Tr-K Clv 500-125 mg Tab (Amoxicillin/Potassium Clav) 1 Each Tablet 500 Mg PO BID WITH MEALS 7 Days Oxycodone HCl 15 Mg Tablet 15 Mg PO Q12H PRN Hydrocodone-Acetamin 5-325 mg (Hydrocodone/Acetaminophen) 1 Each Tablet 1 Tab PO Q8H PRN Duragesic Patch 75 MCG (Fentanyl) 1 Each Patch.td72 75 Mcg TD Q72H Reported Pro-Stat Max Liquid (Amino Acids/Protein Hydrolys) 887 Ml Liquid 60 Ml PO BID Keppra (Levetiracetam) 500 Mg Tablet 500 Mg PO BID Pantoprazole Sodium 40 Mg Tablet.dr 40 Mg PO DAILY Olanzapine 5 Mg Tablet 5 Mg PO HS Miralax (Polyethylene Glycol 3350) 17 Gm Powd.pack 17 Gm PO DAILY Metoprolol Succinate 50 Mg Tab.er.24h 50 Mg PO DAILY HOLD IF PULSE LESS THEN 50 AND IF BP LESS THAN 100/50 Aspirin EC (Aspirin) 81 Mg Tablet.dr 81 Mg PO DAILY Lactaid (Lactase) 3,000 Unit Tablet 3,000 Unit PO TIDWM Cetirizine HCl 10 Mg Tablet 10 Mg PO DAILY PRN [Bethanechol] 25 Tab 25 Mg PO QID Flomax (Tamsulosin HCl) 0.4 Mg Cap 0.4 Mg PO HS Finasteride 5 Mg Tablet 5 Mg PO HS Risperidone 0.5 Mg Tablet 0.5 Mg PO BID Donepezil HCl 10 Mg Tablet 10 Mg PO HS Sertraline HCl 100 Mg Tablet 100 Mg PO HS Docusate Sodium 100 Mg Capsule 100 Mg PO BID Neurontin (Gabapentin) 300 Mg Capsule 300 Mg PO BID Pravastatin Sodium 40 Mg Tablet 40 Mg PO HS Triamcinolone Acetonide 0.5% Cream (Triamcinolone Acetonide) 15 Gm Cream..g. 15 Gm TP BID PRN Colcrys (Colchicine) 0.6 Mg Tablet 0.6 Mg PO BID Xarelto (Rivaroxaban) 20 Mg Tablet 20 Mg PO HS Levothyroxine Sodium 150 Mcg Tablet 150 Mcg PO 1400 Symbicort 160-4.5 Mcg Inhaler (Budesonide/Formoterol Fumarate) 10.2 Gm Hfa.aer.ad 2 Puff IH BID Montelukast Sodium 10 Mg Tablet 10 Mg PO HS Assessment/Pt Instructions half-way on hospice Discharge Planning: <30 minutes discharge planning Discharge Physical Examination Vital Signs Vital Signs Date Time Temp Pulse Resp B/P (MAP) Pulse Ox O2 Delivery O2 Flow Rate FiO2 01/07/21 04:09 36.6 54 14 135/65 (88) 97 Nasal Cannula 1.50 General Appearance: No Apparent Distress, WD/WN, Chronically ill Allergies: Coded Allergies: No Known Drug Allergies (Unverified , 04/24/19) Discharge Summary Date of Admission December 30, 2020 at 17:36 Date of Discharge Discharge Date: Jan 07, 2021 Comfort Measures/ End of Life Care: Hospice Care (Home) Discharge Diagnosis A&P: s/p acute respiratory failure Left lower lobe pneumonia with sepsis on 01/02/2021 change Zosyn to meropenem and maintain Vanc and added Eraxis Bilateral heel ulcers s/p debridement Dr Barragan with wound vacs in place Previous b/l lucunar stroke Acute delirium Seizures Advanced dementia Sundowning syndrome Hypothyroidism HLP HTN hx of DVT Depression BPH Gout GERD DVT prophylaxis Plan: IV abx Monitor labs Wound vac 01/02/2021: Antibiotic changes IV fluids DNR Poor prognosis 01/03/2021: Continue meropenem and vancomycin Continue fluids Hospice candidate will pursue on Monday01/04/2021: Pursue hospice tomorrow Monitor closely Broad-spectrum antibiotics 01/05/21: Extensive heel wounds Monitor closely 01/06/21: DC to CT tomorrow on hospice BRONWYN WILBURN DO Jan 07, 2021 05:30
[2021-01-07] MEDS: BETHANECHOL 25 MG (URECHOLINE) TAB PO SCH ×2 (06:02→11:37)
[2021-01-07 06:21] LABS: BASOPHILS # (AUTO) 0.1 10^3/uL (0.0-0.1); BASOPHILS % (AUTO) 1 % (0-10); EOSINOPHILS # (AUTO) 1.1 10^3/uL (0.0-0.3); EOSINOPHILS % (AUTO) 9 % (0-10); HEMATOCRIT 36 % (40-54); HEMOGLOBIN 11.3 g/dL (13.3-17.7); LYMPHOCYTES # (AUTO) 1.9 10^3/uL (1.0-4.0); LYMPHOCYTES % (AUTO) 17 % (12-44); MEAN CORPUSCULAR HEMOGLOBIN 29 pg (25-34); MEAN CORPUSCULAR HGB CONC 32 g/dL (32-36); MEAN CORPUSCULAR VOLUME 91 fL (80-99); MEAN PLATELET VOLUME 9.7 fL (9.0-12.2); MONOCYTES # (AUTO) 1.2 10^3/uL (0.0-1.0); MONOCYTES % (AUTO) 11 % (0-12); NEUTROPHILS # (AUTO) 6.9 10^3/uL (1.8-7.8); NEUTROPHILS % (AUTO) 62 % (42-75); PLATELET COUNT 238 10^3/uL (130-400); WHITE BLOOD COUNT 11.2 10^3/uL (4.3-11.0)
[2021-01-07 06:27] LABS: ALBUMIN 2.8 GM/DL (3.2-4.5); CHLORIDE 103 MMOL/L (98-107); SODIUM 140 MMOL/L (135-145)
[2021-01-07 06:28] LABS: CALCIUM 8.7 MG/DL (8.5-10.1)
[2021-01-07 06:29] LABS: GLUCOSE 102 MG/DL (70-105); TOTAL PROTEIN 6.3 GM/DL (6.4-8.2)
[2021-01-07 06:30] LABS: CARBON DIOXIDE 28 MMOL/L (21-32)
[2021-01-07 06:31] LABS: BILIRUBIN,TOTAL 0.2 MG/DL (0.1-1.0)
[2021-01-07 06:33] LABS: ALKALINE PHOSPHATASE 49 U/L (40-136); CREATININE SERUM 0.86 MG/DL (0.60-1.30); GFR ESTIMATED > 60
[2021-01-07 06:34] LABS: BUN/CREATININE RATIO 16
[2021-01-07 06:36] LABS: ALANINE AMINOTRANSFERASE 13 U/L (0-55)
[2021-01-07] MEDS: RT-ALBUTEROL/IPRATROPIUM 3 ML (DUONEB) VIAL IH SCH (07:00)
[2021-01-07] MEDS: RT--FLUTICASONE/SALMETEROL 232-14 (AIRDUO RespiCLICK) IH SCH (07:00)
[2021-01-07 08:00] VITALS: BP 143/67
[2021-01-07] MEDS: PANTOPRAZOLE 40 MG (PROTONIX) TAB PO SCH (09:41)
[2021-01-07] MEDS: GABAPENTIN 300 MG (NEURONTIN) CAP PO SCH (09:41)
[2021-01-07] MEDS: AUGMENTIN 500 MG TAB (AMOXICILLIN/CLAVULANATE) PO SCH (09:41)
[2021-01-07] MEDS: TAMSULOSIN 0.4 MG (FLOMAX) CAP PO SCH (09:41)
[2021-01-07] MEDS: meTOproloL SUCCINATE 50 MG (TOPROL XL) TAB PO SCH (09:41)
[2021-01-07] MEDS: COLCHICINE 0.6 MG (COLCRYS) TABLET PO SCH (09:41)
[2021-01-07] MEDS: FENTANYL PATCH REMOVAL TP SCH (09:42)
[2021-01-07] MEDS: DOCUSATE SODIUM 100 MG (COLACE) CAP PO SCH (09:42)
[2021-01-07] MEDS: fentaNYL PATCH 75 MCG (DURAGESIC) TD SCH (09:42)
[2021-01-07] MEDS: risperiDONE 0.5 MG (RisperDAL) TABLET PO SCH (09:42)
[2021-01-07] MEDS: polyethylene glycoL POWDER 17 GM (MIRALAX) PACK PO SCH (09:42)
[2021-01-07] MEDS: ASPIRIN E.C. 81 MG (ECOTRIN) TAB PO SCH (09:42)
[2021-01-07 12:00] VITALS: BP 138/64
[2021-01-07] MEDS: LEVOTHYROXINE 150 MCG (LEVOTHROID) TAB PO SCH (14:27)
[2021-01-07 15:55] VITALS: BP 138/64
== END 2021-01-07 15:55 | disposition hospice, inpatient (51) | DRG 622 ==
LOC: EDUNIT# 14:08 → ER 14:09 → 4TH 17:36
PROVIDERS: ADMIT Family Medicine; ATTEND Internal Medicine
PROC: 0QBP0ZZ Excision of Left Metatarsal, Open Approach (ICD-10-PCS; 2020-12-31)
PROC: 0JBQ0ZZ Excision of Right Foot Subcutaneous Tissue and Fascia, Open Approach (ICD-10-PCS; principal; 2020-12-31 15:25)
DX: E11.621 Type 2 diabetes mellitus with foot ulcer (principal); J96.01 Acute respiratory failure with hypoxia; J96.02 Acute respiratory failure with hypercapnia; J18.9 Pneumonia, unspecified organism; A41.9 Sepsis, unspecified organism; L03.116 Cellulitis of left lower limb; J44.1 Chronic obstructive pulmonary disease with (acute) exacerbation; L97.408 Non-pressure chronic ulcer of unspecified heel and midfoot with other specified severity; F05 Delirium due to known physiological condition; L03.115 Cellulitis of right lower limb; L89.629 Pressure ulcer of left heel, unspecified stage; L89.619 Pressure ulcer of right heel, unspecified stage; Z86.718 Personal history of other venous thrombosis and embolism; N40.0 Benign prostatic hyperplasia without lower urinary tract symptoms; M19.90 Unspecified osteoarthritis, unspecified site; G89.29 Other chronic pain; Z66 Do not resuscitate; M54.9 Dorsalgia, unspecified; M10.9 Gout, unspecified; E03.9 Hypothyroidism, unspecified; Z79.84 Long term (current) use of oral hypoglycemic drugs; H40.9 Unspecified glaucoma; F32.9 Major depressive disorder, single episode, unspecified; Z79.82 Long term (current) use of aspirin; Z79.899 Other long term (current) drug therapy; Z79.01 Long term (current) use of anticoagulants; N18.9 Chronic kidney disease, unspecified; G30.9 Alzheimer's disease, unspecified; F02.80 Dementia in other diseases classified elsewhere, unspecified severity, without behavioral disturbance, psychotic disturbance, mood disturbance, and anxiety; Z86.73 Personal history of transient ischemic attack (TIA), and cerebral infarction without residual deficits; E11.22 Type 2 diabetes mellitus with diabetic chronic kidney disease; E78.5 Hyperlipidemia, unspecified; R56.9 Unspecified convulsions; K21.9 Gastro-esophageal reflux disease without esophagitis
CPT/HCPCS: 36415; 36600; 51701; 70450; 71045; 80048; 80053; 80202; 81000; 82805; 82947; 83605; 84145; 84439; 84443; 85007; 85025; 85027; 85610; 85730; 86141; 86769; 87040; 87070; 87075; 87076; 87081; 87088; 87205; 88305; 93925; 94640; 94760; 96374